=== PATIENT | female | born 1945 | race Caucasian/White ===

== ENCOUNTER → 2022-03-15 | Outpatient (CLI) | payer MEDICARE | LOC: ORTHO 13:55 | PROVIDERS: ATTEND Orthopaedic Surgery | DX: M17.0 Bilateral primary osteoarthritis of knee (principal) ==

== ENCOUNTER → 2022-05-03 | Outpatient (CLI) | payer MEDICARE, OTHER ==
[~2022-05-03] MED LIST: CHOL20003 PO; FISH1CAP15 PO; LUTE20TA PO; MAGN400T39 PO; MELO15TA39 PO; MV-M1TAB57 PO; SIMV40TA25 PO; UBID30CA13 PO; VITA-189 PO; ZINC50TA58 PO
== END ==
LOC: ORTHO 15:46
PROVIDERS: ATTEND Orthopaedic Surgery
DX: M17.0 Bilateral primary osteoarthritis of knee (principal)

== ENCOUNTER 2022-05-08 14:29 | Inpatient (IN) | payer MEDICARE, OTHER ==
[~2022-05-08] VITALS: Ht 154.9 cm; Wt 69.1 kg
[2022-05-08] VITALS (9 sets, daily range): BP systolic 85–123; BP diastolic 55–68
[2022-05-08] MEDS ORDERED: NS IV 1000 ML 1,000 ML IV STA ×2 (14:50→15:59)
[2022-05-08] MEDS ORDERED: fentaNYL INJ 100 MCG/2 ML AMP IVP STA (14:51)
--- NOTE | 2022-05-08 14:56 | ED Abdominal Pain ---
General Stated Complaint: ABD PAIN Source of Information: Patient Exam Limitations: No Limitations History of Present Illness Date Seen by Provider: May 08, 2022 Time Seen by Provider: 14:53 Initial Comments Patient is a 76-year-old in moderate distress on arrival who presents ED with generalized abdominal pain. Pain started last with a gradual onset. She reports increasing pain with diffuse tenderness and throughout. Dull pain that has developed into a sharp pain that started in her lower abdomen and now has migrated throughout. She reports nausea without vomiting. She states she has been having loose bowel movements. History of . She reports decreased urine output. Denies any fever, chest pain, cough or shortness of breath. Was placed on clindamycin last Saturday by her imaging manager secondary to concern for infection in her left ankle. Denies of any visual changes, headache, dizziness, blurry vision, loss of conscious. Patient ate a burrito around 830 this morning. Did drink water and 7-Up around 12 last drink. Has been taking Aleve and Advil since the pain started. Allergies and Home Medications Allergies Coded Allergies: No Known Drug Allergies (Unverified , 05/08/22) Patient Home Medication List Home Medication List Reviewed: Yes Review of Systems Review of Systems Constitutional: No chills, No diaphoresis, No malaise, No weakness EENTM: No Blurred Vision, No Double Vision Respiratory: Denies Cough, Denies Orthopnea Cardiovascular: Denies Chest Pain, Denies Edema Gastrointestinal: Abdominal Pain; Denies Diarrhea; Nausea; Denies Vomiting Genitourinary: Urgency Musculoskeletal: No back pain, No joint pain Skin: No change in color Psychiatric/Neurological: Denies Anxiety, Denies Depressed All Other Systems Reviewed Negative Unless Noted: Yes Physical Exam Vital Signs Vital Signs - First Documented 05/08/22 14:41 Temp 37.6 Pulse 117 Resp 20 B/P (MAP) 127/92 (104) Pulse Ox 98 Capillary Refill : Height/Weight/BMI Height: '" Weight: lbs. oz. kg; BMI Method: General Appearance: WD/WN, no apparent distress HEENT: PERRL/EOMI, normal ENT inspection, TMs normal, pharynx normal Neck: non-tender, full range of motion, supple, normal inspection Respiratory: chest non-tender, lungs clear, normal breath sounds, no respiratory distress Cardiovascular: no gallop, no JVD, tachycardia Gastrointestinal: normal bowel sounds, soft, tenderness (Diffuse tenderness) Extremities: normal range of motion, non-tender, normal inspection Back: normal inspection, no CVA tenderness Pelvic: normal external exam, normal adnexa Skin: normal color, warm/dry, other (Healing wound to the left medial ankle. No surrounding redness or swelling) Focused Exam Lactate Level 05/08/22 15:40: Lactic Acid Level 2.08*H Lactic Acid Level Laboratory Tests Test 05/08/22 15:40 Lactic Acid Level 2.08 MMOL/L (0.50-2.00) *H Progress/Results/Core Measures Results/Orders Lab Results Laboratory Tests Test 05/08/22 15:15 05/08/22 15:40 Range/Units Urine Color YELLOW Urine Clarity CLEAR Urine pH 5.0 5-9 Urine Specific [place] 1.020 1.016-1.022 Urine Protein TRACE H NEGATIVE Urine Glucose (UA) NEGATIVE NEGATIVE Urine Ketones TRACE H NEGATIVE Urine Nitrite NEGATIVE NEGATIVE Urine Bilirubin NEGATIVE NEGATIVE Urine Urobilinogen 0.2 < = 1.0 MG/DL Urine Leukocyte Esterase TRACE H NEGATIVE Urine RBC (Auto) NEGATIVE NEGATIVE Urine RBC NONE /HPF Urine WBC 0-2 /HPF Urine Squamous Epithelial Cells 2-5 /HPF Urine Crystals NONE /LPF Urine Bacteria NEGATIVE /HPF Urine Casts PRESENT /LPF Urine Hyaline Casts 0-2 H /LPF Urine Mucus SMALL H /LPF Urine Culture Indicated NO White Blood Count 28.3 H 4.3-11.0 10^3/uL Red Blood Count 3.55 L 3.80-5.11 10^6/uL Hemoglobin 10.0 L 11.5-16.0 g/dL Hematocrit 31 L 35-52 % Mean Corpuscular Volume 88 80-99 fL Mean Corpuscular Hemoglobin 28 25-34 pg Mean Corpuscular Hemoglobin Concent 32 32-36 g/dL Red Cell Distribution Width 15.5 H 10.0-14.5 % Platelet Count 450 H 130-400 10^3/uL Mean Platelet Volume 10.6 9.0-12.2 fL Immature Granulocyte % (Auto) 1 % Neutrophils (%) (Auto) 93 H 42-75 % Lymphocytes (%) (Auto) 3 L 12-44 % Monocytes (%) (Auto) 4 0-12 % Eosinophils (%) (Auto) 0 0-10 % Basophils (%) (Auto) 0 0-10 % Neutrophils # (Auto) 26.2 H 1.8-7.8 X 10^3 Lymphocytes # (Auto) 0.7 L 1.0-4.0 X 10^3 Monocytes # (Auto) 1.2 H 0.0-1.0 X 10^3 Eosinophils # (Auto) 0.0 0.0-0.3 10^3/uL Basophils # (Auto) 0.0 0.0-0.1 10^3/uL Immature Granulocyte # (Auto) 0.2 H 0.0-0.1 10^3/uL Neutrophils % (Manual) 73 % Lymphocytes % (Manual) 2 % Monocytes % (Manual) 3 % Band Neutrophils 22 % Hypochromasia SLIGHT Elliptocytes SLIGHT Prothrombin Time 16.5 H 12.2-14.7 SEC INR Comment 1.3 0.8-1.4 Activated Partial Thromboplast Time 40 H 24-35 SEC Sodium Level 136 135-145 MMOL/L Potassium Level 3.8 3.6-5.0 MMOL/L Chloride Level 104 98-107 MMOL/L Carbon Dioxide Level 22 21-32 MMOL/L Anion Gap 10 5-14 MMOL/L Blood Urea Nitrogen 21 H 7-18 MG/DL Creatinine 0.87 0.60-1.30 MG/DL Estimat Glomerular Filtration Rate 69 BUN/Creatinine Ratio 24 Glucose Level 131 H 70-105 MG/DL Lactic Acid Level 2.08 *H 0.50-2.00 MMOL/L Calcium Level 9.2 8.5-10.1 MG/DL Corrected Calcium 10.1 8.5-10.1 MG/DL Total Bilirubin 0.8 0.1-1.0 MG/DL Aspartate Amino Transf (AST/SGOT) 13 5-34 U/L Alanine Aminotransferase (ALT/SGPT) 10 0-55 U/L Alkaline Phosphatase 72 40-136 U/L C-Reactive Protein High Sensitivity 32.02 H 0.00-0.50 MG/DL Total Protein 6.3 L 6.4-8.2 GM/DL Albumin 2.9 L 3.2-4.5 GM/DL Lipase 7 L 8-78 U/L My Orders Orders - CARIN TOWNSEND Cbc With Automated Diff (05/08/22 14:47) Comprehensive Metabolic Panel (05/08/22 14:47) Lipase (05/08/22 14:47) Lactic Acid Analyzer (05/08/22 14:47) Blood Culture (05/08/22 14:47) Urinalysis (05/08/22 14:47) Partial Thromboplastin Time (05/08/22 14:47) Protime With Inr (05/08/22 14:47) Ct Abdomen/Pelvis W (05/08/22 14:47) Iv/Invasive Line Insertion .IV start (05/08/22 14:47) Hs C Reactive Protein (05/08/22 14:47) Ns Iv 1000 Ml (Sodium Chloride 0.9%) (05/08/22 14:50) Fentanyl Inj (Sublimaze Injection) (05/08/22 14:51) Manual Differential (05/08/22 15:40) Piperacillin Sodium/Tazobactam (Zosyn Vi (05/08/22 16:00) Blood Culture (05/08/22 15:58) Ns Iv 1000 Ml (Sodium Chloride 0.9%) (05/08/22 15:59) Morphine Injection (Morphine Injection (05/08/22 16:00) Iohexol Injection (Omnipaque 350 Mg/Ml 1 (05/08/22 16:30) Received Contrast (Hold Metformin- Contr (05/08/22 16:30) Sodium Chloride Flush (Catheter Flush Sy (05/08/22 16:30) Ns (Ivpb) (Sodium Chloride 0.9% Ivpb Bag (05/08/22 16:30) Ed Admission (Communication) (05/08/22 17:05) Medications Given in ED Current Medications Medications Dose Ordered Sig/Jacob Route Start Time Stop Time Status Last Admin Dose Admin Iohexol 100 ml ONCE ONCE IV 05/08/22 16:30 05/08/22 16:31 DC 05/08/22 16:41 80 ML Morphine Sulfate 4 mg ONCE ONCE IVP 05/08/22 16:00 05/08/22 16:02 DC 05/08/22 16:17 4 MG Piperacillin Sod/ Tazobactam Sod 4.5 gm/Sodium Chloride 100 ml @ 200 mls/hr ONCE ONCE IV 05/08/22 16:00 05/08/22 16:29 DC 05/08/22 16:18 200 MLS/HR Sodium Chloride 10 ml NEEDED PRN IV 05/08/22 16:30 05/08/22 16:42 10 ML Sodium Chloride 100 ml ONCE ONCE IV 05/08/22 16:30 05/08/22 16:31 DC 05/08/22 16:41 80 ML Vital Signs/I&O 05/08/22 14:41 Temp 37.6 Pulse 117 Resp 20 B/P (MAP) 127/92 (104) Pulse Ox 98 Departure Communication (Admissions) Time/Spoke to Admitting Phy: 17:05 Dr. Walker accepts Communication (PCP) Patient tachycardic mild distress. Generalized abdominal pain with guarding. Sepsis protocol was initiated. White blood count 28,000. Started on Zosyn. Lactic acid 2.0. Patient Was given 2 L of fluid, fentanyl and morphine. Patient had a hemoglobin of 10. Patient with elevated CRP 32. CT abdomen pelvis shows free air in the abdomen. Radiology contacted me regarding unclear source. Very were concern for possible cecum versus sigmoid colon involvement. This was discussed with Dr. Walker who recommends going to the OR. Patient will be admitted to the ICU . type and screen was started. EKG showed sinus tachycardia. No chest pain shortness of breath or cough. She is not diabetic. Last time she ate or drink was around 12. She has been taking Aleve but denies excessive amount. No history gastric bypass surgery. Impression Primary Impression: Peritoneal free air Disposition: ADMITTED INPATIENT Condition: Stable Admissions Decision to Admit Reason: Admit from ER (General) Decision to Admit/Date: May 08, 2022 Time/Decision to Admit Time: 17:04 Departure-Patient Inst. Referrals: MARTIN EVANS MD (PCP/Family) Primary Care Physician CARIN TOWNSEND May 08, 2022 14:56
[2022-05-08 15:37] LABS: BILIRUBIN,URINE NEGATIVE (NEGATIVE); CLARITY,URINE CLEAR; COLOR,URINE YELLOW; GLUCOSE, URINE (UA) NEGATIVE (NEGATIVE); KETONES,URINE TRACE (NEGATIVE); LEUKOCYTE ESTERASE ,URINE TRACE (NEGATIVE); NITRITE,URINE NEGATIVE (NEGATIVE); PROTEIN,URINE TRACE (NEGATIVE)
[2022-05-08 15:46] LABS: BACTERIA,URINE NEGATIVE /HPF; HYALINE CASTS, URINE 0-2 /LPF; WBC,URINE 0-2 /HPF
[2022-05-08 15:51] LABS: BASOPHILS % (AUTO) 0 % (0-10); EOSINOPHILS % (AUTO) 0 % (0-10); HEMATOCRIT 31 % (35-52); LYMPHOCYTES # (AUTO) 0.7 X 10^3 (1.0-4.0); LYMPHOCYTES % (AUTO) 3 % (12-44); MEAN CORPUSCULAR HEMOGLOBIN 28 pg (25-34); MEAN CORPUSCULAR HGB CONC 32 g/dL (32-36); MEAN CORPUSCULAR VOLUME 88 fL (80-99); MEAN PLATELET VOLUME 10.6 fL (9.0-12.2); MONOCYTES # (AUTO) 1.2 X 10^3 (0.0-1.0); MONOCYTES % (AUTO) 4 % (0-12); NEUTROPHILS # (AUTO) 26.2 X 10^3 (1.8-7.8); NEUTROPHILS % (AUTO) 93 % (42-75); PLATELET COUNT 450 10^3/uL (130-400); WHITE BLOOD COUNT 28.3 10^3/uL (4.3-11.0)
[2022-05-08] MEDS ORDERED: PIPERACILLIN SODIUM/TAZOBACTAM 4.5 GM in NS (IVPB) 100 ML IV ONE (16:00)
[2022-05-08] MEDS ORDERED: morphine INJ 10 MG/ML 1ML (SYR OR VIAL) IVP ONE ×2 (16:00→18:00)
[2022-05-08 16:01] LABS: ALBUMIN 2.9 GM/DL (3.2-4.5); POTASSIUM 3.8 MMOL/L (3.6-5.0)
[2022-05-08 16:02] LABS: CALCIUM 9.2 MG/DL (8.5-10.1)
[2022-05-08 16:03] LABS: INR 1.3 (0.8-1.4); PROTHROMBIN TIME PATIENT 16.5 SEC (12.2-14.7); TOTAL PROTEIN 6.3 GM/DL (6.4-8.2)
[2022-05-08 16:05] LABS: BILIRUBIN,TOTAL 0.8 MG/DL (0.1-1.0)
[2022-05-08 16:07] LABS: CREATININE SERUM 0.87 MG/DL (0.60-1.30)
[2022-05-08 16:09] LABS: BAND NEUTROPHILS 22 %; LYMPHOCYTES % (MANUAL) 2 %; MONOCYTES % (MANUAL) 3 %; NEUTROPHILS % (MANUAL) 73 %
[2022-05-08 16:10] LABS: ELLIPT/OVALOCYTES SLIGHT; HYPOCHROMASIA SLIGHT
[2022-05-08] MEDS ORDERED: HOLD METFORMIN - RECEIVED CONTRAST 20 ML VIAL IV SCH (16:30)
[2022-05-08] MEDS ORDERED: CATHETER FLUSH 10 ML SYR IV PRN (16:30)
[2022-05-08] MEDS ORDERED: IOHEXOL 350 MG/ML 100 ML (OMNIPAQUE 350) VIAL IV ONE (16:30)
[2022-05-08] MEDS ORDERED: NS 100 ML (IVPB) BAG IV ONE (16:30)
--- NOTE | 2022-05-08 16:55 | Diagnostic Imaging Report ---
EXAMINATION: CT abdomen and pelvis with intravenous contrast. TECHNIQUE: Multiple contiguous axial images were obtained through the abdomen and pelvis after the uneventful administration of intravenous contrast. All CT scans use one or more of the following dose optimizing techniques: Automated exposure control, MA and/or KvP adjustment based on patient size and exam type or iterative reconstruction. HISTORY: Abdominal pain. COMPARISON: None available. FINDINGS: Limited views of the lower thorax show bibasilar atelectasis. The liver is normal without focal lesion. There is no biliary ductal dilation. Gallbladder is normal. Pancreas is normal. Spleen is normal. Adrenal glands are normal. The kidneys are normal. There is no hydronephrosis. Urinary bladder is normal. There is a moderate amount of free air in the abdomen. There is wall thickening at the cecum with irregularity of the wall. The sigmoid colon also appears thickened and contains multiple diverticula. No drainable fluid collection is seen. Small amount of free fluid is present. No abdominal or pelvic lymphadenopathy. Aorta is normal in caliber without aneurysm. There are no suspicious osseous lesions. IMPRESSION: 1. Moderate amount of free fluid in the abdomen in keeping with a perforated viscus. Exact site is difficult to identify with both the cecum and sigmoid colon appearing thick walled and potentially representing the site of perforation. Critical findings were called to Dr. Arreola by Dr. Gutierrez on 05/08/2022 at 4:50 p.m. Dictated by: Dictated on workstation # [id number]
--- NOTE | 2022-05-08 17:42 | Consultation - Surgery ---
History of Present Illness History of Present Illness Patient Consulted On(derek/time) 05/08/22 17:36 Date Seen by Provider: May 08, 2022 Time Seen by Provider: 17:36 History of Present Illness Seen and Evaluated in ED. Poor historian Patient is a 76 year old female who had been having lower abdominal pain about 4 days. It migrated now to entire abdomen. Dull to sharp pain. Severe pain. Had been taking Meloxicam, Tylenol, and Ibuprofen for about the last month. Having nausea no emesis. 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 Ct scan showing free air no specific site of perforation, slight colon thickening of cecum and sigmoid. Recently placed on Clindamycin for left ankle infection. Allergies and Home Medications Allergies Coded Allergies: No Known Drug Allergies (Unverified , 05/08/22) Patient Home Medication List Home Medication List Reviewed: Yes Past Fpcgoqe-Dxcino-Dfkhaj Hx Patient Social History Alcohol Use?: No Surgeries Surgeries: Section, Orthopedic Reviewed Nursing Assessment Reviewed/Agree w Nursing PMH: Yes Family Medical History Significant Family History: No Pertinent Family Hx Review of Systems-General Constitutional: No chills, No diaphoresis; weakness EENTM: No blurred vision, No double vision Respiratory: No cough, No dyspnea on exertion Gastrointestinal: abdominal pain (diffuse), nausea; No vomiting Genitourinary: decreased output; No discharge Musculoskeletal: joint pain (left knee) Skin: No change in color, No change in hair/nails Psychiatric/Neurological: Denies Anxiety, Denies Depressed, Denies Emotional Problems All Other Systems Reviewed Negative Unless Noted: Yes (Negative excepted noted.) Physical Exam-General Problems Physical Exam Vital Signs Vital Signs - First Documented 05/08/22 14:41 Temp 37.6 Pulse 117 Resp 20 B/P (MAP) 127/92 (104) Pulse Ox 98 Capillary Refill : General Appearance: moderate distress, thin HEENT: PERRL/EOMI, normal ENT inspection Neck: non-tender, supple Respiratory: chest non-tender, no respiratory distress, no accessory muscle use Cardiovascular: no JVD, tachycardia Gastrointestinal: distended (slight), guarding, rebound, tenderness Rectal: deferred Back: normal inspection, no CVA tenderness Extremities: non-tender, normal inspection Neurologic/Psychiatric: alert, normal mood/affect, oriented x 3 Skin: normal color, warm/dry, other (left medial ankle small blister/scab, no surrounding erythema) Lymphatic: no adenopathy Data Review Labs Laboratory Tests 05/08/22 15:15: Urine Color YELLOW, Urine Clarity CLEAR, Urine pH 5.0, Urine Specific [place] 1.020, Urine Protein TRACEH, Urine Glucose (UA) NEGATIVE, Urine Ketones TRACEH, Urine Nitrite NEGATIVE, Urine Bilirubin NEGATIVE, Urine Urobilinogen 0.2, Urine Leukocyte Esterase TRACEH, Urine RBC (Auto) NEGATIVE, Urine RBC NONE, Urine WBC 0-2, Urine Squamous Epithelial Cells 2-5, Urine Crystals NONE, Urine Bacteria NEGATIVE, Urine Casts PRESENT, Urine Hyaline Casts 0-2H, Urine Mucus SMALLH, Urine Culture Indicated NO 05/08/22 15:40: White Blood Count 28.3H, Red Blood Count 3.55L, Hemoglobin 10.0L, Hematocrit 31L , Mean Corpuscular Volume 88, Mean Corpuscular Hemoglobin 28, Mean Corpuscular Hemoglobin Concent 32, Red Cell Distribution Width 15.5H, Platelet Count 450H, Mean Platelet Volume 10.6, Immature Granulocyte % (Auto) 1, Neutrophils (%) (Auto) 93H, Lymphocytes (%) (Auto) 3L, Monocytes (%) (Auto) 4, Eosinophils (%) (Auto) 0, Basophils (%) (Auto) 0, Neutrophils # (Auto) 26.2H, Lymphocytes # (A uto) 0.7L, Monocytes # (Auto) 1.2H, Eosinophils # (Auto) 0.0, Basophils # (Auto) 0.0, Immature Granulocyte # (Auto) 0.2H, Neutrophils % (Manual) 73, Lymphocytes % (Manual) 2, Monocytes % (Manual) 3, Band Neutrophils 22, Hypochromasia SLIGHT, Elliptocytes SLIGHT, Prothrombin Time 16.5H, INR Comment 1.3, Activated Partial Thromboplast Time 40H, Sodium Level 136, Potassium Level 3.8, Chloride Level 104, Carbon Dioxide Level 22, Anion Gap 10, Blood Urea Nitrogen 21H, Creatinine 0.87, Estimat Glomerular Filtration Rate 69, BUN/Creatinine Ratio 24, Glucose Level 131H, Lactic Acid Level 2.08*H, Calcium Level 9.2, Corrected Calcium 10.1, Total Bilirubin 0.8, Aspartate Amino Transf (AST/SGOT) 13, Alanine Aminotransferase (ALT/SGPT) 10, Alkaline Phosphatase 72, C-Reactive Protein High Sensitivity 32.02H, Total Protein 6.3L, Albumin 2.9L, Lipase 7L Assessment/Plan Assessment/Plan Assessment/Plan diffuse abdominal pain pneumoperitenum perforated hollow viscus patient discussed diagnostic laparoscopy possible open exploratory laparotomy all other indicated procedures. she understands risks and benefits and wishes to proceed sepsis orders put in by ED. NPO To or for surgery IV fluids reviewed ct not sure where perf is located, could be upper due to meloxicam / ibuprofen use or colon in nature, understand may need colostomy or remain intubated. ARUN SHERMAN DO May 08, 2022 17:42
[2022-05-08] MEDS ORDERED: LIDOCAINE PF 2% 5 ML (XYLOCAINE) VIAL ONE (17:43)
[2022-05-08] MEDS ORDERED: SEVOFLURANE (ULTANE) 15 ML INHAL SOLN ONE ×3 (17:43→19:49)
[2022-05-08] MEDS ORDERED: ONDANSETRON 4 MG/2 ML (SDV) Z0FRAN ONE (17:43)
[2022-05-08] MEDS ORDERED: MIDAZOLAM 2 MG/2 ML (VERSED) VIAL ONE (17:43)
[2022-05-08] MEDS ORDERED: fentaNYL INJ 100 MCG/2 ML AMP ONE (17:43)
[2022-05-08] MEDS ORDERED: proPOfol 200 MG/20 ML (DIPRIVAN) VIAL IV ONE (17:43)
[2022-05-08] MEDS ORDERED: LIDOCAINE/EPI 2% 1:200,00 (XYLOCAINE) 20 ML VIAL ONE (17:49)
[2022-05-08] MEDS: LACTATED RINGERS 1,000 ML IV PRN ×3 (17:58→20:20)
[2022-05-08] MEDS ORDERED: fentaNYL INJ 100 MCG/2 ML AMP IVP ONE (18:00)
[2022-05-08] MEDS ORDERED: MEPERIDINE (DEMEROL) INJ 50 MG/ML IVP ONE (18:00)
[2022-05-08] MEDS ORDERED: ONDANSETRON 4 MG/2 ML (SDV) Z0FRAN IVP PRN (18:00)
[2022-05-08] MEDS ORDERED: PHENYLEPHRINE 100 MCG/ML 10 ML (ANESTHESIA) SYR ONE (18:19)
[2022-05-08] MEDS ORDERED: ROCURONIUM 50 MG/5 ML (ZEMURON) VIAL IV ONE (19:35)
[2022-05-08] MEDS ORDERED: SUCCINYLCHOLINE INJ 100 MG/5 ML SYR/VIAL ONE (19:35)
[2022-05-08] MEDS ORDERED: PROPOFOL DRIP (ICU) 100 ML IV ONE (20:16)
--- NOTE | 2022-05-08 20:18 | Progress Note-Post Operative ---
Post-Operative Progess Note Surgeon (s)/Parking Supervisor (s) Surgeon ARUN SHERMAN DO Parking Supervisor: Dr. Moralez Pre-Operative Diagnosis pneumoperiteneum Post-Operative Diagnosis perforated sigmoid colon Procedure & Operative Findings Date of Procedure 05/08/22 Procedure Performed/Findings diagnostic to open exploratory laparotomy, low anterior resection with end colostomy, mobilization of splenic flexure Anesthesia Type general Estimated Blood Loss Estimated blood loss (mL): 100 mL Specimens/Packing Specimens Removed sigmoid ARUN SHERMAN DO May 08, 2022 20:18
--- NOTE | 2022-05-08 20:31 | Tele-ICU Progress Note ---
Progress Note 76F with unknown history presented with acute abdomen, found to have free air in abdomen. Surgical notes not yet available, per reported had ex lap with abdominal washout, bowel resection and ostomy placement. - sepsis: secondary to bowel perforation. Lactic low and no end organ damage. Cultures pending, broad spectrum abx initiated. Will repeat lactic x1 post op. - bowel perf: awaiting surgical notes. Monitor FLYNN and ostomy output. Post op labs pending. - ARF: intubated for surgical procedure. Will send ABG and adjust vent accordingly. SBT in AM per protocol. CXR pending. Focused Exam Lactate Level 05/08/22 15:40: Lactic Acid Level 2.08*H 05/08/22 17:35: Lactic Acid Level 1.80 Height, Weight, BMI Height: '" Weight: lbs. oz. kg; 25.00 BMI Method: Lactic Acid Level Laboratory Tests Test 05/08/22 17:35 Lactic Acid Level 1.80 MMOL/L (0.50-2.00) ANNE MURILLO MD May 08, 2022 20:31
--- NOTE | 2022-05-08 20:41 | Diagnostic Imaging Report ---
INDICATION: Intubated patient. COMPARISON: None FINDINGS: Single frontal radiographic view of the chest was obtained and demonstrates indwelling endotracheal tube below the clavicular heads and above the sophia. Gastric tube tip terminates just above the esophageal hiatus. Cardiac silhouette and pulmonary vasculature are within normal limits. Lungs are clear. There is no focal consolidation, large effusion, nor pneumothorax. Osseous structures show no gross acute abnormalities. IMPRESSION: 1. Lines and tubes as above. Recommend advancing the gastric tube 9 cm. Dictated by: Dictated on workstation # [id number]
[2022-05-08 21:03] LABS: BASOPHILS # (AUTO) 0.1 10^3/uL (0.0-0.1); BASOPHILS % (AUTO) 0 % (0-10); EOSINOPHILS % (AUTO) 0 % (0-10); HEMATOCRIT 33 % (35-52); HEMOGLOBIN 10.5 g/dL (11.5-16.0); LYMPHOCYTES # (AUTO) 0.6 10^3/uL (1.0-4.0); LYMPHOCYTES % (AUTO) 3 % (12-44); MEAN CORPUSCULAR HEMOGLOBIN 28 pg (25-34); MEAN CORPUSCULAR HGB CONC 32 g/dL (32-36); MEAN CORPUSCULAR VOLUME 88 fL (80-99); MEAN PLATELET VOLUME 10.9 fL (9.0-12.2); MONOCYTES # (AUTO) 0.8 10^3/uL (0.0-1.0); MONOCYTES % (AUTO) 3 % (0-12); NEUTROPHILS # (AUTO) 22.4 10^3/uL (1.8-7.8); NEUTROPHILS % (AUTO) 93 % (42-75); PLATELET COUNT 455 10^3/uL (130-400); WHITE BLOOD COUNT 24.1 10^3/uL (4.3-11.0)
[2022-05-08 21:16] LABS: ALBUMIN 2.6 GM/DL (3.2-4.5); POTASSIUM 4.7 MMOL/L (3.6-5.0)
[2022-05-08 21:18] LABS: CALCIUM 8.9 MG/DL (8.5-10.1)
[2022-05-08 21:19] LABS: INR 1.3 (0.8-1.4); PROTHROMBIN TIME PATIENT 16.8 SEC (12.2-14.7); TOTAL PROTEIN 5.5 GM/DL (6.4-8.2)
[2022-05-08] MEDS: cefTRIAXone 1 GM PRE-MIX 50 ML IV SCH (21:20)
[2022-05-08 21:21] LABS: BILIRUBIN,TOTAL 0.7 MG/DL (0.1-1.0)
[2022-05-08 21:22] LABS: PHOSPHORUS 3.5 MG/DL (2.3-4.7)
[2022-05-08 21:23] LABS: CREATININE SERUM 0.78 MG/DL (0.60-1.30)
[2022-05-08 21:26] LABS: MAGNESIUM 1.6 MG/DL (1.6-2.4)
[2022-05-08] MEDS: PROPOFOL DRIP (ICU) 100 ML IV SCH (21:26)
[2022-05-08] MEDS: LACTATED RINGERS 1,000 ML IV SCH (21:27)
[2022-05-08 21:33] LABS: BAND NEUTROPHILS 22 %; LYMPHOCYTES % (MANUAL) 1 %; METAMYELOCYTES % 1 %; MONOCYTES % (MANUAL) 3 %; NEUTROPHILS % (MANUAL) 73 %
[2022-05-08 21:34] LABS: ANISOCYTOSIS SLIGHT
[2022-05-08] MEDS: metroNIDAZOLE 500MG/100ML IVPB 100 ML IV SCH (21:47)
[2022-05-08] MEDS: fentaNYL INJ 100 MCG/2 ML AMP IVP PRN ×2 (22:10→23:13)
[2022-05-09 02:06] VITALS: BP 99/53
--- NOTE | 2022-05-09 04:11 | Tele-ICU Progress Note ---
Subjective Date Seen by a Provider: May 09, 2022 Time Seen by a Provider: 04:08 Subjective/Events-last exam called by bed side rn; pt is more hypotensive/ lower urine output; Sepsis Event Evaluation Height, Weight, BMI Height: '" Weight: lbs. oz. kg; 29.25 BMI Method: Focused Exam Lactate Level 05/08/22 17:35: Lactic Acid Level 1.80 05/08/22 20:50: Lactic Acid Level 2.27*H 05/08/22 23:15: Lactic Acid Level 1.49 Exam Exam Patient acknowledged, consented, and participated in this virtual visit which was conducted using real time audio/video Vital Signs Date Time Temp Pulse Resp B/P (MAP) Pulse Ox O2 Delivery O2 Flow Rate FiO2 05/09/22 03:57 36.7 05/09/22 02:06 95 15 99 30 05/09/22 01:26 93 92/59 05/09/22 01:00 97 12 101/56 97 Mechanical Ventilator 30.00 05/09/22 01:00 97 05/09/22 00:03 93 12 94/68 97 Mechanical Ventilator 30.00 05/09/22 00:00 37.2 05/08/22 23:37 96 Mechanical Ventilator 25 05/08/22 23:00 98 12 101/61 95 Mechanical Ventilator 30.00 05/08/22 22:00 97 12 126/70 97 Mechanical Ventilator 30.00 05/08/22 21:53 99 20 94 30 05/08/22 21:53 101 12 95 Mechanical Ventilator 30.00 05/08/22 21:45 94 12 123/55 92 Mechanical Ventilator 21.00 05/08/22 21:30 92 12 116/62 93 Mechanical Ventilator 21.00 05/08/22 21:15 95 12 129/60 93 Mechanical Ventilator 21.00 05/08/22 21:00 93 05/08/22 21:00 36.2 20 122/67 (85) 95 Mechanical Ventilator 05/08/22 21:00 Mechanical Ventilator 05/08/22 21:00 93 12 128/72 96 Mechanical Ventilator 21.00 05/08/22 20:50 16 122/67 (85) 94 Mechanical Ventilator 05/08/22 20:45 Mechanical Ventilator 05/08/22 20:40 20 119/68 (85) 92 Mechanical Ventilator 05/08/22 20:30 Mechanical Ventilator 05/08/22 20:30 16 117/65 (82) 92 Mechanical Ventilator 05/08/22 20:20 16 109/63 (78) 97 Mechanical Ventilator 05/08/22 20:15 100 13 96 21 05/08/22 20:15 Mechanical Ventilator 05/08/22 20:10 16 109/63 (78) 97 Mechanical Ventilator 05/08/22 20:01 Mechanical Ventilator 05/08/22 20:01 36.2 16 85/55 (65) 100 Mechanical Ventilator 05/08/22 20:01 94 Mechanical Ventilator 21 05/08/22 17:55 113 132/74 95 05/08/22 14:41 37.6 117 20 127/92 (104) 98 I & O 05/09/22 07:00 Intake Total 4100 ml Output Total 872 ml Balance 3228 ml Height & Weight Height: '" Weight: lbs. oz. kg; 29.25 BMI Method: General Appearance: No Apparent Distress Gastrointestinal: normal bowel sounds, soft, tenderness (Diffuse tenderness) Results Lab Laboratory Tests 05/08/22 15:40 05/08/22 20:50 Assessment/Plan Assessment/Plan Hypotension/ low urine out put in the context of low oncotic state and sp abd surgery ( suspect significant third spaces). - we will give 1l LR bolus/ albumin one dose. -monitor urine output hourly -abg basic labs to be repeated dw bed side rn apparently the abd continues to be soft ILIESCU-EVGENY FULLER MD May 09, 2022 04:11
[2022-05-09] MEDS ORDERED: LACTATED RINGERS 1,000 ML IV SCH (04:15)
[2022-05-09] MEDS ORDERED: ALBUMIN 25% 25 GM/100 ML 100 ML IV ONE (04:15)
[2022-05-09] MEDS: LACTATED RINGERS 1,000 ML IV SCH ×3 (04:27→19:58)
[2022-05-09 06:01] LABS: BASOPHILS # (AUTO) 0.1 10^3/uL (0.0-0.1); BASOPHILS % (AUTO) 0 % (0-10); EOSINOPHILS % (AUTO) 0 % (0-10); HEMATOCRIT 29 % (35-52); HEMOGLOBIN 9.3 g/dL (11.5-16.0); LYMPHOCYTES # (AUTO) 0.8 10^3/uL (1.0-4.0); LYMPHOCYTES % (AUTO) 4 % (12-44); MEAN CORPUSCULAR HEMOGLOBIN 28 pg (25-34); MEAN CORPUSCULAR HGB CONC 32 g/dL (32-36); MEAN CORPUSCULAR VOLUME 88 fL (80-99); MEAN PLATELET VOLUME 11.4 fL (9.0-12.2); MONOCYTES # (AUTO) 0.8 10^3/uL (0.0-1.0); MONOCYTES % (AUTO) 4 % (0-12); NEUTROPHILS # (AUTO) 19.8 10^3/uL (1.8-7.8); NEUTROPHILS % (AUTO) 92 % (42-75); PLATELET COUNT 372 10^3/uL (130-400); WHITE BLOOD COUNT 21.5 10^3/uL (4.3-11.0)
[2022-05-09 06:03] LABS: ALBUMIN 2.6 GM/DL (3.2-4.5); POTASSIUM 4.4 MMOL/L (3.6-5.0)
[2022-05-09 06:06] LABS: TOTAL PROTEIN 5.3 GM/DL (6.4-8.2)
[2022-05-09 06:08] LABS: BILIRUBIN,TOTAL 0.4 MG/DL (0.1-1.0)
[2022-05-09 06:09] LABS: CREATININE SERUM 0.73 MG/DL (0.60-1.30)
--- NOTE | 2022-05-09 06:09 | OPERATIVE REPORT ---
DATE OF SERVICE: 05/08/2022 PREOPERATIVE DIAGNOSIS: Pneumoperitoneum. POSTOPERATIVE DIAGNOSES: Perforated sigmoid colon. PROCEDURES: Diagnostic to open exploratory laparotomy, low anterior resection with colostomy, mobilization of splenic flexure. SURGEON: Arun Walker DO. STRAIGHTENING PRESS OPERATOR: Dr. Moralez, assisted in retraction, dissection and closure. ANESTHESIA: General. ESTIMATED BLOOD LOSS: 100 mL. COMPLICATIONS: None. INDICATIONS: The patient is a 76-year-old female who presented with significant abdominal pain, found to have pneumoperitoneum. She was discussed risks and benefits of procedure and wished to proceed. Consent was signed in the chart. DESCRIPTION OF PROCEDURE: The patient was taken to the operating suite, was prepped and draped in sterile fashion. Timeout was performed. Local anesthetic was infiltrated above the umbilicus. A 11-blade scalpel was used to make a small skin incision and cautery used to dissect down through the subcutaneous tissue. The fascia was then divided, and the abdomen was then entered. Free air came out. A pierce trocar was inserted and pneumoperitoneum was achieved. The abdomen was then inspected, lots of purulent material in different areas with the small bowel and colon looking inflamed and irritated. The gutter around the liver had some purulent material around it, the stomach had normal appearance. A 5 mm trocar was placed in the right upper quadrant and helped to inspect some small bowel stuck down in the pelvis, which then we found what appeared to be perforation down in the sigmoid colon. At this time, we converted to open procedure. The abdomen was opened along the midline. The small bowel was then continued to be ran, it was tucked down in the pelvis, which had to be mobilized with cautery and blunt dissection. A small superficial serosal tear was made, 3-0 silk suture was placed in a [id number] fashion to close it. The small bowel was then ran from the ileocecal valve all the way to the ligament of Treitz without any other pathology. The colon was inspected. There was tattooing in the rectum and also in the sigmoid colon proximally, the perforation was between these two areas. It is firm and irritated. At this time, cautery and blunt dissection was used to get around the distal portion of the rectum distally distal to the tattoo. This was nice and smooth. Contour stapler was then fired. Using LigaSure, this was then mobilized proximally until we were proximal to the tattoo, which was then divided around, and a contour reload was then fired, removing the sigmoid colon. The colon was continued to be mobilized along the white line of Toldt all the way up around the transverse colon, mobilizing the splenic flexure to gain length in order to form colostomy. Copious amounts of irrigation was used to irrigate the abdomen. Hemostasis was achieved. Small ak chin skin incision was made for the colostomy formation. The skin and subcutaneous tissue was removed. The anterior fascia was then divided in a cruciate fashion and the muscle was divided and the posterior fascia was then divided. Two fingers were used to dilate the colon was unable to be brought up through the abdominal wall and the abdomen was then irrigated again. A 19 Shawn drain was placed down in the pelvis and brought out through the 5 mm trocar site in the right upper quadrant. This was then secured with 3-0 silk suture. The fascia was then closed using 1-0 looped PDS. Skin was then closed with feng after irrigating with copious amounts of irrigation. A 10/10 drape was then placed over the incisions. The colostomy was then matured using a 3-0 Vicryl sutures brooking the ostomy. The area was then washed and dried and colostomy appliance was applied. Sterile bandages were applied. The patient tolerated procedure well. She is still septic and in a critical condition, moving to the Intensive Care Unit. Job ID: [id number] DocumentID: [id number] Dictated Date: 05/08/2022 20:24:01 Ios Architect Date: 05/09/2022 06:09:02 Dictated By: ARUN WALKER DO
[2022-05-09 06:39] VITALS: BP 127/63
--- NOTE | 2022-05-09 07:29 | Consultation - Hospitalist ---
HPI History of Present Illness: HPI/Chief Complaint Patient is a 76-year-old female with a past medical history of hyperlipidemia, hypertension, anxiety who presented to the emergency department due to abdominal pain. She is currently intubated and unable to provide her history. All history is obtained from the records. She stated her symptoms started on May 03 and have been increasing since that time. She reports it was a dull pain that progressed to a sharp pain in her lower abdomen and migrated throughout her entire abdomen. She had nausea. She had loose bowel movements. Her only surgical history is a . She had been taking Aleve and Advil for her pain at home. CT abdomen was done which showed free air throughout the abdomen. Dr. Walker admitted patient and took her immediately to the OR where resection with colostomy was done. She remained on the ventilator postoperatively overnight and is currently undergoing a weaning trial. Source: patient Date Seen 05/09/22 Attending Physician Luis Manuel Alcantar MD PCP Admitting Physician: Anil Walker DO Attending Physician: Anil Walker DO Referring Physician Date of Admission May 08, 2022 at 17:07 Home Medications & Allergies Home Medications Reviewed patient Home Medication Reconciliation performed by pharmacy medication reconciliations neurodiagnostic technician and/or nursing. Patients Allergies have been reviewed. Allergies Allergies Coded Allergies No Known Drug Allergies (Unverified05/08/22) Past Lkdmoon-Qodxio-Wmstvm Hx Patient Social History Tobacco Use?: No Use of E-Cig and/or Vaping dev: No Substance use?: No Alcohol Use?: No Current Status Communicates: Verbally Primary Language: South Korean Preferred Spoken Language: South Korean Is interpretation needed?: No Past Medical History Surgeries: Section, Orthopedic Currently Using CPAP: No Currently Using BIPAP: No High Cholesterol, Hypertension Anxiety Family Medical History Reviewed Nursing Family Hx No Pertinent Family Hx Review of Systems ROS-Unable to Obtain: on vent Constitutional: see HPI Physical Exam Physical Exam Vital Signs Vital Signs - First Documented 05/08/22 05/08/22 14:41 21:00 Temp 37.6 Pulse 117 Resp 20 B/P (MAP) 127/92 (104) Pulse Ox 98 O2 Flow Rate 21.00 Capillary Refill : Less Than 3 Seconds Height, Weight, BMI Height: '" Weight: lbs. oz. kg; 30.17 BMI Method: General Appearance: No Apparent Distress, WD/WN, Other (on vent, sedation off a nd tracking with her eyes, able to answer simple yes or no questions) HEENT: PERRL/EOMI, Moist Mucous Membranes; No Scleral Icterus (L), No Scleral Icterus (R) Neck: Normal Inspection, Supple Respiratory: Lungs Clear, No Accessory Muscle Use, No Respiratory Distress Cardiovascular: Regular Rate, Rhythm, No JVD, No Murmur, Normal Peripheral Pulses Gastrointestinal: Abnormal Bowel Sounds (quiet); No Distended; Other (midline surgical wound with ABD dressing in place and scant serosanguinous drainage on it, Colostomy, and FLYNN drain with serosanguinous fluid ) Genital/Rectal: Other (tanner) Neurologic/Psychiatric: Alert, Other (seemed to answer some yes or no questions appropriately) Skin: Normal Color, Warm/Dry Results Results/Procedures Labs Laboratory Tests 05/08/22 15:40 05/08/22 20:50 05/09/22 05:22 Patient resulted labs reviewed. Imaging: Reviewed Imaging Report Imaging [facility], [place] NAME: JUSTIN MONCADA [facility] REC#: [id number] PT STATUS: REG ER : 1945 PHYSICIAN: CARIN TOWNSEND ADMIT DATE: 05/08/22/ER Signed Date of Exam:05/08/22 CT ABDOMEN/PELVIS W EXAMINATION: CT abdomen and pelvis with intravenous contrast. TECHNIQUE: Multiple contiguous axial images were obtained through the abdomen and pelvis after the uneventful administration of intravenous contrast. All CT scans use one or more of the following dose optimizing techniques: Automated exposure control, MA and/or KvP adjustment based on patient size and exam type or iterative reconstruction. HISTORY: Abdominal pain. COMPARISON: None available. FINDINGS: Limited views of the lower thorax show bibasilar atelectasis. The liver is normal without focal lesion. There is no biliary ductal dilation. Gallbladder is normal. Pancreas is normal. Spleen is normal. Adrenal glands are normal. The kidneys are normal. There is no hydronephrosis. Urinary bladder is normal. There is a moderate amount of free air in the abdomen. There is wall thickening at the cecum with irregularity of the wall. The sigmoid colon also appears thickened and contains multiple diverticula. No drainable fluid collection is seen. Small amount of free fluid is present. No abdominal or pelvic lymphadenopathy. Aorta is normal in caliber without aneurysm. There are no suspicious osseous lesions. IMPRESSION: 1. Moderate amount of free fluid in the abdomen in keeping with a perforated viscus. Exact site is difficult to identify with both the cecum and sigmoid colon appearing thick walled and potentially representing the site of perforation. Critical findings were called to Dr. Townsend by Dr. Strong on 05/08/2022 at 4:50 p.m. Dictated by: Dictated on workstation # [id number] Dict: 05/08/22 1643 Trans: 05/08/221706 [id number] Interpreted by: ZORA STRONG MD Electronically signed by: ZORA STRONG MD 05/08/221706 [facility]. [place], [place] NAME: JUSTIN MONCADA [facility] REC#: [id number] PT STATUS: ADM IN : 1945 PHYSICIAN: ANNE MURILLO MD ADMIT DATE: 05/08/22/ICU Draft Date of Exam:05/08/22 CHEST 1 VIEW, AP/PA ONLY INDICATION: Intubated patient. COMPARISON: None FINDINGS: Single frontal radiographic view of the chest was obtained and demonstrates indwelling endotracheal tube below the clavicular heads and above the sophia. Gastric tube tip terminates just above the esophageal hiatus. Cardiac silhouette and pulmonary vasculature are within normal limits. Lungs are clear. There is no focal consolidation, large effusion, nor pneumothorax. Osseous structures show no gross acute abnormalities. IMPRESSION: 1. Lines and tubes as above. Recommend advancing the gastric tube 9 cm. Dictated on workstation # [id number] Dict: 05/08/222037 Trans: 05/08/222040 [facility]B [id number] Interpreted by: TG ALMANZAR MD Electronically signed by: Assessment/Plan Assessment and Plan Assess & Plan/Chief Complaint Perforated sigmoid colon Severe Sepsis- POA s/p ex lap with resection and colostomy Management per primary Leukocytosis with tachycardia and lactic acidosis on arrival Became hypotensionx1 overnight but likely due to sedation and not sepsis/septic shock Continue IV abx Await cultures Postoperative respiratory insufficiency Remained on ventilator overnight Currently undergoing weaning trial ABG due at 8am, anticipate will be liberated from [facility] consulted, appreciate recs Anemia Hgb 10 on arrival, no baseline available 9.3 this AM, trend HTN HLD Bp well controlled, trend add prns IV if needed until able to take PO intake per surgery DVT ppx: Lovenox when ok with surgery Diagnosis/Problems Diagnosis/Problems (1) Perforated sigmoid colon Status: Acute (2) Severe sepsis Status: Acute (3) HTN (hypertension) Status: Chronic Qualifiers: Hypertension type: primary hypertension Qualified Codes: I10 - Essential (primary) hypertension (4) HLD (hyperlipidemia) Status: Chronic Qualifiers: Hyperlipidemia type: mixed hyperlipidemia Qualified Codes: E78.2 - Mixed hyperlipidemia (5) Anemia Status: Chronic Qualifiers: Anemia type: unspecified type Qualified Codes: D64.9 - Anemia, unspecified (6) Respiratory insufficiency Status: Acute (7) Peritoneal free air Status: Acute NIDIA GREENWOOD MD May 09, 2022 07:29
--- NOTE | 2022-05-09 07:40 | Anesthesia-General Post-Op ---
General Patient Condition Mental Status/LOC: Same as Preop Cardiovascular: Satisfactory Nausea/Vomiting: Absent Respiratory: Satisfactory Pain: Controlled Complications: Absent Post Op Complications Complications None Follow Up Care/Instructions Patient Instructions None needed. Anesthesia/Patient Condition Patient Condition Patient is doing well, no complaints, stable vital signs, no apparent adverse anesthesia problems. No complications reported per nursing. ADELFO POTTER CRNA May 09, 2022 07:40
--- NOTE | 2022-05-09 07:51 | Progress Note - Surgery ---
DAVEBOOM 05/09/22 0751: Subjective Date Seen by a Provider: May 09, 2022 Time Seen by a Provider: 07:46 Subjective/Events-last exam Pt is laying in bed. Pt is awake and alert. Pt is distressed about ventilator and expresses desire to have it removed. Pt's urine output is .39 kg/ml/hr. Pt states that she is experiencing some diffuse abd pain but is comfortable. FLYNN drain has some liquid present. Pt denies CP, SOB, and sweats. Focused Exam Lactate Level 05/08/22 17:35: Lactic Acid Level 1.80 05/08/22 20:50: Lactic Acid Level 2.27*H 05/08/22 23:15: Lactic Acid Level 1.49 Objective Exam Vital Signs Date Time Temp Pulse Resp B/P (MAP) Pulse Ox O2 Delivery O2 Flow Rate FiO2 05/09/22 07:18 30 05/09/22 06:39 86 13 95 30 05/09/22 06:00 90 12 118/64 96 Mechanical Ventilator 30.00 05/09/22 05:00 87 12 103/65 93 Mechanical Ventilator 30.00 05/09/22 04:15 82 12 107/64 100 Mechanical Ventilator 30.00 05/09/22 04:00 96 Mechanical Ventilator 30 05/09/22 03:57 36.7 05/09/22 03:15 87 12 89/53 98 Mechanical Ventilator 30.00 05/09/22 02:06 95 15 99 30 05/09/22 02:00 95 12 99/53 98 Mechanical Ventilator 30.00 05/09/22 01:26 93 92/59 05/09/22 01:00 97 12 101/56 97 Mechanical Ventilator 30.00 05/09/22 01:00 97 05/09/22 00:03 93 12 94/68 97 Mechanical Ventilator 30.00 05/09/22 00:00 37.2 05/08/22 23:37 96 Mechanical Ventilator 25 05/08/22 23:00 98 12 101/61 95 Mechanical Ventilator 30.00 05/08/22 22:00 97 12 126/70 97 Mechanical Ventilator 30.00 05/08/22 21:53 99 20 94 30 05/08/22 21:53 101 12 95 Mechanical Ventilator 30.00 05/08/22 21:45 94 12 123/55 92 Mechanical Ventilator 21.00 05/08/22 21:30 92 12 116/62 93 Mechanical Ventilator 21.00 05/08/22 21:15 95 12 129/60 93 Mechanical Ventilator 21.00 05/08/22 21:00 93 05/08/22 21:00 36.2 20 122/67 (85) 95 Mechanical Ventilator 05/08/22 21:00 Mechanical Ventilator 05/08/22 21:00 93 12 128/72 96 Mechanical Ventilator 21.00 05/08/22 20:50 16 122/67 (85) 94 Mechanical Ventilator 05/08/22 20:45 Mechanical Ventilator 05/08/22 20:40 20 119/68 (85) 92 Mechanical Ventilator 05/08/22 20:30 Mechanical Ventilator 05/08/22 20:30 16 117/65 (82) 92 Mechanical Ventilator 05/08/22 20:20 16 109/63 (78) 97 Mechanical Ventilator 05/08/22 20:15 100 13 96 21 05/08/22 20:15 Mechanical Ventilator 05/08/22 20:10 16 109/63 (78) 97 Mechanical Ventilator 05/08/22 20:01 Mechanical Ventilator 05/08/22 20:01 36.2 16 85/55 (65) 100 Mechanical Ventilator 05/08/22 20:01 94 Mechanical Ventilator 21 05/08/22 17:55 113 132/74 95 05/08/22 14:41 37.6 117 20 127/92 (104) 98 I & O 05/09/22 07:00 Intake Total 6350 ml Output Total 1612 ml Balance 4738 ml Capillary Refill : Less Than 3 Seconds General Appearance: No Apparent Distress, Anxious HEENT: PERRL/EOMI, Normal ENT Inspection Neck: Non Tender, Supple Respiratory: Chest Non Tender, No Accessory Muscle Use, No Respiratory Distress Cardiovascular: Regular Rate, Rhythm, No JVD Gastrointestinal: soft, tenderness (Diffuse tenderness), other (colostomy L periumbilical region and wound vac RLQ) Extremity: Normal Range of Motion, Non Tender Neurologic/Psychiatric: Alert, Normal Mood/Affect Skin: Normal Color, Warm/Dry Lymphatic: No Adenopathy Results Lab Laboratory Tests 05/08/22 15:15: Urine Color YELLOW, Urine Clarity CLEAR, Urine pH 5.0, Urine Specific Bishop 1.020, Urine Protein TRACEH, Urine Glucose (UA) NEGATIVE, Urine Ketones TRACEH, Urine Nitrite NEGATIVE, Urine Bilirubin NEGATIVE, Urine Urobilinogen 0.2, Urine Leukocyte Esterase TRACEH, Urine RBC (Auto) NEGATIVE, Urine RBC NONE, Urine WBC 0-2, Urine Squamous Epithelial Cells 2-5, Urine Crystals NONE, Urine Bacteria NEGATIVE, Urine Casts PRESENT, Urine Hyaline Casts 0-2H, Urine Mucus SMALLH, Urine Culture Indicated NO 05/08/22 15:40: White Blood Count 28.3H, Red Blood Count 3.55L, Hemoglobin 10.0L, Hematocrit 31L , Mean Corpuscular Volume 88, Mean Corpuscular Hemoglobin 28, Mean Corpuscular Hemoglobin Concent 32, Red Cell Distribution Width 15.5H, Platelet Count 450H, Mean Platelet Volume 10.6, Immature Granulocyte % (Auto) 1, Neutrophils (%) (Auto) 93H, Lymphocytes (%) (Auto) 3L, Monocytes (%) (Auto) 4, Eosinophils (%) (Auto) 0, Basophils (%) (Auto) 0, Neutrophils # (Auto) 26.2H, Lymphocytes # (Auto) 0.7L, Monocytes # (Auto) 1.2H, Eosinophils # (Auto) 0.0, Basophils # (Auto) 0.0, Immature Granulocyte # (Auto) 0.2H, Neutrophils % (Manual) 73, Lymphocytes % (Manual) 2, Monocytes % (Manual) 3, Band Neutrophils 22, Hypochromasia SLIGHT, Elliptocytes SLIGHT, Prothrombin Time 16.5H, INR Comment 1.3, Activated Partial Thromboplast Time 40H, Sodium Level 136, Potassium Level 3.8, Chloride Level 104, Carbon Dioxide Level 22, Anion Gap 10, Blood Urea Nitrogen 21H, Creatinine 0.87, Estimat Glomerular Filtration Rate 69, BUN/Creatinine Ratio 24, Glucose Level 131H, Lactic Acid Level 2.08*H, Calcium Level 9.2, Corrected Calcium 10.1, Total Bilirubin 0.8, Aspartate Amino Transf (AST/SGOT) 13, Alanine Aminotransferase (ALT/SGPT) 10, Alkaline Phosphatase 72, C-Reactive Protein High Sensitivity 32.02H, Total Protein 6.3L, Albumin 2.9L, Lipase 7L 05/08/22 17:35: Lactic Acid Level 1.80 05/08/22 20:14: Glucometer 119H 05/08/22 20:50: White Blood Count 24.1H, Red Blood Count 3.72L, Hemoglobin 10.5L, Hematocrit 33L , Mean Corpuscular Volume 88, Mean Corpuscular Hemoglobin 28, Mean Corpuscular Hemoglobin Concent 32, Red Cell Distribution Width 15.7H, Platelet Count 455H, Mean Platelet Volume 10.9, Immature Granulocyte % (Auto) 1, Neutrophils (%) (Auto) 93H, Lymphocytes (%) (Auto) 3L, Monocytes (%) (Auto) 3, Eosinophils (%) (Auto) 0, Basophils (%) (Auto) 0, Neutrophils # (Auto) 22.4H, Lymphocytes # (Auto) 0.6L, Monocytes # (Auto) 0.8, Eosinophils # (Auto) 0.0, Basophils # (Auto) 0.1, Immature Granulocyte # (Auto) 0.1, Neutrophils % (Manual) 73, Lymphocytes % (Manual) 1, Monocytes % (Manual) 3, Metamyelocytes % 1, Band Neutrophils 22, Anisocytosis SLIGHT, Prothrombin Time 16.8H, INR Comment 1.3, Sodium Level 138, Potassium Level 4.7, Chloride Level 107, Carbon Dioxide Level 22, Anion Gap 9, Blood Urea Nitrogen 19H, Creatinine 0.78, Estimat Glomerular Filtration Rate 79, BUN/Creatinine Ratio 24, Glucose Level 139H, Lactic Acid Level 2.27*H, Calcium Level 8.9, Corrected Calcium 10.0, Phosphorus Level 3.5, Magnesium Level 1.6, Total Bilirubin 0.7, Aspartate Amino Transf (AST/SGOT) 25, Alanine Aminotransferase (ALT/SGPT) 15, Alkaline Phosphatase 79, Total Protein 5.5L, Albumin 2.6L, Triglycerides Level 68 05/08/22 21:02: Bedside Blood Gas pH (LAB) 7.413H, Bedside Blood Gas pCO2 (LAB) 31.0L, Bedside Blood Gas pO2 (LAB) 66L, Bedside Blood Gas HCO3 (LAB) 19.8L, POC Blood Gas Total CO2 Calc 21L, Bedside Bl Gas O2 Saturation (Calc) 93L, Bedside Arterial Blood Base Excess -5L 05/08/22 23:15: Lactic Acid Level 1.49 05/09/22 04:58: Bedside Blood Gas pH (LAB) 7.440H, Bedside Blood Gas pCO2 (LAB) 34.5L, Bedside Blood Gas pO2 (LAB) 95, Bedside Blood Gas HCO3 (LAB) 23.4, POC Blood Gas Total CO2 Calc 24, Bedside Bl Gas O2 Saturation (Calc) 98, Bedside Arterial Blood Base Excess -1 05/09/22 05:22: White Blood Count 21.5H, Red Blood Count 3.29L, Hemoglobin 9.3L, Hematocrit 29L, Mean Corpuscular Volume 88, Mean Corpuscular Hemoglobin 28, Mean Corpuscular Hemoglobin Concent 32, Red Cell Distribution Width 15.7H, Platelet Count 372, Mean Platelet Volume 11.4, Immature Granulocyte % (Auto) 1, Neutrophils (%) (Auto) 92H, Lymphocytes (%) (Auto) 4L, Monocytes (%) (Auto) 4, Eosinophils (%) (Auto) 0, Basophils (%) (Auto) 0, Neutrophils # (Auto) 19.8H, Lymphocytes # (Auto) 0.8L, Monocytes # (Auto) 0.8, Eosinophils # (Auto) 0.0, Basophils # (Auto) 0.1, Immature Granulocyte # (Auto) 0.1, Sodium Level 139, Potassium Level 4.4, Chloride Level 108H, Carbon Dioxide Level 23, Anion Gap 8, Blood Urea Nitrogen 19H, Creatinine 0.73, Estimat Glomerular Filtration Rate 85, BUN/Creatinine Ratio 26, Glucose Level 132H, Calcium Level 9.0, Corrected Calcium 10.1, Total Bilirubin 0.4, Aspartate Amino Transf (AST/SGOT) 21, Alanine Aminotransferase (ALT/SGPT) 15, Alkaline Phosphatase 65, Total Protein 5.3L, Albumin 2.6L, Triglycerides Level 70 Assessment/Plan Assessment/Plan Assessment/Plan diffuse abdominal pain pneumoperitenum perforated hollow viscus s/p open exploratory laparotomy with abdominal washout, bowel resection, and ostomy placement Sepsis Continue medical management and antibiotics NPO ARUN WALKER DO 05/09/22 9977: Subjective Subjective/Events-last exam Patient extubated. Patient's pain controlled. No output from colostomy. FLYNN drain serous. Aldrich for accurate I's and O's. Denies nausea vomiting fever sweats chills shortness of breath or chest pain at this time. WBC trending down. Objective Exam General Appearance: No Apparent Distress, Anxious HEENT: PERRL/EOMI, Normal ENT Inspection Neck: Non Tender, Supple Respiratory: Chest Non Tender, No Accessory Muscle Use, No Respiratory Distress Cardiovascular: Regular Rate, Rhythm, No JVD Gastrointestinal: tenderness (Diffuse tenderness, incision clean dry and intact), other (colostomy slightly edematous and pink no output, FLYNN drain serous) Extremity: Normal Range of Motion, Non Tender Neurologic/Psychiatric: Alert, Normal Mood/Affect Skin: Normal Color, Warm/Dry Lymphatic: No Adenopathy Assessment/Plan Assessment/Plan Assessment/Plan diffuse abdominal pain pneumoperitenum perforated hollow viscus s/p laparoscopic/open exploratory laparotomy with low anterior resection with end colostomy and splenic flexure mobilization Sepsis N.p.o. Pain control IV fluids Continue antibiotics Aldrich for accurate I's and O's Incentive spirometer Supervisory-Addendum Brief Verification & Attestation Participated in pt care: history, MDM, physical Personally performed: exam, history, MDM, supervision of care Care discussed with: Medical Student Procedures: n/a Results interpretation: Verified all documentation Verification and Attestation of Medical Student E/M Service A medical student performed and documented this service in my presence. I reviewed and verified all information documented by the medical student and made modifications to such information, when appropriate. I personally performed the physical exam and medical decision making. Arun Walker, May 09, 2022,17:47 BOOM ACOSTA May 09, 2022 07:51 ARUN WALKER DO May 09, 2022 17:47
--- NOTE | 2022-05-09 08:24 | Tele-ICU Progress Note ---
Subjective Date Seen by a Provider: May 09, 2022 Time Seen by a Provider: 08:21 Subjective/Events-last exam Went for emergent surgery this am for perforated sigmoid colon, now on vent PSV, FiO2 30%, one hour SBT ABG 7.42/36/84, awake with good cough On IV Rocephin, Flagyl off pressors, coagulation ok, LA down from 2.27 to 1.49, WBC down a little form 28 to 21 k Sepsis Event Evaluation Height, Weight, BMI Height: '" Weight: lbs. oz. kg; 30.17 BMI Method: Focused Exam Lactate Level 05/08/22 17:35: Lactic Acid Level 1.80 05/08/22 20:50: Lactic Acid Level 2.27*H 05/08/22 23:15: Lactic Acid Level 1.49 Exam Exam Patient acknowledged, consented, and participated in this virtual visit which was conducted using real time audio/video Vital Signs Date Time Temp Pulse Resp B/P (MAP) Pulse Ox O2 Delivery O2 Flow Rate FiO2 05/09/22 08:00 104 14 127/76 93 Mechanical Ventilator 30.00 05/09/22 08:00 37.2 05/09/22 07:48 92 05/09/22 07:18 30 05/09/22 07:00 92 11 125/68 95 Mechanical Ventilator 30.00 05/09/22 06:39 86 13 95 30 05/09/22 06:00 90 12 118/64 96 Mechanical Ventilator 30.00 05/09/22 05:00 87 12 103/65 93 Mechanical Ventilator 30.00 05/09/22 04:15 82 12 107/64 100 Mechanical Ventilator 30.00 05/09/22 04:00 96 Mechanical Ventilator 30 05/09/22 03:57 36.7 05/09/22 03:15 87 12 89/53 98 Mechanical Ventilator 30.00 05/09/22 02:06 95 15 99 30 05/09/22 02:00 95 12 99/53 98 Mechanical Ventilator 30.00 05/09/22 01:26 93 92/59 05/09/22 01:00 97 12 101/56 97 Mechanical Ventilator 30.00 05/09/22 01:00 97 05/09/22 00:03 93 12 94/68 97 Mechanical Ventilator 30.00 05/09/22 00:00 37.2 05/08/22 23:37 96 Mechanical Ventilator 25 05/08/22 23:00 98 12 101/61 95 Mechanical Ventilator 30.00 05/08/22 22:00 97 12 126/70 97 Mechanical Ventilator 30.00 05/08/22 21:53 99 20 94 30 05/08/22 21:53 101 12 95 Mechanical Ventilator 30.00 05/08/22 21:45 94 12 123/55 92 Mechanical Ventilator 21.00 05/08/22 21:30 92 12 116/62 93 Mechanical Ventilator 21.00 05/08/22 21:15 95 12 129/60 93 Mechanical Ventilator 21.00 05/08/22 21:00 93 05/08/22 21:00 36.2 20 122/67 (85) 95 Mechanical Ventilator 05/08/22 21:00 Mechanical Ventilator 05/08/22 21:00 93 12 128/72 96 Mechanical Ventilator 21.00 05/08/22 20:50 16 122/67 (85) 94 Mechanical Ventilator 05/08/22 20:45 Mechanical Ventilator 05/08/22 20:40 20 119/68 (85) 92 Mechanical Ventilator 05/08/22 20:30 Mechanical Ventilator 05/08/22 20:30 16 117/65 (82) 92 Mechanical Ventilator 05/08/22 20:20 16 109/63 (78) 97 Mechanical Ventilator 05/08/22 20:15 100 13 96 21 05/08/22 20:15 Mechanical Ventilator 05/08/22 20:10 16 109/63 (78) 97 Mechanical Ventilator 05/08/22 20:01 Mechanical Ventilator 05/08/22 20:01 36.2 16 85/55 (65) 100 Mechanical Ventilator 05/08/22 20:01 94 Mechanical Ventilator 21 05/08/22 17:55 113 132/74 95 05/08/22 14:41 37.6 117 20 127/92 (104) 98 I & O 05/09/22 07:00 Intake Total 6350 ml Output Total 1612 ml Balance 4738 ml Height & Weight Height: '" Weight: lbs. oz. kg; 30.17 BMI Method: General Appearance: No Apparent Distress, Anxious HEENT: PERRL/EOMI, Normal ENT Inspection Neck: Non Tender, Supple Respiratory: Chest Non Tender, Lungs Clear, No Accessory Muscle Use, No Respiratory Distress Cardiovascular: Regular Rate, Rhythm, No JVD Gastrointestinal: normal bowel sounds, soft, tenderness (Diffuse tenderness), other (colostomy L periumbilical region and wound vac RLQ, wound ok hypoactive B S) Extremity: Normal Range of Motion, Non Tender Neurologic/Psychiatric: Alert, Oriented x3, Normal Mood/Affect Skin: Normal Color, Warm/Dry Lymphatic: No Adenopathy Results Lab Laboratory Tests 05/08/22 15:40 05/08/22 20:50 05/09/22 05:22 Assessment/Plan Assessment/Plan s/p repair of perforation in sigmoid colon, will continue abx,looks ready for extubation with good cough, good results on SBT, ABG ok UO slowed last night but Cr ok at 0.73, Alb is low at 2.6, Critical Care: Ventilator Management Time spent with patient (mins): 35 RENAE RODRIGUEZ MD May 09, 2022 08:24
[2022-05-09] MEDS: metroNIDAZOLE 500MG/100ML IVPB 100 ML IV SCH ×2 (09:26→19:58)
[2022-05-09] MEDS: PROPOFOL DRIP (ICU) 100 ML IV SCH (09:32)
[2022-05-09] MEDS ORDERED: ZINC50TA58 PO (15:23)
[2022-05-09] MEDS ORDERED: LUTE20TA PO (15:23)
[2022-05-09] MEDS ORDERED: MAGN400T39 PO (15:23)
[2022-05-09] MEDS ORDERED: FISH1CAP15 PO (15:23)
[2022-05-09] MEDS ORDERED: CHOL20003 PO (15:23)
[2022-05-09] MEDS ORDERED: MV-M1TAB57 PO (15:23)
[2022-05-09] MEDS ORDERED: UBID30CA13 PO (15:23)
[2022-05-09] MEDS ORDERED: MELO15TA39 PO (15:23)
[2022-05-09] MEDS ORDERED: VITA-189 PO (15:23)
[2022-05-09] MEDS ORDERED: SIMV40TA25 PO (15:23)
[2022-05-09] MEDS: cefTRIAXone 1 GM PRE-MIX 50 ML IV SCH (19:59)
[2022-05-10 04:36] LABS: BASOPHILS % (AUTO) 0 % (0-10); EOSINOPHILS % (AUTO) 0 % (0-10); HEMATOCRIT 25 % (35-52); HEMOGLOBIN 7.9 g/dL (11.5-16.0); LYMPHOCYTES # (AUTO) 0.6 10^3/uL (1.0-4.0); LYMPHOCYTES % (AUTO) 3 % (12-44); MEAN CORPUSCULAR HEMOGLOBIN 28 pg (25-34); MEAN CORPUSCULAR HGB CONC 32 g/dL (32-36); MEAN CORPUSCULAR VOLUME 87 fL (80-99); MEAN PLATELET VOLUME 12.1 fL (9.0-12.2); MONOCYTES # (AUTO) 0.8 10^3/uL (0.0-1.0); MONOCYTES % (AUTO) 5 % (0-12); NEUTROPHILS # (AUTO) 16.4 10^3/uL (1.8-7.8); NEUTROPHILS % (AUTO) 91 % (42-75); PLATELET COUNT 316 10^3/uL (130-400); WHITE BLOOD COUNT 18.1 10^3/uL (4.3-11.0)
[2022-05-10] MEDS: LACTATED RINGERS 1,000 ML IV SCH ×3 (04:55→23:00)
[2022-05-10 05:03] LABS: ALBUMIN 2.5 GM/DL (3.2-4.5); BILIRUBIN,TOTAL 0.4 MG/DL (0.1-1.0); CREATININE SERUM 0.64 MG/DL (0.60-1.30); TOTAL PROTEIN 4.9 GM/DL (6.4-8.2)
[2022-05-10 05:56] LABS: MAGNESIUM 2.2 MG/DL (1.6-2.4); PHOSPHORUS 3.7 MG/DL (2.3-4.7)
--- NOTE | 2022-05-10 07:06 | Progress Note - Surgery ---
BOOM ACOSTA 05/10/22 0706: Subjective Date Seen by a Provider: May 10, 2022 Time Seen by a Provider: 07:01 Subjective/Events-last exam Pt is resting comfortably. Pt notes diffuse abd pain this morning. Pt had 40ml output from FLYNN drain last night, per nurse. Pt's urine output was .58ml/kg/hr over the past 12 hours. Pt denies n/v, SOB, and CP. Focused Exam Lactate Level 05/08/22 17:35: Lactic Acid Level 1.80 05/08/22 20:50: Lactic Acid Level 2.27*H 05/08/22 23:15: Lactic Acid Level 1.49 Objective Exam Vital Signs Date Time Temp Pulse Resp B/P (MAP) Pulse Ox O2 Delivery O2 Flow Rate FiO2 05/10/22 06:00 63 22 110/58 100 Nasal Cannula 2.00 05/10/22 05:00 68 22 107/62 100 Nasal Cannula 2.00 05/10/22 04:22 98 Nasal Cannula 2.00 05/10/22 04:00 36.2 05/10/22 04:00 71 20 120/60 99 Nasal Cannula 2.00 05/10/22 03:00 73 20 107/56 100 Nasal Cannula 2.00 05/10/22 02:00 79 21 115/54 97 Nasal Cannula 2.00 05/10/22 01:00 78 05/10/22 01:00 78 23 111/66 98 Nasal Cannula 2.00 05/10/22 00:00 81 22 116/62 100 Nasal Cannula 2.00 05/10/22 00:00 37.0 05/09/22 23:47 98 Nasal Cannula 2.00 05/09/22 23:00 82 25 106/66 100 Nasal Cannula 2.00 05/09/22 22:00 92 25 105/77 100 Nasal Cannula 2.00 05/09/22 21:00 96 23 121/68 100 Nasal Cannula 2.00 05/09/22 20:54 98 2.00 05/09/22 20:45 98 Nasal Cannula 2.00 05/09/22 20:00 103 16 135/79 97 Nasal Cannula 2.00 05/09/22 19:56 37.3 05/09/22 19:00 95 05/09/22 19:00 95 22 140/78 100 Nasal Cannula 2.00 05/09/22 18:00 103 19 126/58 100 Nasal Cannula 2.00 05/09/22 17:00 106 22 129/62 100 Nasal Cannula 2.00 05/09/22 16:00 104 25 132/68 99 Nasal Cannula 2.00 05/09/22 16:00 37.3 05/09/22 16:00 96 Mechanical Ventilator 30 05/09/22 15:00 104 30 108/86 98 Nasal Cannula 2.00 05/09/22 14:00 102 27 138/86 95 Nasal Cannula 2.00 05/09/22 13:23 98 05/09/22 13:00 90 26 128/67 99 Nasal Cannula 2.00 05/09/22 12:00 96 Mechanical Ventilator 30 05/09/22 12:00 37.0 05/09/22 12:00 92 27 121/66 98 Nasal Cannula 2.00 05/09/22 11:00 100 21 129/81 98 Nasal Cannula 2.00 05/09/22 10:58 Nasal Cannula 2.00 05/09/22 10:00 100 19 115/65 96 Nasal Cannula 3.00 05/09/22 09:30 96 Mechanical Ventilator 30 05/09/22 09:28 Nasal Cannula 3.00 05/09/22 09:00 108 27 128/69 97 05/09/22 08:00 104 14 127/76 93 Mechanical Ventilator 30.00 05/09/22 08:00 96 Mechanical Ventilator 30 05/09/22 08:00 37.2 05/09/22 07:48 92 05/09/22 07:18 30 I & O 05/10/22 07:00 Intake Total 1150 ml Output Total 3130 ml Balance -1980 ml Capillary Refill : Less Than 3 Seconds General Appearance: No Apparent Distress, Anxious HEENT: PERRL/EOMI, Normal ENT Inspection Neck: Non Tender, Supple Respiratory: No Accessory Muscle Use, No Respiratory Distress Cardiovascular: No JVD, Normal Peripheral Pulses Gastrointestinal: tenderness (Diffuse tenderness, incision clean dry and intact), other (colostomy slightly edematous and pink no output, FLYNN drain serous) Extremity: Normal Range of Motion, Non Tender Neurologic/Psychiatric: Alert, Normal Mood/Affect Skin: Normal Color, Warm/Dry Lymphatic: No Adenopathy Results Lab Laboratory Tests 05/09/22 08:44: Bedside Blood Gas pH (LAB) 7.422H, Bedside Blood Gas pCO2 (LAB) 36.3L, Bedside Blood Gas pO2 (LAB) 84, Bedside Blood Gas HCO3 (LAB) 23.6, POC Blood Gas Total CO2 Calc 25, Bedside Bl Gas O2 Saturation (Calc) 97, Bedside Arterial Blood Base Excess -1 05/09/22 18:37: Glucometer 108 05/09/22 23:53: Glucometer 123H 05/10/22 04:29: White Blood Count 18.1H, Red Blood Count 2.85L, Hemoglobin 7.9L, Hematocrit 25L, Mean Corpuscular Volume 87, Mean Corpuscular Hemoglobin 28, Mean Corpuscular Hemoglobin Concent 32, Red Cell Distribution Width 15.5H, Platelet Count 316, Mean Platelet Volume 12.1, Immature Granulocyte % (Auto) 1, Neutrophils (%) (Auto) 91H, Lymphocytes (%) (Auto) 3L, Monocytes (%) (Auto) 5, Eosinophils (%) (Auto) 0, Basophils (%) (Auto) 0, Neutrophils # (Auto) 16.4H, Lymphocytes # (Auto) 0.6L, Monocytes # (Auto) 0.8, Eosinophils # (Auto) 0.0, Basophils # (A uto) 0.0, Immature Granulocyte # (Auto) 0.2H, Sodium Level 144, Potassium Level 4.0, Chloride Level 110H, Carbon Dioxide Level 22, Anion Gap 12, Blood Urea Nitrogen 22H, Creatinine 0.64, Estimat Glomerular Filtration Rate 92, BUN/Creatinine Ratio 34, Glucose Level 121H, Calcium Level 9.0, Corrected Calcium 10.2H, Phosphorus Level 3.7, Magnesium Level 2.2, Total Bilirubin 0.4, Aspartate Amino Transf (AST/SGOT) 24, Alanine Aminotransferase (ALT/SGPT) 22, Alkaline Phosphatase 78, Total Protein 4.9L, Albumin 2.5L Microbiology 05/08/22 Blood Culture - Preliminary, Resulted No growth Assessment/Plan Assessment/Plan Assessment/Plan diffuse abdominal pain pneumoperitenum perforated hollow viscus s/p laparoscopic/open exploratory laparotomy with low anterior resection with end colostomy and splenic flexure mobilization Sepsis NPO Pain control IV fluids Continue antibiotics Aldrich for accurate I's and O's Incentive spirometer ANIL WALKER DO 05/10/22 1745: Subjective Subjective/Events-last exam Patient sitting in bed comfortable. Patient pain approximately 4 out of 10. FLYNN drain with serous output. Colostomy with a little bit of gas coming from it. Urine output adequate. White blood cell count coming down. Currently denies nausea vomiting fever sweats chills shortness of breath or chest pain. Has NG tube. Objective Exam General Appearance: No Apparent Distress, Anxious HEENT: PERRL/EOMI, Normal ENT Inspection Neck: Non Tender, Supple Respiratory: Chest Non Tender, No Accessory Muscle Use, No Respiratory Distress Cardiovascular: No JVD Gastrointestinal: non tender, tenderness (Diffuse tenderness, incision clean dry and intact), other (colostomy slightly edematous and pink scant output, FLYNN drain serous) Extremity: Normal Range of Motion, Non Tender Neurologic/Psychiatric: Alert, Oriented x3, Normal Mood/Affect Skin: Normal Color, Warm/Dry Lymphatic: No Adenopathy Assessment/Plan Assessment/Plan Assessment/Plan diffuse abdominal pain pneumoperitenum perforated hollow viscus s/p laparoscopic/open exploratory laparotomy with low anterior resection with end colostomy and splenic flexure mobilization Sepsis remove ng tube start clears Pain control IV fluids Continue antibiotics Aldrich for accurate I's and O's Incentive spirometer repeat labs in am Supervisory-Addendum Brief Verification & Attestation Participated in pt care: history, MDM, physical Personally performed: exam, history, MDM, supervision of care Care discussed with: Medical Student Procedures: n/a Results interpretation: Verified all documentation Verification and Attestation of Medical Student E/M Service A medical student performed and documented this service in my presence. I reviewed and verified all information documented by the medical student and made modifications to such information, when appropriate. I personally performed the physical exam and medical decision making. Anil Walker, May 10, 2022,17:44 BOOM ACOSTA May 10, 2022 07:06 ANIL WALKER DO May 10, 2022 17:45
[2022-05-10] MEDS: fentaNYL INJ 100 MCG/2 ML AMP IVP PRN ×3 (08:35→22:29)
[2022-05-10] MEDS: metroNIDAZOLE 500MG/100ML IVPB 100 ML IV SCH ×2 (08:40→21:33)
--- NOTE | 2022-05-10 09:32 | Progress Note - Hospitalist ---
Subjective HPI/CC On Admission Date Seen by Provider: May 10, 2022 Patient is a 76-year-old female with a past medical history of hyperlipidemia, hypertension, anxiety who presented to the emergency department due to abdominal pain. She is currently intubated and unable to provide her history. All history is obtained from the records. She stated her symptoms started on May 03 and have been increasing since that time. She reports it was a dull pain that progressed to a sharp pain in her lower abdomen and migrated throughout her entire abdomen. She had nausea. She had loose bowel movements. Her only surgical history is a . She had been taking Aleve and Advil for her pain at home. CT abdomen was done which showed free air throughout the abdomen. Dr. Walker admitted patient and took her immediately to the OR where resection with colostomy was done. She remained on the ventilator postoperatively overnight and is currently undergoing a weaning trial. Subjective/Events-last exam Pt reports feeling better today since off vent but tired and didn't sleep well. Mild abd pain but that did not keep her up, mostly us checking on her did. Focused Exam Lactate Level 05/08/22 17:35: Lactic Acid Level 1.80 05/08/22 20:50: Lactic Acid Level 2.27*H 05/08/22 23:15: Lactic Acid Level 1.49 Objective Exam Vital Signs Vital Signs Date Time Temp Pulse Resp B/P (MAP) Pulse Ox O2 Delivery O2 Flow Rate FiO2 05/10/22 08:00 36.7 05/10/22 07:00 63 05/10/22 06:00 22 110/58 100 Nasal Cannula 2.00 05/09/22 16:00 30 Capillary Refill : Less Than 3 Seconds General Appearance: No Apparent Distress, Anxious Respiratory: Lungs Clear, No Respiratory Distress Cardiovascular: Regular Rate, Rhythm, No Murmur Gastrointestinal: Abnormal Bowel Sounds (absent); No Guarding; Tenderness (appr opriate), Other (ostomy, FLYNN drain with serous drainage) Neurologic/Psychiatric: Alert, Oriented x3 Results/Procedures Lab Laboratory Tests 05/10/22 04:29 Patient resulted labs reviewed. Imaging: Reviewed Imaging Report Assessment/Plan Assessment and Plan Assess & Plan/Chief Complaint Perforated sigmoid colon Severe Sepsis- POA s/p ex lap with resection and colostomy- POD #2 Management per primary Continue IV abx BC cultures NGTD Fentanyl for pain Postoperative respiratory insufficiency Extubated 05/09 Currently on 2lpm NC, wean as able Anemia Hgb 10 on arrival, no baseline available 7.9 this AM, trend Likely dilutional HTN HLD Bp well controlled, trend add prns IV if needed until able to take PO intake per surgery DVT ppx: Lovenox when ok with surgery Critical Care Ventilator Management Diagnosis/Problems Diagnosis/Problems (1) Perforated sigmoid colon Status: Acute (2) Severe sepsis Status: Acute (3) HTN (hypertension) Status: Chronic Qualifiers: Hypertension type: primary hypertension Qualified Codes: I10 - Essential (primary) hypertension (4) HLD (hyperlipidemia) Status: Chronic Qualifiers: Hyperlipidemia type: mixed hyperlipidemia Qualified Codes: E78.2 - Mixed hyperlipidemia (5) Anemia Status: Chronic Qualifiers: Anemia type: unspecified type Qualified Codes: D64.9 - Anemia, unspecified (6) Respiratory insufficiency Status: Acute (7) Peritoneal free air Status: Acute NIDIA GREENWOOD MD May 10, 2022 09:32
--- NOTE | 2022-05-10 11:24 | Physical Therapy Evaluation ---
PT Evaluation-General Medical Diagnosis Admission Date May 08, 2022 at 17:07 Medical Diagnosis: abdominal pain (s/p bowel perforation) Onset Date: May 08, 2022 Therapy Diagnosis Therapy Diagnosis: generalized weakness/debility Precautions Precautions/Isolations: Standard Precautions Referral Physician: Casandra Reason for Referral: Evaluation/Treatment Medical History Pertinent Medical History: HTN Current History ER secondary to abdominal pain (bowel perforation) s/p bowel resection with colostomy Social History Home: Single Level Current Living Status: Alone Prior Prior Level of Function SCALE: Activities may be completed with or without assistive devices. 7-Kcneymiror-jafzslg completes the activity by him/herself with no assistance from a helper. 5-Set-up or Clean-up Assistance-helper sets up or cleans up; patient completes activity. [place] assists only prior to or following the activity. 4-Supervision or Touching Assistance-helper provides verbal cues and/or touching/steadying and/or contact guard assistance as patient completes activity. Assistance may be provided throughout the activity or intermittently. 3-Partial/Moderate Assistance-helper does LESS THAN HALF the effort. [place] lifts, holds or supports trunk or limbs, but provides less than half the effort. 2-Substantial/Maximal Assistance-helper does MORE THAN HALF the effort. [place] lifts or holds trunk or limbs and provides more than half the effort. 6-Uzpsvsytb-fezlvk does ALL the effort. Patient does none of the effort to complete the activity. Or, the assistance of 2 or more helpers is required for the patient to complete the activity. If activity was not attempted, code reason: 7-Patient Refused. 9-Not Applicable-not attempted and the patient did not perform the activity before the current illness, exacerbation or injury. 10-Not Attempted due to Environmental Limitations-(lack of equipment, weather restraints, etc.). 88-Not Attempted due to Medical Conditions or Safety Concerns. Bed Mobility: 6 Transfers (B,C,W/C): 6 Gait: 6 Stairs: 6 Indoor Mobility (Ambulation): Independent Stairs: Independent Prior Devices Use: None PT Evaluation-Current Subjective Patient agrees to PT. Pain Numeric Pain Scale: 7 Location: Medial, Lower Location Body Site: Abdomen Pain Description: Acute Objective Patient Orientation: Normal For Age Attachments: NG Tube, Oxygen, Drains, Aldrich Catheter, IV ROM/Strength ROM Lower Extremities bilateral LE WFL Strength Lower Extremities 4-/5 grossly bilateral LE all planes Integumentary/Posture Integumentary refer to nursing notes Bladder Incontinence: Aldrich Cath Posture WFL Neuromuscular (Tone, Coordination, Reflexes) grossly intact Sensory Vision: Functional Hearing: Functional Transfers Lying to Sitting/Side of Bed(Q: 3 Sit to Stand (QC): 4 Chair/Hfx-nz-Jcubu Xfer(QC): 4 Gait Mode of Locomotion: Walk Anticipated Mode of Locomotion: Walk Walk 10 feet (QC): 4 Walk 50 ft with 2 Turns(QC): 88 Walk 150 ft (QC): 88 Distance: 10' Gait Assistive Device: FWW Balance Sitting Static: Normal Sitting Dynamic: Normal Standing Static: Good Standing Dynamic: Good Assessment/Needs 76 y.o. female, will benefit from skilled PT to address functional strength and mobility to improve current LOF to safely return to home at maximum LOF. Rehab Potential: Fair PT Intermediate Goals Cork Grinder Goals PT Cork Grinder Goals Time Frame: May 26, 2022 Roll Left & Right (QC): 6 Sit to Lying (QC): 6 Lying-Sitting on Side/Bed(QC): 6 Sit to Stand (QC): 6 Chair/Rbm-jt-Pywtq Xfer(QC): 6 Toilet Transfer (QC): 6 Walk 10 feet (QC): 6 Walk 50ft with 2 Turns (QC): 6 Walk 150 ft (QC): 6 PT Plan Problem List Problem List: Activity Tolerance, Functional Strength, Balance, Gait, Transfer, Bed Mobility Treatment/Plan Treatment Plan: Continue Plan of Care Treatment Plan: Bed Mobility, Education, Functional Activity Simona, Functional Strength, Gait, Safety, Therapeutic Exercise, Transfers Treatment Duration: May 26, 2022 Frequency: 6 times per week Estimated Hrs Per Day: .25 hour per day Patient and/or Family Agrees t: Yes Time/GCodes Time In: 1055 Time Out: 1109 Total Billed Treatment Time: 14 Total Billed Treatment 1 visit EVModC 14 min JOHN SPANN PT May 10, 2022 11:24
--- NOTE | 2022-05-10 11:59 | Occupational Therapy Eval ---
OT Evaluation-General/PLF Medical Diagnosis Admission Date May 08, 2022 at 17:07 Medical Diagnosis: abdominal pain (s/p bowel perforation) Onset Date: May 08, 2022 Therapy Diagnosis Therapy Diagnosis: reduced adl status Precautions Precautions/Isolations: Fall Prevention, Standard Precautions Referral Physician: Casandra Referral Reason: Evaluation/Treatment Medical History Pertinent Medical History: HTN Current History ER secondary to abdominal pain (bowel perforation) s/p bowel resection with colostomy Per patient, she lives in a split level duplex. 9 steps up to bed/bath. Per son, he is trying to get her moved to a single story duplex. Prior to admission, she was indep with adls and iadls. She has been using a walker for ~1 month due to increased pain in her knees. Social History Home: Single Level Current Living Status: Alone ADL-Prior Level of Function SCALE: Activities may be completed with or without assistive devices. 0-Aennkwctqx-gfhodbe completes the activity by him/herself with no assistance from a helper. 5-Set-up or Clean-up Assistance-helper sets up or cleans up; patient completes activity. [place] assists only prior to or following the activity. 4-Supervision or Touching Assistance-helper provides verbal cues and/or touching/steadying and/or contact guard assistance as patient completes activity. Assistance may be provided throughout the activity or intermittently. 3-Partial/Moderate Assistance-helper does LESS THAN HALF the effort. [place] lifts, holds or supports trunk or limbs, but provides less than half the effort. 2-Substantial/Maximal Assistance-helper does MORE THAN HALF the effort. [place] lifts or holds trunk or limbs and provides more than half the effort. 0-Bammhxdjz-aokoeu does ALL the effort. Patient does none of the effort to complete the activity. Or, the assistance of 2 or more helpers is required for the patient to complete the activity. If activity was not attempted, code reason: 7-Patient Refused. 9-Not Applicable-not attempted and the patient did not perform the activity before the current illness, exacerbation or injury. 10-Not Attempted due to Environmental Limitations-(lack of equipment, weather restraints, etc.). 88-Not Attempted due to Medical Conditions or Safety Concerns. Self Care: Independent Functional Cognition: Unknown Drive Self: Yes OT Current Status Subjective Pt is very adamant that all of her health problems stem from getting Covid. Per her son, pt has never had Covid and that she has gone to multiple doctors trying to figure out what is wrong with her. Pt's son says that she is not very truthful about her medical history. Appearance Pt returned to sitting in chair, all needs within reach. Mental Status/Objective Patient Orientation: Person, Place Attachments: Colostomy/Ileostomy, Drains (FLYNN drain), Tanner Catheter, IV, NG Tube, Oxygen, Telemetry Current Glasses/Contacts: Yes Hearing Aids: No Hand Dominance: Right ADL-Treatment Lower Body Dressing (QC): 4 (per clinical judgment) On/Off Footwear (QC): 4 Toileting Hygiene (QC): 1 (tanner catheter) Pt sitting in chair at OT arrival. Very talkative, requires redirection back to task. Education on limiting bending for incision healing and to decrease pain during adls. Post cues, pt able to demonstrate ability to cross foot over contralateral knees in order to don/doff bilateral socks. Anticipate no difficulty with donning LB clothing if performed in same manner. She stood with SBA. Able to tolerate standing for >4 minutes with zero UE support. No ambulation performed due to multiple lines/tubes. Pt often reports need to urinate but currently with tanner catheter. Education OT Patient Education: Correct positioning, Modified ADL techniques, Purpose of tx/functional activities, Reviewed precautions, Safety issues, Transfer techniques Teaching Recipient: Patient Teaching Methods: Demonstration, Discussion Response to Teaching: Verbalize Understanding, Return Demonstration, Reinforcement Needed OT Snf Goals Snf Goals Time Frame: May 24, 2022 Eating (QC): 5 Oral Hygiene (QC): 5 Toileting Hygiene (QC): 4 Shower/Bathe Self (QC): 4 Upper Body Dressing (QC): 5 Lower Body Dressing (QC): 5 On/Off Footwear (QC): 5 1=Demonstrate adherence to instructed precautions during ADL tasks. 2=Patient will verbalize/demonstrate understanding of assistive devices/modifications for ADL. 3=Patient will improve strength/tolerance for activity to enable patient to perform ADL's. OT Education/Plan Problem List/Assessment Assessment: Decreased Activ Tolerance, Decreased Safety Aware, Decreased UE Strength, Impaired Cognition, Impaired I ADL's, Impaired Self-Care Skills Discharge Recommendations Plan/Recommendations: Continue POC Treatment Plan/Plan of Care Treatment,Training & Education: Yes Patient would benefit from OT for education, treatment and training to promote independence in ADL's, mobility, safety and/or upper extremity function for ADL's. Plan of Care: ADL Retraining, Cognitive Retraining, Functional Mobility, Group Exercise/Act as Ind, UE Funct Exercise/Act Treatment Duration: May 24, 2022 Frequency: 3 times per week (3-5x/week) Estimated Hrs Per Day: .25 hour per day Agreement: Yes Rehab Potential: Fair Time/GCodes Start Time: 11:22 Stop Time: 11:37 Total Time Billed (hr/min): 15 Billed Treatment Time 1 visit Claudia More OT May 10, 2022 11:59
--- NOTE | 2022-05-10 12:29 | Tele-ICU Progress Note ---
Subjective Date Seen by a Provider: May 10, 2022 Time Seen by a Provider: 12:29 Subjective/Events-last exam (Tele-ICU Physician , Progress Note ) Available chart/ vitals / labs / Images reviewed Video assessment done using teleICU camera, rest of exam as per RN Discussed with RN Events overnight : Afebrile hemodynamically stable Respiratory - 2l I/O =+ Drips: Pressors- no Consultants: Hospital course: (05/08) 76/F admitted s/p Exploratory Laparotomy, bowel resection, and ostomy (05/09) extubated 0930 A/P Extubated VS stable OOB cont ABX Lines : , (Central Line Necessity Reviewed) Aldrich: + OG: Nutrition: as per SX Analgesia: Anxiety/ delirium VTE Prophylaxis: scd Stress Ulcer Prophylaxis: na Plans in collaboration with bedside consultants and IM MDs. Discussed with RN to reach out if any questions or concerns A total of 15 minutes of critical care time was devoted to this patient today, required to treat and/or prevent further deterioration of critical care condition ( as above ) . Sepsis Event Evaluation Height, Weight, BMI Height: '" Weight: lbs. oz. kg; 29.71 BMI Method: Focused Exam Lactate Level 05/08/22 17:35: Lactic Acid Level 1.80 05/08/22 20:50: Lactic Acid Level 2.27*H 05/08/22 23:15: Lactic Acid Level 1.49 Exam Exam Patient acknowledged, consented, and participated in this virtual visit which was conducted using real time audio/video Vital Signs Date Time Temp Pulse Resp B/P (MAP) Pulse Ox O2 Delivery O2 Flow Rate FiO2 05/10/22 12:00 76 21 121/64 99 Nasal Cannula 2.00 05/10/22 11:00 75 12 113/79 99 Nasal Cannula 2.00 05/10/22 10:00 64 24 112/58 99 Nasal Cannula 2.00 05/10/22 09:00 64 22 110/54 100 Nasal Cannula 2.00 05/10/22 08:00 98 Nasal Cannula 2.00 05/10/22 08:00 57 20 124/57 100 Nasal Cannula 2.00 05/10/22 08:00 36.7 05/10/22 07:00 63 05/10/22 07:00 57 14 113/57 100 Nasal Cannula 2.00 05/10/22 06:00 63 22 110/58 100 Nasal Cannula 2.00 05/10/22 05:00 68 22 107/62 100 Nasal Cannula 2.00 05/10/22 04:22 98 Nasal Cannula 2.00 05/10/22 04:00 36.2 05/10/22 04:00 71 20 120/60 99 Nasal Cannula 2.00 05/10/22 03:00 73 20 107/56 100 Nasal Cannula 2.00 05/10/22 02:00 79 21 115/54 97 Nasal Cannula 2.00 05/10/22 01:00 78 05/10/22 01:00 78 23 111/66 98 Nasal Cannula 2.00 05/10/22 00:00 81 22 116/62 100 Nasal Cannula 2.00 05/10/22 00:00 37.0 05/09/22 23:47 98 Nasal Cannula 2.00 05/09/22 23:00 82 25 106/66 100 Nasal Cannula 2.00 05/09/22 22:00 92 25 105/77 100 Nasal Cannula 2.00 05/09/22 21:00 96 23 121/68 100 Nasal Cannula 2.00 05/09/22 20:54 98 2.00 05/09/22 20:45 98 Nasal Cannula 2.00 05/09/22 20:00 103 16 135/79 97 Nasal Cannula 2.00 05/09/22 19:56 37.3 05/09/22 19:00 95 05/09/22 19:00 95 22 140/78 100 Nasal Cannula 2.00 05/09/22 18:00 103 19 126/58 100 Nasal Cannula 2.00 05/09/22 17:00 106 22 129/62 100 Nasal Cannula 2.00 05/09/22 16:00 104 25 132/68 99 Nasal Cannula 2.00 05/09/22 16:00 37.3 05/09/22 16:00 96 Mechanical Ventilator 30 05/09/22 15:00 104 30 108/86 98 Nasal Cannula 2.00 05/09/22 14:00 102 27 138/86 95 Nasal Cannula 2.00 05/09/22 13:23 98 05/09/22 13:00 90 26 128/67 99 Nasal Cannula 2.00 I & O 05/10/22 06:59 Intake Total 1150 ml Output Total 3130 ml Balance -1980 ml Height & Weight Height: '" Weight: lbs. oz. kg; 29.71 BMI Method: General Appearance: No Apparent Distress, Anxious HEENT: PERRL/EOMI, Normal ENT Inspection Neck: Non Tender, Supple Respiratory: Lungs Clear, No Respiratory Distress Cardiovascular: Regular Rate, Rhythm, No Murmur Gastrointestinal: tenderness (Diffuse tenderness, incision clean dry and intact), other (colostomy slightly edematous and pink no output, FLYNN drain serous) Extremity: Normal Range of Motion, Non Tender Neurologic/Psychiatric: Alert, Oriented x3 Skin: Normal Color, Warm/Dry Lymphatic: No Adenopathy Results Lab Laboratory Tests 05/08/22 15:40 05/08/22 20:50 05/09/22 05:22 05/10/22 04:29 Assessment/Plan Assessment/Plan 1 KIM CELAYA MD May 10, 2022 12:29
[2022-05-10] MEDS: cefTRIAXone 1 GM PRE-MIX 50 ML IV SCH (21:02)
[2022-05-11] MEDS: fentaNYL INJ 100 MCG/2 ML AMP IVP PRN ×5 (03:22→20:45)
[2022-05-11 05:34] LABS: BASOPHILS % (AUTO) 0 % (0-10); EOSINOPHILS % (AUTO) 0 % (0-10); HEMATOCRIT 26 % (35-52); HEMOGLOBIN 8.1 g/dL (11.5-16.0); LYMPHOCYTES # (AUTO) 0.8 10^3/uL (1.0-4.0); LYMPHOCYTES % (AUTO) 4 % (12-44); MEAN CORPUSCULAR HEMOGLOBIN 28 pg (25-34); MEAN CORPUSCULAR HGB CONC 32 g/dL (32-36); MEAN CORPUSCULAR VOLUME 87 fL (80-99); MEAN PLATELET VOLUME 11.5 fL (9.0-12.2); MONOCYTES # (AUTO) 1.3 10^3/uL (0.0-1.0); MONOCYTES % (AUTO) 7 % (0-12); NEUTROPHILS # (AUTO) 15.1 10^3/uL (1.8-7.8); NEUTROPHILS % (AUTO) 84 % (42-75); PLATELET COUNT 292 10^3/uL (130-400)
[2022-05-11 06:08] LABS: ALBUMIN 2.4 GM/DL (3.2-4.5); BILIRUBIN,TOTAL 0.3 MG/DL (0.1-1.0); CALCIUM 8.7 MG/DL (8.5-10.1); CREATININE SERUM 0.6 MG/DL (0.60-1.30); TOTAL PROTEIN 4.9 GM/DL (6.4-8.2)
--- NOTE | 2022-05-11 06:33 | Progress Note - Surgery ---
BOOM ACOSTA 05/11/22 0633: Subjective Date Seen by a Provider: May 11, 2022 Time Seen by a Provider: 06:28 Subjective/Events-last exam Pt is resting comfortably. Small output present in colostomy. Urine output is good today, discontinue tanner. Per nurse, pt has been coughing and short of br eath. FLYNN drain output decreased to 5-10mls per nurse. Pt denies n/v, sweats. Focused Exam Lactate Level 05/08/22 17:35: Lactic Acid Level 1.80 05/08/22 20:50: Lactic Acid Level 2.27*H 05/08/22 23:15: Lactic Acid Level 1.49 Objective Exam Vital Signs Date Time Temp Pulse Resp B/P (MAP) Pulse Ox O2 Delivery O2 Flow Rate FiO2 05/11/22 06:00 62 25 130/68 95 Nasal Cannula 2.00 05/11/22 05:00 79 28 132/67 96 Nasal Cannula 2.00 05/11/22 04:00 36.8 60 29 127/64 95 Nasal Cannula 2.00 05/11/22 04:00 95 Nasal Cannula 2.00 05/11/22 03:00 53 20 124/64 95 Nasal Cannula 2.00 05/11/22 02:00 50 20 110/54 94 Nasal Cannula 2.00 05/11/22 01:00 53 21 121/58 95 Nasal Cannula 2.00 05/11/22 01:00 50 05/11/22 00:00 57 23 128/60 95 Nasal Cannula 2.00 05/10/22 23:59 98 Nasal Cannula 2.00 05/10/22 23:00 65 22 134/66 96 Nasal Cannula 2.00 05/10/22 22:00 61 23 129/70 94 Nasal Cannula 2.00 05/10/22 21:00 64 43 133/85 95 Nasal Cannula 2.00 05/10/22 20:00 97 Nasal Cannula 2.00 05/10/22 20:00 59 19 142/69 96 Nasal Cannula 2.00 05/10/22 20:00 36.9 05/10/22 19:00 66 05/10/22 19:00 65 28 117/55 96 Nasal Cannula 2.00 05/10/22 18:00 67 12 122/66 95 Nasal Cannula 2.00 05/10/22 17:00 66 16 126/68 95 Nasal Cannula 2.00 05/10/22 16:33 36.8 05/10/22 16:00 36.8 05/10/22 16:00 98 Nasal Cannula 2.00 05/10/22 16:00 68 22 129/57 95 Nasal Cannula 2.00 05/10/22 15:00 70 16 130/66 96 Nasal Cannula 2.00 05/10/22 14:00 65 24 135/66 95 Nasal Cannula 2.00 05/10/22 13:03 96 Nasal Cannula 2.00 05/10/22 13:00 64 28 128/65 97 Nasal Cannula 2.00 05/10/22 13:00 71 05/10/22 12:00 36.9 05/10/22 12:00 76 21 121/64 99 Nasal Cannula 2.00 05/10/22 12:00 98 Nasal Cannula 2.00 05/10/22 11:00 75 12 113/79 99 Nasal Cannula 2.00 05/10/22 10:00 64 24 112/58 99 Nasal Cannula 2.00 05/10/22 09:00 64 22 110/54 100 Nasal Cannula 2.00 05/10/22 08:00 98 Nasal Cannula 2.00 05/10/22 08:00 57 20 124/57 100 Nasal Cannula 2.00 05/10/22 08:00 36.7 05/10/22 07:00 63 05/10/22 07:00 57 14 113/57 100 Nasal Cannula 2.00 I & O 05/11/22 07:00 Intake Total 175 ml Output Total 2195 ml Balance -2020 ml Capillary Refill : Less Than 3 Seconds General Appearance: No Apparent Distress, Anxious HEENT: PERRL/EOMI, Normal ENT Inspection Neck: Non Tender, Supple Respiratory: Chest Non Tender, No Accessory Muscle Use, No Respiratory Distress Cardiovascular: No JVD Gastrointestinal: tenderness (Diffuse tenderness, incision clean dry and intact), other (colostomy slightly edematous and pink scant output, FLYNN drain serous) Extremity: Normal Range of Motion, Non Tender Neurologic/Psychiatric: Alert, Oriented x3, Normal Mood/Affect Skin: Normal Color, Warm/Dry Lymphatic: No Adenopathy Results Lab Laboratory Tests 05/10/22 11:14: Glucometer 105 05/10/22 18:16: Glucometer 99 05/11/22 00:25: Glucometer 109 05/11/22 05:10: White Blood Count 18.0H, Red Blood Count 2.93L, Hemoglobin 8.1L, Hematocrit 26L, Mean Corpuscular Volume 87, Mean Corpuscular Hemoglobin 28, Mean Corpuscular Hemoglobin Concent 32, Red Cell Distribution Width 15.4H, Platelet Count 292, Mean Platelet Volume 11.5, Immature Granulocyte % (Auto) 5, Neutrophils (%) (Auto) 84H, Lymphocytes (%) (Auto) 4L, Monocytes (%) (Auto) 7, Eosinophils (%) (Auto) 0, Basophils (%) (Auto) 0, Neutrophils # (Auto) 15.1H, Lymphocytes # (Auto) 0.8L, Monocytes # (Auto) 1.3H, Eosinophils # (Auto) 0.0, Basophils # (Auto) 0.0, Immature Granulocyte # (Auto) 0.8H, Sodium Level 142, Potassium Level 4.0, Chloride Level 109H, Carbon Dioxide Level 23, Anion Gap 10, Blood Urea Nitrogen 31H, Creatinine 0.60, Estimat Glomerular Filtration Rate 93, BUN/Creatinine Ratio 52, Glucose Level 109H, Calcium Level 8.7, Corrected Calcium 10.0, Total Bilirubin 0.3, Aspartate Amino Transf (AST/SGOT) 17, Alanine Aminotransferase (ALT/SGPT) 24, Alkaline Phosphatase 58, Total Protein 4.9L, Albumin 2.4L, Triglycerides Level 102 05/11/22 06:08: Glucometer 99 Microbiology 05/09/22 MRSA Screen - Final, Complete MRSA not isolated 05/08/22 Blood Culture - Preliminary, Resulted No growth Assessment/Plan Assessment/Plan Assessment/Plan diffuse abdominal pain pneumoperitenum perforated hollow viscus s/p laparoscopic/open exploratory laparotomy with low anterior resection with end colostomy and splenic flexure mobilization Sepsis Cough/Shortness of breath Continue on clears Pain control IV fluids Continue antibiotics Urine output is appropriate, discontinue tanner Obtain Chest XRAY Incentive spirometer repeat labs in ANIL Bronson DO 05/11/22 0659: Subjective Subjective/Events-last exam Resting. Reports slight cough and feels slight short breath. Pain better controlled. Has small amount of gas out colostomy. Tolerating some clears. Denies n/v fever sweats chills or chest pain. Objective Exam General Appearance: No Apparent Distress, Anxious HEENT: PERRL/EOMI, Normal ENT Inspection Neck: Non Tender, Supple Respiratory: Chest Non Tender, No Accessory Muscle Use, No Respiratory Distress Cardiovascular: Regular Rate, Rhythm, No JVD Gastrointestinal: soft, tenderness (incisional tenderness, incision clean dry and intact ), other (colostomy slightly edematous and pink scant output, FLYNN drain serous) Extremity: Normal Range of Motion, Non Tender Neurologic/Psychiatric: Alert, Oriented x3, Normal Mood/Affect Skin: Normal Color, Warm/Dry Assessment/Plan Assessment/Plan Assessment/Plan diffuse abdominal pain pneumoperitenum perforated hollow viscus s/p laparoscopic/open exploratory laparotomy with low anterior resection with end colostomy and splenic flexure mobilization Sepsis Cough/Shortness of breath anemia postoperative/dilutional Continue on clears Pain control IV fluids Continue antibiotics Urine output is appropriate, discontinue tanner Obtain Chest XRAY Incentive spirometer repeat labs in am gidvt prophylaxis Supervisory-Addendum Brief Verification & Attestation Participated in pt care: history, MDM, physical Personally performed: exam, history, MDM, supervision of care Care discussed with: Medical Student Procedures: n/a Results interpretation: Verified all documentation Verification and Attestation of Medical Student E/M Service A medical student performed and documented this service in my presence. I reviewed and verified all information documented by the medical student and made modifications to such information, when appropriate. I personally performed the physical exam and medical decision making. Anil Sherman, May 11, 2022,06:59 BOOM ACOSTA May 11, 2022 06:33 ANIL SHERMAN DO May 11, 2022 06:59
[2022-05-11] MEDS: LACTATED RINGERS 1,000 ML IV SCH (06:40)
--- NOTE | 2022-05-11 06:42 | Diagnostic Imaging Report ---
EXAMINATION: Chest 1 view HISTORY: Postop. Cough. COMPARISON: 05/08/2022. FINDINGS: There has been interval removal of the endotracheal tube and enteric tube. Developing patchy opacities are seen in the right lung base. No large pleural effusion or pneumothorax. Stable cardiac silhouette. No acute osseous abnormalities. IMPRESSION: 1. Developing patchy opacities in the right lung base which may represent atelectasis. 2. Interval extubation and removal of the enteric tube. Dictated by: Dictated on workstation # [id number]
[2022-05-11] MEDS ORDERED: ENOXAPARIN 40 MG/0.4 ML (LOVENOX) SYR SC SCH (08:00)
--- NOTE | 2022-05-11 08:11 | Progress Note - Hospitalist ---
Subjective HPI/CC On Admission Date Seen by Provider: May 11, 2022 Patient is a 76-year-old female with a past medical history of hyperlipidemia, hypertension, anxiety who presented to the emergency department due to abdominal pain. She is currently intubated and unable to provide her history. All history is obtained from the records. She stated her symptoms started on May 03 and have been increasing since that time. She reports it was a dull pain that progressed to a sharp pain in her lower abdomen and migrated throughout her entire abdomen. She had nausea. She had loose bowel movements. Her only surgical history is a . She had been taking Aleve and Advil for her pain at home. CT abdomen was done which showed free air throughout the abdomen. Dr. aWlker admitted patient and took her immediately to the OR where resection with colostomy was done. She remained on the ventilator postoperatively overnight and is currently undergoing a weaning trial. Subjective/Events-last exam Pt reports doing well. Complains of cough and abd pain. Encouraged IS. RN at bedside with pain medication as well. Focused Exam Lactate Level 05/08/22 17:35: Lactic Acid Level 1.80 05/08/22 20:50: Lactic Acid Level 2.27*H 05/08/22 23:15: Lactic Acid Level 1.49 Objective Exam Vital Signs Vital Signs Date Time Temp Pulse Resp B/P (MAP) Pulse Ox O2 Delivery O2 Flow Rate FiO2 05/11/22 07:48 36.8 05/11/22 06:00 62 25 130/68 95 Nasal Cannula 2.00 05/09/22 16:00 30 Capillary Refill : Less Than 3 Seconds General Appearance: No Apparent Distress, Anxious Respiratory: Lungs Clear, No Respiratory Distress Cardiovascular: Regular Rate, Rhythm, No Murmur Gastrointestinal: Abnormal Bowel Sounds (quiet); No Distended; Other (FLYNN drain with serous fluid) Extremity: Pedal Edema (trace) Neurologic/Psychiatric: Alert, Oriented x3 Results/Procedures Lab Laboratory Tests 05/11/22 05:10 Patient resulted labs reviewed. Imaging: Reviewed Imaging Report Assessment/Plan Assessment and Plan Assess & Plan/Chief Complaint Perforated sigmoid colon Severe Sepsis- POA s/p ex lap with resection and colostomy- POD #3 Management per primary Continue IV abx BC cultures NGTD Fentanyl for pain Postoperative respiratory insufficiency Extubated 05/09 Currently on 2lpm NC, wean as able Anemia Hgb 10 on arrival, no baseline available 8.1 this morning, trend HTN HLD Bp well controlled, trend add prns IV if needed until able to take PO intake per surgery DVT ppx: Lovenox No acute medical needs, continue postoperative care, will round prn and please call with any concerns or questions Critical Care Ventilator Management Diagnosis/Problems Diagnosis/Problems (1) Perforated sigmoid colon Status: Acute (2) Severe sepsis Status: Acute (3) HTN (hypertension) Status: Chronic Qualifiers: Hypertension type: primary hypertension Qualified Codes: I10 - Essential (primary) hypertension (4) HLD (hyperlipidemia) Status: Chronic Qualifiers: Hyperlipidemia type: mixed hyperlipidemia Qualified Codes: E78.2 - Mixed hyperlipidemia (5) Anemia Status: Chronic Qualifiers: Anemia type: unspecified type Qualified Codes: D64.9 - Anemia, unspecified (6) Respiratory insufficiency Status: Acute (7) Peritoneal free air Status: Acute NIDIA GREENWOOD MD May 11, 2022 08:11
[2022-05-11] MEDS: PANTOPRAZOLE 40 MG (PROTONIX) VIAL IV SCH (08:26)
[2022-05-11] MEDS: metroNIDAZOLE 500MG/100ML IVPB 100 ML IV SCH ×2 (08:26→20:45)
--- NOTE | 2022-05-11 09:29 | Physical Therapy Daily Note ---
PT Daily Note-Current Subjective Patient agrees to PT. Mental Status Patient Orientation: Normal For Age Attachments: Oxygen, IV Transfers SCALE: Activities may be completed with or without assistive devices. 7-Lxhojdiuus-xqjdfmj completes the activity by him/herself with no assistance from a helper. 5-Set-up or Clean-up Assistance-helper sets up or cleans up; patient completes activity. [place] assists only prior to or following the activity. 4-Supervision or Touching Assistance-helper provides verbal cues and/or touching/steadying and/or contact guard assistance as patient completes activity. Assistance may be provided throughout the activity or intermittently. 3-Partial/Moderate Assistance-helper does LESS THAN HALF the effort. [place] lifts, holds or supports trunk or limbs, but provides less than half the effort. 2-Substantial/Maximal Assistance-helper does MORE THAN HALF the effort. [place] lifts or holds trunk or limbs and provides more than half the effort. 3-Avmslkcxq-pijxjw does ALL the effort. Patient does none of the effort to complete the activity. Or, the assistance of 2 or more helpers is required for the patient to complete the activity. If activity was not attempted, code reason: 7-Patient Refused. 9-Not Applicable-not attempted and the patient did not perform the activity before the current illness, exacerbation or injury. 10-Not Attempted due to Environmental Limitations-(lack of equipment, weather restraints, etc.). 88-Not Attempted due to Medical Conditions or Safety Concerns. Lying to Sitting/Side of Bed(Q: 4 Sit to Stand (QC): 4 Chair/Ogd-qo-Cjdzg Xfer(QC): 4 Toilet Transfer (QC): 4 Patient transferred to commode to toilet Gait Training Distance: 275' Walk 10 feet (QC): 4 Walk 50 ft with 2 Turns(QC): 4 Walk 150 ft (QC): 4 Gait Assistive Device: FWW slow, steady, functional gait sequence Assessment Patient requires time to complete all functional activity. Patient is very talkative. PT to increase activity as tolerated by patient. Patient is up in recliner with needs met. PT Care Home Goals Air Cargo Specialist Supervisor Goals PT Air Cargo Specialist Supervisor Goals Time Frame: May 26, 2022 Roll Left & Right (QC): 6 Sit to Lying (QC): 6 Lying-Sitting on Side/Bed(QC): 6 Sit to Stand (QC): 6 Chair/Vyn-bl-Abgmq Xfer(QC): 6 Toilet Transfer (QC): 6 Walk 10 feet (QC): 6 Walk 50ft with 2 Turns (QC): 6 Walk 150 ft (QC): 6 PT Plan Treatment/Plan Treatment Plan: Continue Plan of Care Treatment Plan: Bed Mobility, Education, Functional Activity Simona, Functional Strength, Gait, Safety, Therapeutic Exercise, Transfers Treatment Duration: May 26, 2022 Frequency: 6 times per week Estimated Hrs Per Day: .25 hour per day Patient and/or Family Agrees t: Yes Time/GCodes Time In: 754 Time Out: 817 Total Billed Treatment Time: 23 Total Billed Treatment 1 visit FA x 2 23 min JOHN SPANN PT May 11, 2022 09:29
[2022-05-11 09:36] VITALS: BP 117/55
[2022-05-11] MEDS ORDERED: RT-ALBUTEROL SULF 2.5 MG/3 ML PRE-MIX VIAL INH PRN (09:45)
--- NOTE | 2022-05-11 10:57 | Occupational Ther Daily Note ---
OT Current Status-Daily Note Subjective Pt alert with nrsg in room. Pt states that she is tired and wants to just lay in bed. Mental Status/Objective Patient Orientation: Person Attachments: IV ADL-Treatment Pt is transferring from bed <--> BSC, CGA. Pt requires assist to complete hygiene and clothing manipulation due to increased fatigue per nrsg. PHILIP actively listens to pt when pt is talking about where her family wants her to go, assisted living. PHILIP recommends pt talk to family and SW. After therapy, pt lying in bed with call light/phone in reach. All needs met in room. Therapy Code Descriptions/Definitions Functional [place] Measure: 0=Not Assessed/NA 4=Minimal Assistance 1=Total Assistance 5=Supervision or Setup 2=Maximal Assistance 6=Modified [place] 3=Moderate Assistance 7=Complete IndependenceSCALE: Activities may be completed with or without assistive devices. 3-Yzsqpjyrdc-zrytbmq completes the activity by him/herself with no assistance from a helper. 5-Set-up or Clean-up Assistance-helper sets up or cleans up; patient completes activity. [place] assists only prior to or following the activity. 4-Supervision or Touching Assistance-helper provides verbal cues and/or touching/steadying and/or contact guard assistance as patient completes activity. Assistance may be provided throughout the activity or intermittently. 3-Partial/Moderate Assistance-helper does LESS THAN HALF the effort. [place] l ifts, holds or supports trunk or limbs, but provides less than half the effort. 2-Substantial/Maximal Assistance-helper does MORE THAN HALF the effort. [place] lifts or holds trunk or limbs and provides more than half the effort. 4-Ycuvdlafq-opnine does ALL the effort. Patient does none of the effort to complete the activity. Or, the assistance of 2 or more helpers is required for t he patient to complete the activity. If activity was not attempted, code reason: 7-Patient Refused. 9-Not Applicable-not attempted and the patient did not perform the activity before the current illness, exacerbation or injury. 10-Not Attempted due to Environmental Limitations-(lack of equipment, weather restraints, etc.). 88-Not Attempted due to Medical Conditions or Safety Concerns. OT Manager Health Goals Manager Health Goals Time Frame: May 24, 2022 Eating (QC): 5 Oral Hygiene (QC): 5 Toileting Hygiene (QC): 4 Shower/Bathe Self (QC): 4 Upper Body Dressing (QC): 5 Lower Body Dressing (QC): 5 On/Off Footwear (QC): 5 1=Demonstrate adherence to instructed precautions during ADL tasks. 2=Patient will verbalize/demonstrate understanding of assistive devices/modifications for ADL. 3=Patient will improve strength/tolerance for activity to enable patient to perform ADL's. OT Education/Plan Problem List/Assessment Assessment: Decreased Activ Tolerance, Impaired Self-Care Skills Discharge Recommendations Plan/Recommendations: Continue POC Treatment Plan/Plan of Care Patient would benefit from OT for education, treatment and training to promote independence in ADL's, mobility, safety and/or upper extremity function for ADL's. Plan of Care: ADL Retraining, Cognitive Retraining, Functional Mobility, Group Exercise/Act as Ind, UE Funct Exercise/Act Treatment Duration: May 24, 2022 Frequency: 3 times per week (3-5x/week) Estimated Hrs Per Day: .25 hour per day Agreement: Yes Rehab Potential: Fair Time/GCodes Start Time: 09:27 Stop Time: 09:37 Total Time Billed (hr/min): 10 Billed Treatment Time 1 visit-FA 1 (10 min) NEO ALDANA May 11, 2022 10:57
[2022-05-11] MEDS ORDERED: ADENOSINE 6 MG/2 ML (ADENOCARD) VIAL IV NR ×2 (13:45)
[2022-05-11] MEDS ORDERED: ADENOSINE 6 MG/2 ML (ADENOCARD) VIAL IV ONE (13:46)
[2022-05-11] MEDS ORDERED: AMIODARONE FOR BOLUS 150 MG in NS (IVPB) 100 ML IV NR (14:00)
[2022-05-11] MEDS ORDERED: HEParin 1000 UNIT/ML (10ML VIAL) FOR BOLUS IV SCH (14:00)
[2022-05-11] MEDS ORDERED: AMIODARONE INJECTION 450 MG in NORMAL SALINE 250 ML IV SCH (14:00)
--- NOTE | 2022-05-11 14:02 | Tele-ICU Progress Note ---
Subjective Date Seen by a Provider: May 11, 2022 Time Seen by a Provider: 14:01 Subjective/Events-last exam (Tele-ICU Physician , Progress Note ) Available chart/ vitals / labs / Images reviewed Video assessment done using teleICU camera, rest of exam as per RN Discussed with RN Events overnight : Afebrile hemodynamically stable Respiratory - 2l I/O = NEG Drips: Pressors- no Consultants: Hospital course: (05/08) 76/F admitted s/p Exploratory Laparotomy, bowel resection, and ostomy (05/09) extubated 0930 A/P Extubated- on 2 l - cxr with atrel;ectasis RLL - cont IS and OOB, wean off o2 - already obn abx s/p Exploratory Laparotomy, bowel resection, and ostomy - as per sx -cont ABX A fib RVR - new 05/11 - 180s ( no chest pain , BP stable carotid massage unsuccessful - adenosine 6 and 12 was given with long pause - > not converted to sinus -> nack to 170s rate - lytes , trop sent , 12 lead ordered - amio bolus and gtt ordered cards consult as per PCP Lines : , (Central Line Necessity Reviewed) Aldrich: + OG: Nutrition: as per SX Analgesia: Anxiety/ delirium VTE Prophylaxis: lovenox 40 Stress Ulcer Prophylaxis: na Plans in collaboration with bedside consultants and IM MDs. Discussed with RN to reach out if any questions or concerns A total of 15 minutes of critical care time was devoted to this patient in the [facility] , required to treat and/or prevent further deterioration of critical care condition ( as above ) . CCT time in room with camera for SVT 35 min Sepsis Event Evaluation Height, Weight, BMI Height: '" Weight: lbs. oz. kg; 29.71 BMI Method: Focused Exam Lactate Level 05/08/22 17:35: Lactic Acid Level 1.80 05/08/22 20:50: Lactic Acid Level 2.27*H 05/08/22 23:15: Lactic Acid Level 1.49 Exam Exam Patient acknowledged, consented, and participated in this virtual visit which was conducted using real time audio/video Vital Signs Date Time Temp Pulse Resp B/P (MAP) Pulse Ox O2 Delivery O2 Flow Rate FiO2 05/11/22 12:00 97 Nasal Cannula 2.00 05/11/22 12:00 36.4 05/11/22 10:00 75 28 119/52 93 Nasal Cannula 2.00 05/11/22 09:36 36.8 76 93 05/11/22 09:00 76 117/55 93 Nasal Cannula 2.00 05/11/22 08:00 93 29 95 Nasal Cannula 2.00 05/11/22 08:00 97 Nasal Cannula 2.00 05/11/22 07:48 36.8 05/11/22 07:00 63 25 135/72 95 Nasal Cannula 2.00 05/11/22 07:00 53 05/11/22 06:00 62 25 130/68 95 Nasal Cannula 2.00 05/11/22 05:00 79 28 132/67 96 Nasal Cannula 2.00 05/11/22 04:00 36.8 60 29 127/64 95 Nasal Cannula 2.00 05/11/22 04:00 95 Nasal Cannula 2.00 05/11/22 03:00 53 20 124/64 95 Nasal Cannula 2.00 05/11/22 02:00 50 20 110/54 94 Nasal Cannula 2.00 05/11/22 01:00 53 21 121/58 95 Nasal Cannula 2.00 05/11/22 01:00 50 05/11/22 00:00 57 23 128/60 95 Nasal Cannula 2.00 05/10/22 23:59 98 Nasal Cannula 2.00 05/10/22 23:00 65 22 134/66 96 Nasal Cannula 2.00 05/10/22 22:00 61 23 129/70 94 Nasal Cannula 2.00 05/10/22 21:00 64 43 133/85 95 Nasal Cannula 2.00 05/10/22 20:00 97 Nasal Cannula 2.00 05/10/22 20:00 59 19 142/69 96 Nasal Cannula 2.00 05/10/22 20:00 36.9 05/10/22 19:00 66 05/10/22 19:00 65 28 117/55 96 Nasal Cannula 2.00 05/10/22 18:00 67 12 122/66 95 Nasal Cannula 2.00 05/10/22 17:00 66 16 126/68 95 Nasal Cannula 2.00 05/10/22 16:33 36.8 05/10/22 16:00 36.8 05/10/22 16:00 98 Nasal Cannula 2.00 05/10/22 16:00 68 22 129/57 95 Nasal Cannula 2.00 05/10/22 15:00 70 16 130/66 96 Nasal Cannula 2.00 I & O 05/11/22 07:00 Intake Total 175 ml Output Total 2205 ml Balance -2030 ml Height & Weight Height: '" Weight: lbs. oz. kg; 29.71 BMI Method: General Appearance: No Apparent Distress, Anxious HEENT: PERRL/EOMI, Normal ENT Inspection Neck: Non Tender, Supple Respiratory: Lungs Clear, No Respiratory Distress Cardiovascular: Regular Rate, Rhythm, No Murmur Gastrointestinal: soft, tenderness (incisional tenderness, incision clean dry and intact ), other (colostomy slightly edematous and pink scant output, FLYNN drain serous) Extremity: Pedal Edema (trace) Neurologic/Psychiatric: Alert, Oriented x3 Skin: Normal Color, Warm/Dry Lymphatic: No Adenopathy Results Lab Laboratory Tests 05/10/22 04:29 05/11/22 05:10 Assessment/Plan Assessment/Plan 1 KIM CELAYA MD May 11, 2022 14:02
[2022-05-11 14:10] VITALS: BP 119/52
[2022-05-11 14:14] LABS: HEMATOCRIT 31 % (35-52); HEMOGLOBIN 9.8 g/dL (11.5-16.0); MEAN CORPUSCULAR HEMOGLOBIN 28 pg (25-34); MEAN CORPUSCULAR HGB CONC 32 g/dL (32-36); MEAN CORPUSCULAR VOLUME 88 fL (80-99); MEAN PLATELET VOLUME 11.1 fL (9.0-12.2); PLATELET COUNT 390 10^3/uL (130-400); WHITE BLOOD COUNT 23.2 10^3/uL (4.3-11.0)
[2022-05-11 14:25] LABS: INR 1.3 (0.8-1.4); PROTHROMBIN TIME PATIENT 16.9 SEC (12.2-14.7)
[2022-05-11 14:31] LABS: BUN/CREATININE RATIO 37; CARBON DIOXIDE 23 MMOL/L (21-32); CHLORIDE 107 MMOL/L (98-107); CREATININE SERUM 0.67 MG/DL (0.60-1.30); GFR ESTIMATED 91; GLUCOSE 153 MG/DL (70-105); MAGNESIUM 1.9 MG/DL (1.6-2.4); POTASSIUM 3.6 MMOL/L (3.6-5.0); SODIUM 142 MMOL/L (135-145)
[2022-05-11] MEDS ORDERED: LIDOCAINE 1% INJ 20 ML VIAL ONE (14:32)
--- NOTE | 2022-05-11 15:19 | Diagnostic Imaging Report ---
INDICATION: Line placement. TIME OF EXAM: 02:49 p.m. COMPARISON: Correlation is made to prior chest earlier the same day. FINDINGS: Right IJ line has tip overlying the SVC-right atrial junction. No pneumothorax is seen. Lungs are clear. External pacers overlie the chest. IMPRESSION: IJ line placement. No pneumothorax is detected. Dictated by: Dictated on workstation # [id number]
[2022-05-11] MEDS: HEParin DRIP 25000 UNIT/500ML 500 ML IV SCH (15:47)
[2022-05-11] MEDS ORDERED: KCL 20 MEQ TAB (K-DUR) PO NR (16:30)
--- NOTE | 2022-05-11 16:58 | Progress Note-Post Operative ---
Post-Operative Progess Note Surgeon (s)/Senior Mobile Developer (s) Surgeon ARUN SHERMAN DO Senior Mobile Developer: na Pre-Operative Diagnosis afib rvr, poor venous access Post-Operative Diagnosis same Procedure & Operative Findings Date of Procedure 05/11/22 Procedure Performed/Findings right ij u/s guided central line placement patient prepped and draped in sterile fashion. u/s was used to visualize the right IJ vein. Local anesthetic infiltrated. Right Ij was accessed using u/s guidance, dark nonpulsatile blood returned. Wire was inserted and needle was removed. 11 blade scalpel used to make skin incision at insertion site. Dilator advanced over the wire and removed. Triple lumen catheter was then advanced over the wire and wire removed. All ports accessed and flushed with saline. Catheter secured in usual fashion. Area washed and dried, sterile bandage applied. Chest x ray pending. Anesthesia Type local Estimated Blood Loss Estimated blood loss (mL): minimal Specimens/Packing Specimens Removed ARUN Callaway DO May 11, 2022 16:58
[2022-05-11] MEDS: cefTRIAXone 1 GM PRE-MIX 50 ML IV SCH (20:45)
[2022-05-12] MEDS: fentaNYL INJ 100 MCG/2 ML AMP IVP PRN ×5 (02:24→20:55)
[2022-05-12 02:39] LABS: BASOPHILS # (AUTO) 0.1 10^3/uL (0.0-0.1); BASOPHILS % (AUTO) 0 % (0-10); EOSINOPHILS # (AUTO) 0.2 10^3/uL (0.0-0.3); EOSINOPHILS % (AUTO) 1 % (0-10); HEMATOCRIT 26 % (35-52); HEMOGLOBIN 8.5 g/dL (11.5-16.0); LYMPHOCYTES # (AUTO) 1.4 10^3/uL (1.0-4.0); LYMPHOCYTES % (AUTO) 7 % (12-44); MEAN CORPUSCULAR HEMOGLOBIN 28 pg (25-34); MEAN CORPUSCULAR HGB CONC 32 g/dL (32-36); MEAN CORPUSCULAR VOLUME 88 fL (80-99); MEAN PLATELET VOLUME 10.9 fL (9.0-12.2); MONOCYTES # (AUTO) 2.1 10^3/uL (0.0-1.0); MONOCYTES % (AUTO) 10 % (0-12); NEUTROPHILS # (AUTO) 14.4 10^3/uL (1.8-7.8); NEUTROPHILS % (AUTO) 70 % (42-75); PLATELET COUNT 337 10^3/uL (130-400); WHITE BLOOD COUNT 20.5 10^3/uL (4.3-11.0)
[2022-05-12 03:08] LABS: ALBUMIN 2.4 GM/DL (3.2-4.5); BILIRUBIN,TOTAL 0.4 MG/DL (0.1-1.0); CALCIUM 8.5 MG/DL (8.5-10.1); CREATININE SERUM 0.58 MG/DL (0.60-1.30); POTASSIUM 4.1 MMOL/L (3.6-5.0); TOTAL PROTEIN 4.8 GM/DL (6.4-8.2)
[2022-05-12] MEDS: PANTOPRAZOLE 40 MG (PROTONIX) VIAL IV SCH (07:33)
--- NOTE | 2022-05-12 08:50 | Progress Note - Hospitalist ---
Subjective HPI/CC On Admission Date Seen by Provider: May 12, 2022 Patient is a 76-year-old female with a past medical history of hyperlipidemia, hypertension, anxiety who presented to the emergency department due to abdominal pain. She is currently intubated and unable to provide her history. All history is obtained from the records. She stated her symptoms started on May 03 and have been increasing since that time. She reports it was a dull pain that progressed to a sharp pain in her lower abdomen and migrated throughout her entire abdomen. She had nausea. She had loose bowel movements. Her only surgical history is a . She had been taking Aleve and Advil for her pain at home. CT abdomen was done which showed free air throughout the abdomen. Dr. Walker admitted patient and took her immediately to the OR where resection with colostomy was done. She remained on the ventilator postoperatively overnight and is currently undergoing a weaning trial. Subjective/Events-last exam Pt reports doing well. No complaints. Had episode of tachycardia yesterday with a-fib, s/p adenosine. Currently converted to sinus rhythm on amiodarone gtt. Objective Exam Vital Signs Vital Signs Date Time Temp Pulse Resp B/P (MAP) Pulse Ox O2 Delivery O2 Flow Rate FiO2 05/12/22 08:00 36.7 05/12/22 08:00 84 19 133/99 94 Nasal Cannula 2.00 05/09/22 16:00 30 Capillary Refill : Less Than 3 Seconds General Appearance: No Apparent Distress, Anxious Respiratory: Lungs Clear, No Respiratory Distress Cardiovascular: Regular Rate, Rhythm, No Murmur Gastrointestinal: Soft, Abnormal Bowel Sounds (present but slow), Tenderness (appropriate) Neurologic/Psychiatric: Alert, Oriented x3, Normal Mood/Affect Results/Procedures Lab Laboratory Tests 05/11/22 13:58 05/12/22 02:30 Patient resulted labs reviewed. Imaging: Reviewed Imaging Report Assessment/Plan Assessment and Plan Assess & Plan/Chief Complaint Perforated sigmoid colon Severe Sepsis- POA s/p ex lap with resection and colostomy- POD #4 Management per primary Continue IV abx BC cultures NGTD Fentanyl for pain new onset atrial fibrillation Currently on amiodarone gtt Discussed with Dr Walker yesterday and ok with heparin gtt in postop state Continue on telemetry Cardiology consulted, appreciate recs Postoperative respiratory insufficiency Extubated 05/09 Currently on 2lpm NC, wean as able Anemia Hgb 10 on arrival, no baseline available 8.5 this morning, trend HTN HLD Bp well controlled, trend add prns IV if needed until able to take PO intake per surgery DVT ppx: heparin gtt Critical Care Ventilator Management Diagnosis/Problems Diagnosis/Problems (1) Perforated sigmoid colon Status: Acute (2) Severe sepsis Status: Acute (3) HTN (hypertension) Status: Chronic Qualifiers: Hypertension type: primary hypertension Qualified Codes: I10 - Essential (primary) hypertension (4) HLD (hyperlipidemia) Status: Chronic Qualifiers: Hyperlipidemia type: mixed hyperlipidemia Qualified Codes: E78.2 - Mixed hyperlipidemia (5) Anemia Status: Chronic Qualifiers: Anemia type: unspecified type Qualified Codes: D64.9 - Anemia, unspecified (6) Respiratory insufficiency Status: Acute (7) Peritoneal free air Status: Acute NIDIA GREENWOOD MD May 12, 2022 08:50
[2022-05-12] MEDS: metroNIDAZOLE 500MG/100ML IVPB 100 ML IV SCH ×2 (08:59→21:15)
--- NOTE | 2022-05-12 10:10 | Tele-ICU Progress Note ---
Subjective Date Seen by a Provider: May 12, 2022 Time Seen by a Provider: 09:40 Subjective/Events-last exam (Tele-ICU Physician , consultation) Available chart/ vitals / labs / Images reviewed H&P is from ER notes Patient's information available about PMH, allergy reviewed in EMR. ROS as per chart and RN report Video assessment done using teleICU camera, rest of exam as per RN Discussed with RN. Sepsis Event Evaluation Height, Weight, BMI Height: '" Weight: lbs. oz. kg; 29.71 BMI Method: Exam Exam Patient acknowledged, consented, and participated in this virtual visit which was conducted using real time audio/video Vital Signs Date Time Temp Pulse Resp B/P (MAP) Pulse Ox O2 Delivery O2 Flow Rate FiO2 05/12/22 10:00 74 25 125/70 98 Nasal Cannula 2.00 05/12/22 09:00 82 31 119/68 94 Nasal Cannula 2.00 05/12/22 08:00 36.7 05/12/22 08:00 84 19 133/99 94 Nasal Cannula 2.00 05/12/22 08:00 97 Nasal Cannula 2.00 05/12/22 07:00 71 26 131/75 95 Nasal Cannula 2.00 05/12/22 07:00 71 05/12/22 06:00 72 20 139/72 96 Nasal Cannula 2.00 05/12/22 05:00 62 21 134/73 96 Nasal Cannula 2.00 05/12/22 04:00 66 20 114/69 97 Nasal Cannula 2.00 05/12/22 04:00 95 Nasal Cannula 2.00 05/12/22 03:58 36.5 05/12/22 03:00 70 19 125/70 96 Nasal Cannula 2.00 05/12/22 02:00 71 25 140/74 97 Nasal Cannula 2.00 05/12/22 01:00 66 25 118/70 97 Nasal Cannula 2.00 05/12/22 01:00 67 05/12/22 00:00 71 20 120/64 97 Nasal Cannula 2.00 05/11/22 23:59 95 Nasal Cannula 2.00 05/11/22 23:32 37.1 05/11/22 23:00 70 22 114/71 97 Nasal Cannula 2.00 05/11/22 22:00 78 30 117/65 96 Nasal Cannula 2.00 05/11/22 21:00 83 21 118/71 95 Nasal Cannula 2.00 05/11/22 20:04 37.0 05/11/22 20:00 85 21 120/78 96 Nasal Cannula 2.00 05/11/22 20:00 95 Nasal Cannula 2.00 05/11/22 19:15 96 Nasal Cannula 2.00 05/11/22 19:00 81 05/11/22 19:00 81 25 116/64 97 Nasal Cannula 2.00 05/11/22 18:00 142 35 120/75 98 Nasal Cannula 2.00 05/11/22 17:00 147 38 108/75 96 Nasal Cannula 2.00 05/11/22 16:00 37.2 05/11/22 16:00 95 Nasal Cannula 2.00 05/11/22 16:00 135 19 110/72 95 Nasal Cannula 2.00 05/11/22 15:00 156 25 112/94 94 Nasal Cannula 2.00 05/11/22 14:10 75 119/52 05/11/22 14:00 176 33 106/62 92 Nasal Cannula 2.00 05/11/22 13:00 77 05/11/22 12:00 97 Nasal Cannula 2.00 05/11/22 12:00 36.4 I & O 05/12/22 07:00 Intake Total 1845 ml Output Total 2020 ml Balance -175 ml Height & Weight Height: '" Weight: lbs. oz. kg; 29.71 BMI Method: General Appearance: No Apparent Distress, Anxious HEENT: PERRL/EOMI, Normal ENT Inspection Neck: Non Tender, Supple Respiratory: Lungs Clear, No Respiratory Distress Cardiovascular: Regular Rate, Rhythm, No Murmur Gastrointestinal: soft, tenderness (incisional tenderness, incision clean dry and intact ), other (colostomy slightly edematous and pink scant output, FLYNN drain serous) Extremity: Pedal Edema (trace) Neurologic/Psychiatric: Alert, Oriented x3, Normal Mood/Affect Skin: Normal Color, Warm/Dry Lymphatic: No Adenopathy Results Lab Laboratory Tests 05/11/22 05:10 05/11/22 13:58 05/12/22 02:30 Assessment/Plan Assessment/Plan 1. Perforated sigmoid colon with severe sepsis. Status post expiratory laparotomy with resection and colostomy. postoperative management per surgery. Continue IV antibiotics fentanyl for pain management. 2. New onset atrial fibrillation. Currently on amiodarone drip. Cardiology is on the case. 3. Postoperative pulmonary insufficiency. Extubated on 05/09/2022. Currently on oxygen via 2 L nasal cannula. Next 4. Chronic anemia currently stable 5. Hypertension fairly well controlled. 6. Nutrition: she is on clear liquids 7. DVT prophylaxis. on a heparin drip. Critical Care: Critically Ill Patient Time spent with patient (mins): 15 JUDE MOLINA MD May 12, 2022 10:09
--- NOTE | 2022-05-12 10:36 | Progress Note - Surgery ---
DAVEBOOM 05/12/22 1036: Subjective Date Seen by a Provider: May 12, 2022 Time Seen by a Provider: 10:31 Subjective/Events-last exam Pt is resting comfortably in bed. Pt notes no change in pain from yesterday. Pt states she has been experiencing generalized weakness today. Output noted in colostomy and serous fluid noted in FLYNN drain. Pt denies n/v, and sweats. Objective Exam Vital Signs Date Time Temp Pulse Resp B/P (MAP) Pulse Ox O2 Delivery O2 Flow Rate FiO2 05/12/22 10:00 74 25 125/70 98 Nasal Cannula 2.00 05/12/22 09:00 82 31 119/68 94 Nasal Cannula 2.00 05/12/22 08:00 36.7 05/12/22 08:00 84 19 133/99 94 Nasal Cannula 2.00 05/12/22 08:00 97 Nasal Cannula 2.00 05/12/22 07:00 71 26 131/75 95 Nasal Cannula 2.00 05/12/22 07:00 71 05/12/22 06:00 72 20 139/72 96 Nasal Cannula 2.00 05/12/22 05:00 62 21 134/73 96 Nasal Cannula 2.00 05/12/22 04:00 66 20 114/69 97 Nasal Cannula 2.00 05/12/22 04:00 95 Nasal Cannula 2.00 05/12/22 03:58 36.5 05/12/22 03:00 70 19 125/70 96 Nasal Cannula 2.00 05/12/22 02:00 71 25 140/74 97 Nasal Cannula 2.00 05/12/22 01:00 66 25 118/70 97 Nasal Cannula 2.00 05/12/22 01:00 67 05/12/22 00:00 71 20 120/64 97 Nasal Cannula 2.00 05/11/22 23:59 95 Nasal Cannula 2.00 05/11/22 23:32 37.1 05/11/22 23:00 70 22 114/71 97 Nasal Cannula 2.00 05/11/22 22:00 78 30 117/65 96 Nasal Cannula 2.00 05/11/22 21:00 83 21 118/71 95 Nasal Cannula 2.00 05/11/22 20:04 37.0 05/11/22 20:00 85 21 120/78 96 Nasal Cannula 2.00 05/11/22 20:00 95 Nasal Cannula 2.00 05/11/22 19:15 96 Nasal Cannula 2.00 05/11/22 19:00 81 05/11/22 19:00 81 25 116/64 97 Nasal Cannula 2.00 05/11/22 18:00 142 35 120/75 98 Nasal Cannula 2.00 05/11/22 17:00 147 38 108/75 96 Nasal Cannula 2.00 05/11/22 16:00 37.2 05/11/22 16:00 95 Nasal Cannula 2.00 05/11/22 16:00 135 19 110/72 95 Nasal Cannula 2.00 05/11/22 15:00 156 25 112/94 94 Nasal Cannula 2.00 05/11/22 14:10 75 119/52 05/11/22 14:00 176 33 106/62 92 Nasal Cannula 2.00 05/11/22 13:00 77 05/11/22 12:00 97 Nasal Cannula 2.00 05/11/22 12:00 36.4 I & O 05/12/22 06:59 Intake Total 1845 ml Output Total 2020 ml Balance -175 ml Capillary Refill : Less Than 3 Seconds General Appearance: No Apparent Distress, Anxious HEENT: PERRL/EOMI, Normal ENT Inspection Neck: Non Tender, Supple Respiratory: Lungs Clear, No Respiratory Distress Cardiovascular: Regular Rate, Rhythm, No Murmur Gastrointestinal: soft, tenderness (diffuse-decreased from yesterday), other (midline incision, left colostomy bag, and right FLYNN drain ) Neurologic/Psychiatric: Alert, Normal Mood/Affect Skin: Normal Color, Warm/Dry Lymphatic: No Adenopathy Results Lab Laboratory Tests 05/11/22 11:42: Glucometer 107 05/11/22 13:58: White Blood Count 23.2H, Red Blood Count 3.54L, Hemoglobin 9.8#L, Hematocrit 31L , Mean Corpuscular Volume 88, Mean Corpuscular Hemoglobin 28, Mean Corpuscular Hemoglobin Concent 32, Red Cell Distribution Width 15.3H, Platelet Count 390, Mean Platelet Volume 11.1, Prothrombin Time 16.9H, INR Comment 1.3, Activated Partial Thromboplast Time 44H, Sodium Level 142, Potassium Level 3.6, Chloride Level 107, Carbon Dioxide Level 23, Anion Gap 12, Blood Urea Nitrogen 25H, Creatinine 0.67, Estimat Glomerular Filtration Rate 91, BUN/Creatinine Ratio 37, Glucose Level 153H, Calcium Level 9.0, Magnesium Level 1.9, Troponin I < 0.028 05/11/22 19:30: Activated Partial Thromboplast Time 103H 05/12/22 02:30: White Blood Count 20.5H, Red Blood Count 2.99L, Hemoglobin 8.5L, Hematocrit 26L, Mean Corpuscular Volume 88, Mean Corpuscular Hemoglobin 28, Mean Corpuscular Hemoglobin Concent 32, Red Cell Distribution Width 15.3H, Platelet Count 337, Mean Platelet Volume 10.9, Activated Partial Thromboplast Time 82H, Sodium Level 143, Potassium Level 4.1, Chloride Level 110H, Carbon Dioxide Level 23, Anion Gap 10, Blood Urea Nitrogen 21H, Creatinine 0.58L, Estimat Glomerular Filtration Rate 94, BUN/Creatinine Ratio 36, Glucose Level 128H, Calcium Level 8.5, Immature Granulocyte % (Auto) 12, Neutrophils (%) (Auto) 70, Lymphocytes (%) (Auto) 7L, Monocytes (%) (Auto) 10, Eosinophils (%) (Auto) 1, Basophils (%) (Auto) 0, Neutrophils # (Auto) 14.4H, Lymphocytes # (Auto) 1.4, Monocytes # (Auto) 2.1H, Eosinophils # (Auto) 0.2, Basophils # (Auto) 0.1, Immature Granulocyte # (Auto) 2.5H, Corrected Calcium 9.8, Total Bilirubin 0.4, Aspartate Amino Transf (AST/SGOT) 53H, Alanine Aminotransferase (ALT/SGPT) 22, Alkaline Phosphatase 54, Total Protein 4.8L, Albumin 2.4L Microbiology 05/09/22 MRSA Screen - Final, Complete MRSA not isolated 05/08/22 Blood Culture - Preliminary, Resulted No growth Assessment/Plan Assessment/Plan Assessment/Plan diffuse abdominal pain pneumoperitenum perforated hollow viscus s/p laparoscopic/open exploratory laparotomy with low anterior resection with end colostomy and splenic flexure mobilization Sepsis Cough/Shortness of breath anemia postoperative/dilutional Continue on clears Pain control IV fluids Continue antibiotics Urine output is appropriate, discontinue tanner Incentive spirometer gidvt prophylaxis LORRI POLANCO DO 05/12/22 1806: Subjective Time Seen by a Provider: 11:01 Subjective/Events-last exam Pt seen and examined, states she feels a little better today. Still tired and weak. Tolerating small amounts of clears. Review of Systems General: Fatigue Cardiovascular: No: Chest Pain, Palpitations Gastrointestinal: Abdominal Pain; No: Nausea, Vomiting Objective Exam General Appearance: No Apparent Distress, Anxious HEENT: PERRL/EOMI Respiratory: Lungs Clear, Normal Breath Sounds, No Accessory Muscle Use, No Respiratory Distress Cardiovascular: Regular Rate, Rhythm, No Murmur Gastrointestinal: soft, tenderness (diffuse-decreased from yesterday), other (midline incision, left colostomy bag, and right FLYNN drain ) Neurologic/Psychiatric: Alert Assessment/Plan Assessment/Plan Assessment/Plan s/p laparoscopic/open exploratory laparotomy with low anterior resection with end colostomy and splenic flexure mobilization Sepsis Cough/Shortness of breath anemia postoperative/dilutional Continue on clears, Pain control, IV fluids and continue antibiotics Urine output is appropriate, discontinue tanner Encourage IS, ambulation, and PT GI/DVT prophylaxis Supervisory-Addendum Brief Verification & Attestation Participated in pt care: history, MDM, physical Personally performed: exam, history, MDM, supervision of care Care discussed with: Medical Student Procedures: n/a Verification and Attestation of Medical Student E/M Service A medical student performed and documented this service. I then reviewed and verified all information documented by the medical student and made modifications to such information, when appropriate. I personally performed a physical exam, medical decision making and then discussed any differences between the notes and made revisions as necessary to create one note. Lorri Polanco , 05/12/22 , 18:06 BOOM ACOSTA May 12, 2022 10:36 LORRI POLANCO DO May 12, 2022 18:06
--- NOTE | 2022-05-12 10:44 | Physical Therapy Daily Note ---
PT Daily Note-Current Subjective Pt agreeable with encouragement. Pt did have episode of a-fib yesterday, nursing approved activity. Portable heart monitor placed during ambulation. Pt very talkative, moves very slowly. Pain not rated. Mental Status Patient Orientation: Person, Place, Time, Situation Attachments: Colostomy/Ileostomy, Oxygen, Drains, Aldrich Catheter, IV Transfers SCALE: Activities may be completed with or without assistive devices. 6-Duqaivxzsm-[id number] completes the activity by him/herself with no assistance from a helper. 5-Set-up or Clean-up Assistance-helper sets up or cleans up; patient completes activity. Orrum assists only prior to or following the activity. 4-Supervision or Touching Assistance-helper provides verbal cues and/or touchi ng/steadying and/or contact guard assistance as patient completes activity. Assistance may be provided throughout the activity or intermittently. 3-Partial/Moderate Assistance-helper does LESS THAN HALF the effort. Orrum lifts, holds or supports trunk or limbs, but provides less than half the effort. 2-Substantial/Maximal Assistance-helper does MORE THAN HALF the effort. Orrum lifts or holds trunk or limbs and provides more than half the effort. 5-Bnmwnidev-pltrcv does ALL the effort. Patient does none of the effort to complete the activity. Or, the assistance of 2 or more helpers is required for the patient to complete the activity. If activity was not attempted, code reason: 7-Patient Refused. 9-Not Applicable-not attempted and the patient did not perform the activity before the current illness, exacerbation or injury. 10-Not Attempted due to Environmental Limitations-(lack of equipment, weather restraints, etc.). 88-Not Attempted due to Medical Conditions or Safety Concerns. Roll Left & Right (QC): 4 Sit to Lying (QC): 4 Lying to Sitting/Side of Bed(Q: 4 Sit to Stand (QC): 4 Weight Bearing Right Lower Extremity: Right Full Weight Bearing Left Lower Extremity: Left Full Weight Bearing Gait Training Does the Patient Walk?: Yes Distance: 200 Walk 10 feet (QC): 4 Walk 50 ft with 2 Turns(QC): 4 Walk 150 ft (QC): 4 Gait Persons Needed: 1 Gait Assistive Device: FWW Pt ambulated with slow, shuffling gait but safe without LOB. 2 people to assist with IV, O2 only; Pt SBA-CGA with FWW Treatments Pt sat EOB x 10' mod (I) and then ambulated with FWW. Returned to bed with O2 in situ, needs met and Nurse present in room to re-establish monitors. Assessment Current Status: Good Progress Pt tolerated well. Very slow, but safe, fairly (I) with mobility. PT Longterm Goals Longterm Goals PT Longterm Goals Time Frame: May 26, 2022 Roll Left & Right (QC): 6 Sit to Lying (QC): 6 Lying-Sitting on Side/Bed(QC): 6 Sit to Stand (QC): 6 Chair/Ebc-id-Miotn Xfer(QC): 6 Toilet Transfer (QC): 6 Walk 10 feet (QC): 6 Walk 50ft with 2 Turns (QC): 6 Walk 150 ft (QC): 6 PT Plan Problem List Problem List: Activity Tolerance, Functional Strength, Safety, Balance, Gait, Bed Mobility Treatment/Plan Treatment Plan: Continue Plan of Care Treatment Plan: Bed Mobility, Education, Functional Activity Simona, Functional Strength, Gait, Safety, Therapeutic Exercise, Transfers Treatment Duration: May 26, 2022 Frequency: 6 times per week Estimated Hrs Per Day: .25 hour per day Patient and/or Family Agrees t: Yes Time/GCodes Time In: 0936 Time Out: 1024 Total Billed Treatment Time: 54 Total Billed Treatment 1, FA x 54' MARJORIE MCMILLAN DPDarci May 12, 2022 10:44
--- NOTE | 2022-05-12 11:05 | Consultation-Cardiology ---
HPI-Cardiology Cardiology Consultation Date of Consultation 05/12/22 Date of Admission Time Seen by Provider: 10:58 Indication: Paroxysmal atrial fibrillation HPI 76-year-old lady with history of hypertension, hyperlipidemia, questionable arrhythmia, has a loop recorder. Patient presented to the emergency room with abdominal pain, work-up showed perforated sigmoid colon, underwent colostomy. Patient was intubated, extubated recently. Doing well. Laying comfortably in bed, had an episode of atrial fibrillation with rapid ventricular response. Patient was started on amiodarone drip and she was converted back to sinus rhythm. On my evaluation she was laying comfortably in bed, denied any active chest pain, no previous coronary artery disease. Home Medications & Allergies Allergies: Coded Allergies: No Known Drug Allergies (Unverified , 05/08/22) Home Medication List Reviewed: Yes [id number] Hx Patient Social History Marital Status: Employed/Student: retired Alcohol Use?: No Past Medical History Discussed below Family Medical History Significant Family History: No Pertinent Family Hx Family Medical Hx Noncontributory Review of Systems-General Review of Systems Constitutional: see HPI, malaise EENTM: see HPI; No blurred vision, No double vision Respiratory: see HPI; No cough, No dyspnea on exertion Cardiovascular: see HPI; No chest pain, No edema, No Hx of Intervention; palpitations; No syncope, No vascular heart diseas, No other Gastrointestinal: see HPI, abdominal pain (diffuse), nausea; No vomiting Genitourinary: decreased output; No discharge Musculoskeletal: see HPI; No back pain, No joint pain Skin: No change in color Psychiatric/Neurological: See HPI; Denies Anxiety, Denies Depressed All Other Systems Reviewed Negative Unless Noted: Yes (Negative excepted noted.) Reviewed Test Results Reviewed Test Results Lab Laboratory Tests Test 05/11/22 11:42 05/11/22 13:58 05/11/22 19:30 05/12/22 02:30 Range/Units Glucometer 107 70-110 MG/DL White Blood Count 23.2 H 20.5 H 4.3-11.0 10^3/uL Red Blood Count 3.54 L 2.99 L 3.80-5.11 10^6/uL Hemoglobin 9.8 #L 8.5 L 11.5-16.0 g/dL Hematocrit 31 L 26 L 35-52 % Mean Corpuscular Volume 88 88 80-99 fL Mean Corpuscular Hemoglobin 28 28 25-34 pg Mean Corpuscular Hemoglobin Concent 32 32 32-36 g/dL Red Cell Distribution Width 15.3 H 15.3 H 10.0-14.5 % Platelet Count 390 337 130-400 10^3/uL Mean Platelet Volume 11.1 10.9 9.0-12.2 fL Prothrombin Time 16.9 H 12.2-14.7 SEC INR Comment 1.3 0.8-1.4 Activated Partial Thromboplast Time 44 H 103 H 82 H 24-35 SEC Sodium Level 142 143 135-145 MMOL/L Potassium Level 3.6 4.1 3.6-5.0 MMOL/L Chloride Level 107 110 H 98-107 MMOL/L Carbon Dioxide Level 23 23 21-32 MMOL/L Anion Gap 12 10 5-14 MMOL/L Blood Urea Nitrogen 25 H 21 H 7-18 MG/DL Creatinine 0.67 0.58 L 0.60-1.30 MG/DL Estimat Glomerular Filtration Rate 91 94 BUN/Creatinine Ratio 37 36 Glucose Level 153 H 128 H 70-105 MG/DL Calcium Level 9.0 8.5 8.5-10.1 MG/DL Magnesium Level 1.9 1.6-2.4 MG/DL Troponin I < 0.028 <0.028 NG/ML Immature Granulocyte % (Auto) 12 % Neutrophils (%) (Auto) 70 42-75 % Lymphocytes (%) (Auto) 7 L 12-44 % Monocytes (%) (Auto) 10 0-12 % Eosinophils (%) (Auto) 1 0-10 % Basophils (%) (Auto) 0 0-10 % Neutrophils # (Auto) 14.4 H 1.8-7.8 10^3/uL Lymphocytes # (Auto) 1.4 1.0-4.0 10^3/uL Monocytes # (Auto) 2.1 H 0.0-1.0 10^3/uL Eosinophils # (Auto) 0.2 0.0-0.3 10^3/uL Basophils # (Auto) 0.1 0.0-0.1 10^3/uL Immature Granulocyte # (Auto) 2.5 H 0.0-0.1 10^3/uL Corrected Calcium 9.8 8.5-10.1 MG/DL Total Bilirubin 0.4 0.1-1.0 MG/DL Aspartate Amino Transf (AST/SGOT) 53 H 5-34 U/L Alanine Aminotransferase (ALT/SGPT) 22 0-55 U/L Alkaline Phosphatase 54 40-136 U/L Total Protein 4.8 L 6.4-8.2 GM/DL Albumin 2.4 L 3.2-4.5 GM/DL Physical Exam Physical Exam Vital Signs Vital Signs - First Documented 05/08/22 05/08/22 14:41 21:00 Temp 37.6 Pulse 117 Resp 20 B/P (MAP) 127/92 (104) Pulse Ox 98 O2 Flow Rate 21.00 Capillary Refill : Less Than 3 Seconds Height, Weight, BMI Height: '" Weight: lbs. oz. kg; 29.71 BMI Method: General Appearance: No Apparent Distress, Anxious HEENT: PERRL/EOMI, Normal ENT Inspection Neck: Non Tender, Supple Respiratory: Lungs Clear, No Respiratory Distress Cardiovascular: Regular Rate, Rhythm, No Murmur, Systolic Murmur Gastrointestinal: Soft, Abnormal Bowel Sounds (present but slow), Tenderness (appropriate) Genital/Rectal: Other (tanner) Neurologic/Psychiatric: Alert, Normal Mood/Affect Skin: Normal Color, Warm/Dry Lymphatic: No Adenopathy A/P-Cardiology Admission Diagnosis Paroxysmal atrial fibrillation Severe sepsis Perforated sigmoid colon Hypertension Assessment/Plan Paroxysmal atrial fibrillation, converted to sinus rhythm on amiodarone drip Maintained on amnio drip. I will continue monitoring for this time. Evaluate 2D echocardiogram Patient will need to start on oral anticoagulation if okay with surgery Questionable history of arrhythmia. Follows with a workcell operator in [place]. Has a loop monitor, will interrogate today and evaluate for any underlying previous arrhythmia Perforated sigmoid colon, status post colectomy. Recovering slowly from surgery Status post severe sepsis, improving. Acute renal insufficiency postoperatively. Continue to monitor renal function Hypertension, monitor blood pressure Hyperlipidemia, monitor lipids DVT prophylaxis, maintained on heparin ADRIAN OGDEN MD May 12, 2022 11:05
[2022-05-12] MEDS: meTOprolol 5 MG/5 ML (LOPRESSOR) VIAL IV SCH ×2 (12:37→17:43)
[2022-05-12] MEDS: HEParin DRIP 25000 UNIT/500ML 500 ML IV SCH (12:58)
[2022-05-12] MEDS: cefTRIAXone 1 GM PRE-MIX 50 ML IV SCH (20:47)
[2022-05-13] MEDS: meTOprolol 5 MG/5 ML (LOPRESSOR) VIAL IV SCH ×4 (00:14→19:10)
[2022-05-13] MEDS: fentaNYL INJ 100 MCG/2 ML AMP IVP PRN ×7 (00:25→23:21)
[2022-05-13 04:00] LABS: BASOPHILS # (AUTO) 0.1 10^3/uL (0.0-0.1); BASOPHILS % (AUTO) 1 % (0-10); EOSINOPHILS # (AUTO) 0.5 10^3/uL (0.0-0.3); EOSINOPHILS % (AUTO) 2 % (0-10); HEMATOCRIT 27 % (35-52); HEMOGLOBIN 8.6 g/dL (11.5-16.0); LYMPHOCYTES # (AUTO) 1.7 10^3/uL (1.0-4.0); LYMPHOCYTES % (AUTO) 7 % (12-44); MEAN CORPUSCULAR HEMOGLOBIN 28 pg (25-34); MEAN CORPUSCULAR HGB CONC 32 g/dL (32-36); MEAN CORPUSCULAR VOLUME 87 fL (80-99); MEAN PLATELET VOLUME 11.2 fL (9.0-12.2); MONOCYTES % (AUTO) 9 % (0-12); NEUTROPHILS # (AUTO) 14.6 10^3/uL (1.8-7.8); NEUTROPHILS % (AUTO) 63 % (42-75); PLATELET COUNT 339 10^3/uL (130-400); WHITE BLOOD COUNT 23.2 10^3/uL (4.3-11.0)
[2022-05-13 04:25] LABS: ALBUMIN 2.5 GM/DL (3.2-4.5); BILIRUBIN,TOTAL 0.4 MG/DL (0.1-1.0); CALCIUM 8.6 MG/DL (8.5-10.1); CREATININE SERUM 0.57 MG/DL (0.60-1.30); POTASSIUM 3.7 MMOL/L (3.6-5.0); TOTAL PROTEIN 5.3 GM/DL (6.4-8.2)
[2022-05-13 04:40] LABS: ANISOCYTOSIS SLIGHT; BAND NEUTROPHILS 10 %; EOSINOPHILS % (MANUAL) 2 %; HYPOCHROMASIA SLIGHT; LYMPHOCYTES % (MANUAL) 3 %; METAMYELOCYTES % 5 %; MICROCYTOSIS SLIGHT; MONOCYTES % (MANUAL) 6 %; MYELOCYTES % 2 %; NEUTROPHILS % (MANUAL) 72 %; NUCLEATED RED BLOOD CELLS 1; POLYCHROMASIA SLIGHT
[2022-05-13 04:41] LABS: SCHISTOCYTES SLIGHT; TOXIC GRANULATION/VACUOLAZATIO 1+
[2022-05-13] MEDS: HEParin DRIP 25000 UNIT/500ML 500 ML IV SCH (05:00)
[2022-05-13] MEDS ORDERED: PROCHLORPERAZINE 10 MG/2ML INJ (COMPAZINE) IV PRN (08:15)
--- NOTE | 2022-05-13 08:16 | Tele-ICU Progress Note ---
Subjective Date Seen by a Provider: May 13, 2022 Subjective/Events-last exam (Tele-ICU Physician , consultation) Available chart/ vitals / labs / Images reviewed H&P is from ER notes Patient's information available about PMH, allergy reviewed in EMR. ROS as per chart and RN report Video assessment done using teleICU camera, rest of exam as per RN Discussed with RN. Patient today complains of fall and nausea and gaseous feeling in the stomach. Reviewed with the RN and she tells me that patient has 250 cc of 4 stool in the colostomy. I have ordered Compazine IV for nausea and vomiting. Loop recorder apparently showed sinus rhythm currently she is on amiodarone drip. Sepsis Event Evaluation Height, Weight, BMI Height: '" Weight: lbs. oz. kg; 29.71 BMI Method: Exam Exam Patient acknowledged, consented, and participated in this virtual visit which was conducted using real time audio/video Vital Signs Date Time Temp Pulse Resp B/P (MAP) Pulse Ox O2 Delivery O2 Flow Rate FiO2 05/13/22 08:00 61 24 124/73 98 Nasal Cannula 1.00 05/13/22 07:47 36.5 05/13/22 07:00 60 23 142/69 97 Nasal Cannula 1.00 05/13/22 07:00 61 05/13/22 06:00 62 23 122/71 97 Nasal Cannula 1.00 05/13/22 05:00 59 20 105/59 96 Nasal Cannula 1.00 05/13/22 04:00 96 Nasal Cannula 1.00 05/13/22 04:00 64 20 111/62 95 Nasal Cannula 1.00 05/13/22 03:00 58 29 124/69 95 Nasal Cannula 1.00 05/13/22 02:00 61 20 116/64 95 Nasal Cannula 1.00 05/13/22 01:00 59 05/13/22 01:00 60 20 105/58 95 Nasal Cannula 1.00 05/13/22 00:00 64 23 127/71 97 Nasal Cannula 1.00 05/12/22 23:59 94 Nasal Cannula 1.00 05/12/22 23:00 78 30 95 Nasal Cannula 1.00 05/12/22 22:00 70 33 132/74 97 Nasal Cannula 1.00 05/12/22 21:00 Nasal Cannula 1.00 8/13/22 21:00 68 20 125/73 94 Nasal Cannula 1.00 05/12/22 20:00 95 Room Air 05/12/22 20:00 73 26 144/69 98 Nasal Cannula 2.00 05/12/22 19:21 36.8 05/12/22 19:00 76 05/12/22 19:00 68 24 129/72 92 Nasal Cannula 2.00 05/12/22 18:00 64 25 119/74 96 Nasal Cannula 2.00 05/12/22 17:00 75 28 117/71 97 Nasal Cannula 2.00 05/12/22 16:00 99 Nasal Cannula 2.00 05/12/22 16:00 70 33 141/70 98 Nasal Cannula 2.00 05/12/22 15:47 36.7 05/12/22 15:00 73 11 121/77 98 Nasal Cannula 2.00 05/12/22 14:00 70 19 134/72 99 Nasal Cannula 2.00 05/12/22 13:00 65 26 128/70 98 Nasal Cannula 2.00 05/12/22 12:40 75 05/12/22 12:00 98 Nasal Cannula 2.00 05/12/22 12:00 36.7 Nasal Cannula 2.00 05/12/22 12:00 74 15 135/69 93 Nasal Cannula 2.00 05/12/22 11:00 73 23 136/67 98 Nasal Cannula 2.00 05/12/22 10:00 74 25 125/70 98 Nasal Cannula 2.00 05/12/22 09:00 82 31 119/68 94 Nasal Cannula 2.00 I & O 05/13/22 07:00 Intake Total 1800 ml Output Total 3430 ml Balance -1630 ml Height & Weight Height: '" Weight: lbs. oz. kg; 29.71 BMI Method: General Appearance: No Apparent Distress, Anxious HEENT: PERRL/EOMI Neck: Non Tender, Supple Respiratory: Lungs Clear, Normal Breath Sounds, No Accessory Muscle Use, No Respiratory Distress Cardiovascular: Regular Rate, Rhythm, No Murmur Gastrointestinal: soft, tenderness (diffuse-decreased from yesterday), other (midline incision, left colostomy bag, and right FLYNN drain ) Extremity: Pedal Edema (trace) Neurologic/Psychiatric: Alert Skin: Normal Color, Warm/Dry Lymphatic: No Adenopathy Results Lab Laboratory Tests 05/11/22 13:58 05/12/22 02:30 05/13/22 03:35 Assessment/Plan Assessment/Plan 1. Perforated sigmoid colon with severe sepsis. Status post expiratory laparotomy with resection and colostomy. postoperative management per surgery. Continue IV antibiotics fentanyl for pain management. 2. New onset atrial fibrillation. Currently on amiodarone drip.Now NSR Cardiology is on the case. 3. Postoperative pulmonary insufficiency. Extubated on 05/09/2022. Currently on oxygen via 2 L nasal cannula. 4. Chronic anemia currently stable 5. Hypertension fairly well controlled. 6. Nutrition: she is on clear liquids 7. DVT prophylaxis. on a heparin S/Q 8. compazine for N/V Critical Care: Critically Ill Patient Time spent with patient (mins): 25 JUDE MOLINA MD May 13, 2022 08:16
[2022-05-13] MEDS: metroNIDAZOLE 500MG/100ML IVPB 100 ML IV SCH (08:24)
[2022-05-13] MEDS: PANTOPRAZOLE 40 MG (PROTONIX) VIAL IV SCH (08:24)
--- NOTE | 2022-05-13 09:42 | Cardiology Progress Note ---
Subjective Date Seen by Provider: May 13, 2022 Time Seen by Provider: 09:40 Subjective/Events-last exam Patient was seen at bedside, complaining of nausea and chest discomfort Review of Systems General: No Chills, No Night Sweats; Fatigue, Malaise; No Appetite, No Other HEENT: No Head Aches, No Visual Changes, No Eye Pain, No Ear Pain, No Dysphasia, No Sinus Congestion, No Post Nasal Drip, No Sore Throat, No Other Pulmonary: Dyspnea; No Cough, No Pleuritic Chest Pain, No Other Cardiovascular: Chest Pain; No: Palpitations, Orthopnea, Paroxysmal Noc. Dyspnea, Edema, Lt Headedness, Other Objective-Cardiology Exam Last Set of Vital Signs Vital Signs 05/09/22 05/13/22 05/13/22 16:00 07:47 09:00 Temp 36.5 Pulse 64 Resp 18 B/P (MAP) 102/54 Pulse Ox 95 O2 Delivery Nasal Cannula O2 Flow Rate 1.00 FiO2 30 I&O Intake and Output 05/13/22 00:00 Intake Total 1950 ml Output Total 2865 ml Balance -915 ml Intake Oral 1150 ml IV Total 800 ml Output Urine Total 2725 ml Drainage Total 140 ml General: Alert, Oriented X3, Cooperative HEENT: Atraumatic, PERRLA Neck: Supple, No JVD, No Thyromegaly Lungs: Clear to Auscultation, Normal Air Movement Heart: Regular Rate, Normal S1, Normal S2, No Murmurs Abdomen: No Masses, Other (Abnormal bowel sounds) Extremities: No Clubbing, No Cyanosis, No Edema, Normal Pulses, No Tenderness/Swelling Skin: No Rashes, No Breakdown, No Significant Lesion Neuro: Normal Speech, Normal Tone, Sensation Intact Psych/Mental Status: Mental Status NL, Mood NL Results Lab Laboratory Tests 05/13/22 03:35 A/P-Cardiology Admission Diagnosis Paroxysmal atrial fibrillation Severe sepsis Perforated sigmoid colon Hypertension Assessment/Plan Paroxysmal atrial fibrillation, converted to sinus rhythm on amiodarone drip Patient is converted to sinus rhythm Interrogation of her loop recorder that was implanted in January 2022 showed no other episodes of atrial fibrillation. Currently in sinus rhythm. Continue to monitor Perforated sigmoid colon, status post colectomy. Recovering slowly from surgery Status post severe sepsis, improving. Acute renal insufficiency postoperatively. Continue to monitor renal function Hypertension, monitor blood pressure Hyperlipidemia, monitor lipids DVT prophylaxis, maintained on heparin ADRIAN OGDEN MD May 13, 2022 09:42
--- NOTE | 2022-05-13 10:23 | Progress Note - Surgery ---
RUMA PETERSON 05/13/22 1023: Subjective Date Seen by a Provider: May 13, 2022 Time Seen by a Provider: 09:30 Subjective/Events-last exam Pt reports feeling a bit more fatigued than she did yesterday. She is having some chest pain and mild nausea. She is able to tolerate broth and other liquids without vomiting. Denies any shortness of breath, sweats or chills. Review of Systems General: No Chills, No Night Sweats Pulmonary: No Dyspnea Cardiovascular: Chest Pain Gastrointestinal: Nausea; No: Vomiting Objective Exam Vital Signs Date Time Temp Pulse Resp B/P (MAP) Pulse Ox O2 Delivery O2 Flow Rate FiO2 05/13/22 10:00 61 21 119/65 97 Nasal Cannula 1.00 05/13/22 09:00 64 18 102/54 95 Nasal Cannula 1.00 05/13/22 08:00 96 Nasal Cannula 1.00 05/13/22 08:00 61 24 124/73 98 Nasal Cannula 1.00 05/13/22 07:47 36.5 05/13/22 07:00 60 23 142/69 97 Nasal Cannula 1.00 05/13/22 07:00 61 05/13/22 06:00 62 23 122/71 97 Nasal Cannula 1.00 05/13/22 05:00 59 20 105/59 96 Nasal Cannula 1.00 05/13/22 04:00 96 Nasal Cannula 1.00 05/13/22 04:00 64 20 111/62 95 Nasal Cannula 1.00 05/13/22 03:00 58 29 124/69 95 Nasal Cannula 1.00 05/13/22 02:00 61 20 116/64 95 Nasal Cannula 1.00 05/13/22 01:00 59 05/13/22 01:00 60 20 105/58 95 Nasal Cannula 1.00 05/13/22 00:00 64 23 127/71 97 Nasal Cannula 1.00 05/12/22 23:59 94 Nasal Cannula 1.00 05/12/22 23:00 78 30 95 Nasal Cannula 1.00 05/12/22 22:00 70 33 132/74 97 Nasal Cannula 1.00 05/12/22 21:00 Nasal Cannula 1.00 05/12/22 21:00 68 20 125/73 94 Nasal Cannula 1.00 05/12/22 20:00 95 Room Air 05/12/22 20:00 73 26 144/69 98 Nasal Cannula 2.00 05/12/22 19:21 36.8 05/12/22 19:00 76 05/12/22 19:00 68 24 129/72 92 Nasal Cannula 2.00 05/12/22 18:00 64 25 119/74 96 Nasal Cannula 2.00 05/12/22 17:00 75 28 117/71 97 Nasal Cannula 2.00 05/12/22 16:00 99 Nasal Cannula 2.00 05/12/22 16:00 70 33 141/70 98 Nasal Cannula 2.00 05/12/22 15:47 36.7 05/12/22 15:00 73 11 121/77 98 Nasal Cannula 2.00 05/12/22 14:00 70 19 134/72 99 Nasal Cannula 2.00 05/12/22 13:00 65 26 128/70 98 Nasal Cannula 2.00 05/12/22 12:40 75 05/12/22 12:00 98 Nasal Cannula 2.00 05/12/22 12:00 36.7 Nasal Cannula 2.00 05/12/22 12:00 74 15 135/69 93 Nasal Cannula 2.00 05/12/22 11:00 73 23 136/67 98 Nasal Cannula 2.00 I & O 05/13/22 07:00 Intake Total 1800 ml Output Total 3430 ml Balance -1630 ml Capillary Refill : Less Than 3 Seconds General Appearance: No Apparent Distress, Anxious HEENT: PERRL/EOMI Neck: Non Tender, Supple Respiratory: Lungs Clear, Normal Breath Sounds, No Accessory Muscle Use, No Respiratory Distress Cardiovascular: Regular Rate, Rhythm, No Murmur Gastrointestinal: soft, tenderness (diffuse-decreased from yesterday), other (midline incision, left colostomy bag (full), and right FLYNN drain ) Extremity: Pedal Edema (trace) Neurologic/Psychiatric: Alert Skin: Normal Color, Warm/Dry Lymphatic: No Adenopathy Results Lab Laboratory Tests 05/13/22 03:35: White Blood Count 23.2H, Red Blood Count 3.09L, Hemoglobin 8.6L, Hematocrit 27L, Mean Corpuscular Volume 87, Mean Corpuscular Hemoglobin 28, Mean Corpuscular Hemoglobin Concent 32, Red Cell Distribution Width 15.2H, Platelet Count 339, Mean Platelet Volume 11.2, Immature Granulocyte % (Auto) 19, Neutrophils (%) (Auto) 63, Lymphocytes (%) (Auto) 7L, Monocytes (%) (Auto) 9, Eosinophils (%) (Auto) 2, Basophils (%) (Auto) 1, Neutrophils # (Auto) 14.6H, Lymphocytes # (Auto) 1.7, Monocytes # (Auto) 2.0H, Eosinophils # (Auto) 0.5H, Basophils # (Auto) 0.1, Immature Granulocyte # (Auto) 4.4H, Neutrophils % (Manual) 72, Lymphocytes % (Manual) 3, Monocytes % (Manual) 6, Eosinophils % (Manual) 2, Metamyelocytes % 5, Myelocytes % 2, Band Neutrophils 10, Nucleated Red Blood Cells 1, Toxic Granulation 1+, Polychromasia SLIGHT, Hypochromasia SLIGHT, Poikilocytosis , Anisocytosis SLIGHT, Microcytosis SLIGHT, Schistocytes SLIGHT, Activated Partial Thromboplast Time 137*H, Sodium Level 142, Potassium Level 3.7, Chloride Level 109H, Carbon Dioxide Level 21, Anion Gap 12, Blood Urea Nitrogen 10, Creatinine 0.57L, Estimat Glomerular Filtration Rate 94, BUN/Creatinine Ratio 18, Glucose Level 120H, Calcium Level 8.6, Corrected Calcium 9.8, Total Bilirubin 0.4, Aspartate Amino Transf (AST/SGOT) 14, Alanine Aminotransferase (ALT/SGPT) 21, Alkaline Phosphatase 51, Total Protein 5.3L, Albumin 2.5L Microbiology 05/09/22 MRSA Screen - Final, Complete MRSA not isolated 05/08/22 Blood Culture - Preliminary, Resulted No growth Assessment/Plan Assessment/Plan Assessment/Plan s/p laparoscopic/open exploratory laparotomy with low anterior resection with end colostomy and splenic flexure mobilization Sepsis Cough/Shortness of breath anemia postoperative/dilutional Pt now tolerating broth without issue and output into her colostomy bag has increased. Will advance patient to soft diet and see how she tolerates. Continue Pain control, IV fluids and antibiotics Encourage IS, ambulation, and PT GI/DVT prophylaxis QUINN MORALEZ DO 05/13/22 1435: Subjective Time Seen by a Provider: 12:37 Subjective/Events-last exam Pt seen and examined, states she is still very tired and weak. Tolerated liquids with increased output in ostomy. Review of Systems General: No Chills, No Night Sweats Pulmonary: No Dyspnea Cardiovascular: Chest Pain Gastrointestinal: Nausea; No: Vomiting Objective Exam General Appearance: No Apparent Distress, Anxious HEENT: PERRL/EOMI Respiratory: Lungs Clear, Normal Breath Sounds, No Accessory Muscle Use, No Respiratory Distress Cardiovascular: Regular Rate, Rhythm, No Murmur Gastrointestinal: soft, tenderness (diffuse-decreased from yesterday), other (midline incision, left colostomy bag (full), and right FLYNN drain with serous fluid. Ostomy pink ) Extremity: Pedal Edema (trace) Neurologic/Psychiatric: Alert Assessment/Plan Assessment/Plan Assessment/Plan s/p laparoscopic/open exploratory laparotomy with low anterior resection with end colostomy and splenic flexure mobilization Sepsis Cough/Shortness of breath anemia postoperative/dilutional Pt now tolerating broth without issue and output into her colostomy bag has increased. Will advance patient to soft diet and see how she tolerates. Continue Pain control, IV fluids and antibiotics Encourage IS, ambulation, and PT GI/DVT prophylaxis Supervisory-Addendum Brief Verification & Attestation Participated in pt care: history, MDM, physical Personally performed: exam, history, MDM, supervision of care Care discussed with: Medical Student Procedures: n/a Verification and Attestation of Medical Student E/M Service A medical student performed and documented this service. I then reviewed and verified all information documented by the medical student and made modifications to such information, when appropriate. I personally performed a physical exam, medical decision making and then discussed any differences between the notes and made revisions as necessary to create one note. Quinn Moralez , 05/13/22 , 14:35 RUMA PETERSON May 13, 2022 10:23 QUINN MORALEZ DO May 13, 2022 14:35
--- NOTE | 2022-05-13 10:44 | Progress Note - Hospitalist ---
Subjective HPI/CC On Admission Date Seen by Provider: May 13, 2022 Patient is a 76-year-old female with a past medical history of hyperlipidemia, hypertension, anxiety who presented to the emergency department due to abdominal pain. She is currently intubated and unable to provide her history. All history is obtained from the records. She stated her symptoms started on May 03 and have been increasing since that time. She reports it was a dull pain that progressed to a sharp pain in her lower abdomen and migrated throughout her entire abdomen. She had nausea. She had loose bowel movements. Her only surgical history is a . She had been taking Aleve and Advil for her pain at home. CT abdomen was done which showed free air throughout the abdomen. Dr. Walker admitted patient and took her immediately to the OR where resection with colostomy was done. She remained on the ventilator postoperatively overnight and is currently undergoing a weaning trial. Subjective/Events-last exam Pt reports persistent abd pain and chest pain. Dr Marshall informed of chest pain. She is tearful and states she is overwhelmed with everything that has gone on. Objective Exam Vital Signs Vital Signs Date Time Temp Pulse Resp B/P (MAP) Pulse Ox O2 Delivery O2 Flow Rate FiO2 05/13/22 10:20 98 Nasal Cannula 1.00 05/13/22 10:00 61 21 119/65 05/13/22 07:47 36.5 05/09/22 16:00 30 Capillary Refill : Less Than 3 Seconds General Appearance: No Apparent Distress, Anxious, Other (tearful) Neck: Other (central line) Respiratory: Lungs Clear, No Respiratory Distress Cardiovascular: Regular Rate, Rhythm, No Murmur Gastrointestinal: Soft; No Distended; Other (ostomy with dark output) Extremity: Normal Capillary Refill, Pedal Edema Neurologic/Psychiatric: Alert, Oriented x3 Results/Procedures Lab Laboratory Tests 05/13/22 03:35 Patient resulted labs reviewed. Imaging: Reviewed Imaging Report Assessment/Plan Assessment and Plan Assess & Plan/Chief Complaint Perforated sigmoid colon Severe Sepsis- POA s/p ex lap with resection and colostomy- POD #5 Management per primary IV abx completed this AM, white count trending up so will add Zosyn instead If fevers or further trends up, repeat cultures BC cultures NGTD Fentanyl for pain new onset atrial fibrillation completed amiodarone heparin gtt Continue on telemetry Cardiology consulted, appreciate recs Postoperative respiratory insufficiency Extubated 05/09 Currently on 1lpm NC, wean as able Anemia Hgb 10 on arrival, no baseline available 8.6 this morning, trend HTN HLD Bp well controlled, trend add prns IV if needed until able to take PO intake per surgery DVT ppx: heparin gtt Critical Care Critically Ill Patient Diagnosis/Problems Diagnosis/Problems (1) Perforated sigmoid colon Status: Acute (2) Severe sepsis Status: Acute (3) HTN (hypertension) Status: Chronic Qualifiers: Hypertension type: primary hypertension Qualified Codes: I10 - Essential (primary) hypertension (4) HLD (hyperlipidemia) Status: Chronic Qualifiers: Hyperlipidemia type: mixed hyperlipidemia Qualified Codes: E78.2 - Mixed hyperlipidemia (5) Anemia Status: Chronic Qualifiers: Anemia type: unspecified type Qualified Codes: D64.9 - Anemia, unspecified (6) Respiratory insufficiency Status: Acute (7) Peritoneal free air Status: Acute NIDIA GREENWOOD MD May 13, 2022 10:43
[2022-05-13] MEDS: PIPERACILLIN SODIUM/TAZOBACTAM 4.5 GM in NS (IVPB) 100 ML IV SCH ×2 (12:14→19:30)
[2022-05-13] MEDS ORDERED: ENOXAPARIN 150 MG/ML (LOVENOX) SYR SQ SCH (14:30)
[2022-05-13 14:43] LABS: BILIRUBIN,URINE NEGATIVE (NEGATIVE); CLARITY,URINE CLEAR; COLOR,URINE YELLOW; GLUCOSE, URINE (UA) NEGATIVE (NEGATIVE); KETONES,URINE NEGATIVE (NEGATIVE); LEUKOCYTE ESTERASE ,URINE NEGATIVE (NEGATIVE); NITRITE,URINE NEGATIVE (NEGATIVE); PH,URINE 6.5 (5-9); PROTEIN,URINE NEGATIVE (NEGATIVE)
[2022-05-13 14:49] LABS: BACTERIA,URINE NEGATIVE /HPF
[2022-05-13] MEDS: ENOXAPARIN 80 MG/0.8 ML (LOVENOX) SYR SC SCH (16:26)
[2022-05-14] MEDS: meTOprolol 5 MG/5 ML (LOPRESSOR) VIAL IV SCH ×3 (00:01→12:07)
[2022-05-14] MEDS: fentaNYL INJ 100 MCG/2 ML AMP IVP PRN ×2 (00:28→04:17)
[2022-05-14] MEDS: ENOXAPARIN 80 MG/0.8 ML (LOVENOX) SYR SC SCH (02:38)
[2022-05-14] MEDS: PIPERACILLIN SODIUM/TAZOBACTAM 4.5 GM in NS (IVPB) 100 ML IV SCH ×2 (02:38→12:09)
[2022-05-14 04:55] LABS: BASOPHILS # (AUTO) 0.1 10^3/uL (0.0-0.1); BASOPHILS % (AUTO) 0 % (0-10); EOSINOPHILS # (AUTO) 0.5 10^3/uL (0.0-0.3); EOSINOPHILS % (AUTO) 2 % (0-10); HEMATOCRIT 28 % (35-52); HEMOGLOBIN 8.8 g/dL (11.5-16.0); LYMPHOCYTES # (AUTO) 1.5 10^3/uL (1.0-4.0); LYMPHOCYTES % (AUTO) 7 % (12-44); MEAN CORPUSCULAR HEMOGLOBIN 28 pg (25-34); MEAN CORPUSCULAR HGB CONC 32 g/dL (32-36); MEAN CORPUSCULAR VOLUME 89 fL (80-99); MEAN PLATELET VOLUME 11.5 fL (9.0-12.2); MONOCYTES # (AUTO) 1.7 10^3/uL (0.0-1.0); MONOCYTES % (AUTO) 8 % (0-12); NEUTROPHILS # (AUTO) 13.1 10^3/uL (1.8-7.8); NEUTROPHILS % (AUTO) 63 % (42-75); PLATELET COUNT 346 10^3/uL (130-400)
[2022-05-14 05:24] LABS: ALBUMIN 2.4 GM/DL (3.2-4.5); BILIRUBIN,TOTAL 0.6 MG/DL (0.1-1.0); CALCIUM 8.4 MG/DL (8.5-10.1); CREATININE SERUM 0.58 MG/DL (0.60-1.30); POTASSIUM 3.6 MMOL/L (3.6-5.0); TOTAL PROTEIN 4.9 GM/DL (6.4-8.2)
--- NOTE | 2022-05-14 07:35 | Progress Note - Surgery ---
ANDREWFABRICIOBOOM Osborn 05/14/22 0735: Subjective Date Seen by a Provider: May 14, 2022 Time Seen by a Provider: 07:31 Subjective/Events-last exam Pt is resting comfortably in bed. Pt has output noted in her colostomy and some serous fluid noted in FLYNN drain. Pt notes decreased abd pain from yesterday and says she still feels weak. Pt continues to tolerate clears. Pt notes nausea but denies vomiting, and SOB. Pt states that she is still experiencing CP. Pt has no other complaints at this time. Review of Systems General: No Chills, No Night Sweats HEENT: No Head Aches, No Visual Changes Pulmonary: No Dyspnea, No Cough Cardiovascular: Chest Pain Gastrointestinal: Nausea; No: Vomiting Genitourinary: No Dysuria, No Frequency Musculoskeletal: No: neck pain, shoulder pain Neurological: No: Numbness, Change in speech Objective Exam Vital Signs Date Time Temp Pulse Resp B/P (MAP) Pulse Ox O2 Delivery O2 Flow Rate FiO2 05/14/22 06:00 65 20 120/67 95 Nasal Cannula 1.00 05/14/22 05:00 68 19 133/63 94 Nasal Cannula 1.00 05/14/22 04:00 66 25 132/67 97 Nasal Cannula 1.00 05/14/22 04:00 95 Nasal Cannula 1.00 05/14/22 03:45 21 123/65 94 Nasal Cannula 1.00 05/14/22 03:15 65 22 122/65 95 Nasal Cannula 1.00 05/14/22 03:00 64 22 122/65 95 Nasal Cannula 1.00 05/14/22 02:45 70 27 128/63 93 Nasal Cannula 1.00 05/14/22 02:15 36.7 63 24 104/58 93 Nasal Cannula 1.00 05/14/22 02:00 67 23 104/58 95 Nasal Cannula 1.00 05/14/22 01:45 64 28 121/66 94 Nasal Cannula 1.00 05/14/22 01:15 74 26 134/71 93 Nasal Cannula 1.00 05/14/22 01:00 68 05/14/22 01:00 68 22 134/71 94 Nasal Cannula 1.00 05/14/22 00:45 69 20 143/73 96 Nasal Cannula 1.00 05/14/22 00:00 69 19 116/16 95 Nasal Cannula 1.00 05/13/22 23:59 94 Nasal Cannula 1.00 05/13/22 23:00 74 20 125/78 94 Nasal Cannula 1.00 05/13/22 22:00 70 26 110/59 95 Nasal Cannula 1.00 05/13/22 21:00 69 24 132/67 96 Nasal Cannula 1.00 05/13/22 20:00 66 27 131/65 97 Nasal Cannula 1.00 05/13/22 20:00 95 Nasal Cannula 1.00 05/13/22 19:54 37.5 05/13/22 19:00 69 27 122/78 96 Nasal Cannula 1.00 05/13/22 19:00 69 05/13/22 18:00 84 22 134/70 95 Nasal Cannula 1.00 05/13/22 17:00 69 24 128/45 95 Nasal Cannula 1.00 05/13/22 16:00 75 23 134/73 95 Nasal Cannula 1.00 05/13/22 16:00 96 Nasal Cannula 1.00 05/13/22 16:00 36.3 05/13/22 15:00 64 21 115/62 98 Nasal Cannula 1.00 05/13/22 14:00 70 17 117/63 98 Nasal Cannula 1.00 05/13/22 13:00 62 24 126/62 97 Nasal Cannula 1.00 05/13/22 12:58 64 05/13/22 12:00 36.9 05/13/22 12:00 61 20 129/71 96 Nasal Cannula 1.00 05/13/22 12:00 96 Nasal Cannula 1.00 05/13/22 11:00 57 21 96/56 95 Nasal Cannula 1.00 05/13/22 10:20 98 Nasal Cannula 1.00 05/13/22 10:00 61 21 119/65 97 Nasal Cannula 1.00 05/13/22 09:00 64 18 102/54 95 Nasal Cannula 1.00 05/13/22 08:00 96 Nasal Cannula 1.00 05/13/22 08:00 61 24 124/73 98 Nasal Cannula 1.00 05/13/22 07:47 36.5 I & O 05/14/22 07:00 Intake Total 2100 ml Output Total 2600 ml Balance -500 ml Capillary Refill : Less Than 3 Seconds General Appearance: No Apparent Distress, Anxious HEENT: PERRL/EOMI Neck: Non Tender, Supple Respiratory: No Accessory Muscle Use, No Respiratory Distress Cardiovascular: No JVD, No Murmur Gastrointestinal: soft, tenderness (slight over FLYNN drain), other (midline incision, left colostomy bag (full), and right FLYNN drain with serous fluid. Ostomy pink ) Extremity: Pedal Edema (trace) Neurologic/Psychiatric: Alert, Normal Mood/Affect Skin: Normal Color, Warm/Dry Lymphatic: No Adenopathy Results Lab Laboratory Tests 05/13/22 12:20: Activated Partial Thromboplast Time 53H 05/13/22 14:30: Urine Color YELLOW, Urine Clarity CLEAR, Urine pH 6.5, Urine Specific [place] <=1.005, Urine Protein NEGATIVE, Urine Glucose (UA) NEGATIVE, Urine Ketones NEGATIVE, Urine Nitrite NEGATIVE, Urine Bilirubin NEGATIVE, Urine Urobilinogen 0.2, Urine Leukocyte Esterase NEGATIVE, Urine RBC (Auto) NEGATIVE, Urine RBC NONE, Urine WBC NONE, Urine Squamous Epithelial Cells NONE, Urine Crystals NONE, Urine Bacteria NEGATIVE, Urine Casts NONE, Urine Mucus NEGATIVE, Urine Culture Indicated NO 05/14/22 04:25: Activated Partial Thromboplast Time 60H, White Blood Count 21.0H, Red Blood Count 3.10L, Hemoglobin 8.8L, Hematocrit 28L, Mean Corpuscular Volume 89, Mean Corpuscular Hemoglobin 28, Mean Corpuscular Hemoglobin Concent 32, Red Cell Distribution Width 15.5H, Platelet Count 346, Mean Platelet Volume 11.5, Immature Granulocyte % (Auto) 20, Neutrophils (%) (Auto) 63, Lymphocytes (%) (Auto) 7L, Monocytes (%) (Auto) 8, Eosinophils (%) (Auto) 2, Basophils (%) (Auto) 0, Neutrophils # (Auto) 13.1H, Lymphocytes # (Auto) 1.5, Monocytes # (Auto) 1.7H, Eosinophils # (Auto) 0.5H, Basophils # (Auto) 0.1, Immature Granulocyte # (Auto) 4.1H, Sodium Level 140, Potassium Level 3.6, Chloride Level 107, Carbon Dioxide Level 23, Anion Gap 10, Blood Urea Nitrogen 12, Creatinine 0.58L, Estimat Glomerular Filtration Rate 94, BUN/Creatinine Ratio 21, Glucose Level 98, Calcium Level 8.4L, Corrected Calcium 9.7, Total Bilirubin 0.6, Aspartate Amino Transf (AST/SGOT) 12, Alanine Aminotransferase (ALT/SGPT) 18, Alkaline Phosphatase 47, Total Protein 4.9L, Albumin 2.4L Microbiology 05/09/22 MRSA Screen - Final, Complete MRSA not isolated 05/08/22 Blood Culture - Preliminary, Resulted No growth Assessment/Plan Assessment/Plan Assessment/Plan s/p laparoscopic/open exploratory laparotomy with low anterior resection with end colostomy and splenic flexure mobilization Sepsis Cough/Shortness of breath anemia postoperative/dilutional Pt now tolerating broth without issue and output into her colostomy bag has increased. Will advance patient to soft diet and see how she tolerates. Continue Pain control, IV fluids and antibiotics Encourage IS, ambulation, and PT GI/DVT prophylaxis ARUN WALKER DO 05/14/22 182: Subjective Subjective/Events-last exam Patient states she is doing well. She has colostomy output. She states her abdominal pain continues to decrease. She is tolerating diet. She does not have any nausea vomiting fever sweats chills shortness of breath or chest pain at this time.. Objective Exam General Appearance: No Apparent Distress, Anxious HEENT: PERRL/EOMI, Normal ENT Inspection Neck: Non Tender, Supple Respiratory: Chest Non Tender, No Accessory Muscle Use, No Respiratory Distress Cardiovascular: Regular Rate, Rhythm, No JVD Gastrointestinal: soft, tenderness (slight over FLYNN drain), other (midline incision, left colostomy bag (full), and right FLYNN drain with serous fluid. Ostomy pink ) Extremity: Pedal Edema (trace) Neurologic/Psychiatric: Alert, Oriented x3, Normal Mood/Affect Skin: Normal Color, Warm/Dry Lymphatic: No Adenopathy Assessment/Plan Assessment/Plan Assessment/Plan s/p laparoscopic/open exploratory laparotomy with low anterior resection with end colostomy and splenic flexure mobilization Sepsis Cough/Shortness of breath anemia postoperative/dilutional Pt tolerating diet. colostomy functioning. diet as tolerates. Continue Pain control, IV fluids and antibiotics Encourage IS, ambulation, and PT GI/DVT prophylaxis can transfer to IRF Supervisory-Addendum Brief Verification & Attestation Participated in pt care: history, MDM, physical Personally performed: exam, history, MDM, supervision of care Care discussed with: Medical Student Procedures: n/a Results interpretation: Verified all documentation Verification and Attestation of Medical Student E/M Service A medical student performed and documented this service in my presence. I reviewed and verified all information documented by the medical student and made modifications to such information, when appropriate. I personally performed the physical exam and medical decision making. Arun Walker, May 14, 2022,18:23 BOOM ACOSTA May 14, 2022 07:35 ARUN WALKER DO May 14, 2022 18:23
--- NOTE | 2022-05-14 08:19 | Tele-ICU Progress Note ---
Subjective Date Seen by a Provider: May 14, 2022 Time Seen by a Provider: 08:19 Subjective/Events-last exam (Tele-ICU Physician , consultation) Available chart/ vitals / labs / Images reviewed H&P is from ER notes Patient's information available about PMH, allergy reviewed in EMR. ROS as per chart and RN report Video assessment done using teleICU camera, rest of exam as per RN Discussed with RN she is complaining of mild nausea and chest discomfort. was receiving iv fentanyl and now changed to oxycodone. zofran given per primary care. Sepsis Event Evaluation Height, Weight, BMI Height: '" Weight: lbs. oz. kg; 29.71 BMI Method: Exam Exam Patient acknowledged, consented, and participated in this virtual visit which was conducted using real time audio/video Vital Signs Date Time Temp Pulse Resp B/P (MAP) Pulse Ox O2 Delivery O2 Flow Rate FiO2 05/14/22 08:00 37.0 05/14/22 07:17 67 05/14/22 06:00 65 20 120/67 95 Nasal Cannula 1.00 05/14/22 05:00 68 19 133/63 94 Nasal Cannula 1.00 05/14/22 04:00 66 25 132/67 97 Nasal Cannula 1.00 05/14/22 04:00 95 Nasal Cannula 1.00 05/14/22 03:45 21 123/65 94 Nasal Cannula 1.00 05/14/22 03:15 65 22 122/65 95 Nasal Cannula 1.00 05/14/22 03:00 64 22 122/65 95 Nasal Cannula 1.00 05/14/22 02:45 70 27 128/63 93 Nasal Cannula 1.00 05/14/22 02:15 36.7 63 24 104/58 93 Nasal Cannula 1.00 05/14/22 02:00 67 23 104/58 95 Nasal Cannula 1.00 05/14/22 01:45 64 28 121/66 94 Nasal Cannula 1.00 05/14/22 01:15 74 26 134/71 93 Nasal Cannula 1.00 05/14/22 01:00 68 05/14/22 01:00 68 22 134/71 94 Nasal Cannula 1.00 05/14/22 00:45 69 20 143/73 96 Nasal Cannula 1.00 05/14/22 00:00 69 19 116/16 95 Nasal Cannula 1.00 05/13/22 23:59 94 Nasal Cannula 1.00 05/13/22 23:00 74 20 125/78 94 Nasal Cannula 1.00 05/13/22 22:00 70 26 110/59 95 Nasal Cannula 1.00 05/13/22 21:00 69 24 132/67 96 Nasal Cannula 1.00 05/13/22 20:00 66 27 131/65 97 Nasal Cannula 1.00 05/13/22 20:00 95 Nasal Cannula 1.00 05/13/22 19:54 37.5 05/13/22 19:00 69 27 122/78 96 Nasal Cannula 1.00 05/13/22 19:00 69 05/13/22 18:00 84 22 134/70 95 Nasal Cannula 1.00 05/13/22 17:00 69 24 128/45 95 Nasal Cannula 1.00 05/13/22 16:00 75 23 134/73 95 Nasal Cannula 1.00 05/13/22 16:00 96 Nasal Cannula 1.00 05/13/22 16:00 36.3 05/13/22 15:00 64 21 115/62 98 Nasal Cannula 1.00 05/13/22 14:00 70 17 117/63 98 Nasal Cannula 1.00 05/13/22 13:00 62 24 126/62 97 Nasal Cannula 1.00 05/13/22 12:58 64 05/13/22 12:00 36.9 05/13/22 12:00 61 20 129/71 96 Nasal Cannula 1.00 05/13/22 12:00 96 Nasal Cannula 1.00 05/13/22 11:00 57 21 96/56 95 Nasal Cannula 1.00 05/13/22 10:20 98 Nasal Cannula 1.00 05/13/22 10:00 61 21 119/65 97 Nasal Cannula 1.00 05/13/22 09:00 64 18 102/54 95 Nasal Cannula 1.00 I & O 05/14/22 07:00 Intake Total 2100 ml Output Total 2600 ml Balance -500 ml Height & Weight Height: '" Weight: lbs. oz. kg; 29.71 BMI Method: General Appearance: No Apparent Distress, Anxious HEENT: PERRL/EOMI Neck: Non Tender, Supple Respiratory: No Accessory Muscle Use, No Respiratory Distress Cardiovascular: No JVD, No Murmur Gastrointestinal: soft, tenderness (slight over FLYNN drain), other (midline incision, left colostomy bag (full), and right FLYNN drain with serous fluid. Ostomy pink ) Extremity: Pedal Edema (trace) Neurologic/Psychiatric: Alert, Normal Mood/Affect Skin: Normal Color, Warm/Dry Lymphatic: No Adenopathy Results Lab Laboratory Tests 05/13/22 03:35 05/14/22 04:25 Assessment/Plan Assessment/Plan 1. Perforated sigmoid colon with severe sepsis. Status post expiratory laparotomy with resection and colostomy. postoperative management per surgery. Continue IV antibiotics oxycodone for pain management 2. New onset atrial fibrillation. amidorone has been discontinued Cardiology is on the case. 3. Postoperative pulmonary insufficiency. Extubated on 05/09/2022. Currently on oxygen via 2 L nasal cannula. 4. Chronic anemia currently stable 5. Hypertension fairly well controlled. 6. Nutrition: she is on clear liquids 7. DVT prophylaxis. Lovenox s/q full dose 8. compazine for N/V Critical Care: Critically Ill Patient Time spent with patient (mins): 20 JUDE MOLINA MD May 14, 2022 08:19
[2022-05-14] MEDS: PANTOPRAZOLE 40 MG (PROTONIX) VIAL IV SCH (09:29)
[2022-05-14] MEDS ORDERED: ONDANSETRON 4 MG (ZOFRAN) ORAL DISSOLVE TAB PO PRN (09:45)
[2022-05-14] MEDS ORDERED: ACETAMINOPHEN 325 MG TABLET PO PRN (09:45)
[2022-05-14] MEDS ORDERED: ONDANSETRON 4 MG/2 ML (SDV) Z0FRAN IVP PRN (09:45)
--- NOTE | 2022-05-14 10:20 | Cardiology Progress Note ---
Subjective Date Seen by Provider: May 14, 2022 Time Seen by Provider: 10:19 Subjective/Events-last exam Patient was seen at bedside, sitting comfortably, denied any chest pain. No palpitation. Review of Systems General: No Chills, No Night Sweats; Fatigue, Malaise; No Appetite, No Other HEENT: No Head Aches, No Visual Changes, No Eye Pain, No Ear Pain, No Dysphasia , No Sinus Congestion, No Post Nasal Drip, No Sore Throat, No Other Pulmonary: No Dyspnea, No Cough, No Pleuritic Chest Pain, No Other Cardiovascular: No: Chest Pain, Palpitations, Orthopnea, Paroxysmal Noc. Dyspnea, Edema, Lt Headedness, Other Objective-Cardiology Exam Last Set of Vital Signs Vital Signs 05/09/22 05/14/22 05/14/22 05/14/22 16:00 08:00 08:09 10:17 Temp 37.0 Pulse 90 Resp 23 B/P (MAP) 128/72 Pulse Ox 98 O2 Delivery Nasal Cannula O2 Flow Rate 1.00 FiO2 30 I&O Intake and Output 05/14/22 00:00 Intake Total 1785 ml Output Total 3300 ml Balance -1515 ml Intake Oral 1385 ml IV Total 400 ml Output Urine Total 3000 ml Stool Total 250 ml Drainage Total 50 ml General: Alert, Oriented X3, Cooperative HEENT: Atraumatic, PERRLA Neck: Supple, No JVD, No Thyromegaly Lungs: Clear to Auscultation, Normal Air Movement Heart: Regular Rate, Normal S1, Normal S2, No Murmurs Abdomen: No Masses, Other (Abnormal bowel sounds) Extremities: No Clubbing, No Cyanosis, No Edema, Normal Pulses, No Tenderness/Swelling Skin: No Rashes, No Breakdown, No Significant Lesion Neuro: Normal Speech, Normal Tone, Sensation Intact Psych/Mental Status: Mental Status NL, Mood NL Results Lab Laboratory Tests 05/14/22 04:25 A/P-Cardiology Admission Diagnosis Paroxysmal atrial fibrillation Severe sepsis Perforated sigmoid colon Hypertension Assessment/Plan Paroxysmal atrial fibrillation, converted to sinus rhythm on amiodarone drip Patient is converted to sinus rhythm Interrogation of her loop recorder that was implanted in January 2022 showed no other episodes of atrial fibrillation. Currently in sinus rhythm. Continue to monitor Perforated sigmoid colon, status post colectomy. Recovering slowly from surgery Status post severe sepsis, improving. Acute renal insufficiency postoperatively. Continue to monitor renal function Hypertension, monitor blood pressure Hyperlipidemia, monitor lipids DVT prophylaxis, maintained on heparin ADRIAN OGDEN MD May 14, 2022 10:20
--- NOTE | 2022-05-14 10:27 | Physical Therapy Daily Note ---
PT Daily Note-Current Subjective Patient reluctantly agrees to PT. Pain Numeric Pain Scale: 8 Location: Medial, Lower Location Body Site: Abdomen Pain Description: Pressure, Acute Comment: RN notified Mental Status Patient Orientation: Person, Time, Situation Attachments: Oxygen, Drains Transfers SCALE: Activities may be completed with or without assistive devices. 9-Xpqvnvgbke-whknewo completes the activity by him/herself with no assistance from a helper. 5-Set-up or Clean-up Assistance-helper sets up or cleans up; patient completes activity. [place] assists only prior to or following the activity. 4-Supervision or Touching Assistance-helper provides verbal cues and/or touching/steadying and/or contact guard assistance as patient completes activity. Assistance may be provided throughout the activity or intermittently. 3-Partial/Moderate Assistance-helper does LESS THAN HALF the effort. [place] lifts, holds or supports trunk or limbs, but provides less than half the effort. 2-Substantial/Maximal Assistance-helper does MORE THAN HALF the effort. [place] lifts or holds trunk or limbs and provides more than half the effort. 6-Sorgptkai-hxfzhu does ALL the effort. Patient does none of the effort to complete the activity. Or, the assistance of 2 or more helpers is required for the patient to complete the activity. If activity was not attempted, code reason: 7-Patient Refused. 9-Not Applicable-not attempted and the patient did not perform the activity before the current illness, exacerbation or injury. 10-Not Attempted due to Environmental Limitations-(lack of equipment, weather restraints, etc.). 88-Not Attempted due to Medical Conditions or Safety Concerns. Lying to Sitting/Side of Bed(Q: 4 Sit to Stand (QC): 4 Chair/Xbt-ds-Acqpy Xfer(QC): 4 Weight Bearing Right Lower Extremity: Right Full Weight Bearing Left Lower Extremity: Left Full Weight Bearing Gait Training Distance: 200' Walk 10 feet (QC): 4 Walk 50 ft with 2 Turns(QC): 4 Walk 150 ft (QC): 4 Gait Assistive Device: FWW very slow, steady gait sequence Exercises Seated Therapy Exercises: Ankle pumps, Long arc quads, Hip flexion Seated Reps: 15 Assessment Patient requires time to complete all functional tasks. Patient also requires encouragement to increase activity due to abdominal pain. PT Shelter Goals Business Performance Manager Goals PT Shelter Goals Time Frame: May 26, 2022 Roll Left & Right (QC): 6 Sit to Lying (QC): 6 Lying-Sitting on Side/Bed(QC): 6 Sit to Stand (QC): 6 Chair/Eee-ku-Shhfx Xfer(QC): 6 Toilet Transfer (QC): 6 Walk 10 feet (QC): 6 Walk 50ft with 2 Turns (QC): 6 Walk 150 ft (QC): 6 PT Plan Treatment/Plan Treatment Plan: Continue Plan of Care Treatment Plan: Bed Mobility, Education, Functional Activity Simona, Functional Strength, Gait, Safety, Therapeutic Exercise, Transfers Treatment Duration: May 26, 2022 Frequency: 6 times per week Estimated Hrs Per Day: .25 hour per day Patient and/or Family Agrees t: Yes Time/GCodes Time In: 755 Time Out: 819 Total Billed Treatment Time: 24 Total Billed Treatment 1 visit FA x 2 24 min JOHN SPANN PT May 14, 2022 10:27
--- NOTE | 2022-05-14 11:28 | Occupational Ther Daily Note ---
OT Current Status-Daily Note Subjective Pt alert, sitting on BSC. Nrsg in room. Pt reluctantly agrees to therapy. Pt wants to stay sitting on BSC due to coughing then urinating. Mental Status/Objective Patient Orientation: Person, Confused (fixation on certain positions/tasks), Place, Time, Situation Attachments: Central Line, Drains, IV, Oxygen (1L), Telemetry ADL-Treatment Pt stated that she is supposed to stay on BSC for 1 hour. Nrsg and PHILIP in room reminded pt that pt was able to sit where she wanted (bed, BSC, recliner). Pt continued to fixate on sitting on the BSC because of coughing/urinating and thinking that someone told her she had to stay there. Continued reminders of changing sitting position, pt continued to fixate on sitting on BSC. Pt agrees to oral care, brushing hair and washing face. After supplies gathered pt completed theses tasks by self. Pt continued to want to stay on BSC after therapy was complete. Call light in reach. All needs met in room. Therapy Code Descriptions/Definitions Functional [place] Measure: 0=Not Assessed/NA 4=Minimal Assistance 1=Total Assistance 5=Supervision or Setup 2=Maximal Assistance 6=Modified [place] 3=Moderate Assistance 7=Complete IndependenceSCALE: Activities may be completed with or without assistive devices. 6-Uhmwahfizi-gowxxua completes the activity by him/herself with no assistance from a helper. 5-Set-up or Clean-up Assistance-helper sets up or cleans up; patient completes activity. [place] assists only prior to or following the activity. 4-Supervision or Touching Assistance-helper provides verbal cues and/or touching/steadying and/or contact guard assistance as patient completes activity. Assistance may be provided throughout the activity or intermittently. 3-Partial/Moderate Assistance-helper does LESS THAN HALF the effort. [place] lifts, holds or supports trunk or limbs, but provides less than half the effort. 2-Substantial/Maximal Assistance-helper does MORE THAN HALF the effort. [place] lifts or holds trunk or limbs and provides more than half the effort. 6-Gpqcqjqrd-gztyfi does ALL the effort. Patient does none of the effort to complete the activity. Or, the assistance of 2 or more helpers is required for the patient to complete the activity. If activity was not attempted, code reason: 7-Patient Refused. 9-Not Applicable-not attempted and the patient did not perform the activity before the current illness, exacerbation or injury. 10-Not Attempted due to Environmental Limitations-(lack of equipment, weather restraints, etc.). 88-Not Attempted due to Medical Conditions or Safety Concerns. Oral Hygiene (QC): 5 OT Chcf Goals Chcf Goals Time Frame: May 24, 2022 Eating (QC): 5 Oral Hygiene (QC): 5 Toileting Hygiene (QC): 4 Shower/Bathe Self (QC): 4 Upper Body Dressing (QC): 5 Lower Body Dressing (QC): 5 On/Off Footwear (QC): 5 1=Demonstrate adherence to instructed precautions during ADL tasks. 2=Patient will verbalize/demonstrate understanding of assistive devices/ modifications for ADL. 3=Patient will improve strength/tolerance for activity to enable patient to perform ADL's. OT Education/Plan Problem List/Assessment Assessment: Decreased Activ Tolerance, Impaired Cognition, Impaired Self-Care Skills Discharge Recommendations Plan/Recommendations: Continue POC Treatment Plan/Plan of Care Patient would benefit from OT for education, treatment and training to promote i ndependence in ADL's, mobility, safety and/or upper extremity function for ADL's. Plan of Care: ADL Retraining, Cognitive Retraining, Functional Mobility, Group Exercise/Act as Ind, UE Funct Exercise/Act Treatment Duration: May 24, 2022 Frequency: 3 times per week (3-5x/week) Estimated Hrs Per Day: .25 hour per day Agreement: Yes Rehab Potential: Fair Time/GCodes Start Time: 10:15 Stop Time: 10:30 Total Time Billed (hr/min): 15 Billed Treatment Time 1 visit-ADL 1 (15 min) NEO ALDANA May 14, 2022 11:28
[2022-05-14] MEDS ORDERED: meTOprolol TARTRATE 25 MG (LOPRESSOR) TABLET PO NR (12:15)
--- NOTE | 2022-05-14 13:58 | Discharge Inst-Simple/Standard ---
Discharge Inst-Standard Patient Instructions/Follow Up Plan of Care/Instructions/FU: IRF Activity as Tolerated: No (10 pound wt restriction) Discharge Diet: Regular Diet ARUN SHERMAN DO May 14, 2022 13:58
--- NOTE | 2022-05-14 17:20 | Progress Note - Hospitalist ---
Subjective HPI/CC On Admission Date Seen by Provider: May 14, 2022 Time Seen by Provider: 09:25 Patient is a 76-year-old female with a past medical history of hyperlipidemia, hypertension, anxiety who presented to the emergency department due to abdominal pain. She is currently intubated and unable to provide her history. All history is obtained from the records. She stated her symptoms started on May 03 and have been increasing since that time. She reports it was a dull pain that progressed to a sharp pain in her lower abdomen and migrated throughout her entire abdomen. She had nausea. She had loose bowel m ovements. Her only surgical history is a . She had been taking Aleve and Advil for her pain at home. CT abdomen was done which showed free air throughout the abdomen. Dr. Walker admitted patient and took her immediately to the OR where resection with colostomy was done. She remained on the ventilator postoperatively overnight and is currently undergoing a weaning trial. Subjective/Events-last exam She is still feeling weak. She still has pain. She is nauseous. She has been able to drink clears. Objective Exam Vital Signs Vital Signs Date Time Temp Pulse Resp B/P (MAP) Pulse Ox O2 Delivery O2 Flow Rate FiO2 05/14/22 14:10 05/14/22 13:05 73 05/14/22 13:00 90 Nasal Cannula 1.00 05/14/22 12:00 36.7 05/14/22 10:00 24 05/09/22 16:00 30 Capillary Refill : Less Than 3 Seconds General Appearance: No Apparent Distress, WD/WN Respiratory: Lungs Clear, No Respiratory Distress Cardiovascular: Regular Rate, Rhythm, No Murmur Gastrointestinal: Normal Bowel Sounds, Soft, Tenderness Extremity: Normal Inspection, No Pedal Edema Neurologic/Psychiatric: Alert, Normal Mood/Affect, Motor Weakness Skin: Normal Color, Warm/Dry Results/Procedures Lab Laboratory Tests 05/14/22 04:25 Patient resulted labs reviewed. Imaging: Reviewed Imaging Report Assessment/Plan Assessment and Plan Assess & Plan/Chief Complaint Perforated sigmoid colon Severe sepsis Surgery primary s/p ex lap with resection and colostomy- POD #6 Zosyn BC cultures NGTD Fentanyl for pain Add oxycodone New onset atrial fibrillation s/p amiodarone Metoprolol Lovenox Cardiology following Postoperative respiratory insufficiency Resolved Anemia Hgb stable HTN HLD Bp well controlled, trend Debility PT/OT IRU eval, accepted DVT ppx: already receiving therapeutic anticoagulation Diagnosis/Problems Diagnosis/Problems (1) Perforated sigmoid colon Status: Acute (2) Severe sepsis Status: Acute (3) Postoperative anemia due to acute blood loss Status: Acute (4) Debility Status: Acute HAYDEN BOLTON MD May 14, 2022 17:20
[2022-05-14] MEDS ORDERED: meTOprolol TARTRATE 25 MG (LOPRESSOR) TABLET PO SCH (21:00)
== END 2022-05-14 14:10 | DRG 853 ==
LOC: EDUNIT# 14:29 → ER 14:32 → ICU 17:07
PROVIDERS: ADMIT Surgery; ATTEND Surgery
PROC: 0DBN0ZZ Excision of Sigmoid Colon, Open Approach (ICD-10-PCS; 2022-05-08)
PROC: 0D1N0Z4 Bypass Sigmoid Colon to Cutaneous, Open Approach (ICD-10-PCS; 2022-05-08)
PROC: 0WJG3ZZ Inspection of Peritoneal Cavity, Percutaneous Approach (ICD-10-PCS; 2022-05-08)
PROC: 0DBP0ZZ Excision of Rectum, Open Approach (ICD-10-PCS; principal; 2022-05-08 18:05)
DX: A41.9 Sepsis, unspecified organism (principal); K63.1 Perforation of intestine (nontraumatic); J95.2 Acute pulmonary insufficiency following nonthoracic surgery; I48.0 Paroxysmal atrial fibrillation; E78.00 Pure hypercholesterolemia, unspecified; I10 Essential (primary) hypertension; F41.9 Anxiety disorder, unspecified; D64.9 Anemia, unspecified; Z53.31 Laparoscopic surgical procedure converted to open procedure
CPT/HCPCS: 36415; 71045; 74177; 80048; 80053; 81000; 82805; 82947; 83605; 83690; 83735; 84100; 84478; 84484; 85007; 85025; 85027; 85610; 85730; 86141; 86850; 86900; 86901; 87040; 87081; 93005; 93306; 94002; 94003; 94664; 94760; 96361; 96365; 96375

== ENCOUNTER → 2022-05-08 | Outpatient (CLI) | payer MEDICARE, OTHER | LOC: ORTHO 13:55 | PROVIDERS: ATTEND Orthopaedic Surgery | DX: M17.0 Bilateral primary osteoarthritis of knee (principal) | CPT/HCPCS: 20610 ==

== ENCOUNTER 2022-05-14 11:44 | Inpatient (IN) | payer MEDICARE, OTHER ==
[~2022-05-14] VITALS: Ht 154.9 cm; Wt 60.4 kg
[2022-05-14] MEDS ORDERED: FLEET ENEMA ADULT 1 EA BTL PR PRN (13:00)
[2022-05-14] MEDS ORDERED: guaiFENesin/CODEINE (ROBITUSSIN AC) 10ML UDC PO PRN (13:00)
[2022-05-14] MEDS ORDERED: LACTULOSE SYRUP 10GM/15ML (ENULOSE) 30ML UDC PO PRN (13:00)
[2022-05-14] MEDS ORDERED: diphenhydrAMINE 25 MG TAB (BENADRYL) PO PRN (13:00)
[2022-05-14] MEDS ORDERED: LOPERAMIDE 2 MG (IMODIUM) TABLET PO PRN (13:00)
[2022-05-14] MEDS ORDERED: BISACODYL 10 MG SUPP (DULCOLAX) PR PRN (13:00)
[2022-05-14] MEDS ORDERED: DOCUSATE SODIUM 100 MG (COLACE) CAP PO PRN (13:00)
[2022-05-14] MEDS ORDERED: CALCIUM CARBONATE 500 MG (TUMS) TAB.CHEW PO PRN (13:00)
--- NOTE | 2022-05-14 13:01 | PM&R Post Admission Assessment ---
PM&R HP Date of Visit: May 14, 2022 Time of Visit: 15:00 History of Present Illness CC: Debility from intestinal perforation and AF RVR HPI: This is a 76yoWF patient who presents to IRF following a complicated hospital course after she was found to have intestinal perforation s/p repair with diverting colostomy but then had an episode of new onset AF RVR managed by Cardiology. Patient is very weak and may ultimately need AL admit. Medical consultation HPI per Dr Guajardo: Patient is a 76-year-old female with a past medical history of hyperlipidemia, hypertension, anxiety who presented to the emergency department due to abdominal pain. She is currently intubated and unable to provide her history. All history is obtained from the records. She stated her symptoms started on May 03 and have been increasing since that time. She reports it was a dull pain that progressed to a sharp pain in her lower abdomen and migrated throughout her entire abdomen. She had nausea. She had loose bowel movements. Her only surgical history is a C- section. She had been taking Aleve and Advil for her pain at home. CT abdomen was done which showed free air throughout the abdomen. Dr. Walker admitted patient and took her immediately to the OR where resection with colostomy was done. She remained on the ventilator postoperatively overnight and is currently undergoing a weaning trial. Cardiology consultation Dr Marshall: 76-year-old lady with history of hypertension, hyperlipidemia, questionable arrhythmia, has a loop recorder. Patient presented to the emergency room with abdominal pain, work-up showed perforated sigmoid colon, underwent colostomy. Patient was intubated, extubated recently. Doing well. Laying comfortably in bed, had an episode of atrial fibrillation with rapid ventricular response. Patient was started on amiodarone drip and she was converted back to sinus rhythm. On my evaluation she was laying comfortably in bed, denied any active chest pain, no previous coronary artery disease. Past Qpwbwki-Zhzenz-Yfzjnu Hx Past Med/Social Hx: Reviewed Nursing Past Med/Soc Hx, Reviewed and Corrections made Patient Social History Marrital Status: Employed/Student: retired Alcohol Use: Denies Use Smoking Status: Never a Smoker Past Medical History Surgeries: Abdominal (colostomy), Section, Orthopedic Currently Using CPAP: No Currently Using BIPAP: No Cardiac: High Cholesterol, Hypertension Psychosocial: Anxiety Family History No Pertinent Family Hx PM&R Allergy/Meds/Data Review Allergies Coded Allergies: Sulfa (Sulfonamide Antibiotics) (Verified Allergy, Unknown, 05/14/22) citalopram (Verified Allergy, Unknown, "night terrors", 05/14/22) "night terrors" codeine (Verified Allergy, Unknown, 05/14/22) "dizziness" Home Medications Scheduled Cholecalciferol (Vitamin D3) (Vitamin D3), 50 MCG PO DAILY, (Reported) Fish Oil/Dha/Epa (Fish Oil 1,200 mg Fish Oil), 1 EACH PO DAILY, (Reported) Lutein (Lutein), 20 MG PO DAILY, (Reported) Magnesium Oxide (Magnesium), 400 MG PO DAILY, (Reported) Meloxicam (Meloxicam), 15 MG PO DAILY, (Reported) Mv-Mn/Folic Acid/Calcium/Vit K (Women's 50 Plus Multivit Tab), 1 EACH PO DAILY, (Reported) Simvastatin (Simvastatin), 40 MG PO DAILY, (Reported) Ubidecarenone (Coq-10), 30 MG PO DAILY, (Reported) Vitamin B Complex (B Complex), 1 EACH PO DAILY, (Reported) Zinc (Zinc), 50 MG PO DAILY, (Reported) Current Medications Current Medications Reviewed Review of Systems Constitutional: see HPI, malaise, weakness EENTM: no symptoms reported Respiratory: dyspnea on exertion Cardiovascular: palpitations Gastrointestinal: abdominal pain, nausea, vomiting Genitourinary: no symptoms reported Musculoskeletal: no symptoms reported Skin: no symptoms reported Psychiatric/Neurological: Anxiety All Other Systems Reviewed Negative Unless Noted: Yes Physical Exam Physical Exam Vital Signs Capillary Refill : Height, Weight, BMI Height: '" Weight: lbs. oz. kg; 29.71 BMI Method: General Appearance: No Apparent Distress, WD/WN, Chronically ill, Thin, Other (frail) Eyes: Bilateral Eye Normal Inspection, Bilateral Eye PERRL HEENT: PERRL/EOMI, Normal ENT Inspection, Pharynx Normal Neck: Full Range of Motion, Normal Inspection, Non Tender, Supple, Carotid Bruit Respiratory: Chest Non Tender, Lungs Clear, Normal Breath Sounds, No Accessory Muscle Use, No Respiratory Distress Cardiovascular: Regular Rate, Rhythm, No Edema, No Gallop, No JVD, No Murmur, Normal Peripheral Pulses Gastrointestinal: Normal Bowel Sounds, No Organomegaly, No Pulsatile Mass, Soft, Other (colostomy) Back: Normal Inspection, No CVA Tenderness, No Vertebral Tenderness Extremity: Normal Capillary Refill, Normal Inspection, Normal Range of Motion, Non Tender, No Calf Tenderness, No Pedal Edema Neurologic/Psychiatric: Alert, Oriented x3, No Motor/Sensory Deficits, Normal Mood/Affect, Motor Weakness (generalized) Skin: Normal Color, Warm/Dry Lymphatic: No Adenopathy PM&R Medical Assessment & Plan REHAB/MEDICAL ASSESSMENT AND PLAN: REHAB IMPAIRMENT GROUP: Debility/myopathy ETIOLOGIC DIAGNOSIS: Debility/myopathy The comorbidities that impact the patients function and/or functional outcome by: advanced age, AF RVR, s/p vent post op, colostomy, recent perforation REHAB PLAN: The patient is being admitted to our comprehensive inpatient rehabilitation facility and can tolerate the intensity of service consisting of at least: 180 minutes of therapy a day, 5 out of 7 days a week Rehab treatment will consist of: PT OT will focus on regaining strength and management following colostomy surgery with use of assistive devices in order to regain function and independence The patient/family has a good understanding of our discharge process and will benefit from an interdisciplinary inpatient rehabilitation program. The patient has potential to make improvement and is in need of at least two of the following multidisciplinary therapies including but not limited to physical, occupational, speech, and prosthetics and orthotics. Additionally the patient will need services from respiratory, nutritional services, wound care, psycholo gy, etc. (Customize this to each patient). Given the patients complex condition and risk of further medical complications, rehabilitation services cannot be safely or effectively provided at a lower level of care such as a intermediate facility. BARRIERS TO DISCHARGE: Lives alone ESTIMATED LOS: 7 days DISPOSITION: Home versus AL RELEVANT CHANGES SINCE PREADMISSION SCREENING: I have compared the patients medical and functional status at the time of the preadmission screening and there are: no changes PROGNOSIS: good REHABILITATION GOALS: 1. PT OT will focus on regaining strength and management following colostomy moss rgery with use of assistive devices in order to regain function and independence All the above goals were reviewed with the patient and he/she is in agreement. By signing this document, I acknowledge that I have personally performed a full physical examination on this patient within 24 hours of admission to this inpatient rehabilitation facility and have determined the patient to be able to tolerate the above course of treatment at an intensive level for a reasonable period of time. I will be completing a detailed individualized Plan of Care for this patient by day #4 of the patients stay based upon the Preadmission Screen, the Post-Admission Evaluation, and the therapy evaluations. Admission Dx/Comorbidities: (1) Atrial fibrillation with rapid ventricular response ICD Codes: I48.91 - Unspecified atrial fibrillation (2) Debility Status: Acute ICD Codes: R53.81 - Other malaise (3) Postoperative anemia due to acute blood loss Status: Acute ICD Codes: D62 - Acute posthemorrhagic anemia (4) HLD (hyperlipidemia) Status: Chronic ICD Codes: E78.5 - Hyperlipidemia, unspecified (5) HTN (hypertension) Status: Chronic ICD Codes: I10 - Essential (primary) hypertension (6) Severe sepsis Status: Acute ICD Codes: A41.9 - Sepsis, unspecified organism; R65.20 - Severe sepsis without septic shock (7) Perforated sigmoid colon Status: Acute ICD Codes: K63.1 - Perforation of intestine (nontraumatic) Assessment/Plan Assessment and Plan Assess & Plan/Chief Complaint Assessment: Debility Myopathy New onset AF s/p RVR requiring ICU drip HTN HLP Loop recorder s/p severe sepsis from perforated sigmoid colon s/p colostomy Post op anemia due to acute blood loss Plan: Monitor closely Monitor hgb PT OT Pain control GABRIEL CONNELL DO May 14, 2022 13:00
[2022-05-14 14:17] VITALS: BP 109/68
[2022-05-14 14:27] VITALS: BP 99/59
--- NOTE | 2022-05-14 14:45 | Physical Therapy Evaluation ---
PT Evaluation-General Medical Diagnosis Admission Date May 14, 2022 at 14:00 Medical Diagnosis: abdominal pain/s/p bowel perforation Onset Date: May 08, 2022 Therapy Diagnosis Therapy Diagnosis: generalized weakness/debility Precautions Precautions/Isolations: Standard Precautions Referral Physician: Luis Fernando Reason for Referral: Evaluation/Treatment Medical History Pertinent Medical History: HTN Current History transfer from ICU after surgical intervention for bowel perforation Reviewed History: Yes Social History Home: Single Level (duplex) Current Living Status: Alone Prior Prior Level of Function SCALE: Activities may be completed with or without assistive devices. 8-Uykfbecnpy-lcypfnm completes the activity by him/herself with no assistance from a helper. 5-Set-up or Clean-up Assistance-helper sets up or cleans up; patient completes activity. Perryman assists only prior to or following the activity. 4-Supervision or Touching Assistance-helper provides verbal cues and/or touching/steadying and/or contact guard assistance as patient completes activity. Assistance may be provided throughout the activity or intermittently. 3-Partial/Moderate Assistance-helper does LESS THAN HALF the effort. Perryman lifts, holds or supports trunk or limbs, but provides less than half the effort. 2-Substantial/Maximal Assistance-helper does MORE THAN HALF the effort. Perryman lifts or holds trunk or limbs and provides more than half the effort. 3-Dttdmpscg-wwnuct does ALL the effort. Patient does none of the effort to complete the activity. Or, the assistance of 2 or more helpers is required for the patient to complete the activity. If activity was not attempted, code reason: 7-Patient Refused. 9-Not Applicable-not attempted and the patient did not perform the activity before the current illness, exacerbation or injury. 10-Not Attempted due to Environmental Limitations-(lack of equipment, weather restraints, etc.). 88-Not Attempted due to Medical Conditions or Safety Concerns. Bed Mobility: 6 Transfers (B,C,W/C): 6 Gait: 6 Stairs: 6 Wheelchair Mobility: 9 Indoor Mobility (Ambulation): Independent Stairs: Independent Prior Devices Use: None very active/drives PT Evaluation-Current Subjective Patient states, "I have no energy. I can't do anything." Pain Numeric Pain Scale: 8 Location: Medial, Lower Location Body Site: Abdomen Pain Description: Pressure Objective Patient Orientation: Person, Time, Situation Attachments: Drains ROM/Strength ROM Lower Extremities bilateral LE WFL Strength Lower Extremities 3-/5 grossly bilateral LE all planes Integumentary/Posture Integumentary refer to nursing notes Bladder Incontinence: Yes Posture bilateral LE flexed knee posture with trunk flexed posture Neuromuscular (Tone, Coordination, Reflexes) severely diminished coordination due to fatigue and lethargy Sensory Vision: Functional Hearing: Hearing Aid/Aides Sensation Right Lower Extremit: Intact Sensation Left Lower Extremity: Intact Transfers Roll Left & Right (QC): 3 Sit to Lying (QC): 3 Lying to Sitting/Side of Bed(Q: 3 Sit to Stand (QC): 2 Chair/Vyh-pk-Dvyeq Xfer(QC): 2 Toilet Transfer (QC): 2 Car Transfer (QC): 2 assist with all Gait Does the Patient Walk?: Yes Mode of Locomotion: Walk Anticipated Mode of Locomotion: Walk Walk 10 feet (QC): 2 Walk 50 ft with 2 Turns(QC): 88 Walk 150 ft (QC): 88 Walking 10ft/uneven surface-QC: 88 Distance: 10' x 2 Gait Assistive Device: FWW Comments/Gait Description severe flexed knees and shuffle gait pattern with inability to self correct Wheelchair Training Wheel 50 ft with 2 turns (QC): 9 Wheel 150 ft (QC): 9 Stairs 1 Step (curb) (QC): 88 4 Steps (QC): 88 12 Steps (QC): 88 Balance Sitting Static: Fair Sitting Dynamic: Fair Standing Static: Poor Standing Dynamic: Poor Picking up an Object (QC): 88 Treatment Patient's BP 99/58 in sit with patient very lethargic. Patient unable to ambulate distance this p.m. as compared to a.m. session on acute. RN aware. Assessment/Needs 76 y.o. female, will benefit from skilled PT to address functional strength and mobility to improve current LOF. Patient is currently severely lethargic and listless and unable to perform all gross motor testing at this time. PT to resume assessment in a.m. Patient's PLOF was independent with all gross motor skills and ambulation/driving. Rehab Potential: Fair PT Flat Sorting Machine Clerk Goals Flat Sorting Machine Clerk Goals PT Flat Sorting Machine Clerk Goals Time Frame: Jun 09, 2022 Roll Left & Right (QC): 6 Sit to Lying (QC): 6 Lying-Sitting on Side/Bed(QC): 6 Sit to Stand (QC): 6 Chair/Vjv-zw-Nbdix Xfer(QC): 6 Toilet Transfer (QC): 6 Car Transfer (QC): 6 Does the Patient Walk: Yes Walk 10 feet (QC): 6 Walk 50ft with 2 Turns (QC): 6 Walk 150 ft (QC): 6 Walking 10ft on Uneven Surface: 6 1 Step (curb) (QC): 6 4 Steps (QC): 6 12 Steps (QC): 6 Picking up an Object (QC): 6 Wheel 50 feet with 2 turns (QC: 9 Wheel 150 feet: 9 PT Plan Problem List Problem List: Activity Tolerance, Functional Strength, Safety, Balance, Gait, Transfer, Bed Mobility Treatment/Plan Treatment Plan: Continue Plan of Care Treatment Plan: Bed Mobility, Education, Functional Activity Simona, Functional Strength, Gait, Safety, Therapeutic Exercise, Transfers Treatment Duration: Jun 09, 2022 Frequency: At least 5 of 7 days/Wk (IRF) Estimated Hrs Per Day: 1.5 hours per day Patient and/or Family Agrees t: Yes Time/GCodes Time In: 1400 Time Out: 1420 Total Billed Treatment Time: 20 Total Billed Treatment 1 visit EVModC 20 min JOHN SPANN PT May 14, 2022 14:45
--- NOTE | 2022-05-14 14:52 | Occupational Therapy Eval ---
OT Evaluation-General/PLF Medical Diagnosis Admission Date May 14, 2022 at 14:00 Medical Diagnosis: perforated sigmoid colon s/p colectomy Onset Date: May 08, 2022 Therapy Diagnosis Therapy Diagnosis: decreased ADL status, weakness Referral Physician: Luis Fernando Menon Reason: Evaluation/Treatment Medical History Pertinent Medical History: HTN Additional Medical History HTN, anxiety Current History ER secondary to abdominal pain (bowel perforation) s/p bowel resection with colostomy. Pt transferred to ARU 05/14/22 for continued skilled therapy and medication management. Social History Home: Multilevel Current Living Status: Alone Steps Inside Home: 9 ADL-Prior Level of Function SCALE: Activities may be completed with or without assistive devices. 7-Lwpxkqljti-mzrufke completes the activity by him/herself with no assistance from a helper. 5-Set-up or Clean-up Assistance-helper sets up or cleans up; patient completes activity. Steele assists only prior to or following the activity. 4-Supervision or Touching Assistance-helper provides verbal cues and/or touching/steadying and/or contact guard assistance as patient completes activity. Assistance may be provided throughout the activity or intermittently. 3-Partial/Moderate Assistance-helper does LESS THAN HALF the effort. Steele lifts, holds or supports trunk or limbs, but provides less than half the effort. 2-Substantial/Maximal Assistance-helper does MORE THAN HALF the effort. Steele lifts or holds trunk or limbs and provides more than half the effort. 1-Xzxahsxnd-hhatsy does ALL the effort. Patient does none of the effort to complete the activity. Or, the assistance of 2 or more helpers is required for the patient to complete the activity. If activity was not attempted, code reason: 7-Patient Refused. 9-Not Applicable-not attempted and the patient did not perform the activity before the current illness, exacerbation or injury. 10-Not Attempted due to Environmental Limitations-(lack of equipment, weather restraints, etc.). 88-Not Attempted due to Medical Conditions or Safety Concerns. ADL PLOF Comments Pt reports being IND with all ADLs and IADLs at [facility]. Pt only used FWW for a few days prior to hospitalization due to pain in abdominal area. Pt has to walk up 9 steps to access bed/bath. Per son, they are trying to move pt to a single level duplex. Pt reports being very active prior to incident, walking 4-5 miles per day, attending senior dances, and driving to [employer]. Self Care: Independent Functional Cognition: Independent DME/Equipment: Tub/Shower Drive Self: Yes OT Current Status Subjective Pt with PT upon OT arrival, agreeable to OT evaluation. 9/10 pain, in abdomen. Patient states, "I have no energy. I can't do anything." Pts son present through some of session. Majority of treatment complete bed level per nursing request, due to low BP. Mental Status/Objective Patient Orientation: Person, Confused, Place, Situation Attachments: Colostomy/Ileostomy, Drains, IV, Telemetry Current Glasses/Contacts: Yes Hearing Aids: Yes Hand Dominance: Right Upper Extremity ROM bilaterally WFL Upper Extremity Sensation Pt denies any BUE sensation deficits. Upper Extremity Strength ~3+/5 bilaterally ADL-Treatment Eating (QC): 5 (per clinical judgment) Oral Hygiene (QC): 7 Shower/Bathe Self (QC): 7 Upper Body Dressing (QC): 7 Lower Body Dressing (QC): 7 On/Off Footwear (QC): 7 Toileting Hygiene (QC): 7 Other Treatments OT evaluation complete, then OT/PT cotreat due to skill of 2 clinicians required which a vocational rehabilitation counselor could not perform in order to coordinate UE/LEs, decrease fall risk, and due to pt's limitations in strength, activity tolerance, mobility/transfers, and low BP. OT focused on UE placement, cues for safety and sequencing, PT focused on LE placement, gross overall movement, and transfers/mobility. Pt taken to therapy gym to parallel bars with plans of focusing on increasing standing balance, strength and endurance. OT assisted pt with combing tangles out of her hair. Pt's nurse arrived, and instructed therapists to return pt to her room, and put her to bed due to low blood pressure (99/59 in sitting, pt very lethargic). Pt taken back to her room via w/c, transferring to bed, then supine, min-mod A with verbal cues due to slow processing. Pt then provided lengthy medical history, BP monitored by nurse throughout session. UE/LE exercises performed at bed level per nursing request to not overdo treatment. Pt completed 2x10 reps each of the following BUE exercises: shoulder flexion, front punch, bicep curls, shoulder abduction. Pt required frequent rest breaks throughout treatment, pt easily distracted talking about her medical history, requiring multiple cues/redirection to exercises. Post tx, pt left in bed, call light in reach and all needs met. ADLs deferred to following treatment session, due to low BP, and nursing request to complete bed level activities due to low BP. Education OT Patient Education: Correct positioning, Energy conservation, Modified ADL techniques, Progress toward Goal/Update tx plan, Purpose of tx/functional activities, Rehab process Teaching Recipient: Patient Teaching Methods: Discussion Response to Teaching: Verbalize Understanding OT Short Term Goals Short Term Goals Time Frame: May 30, 2022 Toileting hygiene: 4 Shower/bathe self: 4 Lower body dressin Putting on/taking off footwear: 4 OT Water Pump Assembler Goals Longterm Goals Time Frame: Jun 15, 2022 Eating (QC): 6 Oral Hygiene (QC): 6 Toileting Hygiene (QC): 6 Shower/Bathe Self (QC): 6 Upper Body Dressing (QC): 6 Lower Body Dressing (QC): 6 On/Off Footwear (QC): 6 Additional Goals: 1-Demonstrate ADL Tasks, 2-Verbalize Understanding, 3- ImproveStrength/Simona 1=Demonstrate adherence to instructed precautions during ADL tasks. 2=Patient will verbalize/demonstrate understanding of assistive devices/modifications for ADL. 3=Patient will improve strength/tolerance for activity to enable patient to perform ADL's. OT Education/Plan Problem List/Assessment Assessment: Decreased Activ Tolerance, Decreased UE Strength, Impaired Funct Balance, Impaired I ADL's, Impaired Self-Care Skills Discharge Recommendations Plan/Recommendations: Continue POC Equpiment Recommendations-D/C: Extended Bath Bench, Rails on Tub/Shower Treatment Plan/Plan of Care Patient would benefit from OT for education, treatment and training to promote independence in ADL's, mobility, safety and/or upper extremity function for ADL's. Plan of Care: ADL Retraining, Functional Mobility, Group Exercise/Act as Ind, UE Funct Exercise/Act Treatment Duration: Jun 15, 2022 Frequency: At least 5 of 7 days/Wk (IRF) Estimated Hrs Per Day: 1.5 hours per day Rehab Potential: Fair Time/GCodes Start Time: 14:20 Stop Time: 15:45 Total Time Billed (hr/min): 85 Billed Treatment Time 1203-8927 OT evaluation (10'), [id number] [place]reat (75') 1, EVM (10'), FA 2 (30'), EX 3 (45') TANNER SOMMER OT May 14, 2022 14:52
[2022-05-14 14:58] VITALS: BP 106/62
[2022-05-14 15:20] VITALS: BP 129/58
--- NOTE | 2022-05-14 15:55 | Physical Therapy Daily Note ---
PT Daily Note-Current Subjective Pt agrees to PT/OT co-treat for limited Ex due to low BP and confusion. Pain Numeric Pain Scale: 9 Location: Lower Location Body Site: Abdomen Pain Description: Ache Mental Status Patient Orientation: Person, Confused, Place, Situation Attachments: Colostomy/Ileostomy, Drains, Other-See Comments (Telemetry), IV Transfers SCALE: Activities may be completed with or without assistive devices. 4-Jafpigowtb-spiacwb completes the activity by him/herself with no assistance from a helper. 5-Set-up or Clean-up Assistance-helper sets up or cleans up; patient completes activity. [place] assists only prior to or following the activity. 4-Supervision or Touching Assistance-helper provides verbal cues and/or touching/steadying and/or contact guard assistance as patient completes activity. Assistance may be provided throughout the activity or intermittently. 3-Partial/Moderate Assistance-helper does LESS THAN HALF the effort. [place] lifts, holds or supports trunk or limbs, but provides less than half the effort. 2-Substantial/Maximal Assistance-helper does MORE THAN HALF the effort. [place] lifts or holds trunk or limbs and provides more than half the effort. 9-Ipifovqbq-phcyew does ALL the effort. Patient does none of the effort to complete the activity. Or, the assistance of 2 or more helpers is required for the patient to complete the activity. If activity was not attempted, code reason: 7-Patient Refused. 9-Not Applicable-not attempted and the patient did not perform the activity be fore the current illness, exacerbation or injury. 10-Not Attempted due to Environmental Limitations-(lack of equipment, weather restraints, etc.). 88-Not Attempted due to Medical Conditions or Safety Concerns. Sit to Lying (QC): 3 Sit to Stand (QC): 3 Weight Bearing Full Weight Bearing Full Weight Bearing Exercises Supine Ex: Ankle pumps, Quad Set (2 sets of 10 reps), Glut sets, Heel Slides, Straight leg raise, Hip abd/add (2 sets of 10 reps) Supine Reps: 10 Treatments OT/PT cotreat due to skill of 2 clinicians required which a vocational rehabilitation administrator could not perform in order to coordinate UE/LEs, decrease fall risk, and due to pt's limitations in strength, activity tolerance, mobility/transfers, and low BP. OT focused on UE placement, cues for safety and sequencing, PT focused on LE placement, gross overall movement, and transfers/mobility. Pt taken to therapy gym to parallel bars with plans of focusing on increasing standing balance, strength and endurance. OT assisted pt with combing tangles out of her hair. Pt's nurse arrived, and instructed therapists to return pt to her room, and put her to bed due to low blood pressure (99/59 in sitting, pt very lethargic). Pt taken back to her room via w/c, transferring to bed, then supine, min-mod A with verbal cues due to slow processing. Pt then provided lengthy medical history, BP monitored by nurse throughout session. UE/LE exercises performed at bed level per nursing request to not overdo treatment. Pt completed 2x10 reps each of the following BUE exercises: shoulder flexion, front punch, bicep curls, shoulder abduction. Pt required frequent rest breaks throughout treatment, pt easily distracted talking about her medical history, requiring multiple cues/redirection to exercises. Post tx, pt left in bed, call light in reach and all needs met. Assessment Current Status: Fair Progress Pt is confused and needs frequent RB and needs multiple redirections PT Sports Development Officer Goals Prison Goals PT Prison Goals Time Frame: Jun 09, 2022 Roll Left & Right (QC): 6 Sit to Lying (QC): 6 Lying-Sitting on Side/Bed(QC): 6 Sit to Stand (QC): 6 Chair/Jjn-bb-Agqbq Xfer(QC): 6 Toilet Transfer (QC): 6 Car Transfer (QC): 6 Does the Patient Walk: Yes Walk 10 feet (QC): 6 Walk 50ft with 2 Turns (QC): 6 Walk 150 ft (QC): 6 Walking 10ft on Uneven Surface: 6 1 Step (curb) (QC): 6 4 Steps (QC): 6 12 Steps (QC): 6 Picking up an Object (QC): 6 Wheel 50 feet with 2 turns (QC: 9 Wheel 150 feet: 9 PT Plan Problem List Problem List: Functional Strength, Safety, Transfer Treatment/Plan Treatment Plan: Continue Plan of Care Treatment Plan: Bed Mobility, Education, Functional Activity Simona, Functional Strength, Gait, Safety, Therapeutic Exercise, Transfers Treatment Duration: Jun 09, 2022 Frequency: At least 5 of 7 days/Wk (IRF) Estimated Hrs Per Day: 1.5 hours per day Patient and/or Family Agrees t: Yes Safety Risks/Education Patient Education: Transfer Techniques, Correct Positioning, Safety Issues Teaching Recipient: Patient Teaching Methods: Discussion Response to Teaching: Reinforcement Needed Time/GCodes Time In: 1430 Time Out: 1545 Total Billed Treatment Time: 75 Total Billed Treatment Co-treat w/OT for 75m 1, FA x2 (30m) & EX x3 (45m) ANNE CARR HIDE GRADER May 14, 2022 15:55
[2022-05-14] MEDS: ACETAMINOPHEN 325 MG TABLET PO PRN (19:29)
[2022-05-14] MEDS ORDERED: ONDANSETRON 4 MG/2 ML (SDV) Z0FRAN IVP PRN (19:30)
[2022-05-14] MEDS ORDERED: ONDANSETRON 4 MG (ZOFRAN) ORAL DISSOLVE TAB PO PRN (19:30)
[2022-05-14] MEDS ORDERED: RT-ALBUTEROL SULF 2.5 MG/3 ML PRE-MIX VIAL INH PRN (19:30)
[2022-05-14] MEDS ORDERED: PIPERACILLIN/TAZO 4.5 GM VIAL (ZOSYN) IV ONE (19:30)
[2022-05-14] MEDS ORDERED: PROCHLORPERAZINE 10 MG/2ML INJ (COMPAZINE) IV PRN (19:30)
[2022-05-14] MEDS ORDERED: fentaNYL INJ 100 MCG/2 ML AMP IVP PRN (19:30)
[2022-05-14] MEDS ORDERED: ACETAMINOPHEN 325 MG TABLET PO PRN (19:30)
[2022-05-14] MEDS ORDERED: CATHETER FLUSH 10 ML SYR IV PRN (19:30)
[2022-05-14] MEDS ORDERED: NS (IVPB) 0 ML ONE (19:31)
[2022-05-14] MEDS: PIPERACILLIN SODIUM/TAZOBACTAM 4.5 GM in NS (IVPB) 100 ML IV SCH (19:33)
[2022-05-14 20:29] VITALS: BP 111/55
[2022-05-14] MEDS: ENOXAPARIN 80 MG/0.8 ML (LOVENOX) SYR SC SCH (22:16)
[2022-05-14] MEDS: DOCUSATE SODIUM 100 MG (COLACE) CAP PO SCH (22:16)
[2022-05-14] MEDS: polyethylene glycoL POWDER 17 GM (MIRALAX) PACK PO SCH (22:16)
[2022-05-14] MEDS: SENNA W/DOCUSATE (SENOKOT S) TABLET PO SCH (22:16)
[2022-05-15] MEDS: PIPERACILLIN SODIUM/TAZOBACTAM 4.5 GM in NS (IVPB) 100 ML IV SCH ×3 (03:49→18:33)
[2022-05-15] MEDS: ACETAMINOPHEN 325 MG TABLET PO PRN (04:05)
[2022-05-15 06:46] LABS: BASOPHILS # (AUTO) 0.1 10^3/uL (0.0-0.1); BASOPHILS % (AUTO) 1 % (0-10); EOSINOPHILS # (AUTO) 0.4 10^3/uL (0.0-0.3); EOSINOPHILS % (AUTO) 3 % (0-10); HEMATOCRIT 29 % (35-52); HEMOGLOBIN 9.1 g/dL (11.5-16.0); LYMPHOCYTES % (AUTO) 8 % (12-44); MEAN CORPUSCULAR HEMOGLOBIN 28 pg (25-34); MEAN CORPUSCULAR HGB CONC 32 g/dL (32-36); MEAN CORPUSCULAR VOLUME 89 fL (80-99); MEAN PLATELET VOLUME 11.3 fL (9.0-12.2); MONOCYTES % (AUTO) 9 % (0-12); NEUTROPHILS # (AUTO) 7.2 10^3/uL (1.8-7.8); NEUTROPHILS % (AUTO) 60 % (42-75); PLATELET COUNT 309 10^3/uL (130-400)
[2022-05-15 06:58] LABS: ALBUMIN 2.2 GM/DL (3.2-4.5); POTASSIUM 3.5 MMOL/L (3.6-5.0)
[2022-05-15 06:59] LABS: CALCIUM 8.4 MG/DL (8.5-10.1)
[2022-05-15 07:01] LABS: TOTAL PROTEIN 4.7 GM/DL (6.4-8.2)
[2022-05-15 07:02] LABS: BILIRUBIN,TOTAL 0.5 MG/DL (0.1-1.0)
[2022-05-15 07:04] LABS: CREATININE SERUM 0.63 MG/DL (0.60-1.30)
--- NOTE | 2022-05-15 07:52 | Progress Note - Surgery ---
DAVEBOOM 05/15/22 0752: Subjective Date Seen by a Provider: May 15, 2022 Time Seen by a Provider: 07:48 Subjective/Events-last exam Pt is resting comfortably in bed. Pt notes abd pain has improved since yesterday. Scant amount of fluid present in FLYNN drain. Output noted in colostomy. Pt states that she is still experiencing CP but notes that she feels that it's well controlled with pain medication. Pt states that she has been tolerating diet well. Pt notes some generalized nausea that hasn't changed since admission. Pt denies SOB, vomiting, and sweats. Review of Systems General: No Chills, No Night Sweats HEENT: No Head Aches, No Visual Changes Pulmonary: No Dyspnea, No Cough Cardiovascular: No: Chest Pain, Palpitations Gastrointestinal: No: Nausea, Vomiting Genitourinary: No Dysuria, No Frequency Musculoskeletal: No: neck pain, shoulder pain Neurological: No: Weakness, Numbness Objective Exam Vital Signs Date Time Temp Pulse Resp B/P (MAP) Pulse Ox O2 Delivery O2 Flow Rate FiO2 05/15/22 07:31 98 Nasal Cannula 1.00 05/15/22 07:00 73 05/15/22 01:00 68 05/14/22 21:50 93 Room Air 05/14/22 20:29 37.5 74 20 111/55 (73) 93 Room Air 05/14/22 19:00 90 05/14/22 18:41 Room Air 05/14/22 15:20 73 129/58 (81) 05/14/22 14:58 72 20 106/62 (77) 94 Room Air 05/14/22 14:27 72 20 99/59 (72) 95 Room Air 05/14/22 14:17 36.7 82 22 109/68 (82) 96 Room Air I & O 05/15/22 07:00 Intake Total 750 ml Output Total 1185 ml Balance -435 ml Capillary Refill : General Appearance: No Apparent Distress, WD/WN, Chronically ill, Thin, Other (frail) HEENT: PERRL/EOMI, Normal ENT Inspection, Pharynx Normal Neck: Normal Inspection, Non Tender, Supple Respiratory: No Accessory Muscle Use, No Respiratory Distress Cardiovascular: No Edema, No JVD, Normal Peripheral Pulses Gastrointestinal: tenderness (Tenderness over midline inicision-improved from yesterday), other (Midline incision, FLYNN drain on right side, and colostomy on left side) Extremity: Normal Capillary Refill, Normal Inspection, Normal Range of Motion, Non Tender, No Calf Tenderness, No Pedal Edema Neurologic/Psychiatric: Alert, Oriented x3, No Motor/Sensory Deficits, Normal Mood/Affect, Motor Weakness (generalized) Skin: Normal Color, Warm/Dry Lymphatic: No Adenopathy Results Lab Laboratory Tests 05/15/22 06:15: White Blood Count 12.0H, Red Blood Count 3.21L, Hemoglobin 9.1L, Hematocrit 29L, Mean Corpuscular Volume 89, Mean Corpuscular Hemoglobin 28, Mean Corpuscular Hemoglobin Concent 32, Red Cell Distribution Width 16.2H, Platelet Count 309, Mean Platelet Volume 11.3, Immature Granulocyte % (Auto) 19, Neutrophils (%) (Auto) 60, Lymphocytes (%) (Auto) 8L, Monocytes (%) (Auto) 9, Eosinophils (%) (Auto) 3, Basophils (%) (Auto) 1, Neutrophils # (Auto) 7.2, Lymphocytes # (Auto) 1.0, Monocytes # (Auto) 1.0, Eosinophils # (Auto) 0.4H, Basophils # (Auto) 0.1, Immature Granulocyte # (Auto) 2.3H, Sodium Level 141, Potassium Level 3.5L, Chloride Level 110H, Carbon Dioxide Level 24, Anion Gap 7, Blood Urea Nitrogen 10, Creatinine 0.63, Estimat Glomerular Filtration Rate 92, BUN/Creatinine Ratio 16, Glucose Level 100, Calcium Level 8.4L, Corrected Calcium 9.8, Total Bilirubin 0.5, Aspartate Amino Transf (AST/SGOT) 12, Alanine Aminotransferase (ALT/SGPT) 15, Alkaline Phosphatase 43, Total Protein 4.7L, Albumin 2.2L Assessment/Plan Assessment/Plan Assessment/Plan diffuse abdominal pain pneumoperitenum perforated hollow viscus s/p laparoscopic/open exploratory laparotomy with low anterior resection with end colostomy and splenic flexure mobilization Sepsis Cough/Shortness of breath anemia postoperative/dilutional Continue regular diet Pain control IV fluids Continue antibiotics Incentive spirometer gidvt prophylaxis PT ARUN WALKER DO 05/16/22 4986: Subjective Subjective/Events-last exam Patient is tolerating diet. She still has greater than 30 mL of fluid in her FLYNN drain per day. She still has ostomy output. She is having some abdominal d iscomfort but she is actively participating with physical therapy. Denies any other complaints. Denies nausea vomiting fever sweats chills shortness of breath or chest pain. Objective Exam General Appearance: No Apparent Distress, Thin HEENT: PERRL/EOMI, Normal ENT Inspection Neck: Normal Inspection, Non Tender Respiratory: Chest Non Tender, No Accessory Muscle Use, No Respiratory Distress Cardiovascular: Regular Rate, Rhythm, No JVD Gastrointestinal: non tender, tenderness (Tenderness over midline inicision- minimal), other (Midline incision, FLYNN drain on right side serous fluid, and colostomy on left side) Extremity: Normal Inspection, Non Tender Neurologic/Psychiatric: Alert, Oriented x3, Motor Weakness (generalized) Skin: Normal Color, Warm/Dry Lymphatic: No Adenopathy Assessment/Plan Assessment/Plan Assessment/Plan diffuse abdominal pain pneumoperitenum perforated hollow viscus s/p laparoscopic/open exploratory laparotomy with low anterior resection with end colostomy and splenic flexure mobilization Sepsis Cough/Shortness of breath anemia postoperative/dilutional Continue regular diet Pain control IV fluids Continue antibiotics Incentive spirometer gidvt prophylaxis PT When Drain less than 30 mL in 24 hours can remove Will follow periodically, call if needed Supervisory-Addendum Brief Verification & Attestation Participated in pt care: history, MDM, physical Personally performed: exam, history, MDM, supervision of care Care discussed with: Medical Student Procedures: n/a Results interpretation: Verified all documentation Verification and Attestation of Medical Student E/M Service A medical student performed and documented this service in my presence. I reviewed and verified all information documented by the medical student and made modifications to such information, when appropriate. I personally performed the physical exam and medical decision making. Arun Walker, May 15, 2022,17:26 BOOM ACOSTA May 15, 2022 07:52 ARUN WALKER DO May 16, 2022 17:26
[2022-05-15] MEDS: ENOXAPARIN 80 MG/0.8 ML (LOVENOX) SYR SC SCH ×2 (07:59→18:33)
[2022-05-15 08:00] VITALS: BP 124/64
--- NOTE | 2022-05-15 08:28 | Cardiology Progress Note ---
Subjective Date Seen by Provider: May 15, 2022 Time Seen by Provider: 08:27 Subjective/Events-last exam Patient in the bathroom, doing ADL's. Denies any chest pain Objective-Cardiology Exam Last Set of Vital Signs Vital Signs 05/15/22 05/16/22 05/16/22 08:00 09:56 12:28 Temp 36.9 Pulse 103 Resp 20 B/P (MAP) 119/53 (75) Pulse Ox 95 O2 Delivery Room Air O2 Flow Rate 1.00 I&O Intake and Output 05/16/22 00:00 Intake Total 1450 ml Output Total 1270 ml Balance 180 ml Intake Oral 1350 ml IV Total 100 ml Output Urine Total 1100 ml Stool Total 125 ml Drainage Total 45 ml # Voids 4 General: Alert, Oriented X3 HEENT: Atraumatic Heart: Regular Rate Skin: No Rashes, No Significant Lesion Neuro: Normal Speech Psych/Mental Status: Mental Status NL, Mood NL Results Lab A/P-Cardiology Admission Diagnosis PAF HTN HLP S/P perf sigmoid colon Assessment/Plan Paroxysmal atrial fibrillation, converted to sinus rhythm on amiodarone drip Patient is converted to sinus rhythm Interrogation of her loop recorder that was implanted in January 2022 showed no other episodes of atrial fibrillation. Currently in sinus rhythm. Continue to monitor Perforated sigmoid colon, status post colectomy. Recovering slowly from surgery Status post severe sepsis, improving. Acute renal insufficiency postoperatively. Improved, Continue to monitor renal function Hypertension, monitor blood pressure Hyperlipidemia, monitor lipids DVT prophylaxis, maintained on Lovenox MARCELLA VALERA May 15, 2022 08:28 ADRIAN OGDEN MD May 16, 2022 12:48
[2022-05-15] MEDS: PANTOPRAZOLE 40 MG (PROTONIX) VIAL IV SCH (08:52)
[2022-05-15] MEDS: DOCUSATE SODIUM 100 MG (COLACE) CAP PO SCH ×2 (08:56→20:45)
[2022-05-15] MEDS: SENNA W/DOCUSATE (SENOKOT S) TABLET PO SCH ×2 (08:56→21:38)
[2022-05-15] MEDS: polyethylene glycoL POWDER 17 GM (MIRALAX) PACK PO SCH ×2 (08:56→20:46)
--- NOTE | 2022-05-15 09:02 | Occupational Ther Daily Note ---
OT Current Status-Daily Note Subjective Pt sitting in bed upon OT arrival, agreeable to tx. Pt is hyperverbal and easily gets distracted but can be redirected. Mental Status/Objective Patient Orientation: Person, Confused, Place, Situation Attachments: Drains, IV, Telemetry ADL-Treatment Therapy Code Descriptions/Definitions Functional [place] Measure: 0=Not Assessed/NA 4=Minimal Assistance 1=Total Assistance 5=Supervision or Setup 2=Maximal Assistance 6=Modified [place] 3=Moderate Assistance 7=Complete IndependenceSCALE: Activities may be completed with or without assistive devices. 3-Hrndknxlok-yczhdma completes the activity by him/herself with no assistance from a helper. 5-Set-up or Clean-up Assistance-helper sets up or cleans up; patient completes activity. [place] assists only prior to or following the activity. 4-Supervision or Touching Assistance-helper provides verbal cues and/or touching/steadying and/or contact guard assistance as patient completes activity. Assistance may be provided throughout the activity or intermittently. 3-Partial/Moderate Assistance-helper does LESS THAN HALF the effort. [place] lifts, holds or supports trunk or limbs, but provides less than half the effort. 2-Substantial/Maximal Assistance-helper does MORE THAN HALF the effort. [place] lifts or holds trunk or limbs and provides more than half the effort. 3-Fhcrglbwe-ohnolq does ALL the effort. Patient does none of the effort to complete the activity. Or, the assistance of 2 or more helpers is required for the patient to complete the activity. If activity was not attempted, code reason: 7-Patient Refused. 9-Not Applicable-not attempted and the patient did not perform the activity before the current illness, exacerbation or injury. 10-Not Attempted due to Environmental Limitations-(lack of equipment, weather restraints, etc.). 88-Not Attempted due to Medical Conditions or Safety Concerns. Oral Hygiene (QC): 4 (CGA standing at the sink) Shower/Bathe Self (QC): 4 (SBA for standing balance during buttocks/periarea hygiene) Upper Body Dressing (QC): 5 (thread IV through shirt) Lower Body Dressing (QC): 4 (SBA for standing balance during pant hike) On/Off Footwear: 4 (SBA for balance when leaning forward to don both gripper socks) Toileting Hygiene (QC): 3 (Min A overall. Pt required assistance to manuever clothing and assistance with balance during pant hike) Toilet Transfer (QC): 4 (CGA) Other Treatment Pt required SBA to transfer supine<>EOB and then stand to FWW with CGA. Pt walking into bathroom to complete toileting x2, showering, dressing, and oral care/grooming tasks. Pt educated on energy conservation techniques and safety awareness during ADLs, pt verbalized understanding but required reinforcement throughout tasks. Pt c/o lightheadedness once seated on the shower chair, SPO2 and BP monitored and found to be 112/62mmHg and 94. Pt required mod verbal and tactile cues for sequencing and staying on task, but she was easily redirected. Pt also required cues for safety and posture as she kept buckling both knees and leaning forward during standing tasks. Pt pushed back to recliner in w/c d/t fatigue. She SPT into recliner, CGA. Post tx, pt left in recliner with call light in reach and all needs met. Education OT Patient Education: Correct positioning, Energy conservation, Modified ADL techniques, Progress toward Goal/Update tx plan, Purpose of tx/functional activities, Rehab process, Safety issues, Transfer techniques Teaching Recipient: Patient Teaching Methods: Discussion Response to Teaching: Verbalize Understanding, Reinforcement Needed OT Short Term Goals Short Term Goals Time Frame: May 30, 2022 Toileting hygiene: 4 Shower/bathe self: 4 Lower body dressin Putting on/taking off footwear: 4 OT Fdc Goals Fdc Goals Time Frame: Jun 15, 2022 Eating (QC): 6 Oral Hygiene (QC): 6 Toileting Hygiene (QC): 6 Shower/Bathe Self (QC): 6 Upper Body Dressing (QC): 6 Lower Body Dressing (QC): 6 On/Off Footwear (QC): 6 Additional Goals: 1-Demonstrate ADL Tasks, 2-Verbalize Understanding, 3- ImproveStrength/Simona 1=Demonstrate adherence to instructed precautions during ADL tasks. 2=Patient will verbalize/demonstrate understanding of assistive devices/modifications for ADL. 3=Patient will improve strength/tolerance for activity to enable patient to perform ADL's. OT Education/Plan Problem List/Assessment Assessment: Decreased Activ Tolerance, Decreased Safety Aware, Decreased UE Strength, Impaired Funct Balance, Impaired I ADL's, Impaired Self-Care Skills Discharge Recommendations Plan/Recommendations: Continue POC Treatment Plan/Plan of Care Patient would benefit from OT for education, treatment and training to promote independence in ADL's, mobility, safety and/or upper extremity function for ADL's. Plan of Care: ADL Retraining, Functional Mobility, Group Exercise/Act as Ind, UE Funct Exercise/Act Treatment Duration: Jun 15, 2022 Frequency: At least 5 of 7 days/Wk (IRF) Estimated Hrs Per Day: 1.5 hours per day Rehab Potential: Fair Time/GCodes Start Time: 07:45 Stop Time: 09:00 Total Time Billed (hr/min): 75 Billed Treatment Time 1, ADL 5 (75') TANNER SOMMER OT May 15, 2022 09:02
--- NOTE | 2022-05-15 10:18 | PM&R Progress Note ---
Subjective HPI/CC On Admission Date Seen by Provider: May 15, 2022 Time Seen by Provider: 09:30 Subjective/Events-last exam 05/15/2022: Doing well Improved overall Lovenox maintained until OAC CLD tolerated No pain reported Participating Review of Systems General: Fatigue, Malaise Objective Exam Vital Signs Vital Signs Date Time Temp Pulse Resp B/P (MAP) Pulse Ox O2 Delivery O2 Flow Rate FiO2 05/15/22 19:51 36.3 86 16 118/72 (87) 91 Room Air 05/15/22 08:00 1.00 Capillary Refill : General Appearance: No Apparent Distress, WD/WN, Chronically ill, Thin, Other (frail) HEENT: PERRL/EOMI, Normal ENT Inspection, Pharynx Normal Neck: Normal Inspection, Non Tender, Supple Respiratory: No Accessory Muscle Use, No Respiratory Distress Cardiovascular: No Edema, No JVD, Normal Peripheral Pulses Gastrointestinal: Normal Bowel Sounds, No Organomegaly, No Pulsatile Mass, Soft , Other (colostomy) Back: Normal Inspection, No CVA Tenderness, No Vertebral Tenderness Extremity: Normal Capillary Refill, Normal Inspection, Normal Range of Motion, Non Tender, No Calf Tenderness, No Pedal Edema Neurologic/Psychiatric: Alert, Oriented x3, No Motor/Sensory Deficits, Normal Mood/Affect, Motor Weakness (generalized) Skin: Normal Color, Warm/Dry Lymphatic: No Adenopathy Results/Procedures Lab Laboratory Tests 05/15/22 06:15 Patient resulted labs reviewed. FIM Transfers Therapy Code Descriptions/Definitions Functional [place] Measure: 0=Not Assessed/NA 4=Minimal Assistance 1=Total Assistance 5=Supervision or Setup 2=Maximal Assistance 6=Modified [place] 3=Moderate Assistance 7=Complete IndependenceSCALE: Activities may be completed with or without assistive devices. 5-Tbsxfhjlzb-dwqonqx completes the activity by him/herself with no assistance from a helper. 5-Set-up or Clean-up Assistance-helper sets up or cleans up; patient completes activity. [place] assists only prior to or following the activity. 4-Supervision or Touching Assistance-helper provides verbal cues and/or lacy dakota/steadying and/or contact guard assistance as patient completes activity. Assistance may be provided throughout the activity or intermittently. 3-Partial/Moderate Assistance-helper does LESS THAN HALF the effort. [place] lifts, holds or supports trunk or limbs, but provides less than half the effort. 2-Substantial/Maximal Assistance-helper does MORE THAN HALF the effort. [place] lifts or holds trunk or limbs and provides more than half the effort. 6-Fomwhzdpg-ngrrne does ALL the effort. Patient does none of the effort to complete the activity. Or, the assistance of 2 or more helpers is required for the patient to complete the activity. If activity was not attempted, code reason: 7-Patient Refused. 9-Not Applicable-not attempted and the patient did not perform the activity b efore the current illness, exacerbation or injury. 10-Not Attempted due to Environmental Limitations-(lack of equipment, weather restraints, etc.). 88-Not Attempted due to Medical Conditions or Safety Concerns. Roll Left to Right (QC): 3 Sit to Lying (QC): 3 Sit to Stand (QC): 3 Chair/Ngv-bw-Ivhsd Xfer(QC): 2 Car Transfer (QC): 2 Gait Training Does the Patient Walk?: Yes Walk 10 feet (QC): 2 Walk 50 ft with 2 Turns(QC): 88 Walk 150 ft (QC): 88 Walking 10ft/uneven surface-QC: 88 Gait Assistive Device: FWW Wheelchair Training Wheel 50 ft with 2 turns (QC): 9 Wheel 150 ft (QC): 9 Stair Training 1 Step (curb) (QC): 88 4 Steps (QC): 88 12 Steps (QC): 88 Balance Picking up an Object (QC): 88 ADL-Treatment Eating (QC): 5 (per clinical judgment) Oral Hygiene (QC): 4 (CGA standing at the sink) Shower/Bathe Self (QC): 4 (SBA for standing balance during buttocks/periarea hygiene) Upper Body Dressing (QC): 5 (thread IV through shirt) Lower Body Dressing (QC): 4 (SBA for standing balance during pant hike) On/Off Footwear (QC): 4 (SBA for balance when leaning forward to don both gripper socks) Toileting Hygiene (QC): 3 (Min A overall. Pt required assistance to manuever clothing and assistance with balance during pant hike) Toilet Transfer (QC): 4 (CGA) Assessment/Plan Assessment and Plan Assess & Plan/Chief Complaint Assessment: Debility Myopathy New onset AF s/p RVR requiring ICU drip HTN HLP Loop recorder s/p severe sepsis from perforated sigmoid colon s/p colostomy Post op anemia due to acute blood loss Plan: Monitor closely Monitor hgb PT OT Pain control 05/15/2022: Monitor HR Lovenox Fall risk (1) Atrial fibrillation with rapid ventricular response (2) Debility Status: Acute (3) Postoperative anemia due to acute blood loss Status: Acute (4) HLD (hyperlipidemia) Status: Chronic (5) HTN (hypertension) Status: Chronic (6) Severe sepsis Status: Acute (7) Perforated sigmoid colon Status: Acute GABRIEL CONNELL DO May 15, 2022 10:18
--- NOTE | 2022-05-15 10:18 | Individualized Plan of Care ---
Individualized Plan of Care Rehab Nursing IPOC Order Admission Date May 14, 2022 at 14:00 Current Orders Orders Admission Order(Inpt,Obs,Sdc) (05/14/22 12:57) Vital Signs: Per Unit Policy ( (05/14/22 12:57) Zachary Wesley (05/14/22 12:57) Sequential Compression Device (05/14/22 12:57) Chief Learning Officer-Inpt Rehab Con (05/14/22 12:57) Rehab Nursing Orders-Ipoc (05/14/22 12:57) Physical Therapy Rehab Orders (05/14/22 12:57) Occupational Therapy Rehab Ord (05/14/22 12:57) Speech Therapy Rehab Orders (05/14/22 12:57) Cbc With Automated Diff (05/15/22 06:00) Comprehensive Metabolic Panel (05/15/22 06:00) Precautions (Aru) (05/14/22 12:57) Weekly Weight WEEK (05/14/22 12:57) Rehab-Intensity Of Therapy (05/14/22 12:57) Initiate Admission Nursing Pro .admission (05/14/22 12:57) Alprazolam Tablet (Xanax Tablet) (05/14/22 13:00) Calcium Carbonate Chew Tablet (Antacid C (05/14/22 13:00) Diphenhydramine Tablet (Benadryl Tablet) (05/14/22 13:00) Docusate Sodium Capsule (Colace Capsule) (05/14/22 21:00) Docusate Sodium Capsule (Colace Capsule) (05/14/22 13:00) Bisacodyl Suppository (Dulcolax Supposit (05/14/22 13:00) Lactulose Oral Solution (Enulose Oral So (05/14/22 13:00) Na Phos/Na Biphos Enema (Fleet Enema Timo (05/14/22 13:00) Loperamide Tablet (Imodium Tablet) (05/14/22 13:00) Melatonin Tablet (Melatonin Tablet) (05/14/22 13:00) Polyethylene Glycol Powder Pkt (Miralax (05/14/22 21:00) Ondansetron Oral Dissolve Tab (Zofran (05/14/22 13:00) Senna S Tablet (Senokot S Tablet) (05/14/22 21:00) Acetaminophen Tablet/Caplet (Tylenol T (05/14/22 13:00) Code/Resuscitation (05/14/22 12:57) Admission Arrival Bed Request (05/14/22 14:09) Telemetry (05/14/22 14:18) Telemetry Nursing Assessment ( (05/14/22 14:18) Patient Visit (05/14/22 ) Pt Eval Moderate Complexity (05/14/22 ) Patient Visit (05/14/22 ) Functional Activities, Ea 15 (05/14/22 ) Exercise Therap, Ea 15 Min (05/14/22 ) Clear Liquid (05/14/22 Dinner) Code/Resuscitation (05/14/22 19:16) Catheter(Urinary) Discontinue (05/14/22 19:16) Drain: Instructions (Order) (05/14/22 19:16) Incentive Spirometry (Nursing) Q2H (05/14/22 19:16) Oxygen-Administer 07,19 (05/14/22 19:16) Sequential Compression Device (05/14/22 19:16) Telemetry (05/14/22 19:16) Weight Bearing As Tolerated (05/14/22 19:16) Acetaminophen Tablet/Caplet (Tylenol T (05/14/22 19:30) Albuterol Pre-Mix Nebs (Rt) (Proventil (05/14/22 19:30) Enoxaparin Injection (Lovenox Injection) (05/14/22 19:30) Ondansetron Injection (Zofran Injectio (05/14/22 19:30) Ondansetron Oral Dissolve Tab (Zofran (05/14/22 19:30) Pantoprazole Injection (Protonix Injecti (05/15/22 09:00) Prochlorperazine Injection (Compazine In (05/14/22 19:30) Sodium Chloride Flush (Catheter Flush Sy (05/14/22 19:30) Piperacillin Sodium/Tazobactam (Zosyn Vi (05/14/22 19:30) Fentanyl Inj (Sublimaze Injection) (05/14/22 19:30) Metoprolol Tartrate (Ir) Tab (Lopressor (05/15/22 12:15) Oxycodone Immediate Rel Tablet (Oxyir Ta (05/14/22 19:30) Consult Cardiology (05/14/22 19:16) Incentive Spirometry Initial (05/14/22 19:16) Mat Initiate Protocol (05/14/22 19:16) Svn Small Volume Nebulizer (05/14/22 19:16) Oxygen Delivery Set Up (05/14/22 19:16) Telemetry Nursing Assessment ( (05/14/22 19:16) Svn Small Volume Nebulizer (05/14/22 19:16) Incentive Spirometry (Nursing) Q2H (05/14/22 19:16) Piperacillin Sodium/Tazobactam (Zosyn Vi (05/14/22 19:30) Ns (Ivpb) (Sodium Chloride 0.9% Ivpb Bag (05/14/22 19:31) Ensure Plus Vanilla (05/14/22 20:15) Potassium Chloride (Tablet) (Klor Con Ta (05/15/22 10:30) Patient Visit (05/15/22 ) Speech Sound Lang Comp (05/15/22 ) Treat. Speech/Lang/Voice (05/15/22 ) Patient Visit (05/15/22 ) Gait Training, Ea 15 Min (05/15/22 ) Exercise Therap, Ea 15 Min (05/15/22 ) Functional Activities, Ea 15 (05/15/22 ) Obtain Records From (Order) (05/15/22 16:23) Venous Access Request Order ONCE (05/16/22 08:00) Sodium Chloride Flush (Catheter Flush Sy (05/15/22 16:30) Sodium Chloride Flush (Catheter Flush Sy (05/15/22 22:00) Advance Diet To (05/15/22 16:44) Dys2 Mechanically Altered (05/15/22 Dinner) Rehab Nursing Orders: Ongoing Assess. of Function Status, Bladder Management, Bladder Scan, Bladder Training, Bowel Management, Bowel Training, Disease Management & Educaiton, DVT Prophylaxis, Fall Prevention, Fluid/Electrolyte/Nutrition Mgmt, Infection Prevention, Medication Management & Education, Management of Risks & Complications, Management of Skin Intergrity, Nutrition Management, Pain Management, Patient/Family Support, Safety Management, Wound Management Intensity of Therapy to be met Patient to be seen: Min.3h per day/5 of 7d PT IPOC Problem List: Functional Strength, Safety, Transfer Treatment Plan: Continue Plan of Care Bed Mobility, Education, Functional Activity [place], Functional Strength, Gait, Safety, Therapeutic Exercise, Transfers Treatment Duration: Jun 09, 2022 Frequency: At least 5 of 7 days/Wk (IRF) Estimated Hrs Per Day: 1.5 hours per day OT IPOC Problems: Decreased Activ Tolerance, Decreased Safety Aware, Decreased UE Strength, Impaired Funct Balance, Impaired I ADL's, Impaired Self-Care Skills OT Treatment, Training and Edu: Yes Plan of Care: ADL Retraining, Functional Mobility, Group Exercise/Act as Ind, UE Funct Exercise/Act Treatment Duration: Jun 15, 2022 Frequency: At least 5 of 7 days/Wk (IRF) Estimated Hrs Per Day: 1.[address] IPOC Speech Therapy Treatment Plan: Discontinue ST Treatment Duration: May 15, 2022 Frequency: Modified Program (IRF) Estimated Hrs Per Day: Other Chief Learning Officer/Case Mgmt Chief Learning Officer/Case Managemen: Discharge Planning Dietitian/Cellular Phone Repairer Dietitian/Cellular Phone Repairer to monitor nutritional status and make changes and/or recommendations as needed and work with speech pathology on dietary upgrades as the occur. Physician IPOC Medical Issues being managed closely and that require the 24 hour availability of a physician: Recent intestinal perforation with AF RVR will require close monitoring for any decompensation along with general surgery and cardiology management Medical Issues: Bowel/Bladder Function, DVT Prophylaxis, Falls Precautions, Fluid/Electrolyte/Nutrition Balance, Pain Management, Wound Care Brief Synthesis of Preadmission Screen, Post-Admission Evaluation, and Therapy Evaluations: PT OT will help increase stamina and increase ambulation and independence in order to return to living at home Medical Prognosis: Good Anticipated Length of Stay: 7 days GABRIEL CONNELL DO May 15, 2022 10:18
[2022-05-15] MEDS: KCL 10 MEQ TAB (MICRO K) PO SCH (11:14)
[2022-05-15 11:40] VITALS: BP 120/66
--- NOTE | 2022-05-15 12:06 | Physical Therapy Daily Note ---
PT Daily Note-Current Subjective Pt sitting up in recliner visiting with Nurse upon arrival. Pt agrees to PT demonstrates improved energy level, BP & decreased confusion. Pt is impulsive and needs redirection at times. Pain Location: No Pain Reported Mental Status Patient Orientation: Person, Place, Situation Attachments: Drains, Other-See Comments (Telemetry), IV Transfers SCALE: Activities may be completed with or without assistive devices. 6-Rxsjcuvadt-fquemci completes the activity by him/herself with no assistance from a helper. 5-Set-up or Clean-up Assistance-helper sets up or cleans up; patient completes activity. [place] assists only prior to or following the activity. 4-Supervision or Touching Assistance-helper provides verbal cues and/or touching/steadying and/or contact guard assistance as patient completes activity. Assistance may be provided throughout the activity or intermittently. 3-Partial/Moderate Assistance-helper does LESS THAN HALF the effort. [place] lifts, holds or supports trunk or limbs, but provides less than half the effort. 2-Substantial/Maximal Assistance-helper does MORE THAN HALF the effort. [place] lifts or holds trunk or limbs and provides more than half the effort. 7-Bvhnxyleb-zeoffi does ALL the effort. Patient does none of the effort to complete the activity. Or, the assistance of 2 or more helpers is required for the patient to complete the activity. If activity was not attempted, code reason: 7-Patient Refused. 9-Not Applicable-not attempted and the patient did not perform the activity before the current illness, exacerbation or injury. 10-Not Attempted due to Environmental Limitations-(lack of equipment, weather restraints, etc.). 88-Not Attempted due to Medical Conditions or Safety Concerns. Sit to Stand (QC): 4 Weight Bearing Full Weight Bearing Full Weight Bearing Gait Training Does the Patient Walk?: Yes Distance: 150' x2 Walk 10 feet (QC): 4 Walk 50 ft with 2 Turns(QC): 4 Walk 150 ft (QC): 4 Gait Persons Needed: 1 Gait Assistive Device: FWW Pt is impulsive and needs VC for safety. Exercises NuStep Minutes: 16 NuStep Workload: 5 Treatments TF to standing and amb. in hallway. Pt uses NuStep as well as completes Seated Ex then takes RB. Pt amb. in hallway before returning to room to use BR. Pt resting at end of tx. All needs met, call light next to pt. Assessment Current Status: Good Progress Pt improved mobility since yesterday but needs VC for safety as pt can be impulsive. PT Correction Goals Actuarial Intern Goals PT Actuarial Intern Goals Time Frame: Jun 09, 2022 Roll Left & Right (QC): 6 Sit to Lying (QC): 6 Lying-Sitting on Side/Bed(QC): 6 Sit to Stand (QC): 6 Chair/Hci-wt-Hxlle Xfer(QC): 6 Toilet Transfer (QC): 6 Car Transfer (QC): 6 Does the Patient Walk: Yes Walk 10 feet (QC): 6 Walk 50ft with 2 Turns (QC): 6 Walk 150 ft (QC): 6 Walking 10ft on Uneven Surface: 6 1 Step (curb) (QC): 6 4 Steps (QC): 6 12 Steps (QC): 6 Picking up an Object (QC): 6 Wheel 50 feet with 2 turns (QC: 9 Wheel 150 feet: 9 PT Plan Problem List Problem List: Activity Tolerance, Safety Treatment/Plan Treatment Plan: Continue Plan of Care Treatment Plan: Bed Mobility, Education, Functional Activity [place], Functional Strength, Gait, Safety, Therapeutic Exercise, Transfers Treatment Duration: Jun 09, 2022 Frequency: At least 5 of 7 days/Wk (IRF) Estimated Hrs Per Day: 1.5 hours per day Patient and/or Family Agrees t: Yes Safety Risks/Education Patient Education: Gait Training, Transfer Techniques, Correct Positioning, Safety Issues Teaching Recipient: Patient Teaching Methods: Discussion Response to Teaching: Reinforcement Needed Time/GCodes Time In: 900 Time Out: 1000 Total Billed Treatment Time: 60 Total Billed Treatment 1, GT (15m), EX x2 (30m) & FA (15m) ANNE CARR SUPERVISOR ENDLESS TRACK VEHICLE May 15, 2022 12:06
[2022-05-15] MEDS ORDERED: meTOprolol TARTRATE 25 MG (LOPRESSOR) TABLET PO NR (12:15)
--- NOTE | 2022-05-15 13:42 | ST Cognitive Linguistic Eval ---
Speech Evaluation-General Medical Diagnosis Perforated Sigmoid Colon s/p Colectomy Onset Date: May 08, 2022 Therapy Diagnosis Therapy Diagnosis: Intact Neurocognitive Skills Precautions Precautions: Fall Precautions/Isolations: Fall Prevention, Standard Precautions Referral Referring Physician: Dr. Jennifer Gould Reason for Referral: Evaluation/Treatment Medical History Pertinent Medical History: HTN Current History The patient is a 76 year-old female with a past medical history of hyperlipidemia, hypertension, and anxiety, who presented to the emergency department due to abdominal pain. A CT abdomen was completed which revealed free air throughout the abdomen. Dr. Walker admitted the patient and took her immediately to the OR where a resection with colostomy were completed. Reviewed History: Yes Social History Current Living Status: Alone Speech PLF-Current Status Prior Level of Function The patient stated she is currently funtioning at her baseline and prior level of cognition. Per patient, "My kids all think I'm crazy but I'm not." To note, the patient's son requested an "in-depth" cognitive evaluation due to his cognitive concerns for his mother. Subjective The patient was seated upright in her bed, awake and alert upon entrance to the patient's room by the clinician. The patient greeted the clinician appropriately and was agreeable to participation in the cognitive linguistic assessment. Language Eval: Auditory Comprehends Simple Yes/No Ques: Functional Indent/Objects Multiple Steve: Functional Ident/Pics in Multiple Steve: Functional Follows 1-Step Commands: Functional Follows Complex Directions: Functional Follows General Conversations: Functional Language Eval: Verbal Language Completes Spontaneous Greeting: Functional Produces Auto, Serial Info: Functional Imitates Simple Words/Phrases: Functional Word Finding: Functional Requests Basic Needs: Functional States Basic Personal Info: Functional Expresses Complex Ideas: Functional Language Evaluation: Reading Follows Simple Written Direct: Functional Language Evaluation: Writing Writes to Simple Dictation: Functional Cognitive Patient Orientation The patient was independently oriented to self, location, month, day of the week, date, and year. Objective Cognitive Domain Attention: Moderate Memory: Mild Problem Solving: Mild Executive Functions: Mild Objective Formal/Standardized Tests [employer] Mental Status Exam (SLUMS) and [place] Cognitive Assessment (MoCA) Results The patient demonstrated a result of +29/30 on the SLUMS correlating to neurocognitive skills within normal limits. The patient demonstrated a result of +27/30 on the MoCA correlating to neurocognitive skills within normal limits. Oral Motor/Speech Production The patient does not display dysarthria or apraxia of speech at this time. The patient is 100% intelligible in known and unknown contexts. Impression While the patient demonstrated results within normal limits on the SLUMS and MoCA, the patient's children are concerned with her memory function. Due to this, the clinician will provide services in attempts to improve the patient's baseline cognitive function (memory) and increase safety with discharge to the least restrictive environment. Speech Patient Assess Expression of Ideas/Wants: Expression (4) Understanding Verbal Content: Understands (4) Brief Interview-Mental Status: Yes Repetition of Three Words: Three (3) Temporal Orientation: Year: Correct (3) Temporal Orientation: Month: Accurate within 5 days(2) Temporal Orientation: Day: Correct (1) Recall : Wear to say "Sock": Yes, no cue required (2) Recall : Color: Yes, no cue required (2) Recall : Bed: Yes, no cue required (2) Memory/Recall Ability: Current season, That he or she is in a hsp/hsp unit Speech Short Term Goals Short Term Goals Short Term Goals 1. The patient will demonstrate 80% accuracy with executive functioning and memory tasks with mild clinician verbal and visual cueing. Time Frame-STG: Ten Days. Speech [facility] Goals Floating Labor Gang Supervisor Goals 1. The patient will demonstrate improved cognitive linguistic skills for safe discharge to the least restrictive environment. Time Frame: Two Weeks. Speech-Plan Treatment Plan Speech Therapy Treatment Plan: Continue Plan of Care (Initially for cognitive monitoring.) Treatment Duration: May 29, 2022 Frequency: Modified Program (IRF) Estimated Hrs Per Day: .5 hour per day Rehab Potential: Fair Safety Risks/Education Teaching Recipient: Patient Teaching Methods: Discussion Response to Teaching: Verbalize Understanding Education Topics Provided: Results of SLUMS and MoCA, POC, Recommendations Time Speech Therapy Time In: 10:00 Speech Therapy Time Out: 10:30 Total Billed Time: 30 Billed Treatment Time 1, CLEO ESTES ELIZ[facility] ST May 15, 2022 13:42
--- NOTE | 2022-05-15 15:02 | Physical Therapy Daily Note ---
PT Daily Note-Current Subjective Pt laying Supine in bed upon arrival. Pt agrees to PT but reports fatigue from morning tx. Pain Location: Left Location Body Site: Knee Pain Description: [place] Comment: Reports but doesn't rate Mental Status Patient Orientation: Person, Confused, Place Transfers SCALE: Activities may be completed with or without assistive devices. 3-Thcrwxicss-obozpyd completes the activity by him/herself with no assistance from a helper. 5-Set-up or Clean-up Assistance-helper sets up or cleans up; patient completes activity. [place] assists only prior to or following the activity. 4-Supervision or Touching Assistance-helper provides verbal cues and/or touching/steadying and/or contact guard assistance as patient completes activity. Assistance may be provided throughout the activity or intermittently. 3-Partial/Moderate Assistance-helper does LESS THAN HALF the effort. [place] lifts, holds or supports trunk or limbs, but provides less than half the effort. 2-Substantial/Maximal Assistance-helper does MORE THAN HALF the effort. [place] lifts or holds trunk or limbs and provides more than half the effort. 5-Esoqeyukw-nhblpa does ALL the effort. Patient does none of the effort to complete the activity. Or, the assistance of 2 or more helpers is required for the patient to complete the activity. If activity was not attempted, code reason: 7-Patient Refused. 9-Not Applicable-not attempted and the patient did not perform the activity before the current illness, exacerbation or injury. 10-Not Attempted due to Environmental Limitations-(lack of equipment, weather restraints, etc.). 88-Not Attempted due to Medical Conditions or Safety Concerns. Weight Bearing Full Weight Bearing Full Weight Bearing Treatments Pt is asked to complete Supine EX as pt reports fatigue from morning tx and pain in L knee but pt needs multiple redirection to stay on task. Pt continues to ask about validation for progress made. Pt is concerned with dizziness reported occasionally and what might be the culprit. TUNE UP MECHANIC discusses dizziness can come from a variety of sources from BP to Blood Sugar to visual changes to medication, etc. Pt resting at end of tx. All needs met, call light in hand. Assessment Current Status: Fair Progress Pt needs consistent redirection. PT Tax Associate Attorney Goals Nursing Home Goals PT Nursing Home Goals Time Frame: Jun 09, 2022 Roll Left & Right (QC): 6 Sit to Lying (QC): 6 Lying-Sitting on Side/Bed(QC): 6 Sit to Stand (QC): 6 Chair/Fcv-ct-Avjmr Xfer(QC): 6 Toilet Transfer (QC): 6 Car Transfer (QC): 6 Does the Patient Walk: Yes Walk 10 feet (QC): 6 Walk 50ft with 2 Turns (QC): 6 Walk 150 ft (QC): 6 Walking 10ft on Uneven Surface: 6 1 Step (curb) (QC): 6 4 Steps (QC): 6 12 Steps (QC): 6 Picking up an Object (QC): 6 Wheel 50 feet with 2 turns (QC: 9 Wheel 150 feet: 9 PT Plan Problem List Problem List: Activity Tolerance, Safety Treatment/Plan Treatment Plan: Continue Plan of Care Treatment Plan: Bed Mobility, Education, Functional Activity Simona, Functional Strength, Gait, Safety, Therapeutic Exercise, Transfers Treatment Duration: Jun 09, 2022 Frequency: At least 5 of 7 days/Wk (IRF) Estimated Hrs Per Day: 1.5 hours per day Patient and/or Family Agrees t: Yes Time/GCodes Time In: 1400 Time Out: 1415 Total Billed Treatment Time: 15 Total Billed Treatment 1, FA (15m) ANNE CARR TUNE UP MECHANIC May 15, 2022 15:02
[2022-05-15] MEDS ORDERED: CATHETER FLUSH 10 ML SYR IVP PRN (16:30)
[2022-05-15 19:51] VITALS: BP 118/72
[2022-05-15] MEDS: CATHETER FLUSH 10 ML SYR IVP SCH (21:47)
[2022-05-16] MEDS: PIPERACILLIN SODIUM/TAZOBACTAM 4.5 GM in NS (IVPB) 100 ML IV SCH ×3 (03:30→19:28)
[2022-05-16] MEDS: CATHETER FLUSH 10 ML SYR IVP SCH ×3 (06:23→21:11)
[2022-05-16] MEDS: ENOXAPARIN 80 MG/0.8 ML (LOVENOX) SYR SC SCH ×2 (06:24→19:28)
[2022-05-16] MEDS: KCL 10 MEQ TAB (MICRO K) PO SCH (06:25)
--- NOTE | 2022-05-16 06:53 | PM&R Progress Note ---
Subjective HPI/CC On Admission Date Seen by Provider: May 16, 2022 Time Seen by Provider: 10:30 Subjective/Events-last exam 05/16/2022: Pt is doing really well Takes her pain medication regularly Telemetry maintained Lovenox still on board before transition to oral anticoagulation 05/15/2022: Doing well Improved overall Lovenox maintained until OAC CLD tolerated No pain reported Participating Review of Systems General: Fatigue, Malaise Objective Exam Vital Signs Vital Signs Date Time Temp Pulse Resp B/P (MAP) Pulse Ox O2 Delivery O2 Flow Rate FiO2 05/16/22 20:31 37.6 83 18 127/60 (82) 93 Room Air 05/15/22 08:00 1.00 Capillary Refill : General Appearance: No Apparent Distress, WD/WN, Chronically ill, Thin, Other (frail) HEENT: PERRL/EOMI, Normal ENT Inspection, Pharynx Normal Neck: Normal Inspection, Non Tender, Supple Respiratory: No Accessory Muscle Use, No Respiratory Distress Cardiovascular: No Edema, No JVD, Normal Peripheral Pulses Gastrointestinal: Normal Bowel Sounds, No Organomegaly, No Pulsatile Mass, Soft, Other (colostomy) Back: Normal Inspection, No CVA Tenderness, No Vertebral Tenderness Extremity: Normal Capillary Refill, Normal Inspection, Normal Range of Motion, Non Tender, No Calf Tenderness, No Pedal Edema Neurologic/Psychiatric: Alert, Oriented x3, No Motor/Sensory Deficits, Normal Mood/Affect, Motor Weakness (generalized) Skin: Normal Color, Warm/Dry Lymphatic: No Adenopathy Results/Procedures Lab Patient resulted labs reviewed. FIM Transfers Therapy Code Descriptions/Definitions Functional [place] Measure: 0=Not Assessed/NA 4=Minimal Assistance 1=Total Assistance 5=Supervision or Setup 2=Maximal Assistance 6=Modified [place] 3=Moderate Assistance 7=Complete IndependenceSCALE: Activities may be completed with or without assistive devices. 5-Nqjvguwkjw-nqkgcjw completes the activity by him/herself with no assistance from a helper. 5-Set-up or Clean-up Assistance-helper sets up or cleans up; patient completes activity. [place] assists only prior to or following the activity. 4-Supervision or Touching Assistance-helper provides verbal cues and/or touching/steadying and/or contact guard assistance as patient completes activity. Assistance may be provided throughout the activity or intermittently. 3-Partial/Moderate Assistance-helper does LESS THAN HALF the effort. [place] lifts, holds or supports trunk or limbs, but provides less than half the effort. 2-Substantial/Maximal Assistance-helper does MORE THAN HALF the effort. [place] lifts or holds trunk or limbs and provides more than half the effort. 3-Zlixztqqn-chjmbm does ALL the effort. Patient does none of the effort to complete the activity. Or, the assistance of 2 or more helpers is required for the patient to complete the activity. If activity was not attempted, code reason: 7-Patient Refused. 9-Not Applicable-not attempted and the patient did not perform the activity before the current illness, exacerbation or injury. 10-Not Attempted due to Environmental Limitations-(lack of equipment, weather restraints, etc.). 88-Not Attempted due to Medical Conditions or Safety Concerns. Roll Left to Right (QC): 3 Sit to Lying (QC): 3 Sit to Stand (QC): 4 Chair/Zdr-qn-Gpgll Xfer(QC): 2 Car Transfer (QC): 2 Gait Training Does the Patient Walk?: Yes Distance: 150' x2 Walk 10 feet (QC): 4 Walk 50 ft with 2 Turns(QC): 4 Walk 150 ft (QC): 4 Walking 10ft/uneven surface-QC: 88 Gait Persons Needed: 1 Gait Assistive Device: FWW Wheelchair Training Wheel 50 ft with 2 turns (QC): 9 Wheel 150 ft (QC): 9 Stair Training 1 Step (curb) (QC): 88 4 Steps (QC): 88 12 Steps (QC): 88 Balance Picking up an Object (QC): 88 ADL-Treatment Eating (QC): 5 (per clinical judgment) Oral Hygiene (QC): 4 (CGA standing at the sink) Shower/Bathe Self (QC): 4 (SBA for standing balance during buttocks/periarea hygiene) Upper Body Dressing (QC): 5 (thread IV through shirt) Lower Body Dressing (QC): 4 (SBA for standing balance during pant hike) On/Off Footwear (QC): 4 (SBA for balance when leaning forward to don both g ripper socks) Toileting Hygiene (QC): 3 (Min A overall. Pt required assistance to manuever clothing and assistance with balance during pant hike) Toilet Transfer (QC): 4 (CGA) Assessment/Plan Assessment and Plan Assess & Plan/Chief Complaint Assessment: Debility Myopathy New onset AF s/p RVR requiring ICU drip HTN HLP Loop recorder s/p severe sepsis from perforated sigmoid colon s/p colostomy Post op anemia due to acute blood loss Plan: Monitor closely Monitor hgb PT OT Pain control 05/15/2022: Monitor HR Lovenox Fall risk 05/16/2022: Monitor closely (1) Atrial fibrillation with rapid ventricular response (2) Debility Status: Acute (3) Postoperative anemia due to acute blood loss Status: Acute (4) HLD (hyperlipidemia) Status: Chronic (5) HTN (hypertension) Status: Chronic (6) Severe sepsis Status: Acute (7) Perforated sigmoid colon Status: Acute GABRIEL CONNELL DO May 16, 2022 06:53
[2022-05-16] MEDS: ONDANSETRON 4 MG (ZOFRAN) ORAL DISSOLVE TAB PO PRN ×2 (08:13→17:21)
[2022-05-16] MEDS: PANTOPRAZOLE 40 MG (PROTONIX) VIAL IV SCH (08:14)
--- NOTE | 2022-05-16 09:04 | Occupational Ther Daily Note ---
OT Current Status-Daily Note Subjective Pt seated on BSC upon OT arrival, agreeable to tx. Pt c/o of nausea and fatigue, nurse aware. Mental Status/Objective Patient Orientation: Person, Confused, Situation Attachments: Colostomy/Ileostomy, Drains, Telemetry ADL-Treatment Therapy Code Descriptions/Definitions Functional [place] Measure: 0=Not Assessed/NA 4=Minimal Assistance 1=Total Assistance 5=Supervision or Setup 2=Maximal Assistance 6=Modified [place] 3=Moderate Assistance 7=Complete IndependenceSCALE: Activities may be completed with or without assistive devices. 4-Ojveyibisf-rcwnlkz completes the activity by him/herself with no assistance from a helper. 5-Set-up or Clean-up Assistance-helper sets up or cleans up; patient completes activity. [place] assists only prior to or following the activity. 4-Supervision or Touching Assistance-helper provides verbal cues and/or touching/steadying and/or contact guard assistance as patient completes activity. Assistance may be provided throughout the activity or intermittently. 3-Partial/Moderate Assistance-helper does LESS THAN HALF the effort. [place] lifts, holds or supports trunk or limbs, but provides less than half the effort. 2-Substantial/Maximal Assistance-helper does MORE THAN HALF the effort. [place] lifts or holds trunk or limbs and provides more than half the effort. 3-Zvnvucgyl-fkeozp does ALL the effort. Patient does none of the effort to complete the activity. Or, the assistance of 2 or more helpers is required for the patient to complete the activity. If activity was not attempted, code reason: 7-Patient Refused. 9-Not Applicable-not attempted and the patient did not perform the activity before the current illness, exacerbation or injury. 10-Not Attempted due to Environmental Limitations-(lack of equipment, weather restraints, etc.). 88-Not Attempted due to Medical Conditions or Safety Concerns. Oral Hygiene (QC): 4 (CGA-SBA standing at the sink) Upper Body Dressing (QC): 5 Lower Body Dressing (QC): 3 (Min A to thread LLE and hike pants in back during stand. ) On/Off Footwear: 3 (Min A. Pt able to doff/don both gripper socks, but required assistance with compression socks) Toileting Hygiene (QC): 3 (Min A with periarea/buttocks hygiene standing balance during pant hike.) Other Treatment Pt completed toilet hygiene and dressing while on BSC. Pt had increased difficulty with tasks d/t height of BSC and her feet not being able to touch the floor, BSC lowered to appropriate height. After dressing, SPT to recliner for seated RB. She then walked to the bathroom to stand at sink and complete oral care/grooming tasks. Pt required verbal and tactile cues to safety and positioning during functional transfers, pt verbalized understanding but continued to need reminders throughout session. She walked to therapy gym with FWW, CGA, requiring one seated RB half way through d/t fatigue. Pt also required v/c's to take bigger steps when walking, pt verbalized understanding but required reminders after every few steps. She completed 10mins seated on the arm bike (with 15 mccloud of resistance) to increase BUE strength and activity tolerance. Pt took frequent breaks during task, c/o fatigue and lightheadedness at end of task. Vitals taken, BP read 107/55mmHg, SPO2 levels at 94, and HR of 100bpm. Nurse notified of pt's status and was pushed back to room in w/c, vitals checked again: BP 107/53mmHg, SPO2 levels at 92, and HR of 97bpm. Post tx, pt left in w/c with call light in reach and all needs met. Education OT Patient Education: Correct positioning, Energy conservation, Exercise program, Modified ADL techniques, Progress toward Goal/Update tx plan, Purpose of tx/functional activities, Rehab process, Safety issues, Transfer techniques Teaching Recipient: Patient Teaching Methods: Discussion Response to Teaching: Verbalize Understanding, Reinforcement Needed OT Short Term Goals Short Term Goals Time Frame: May 30, 2022 Toileting hygiene: 4 Shower/bathe self: 4 Lower body dressin Putting on/taking off footwear: 4 OT Corporate Law Assistant Goals [facility] Goals Time Frame: Jun 15, 2022 Eating (QC): 6 Oral Hygiene (QC): 6 Toileting Hygiene (QC): 6 Shower/Bathe Self (QC): 6 Upper Body Dressing (QC): 6 Lower Body Dressing (QC): 6 On/Off Footwear (QC): 6 Additional Goals: 1-Demonstrate ADL Tasks, 2-Verbalize Understanding, 3- ImproveStrength/[place] 1=Demonstrate adherence to instructed precautions during ADL tasks. 2=Patient will verbalize/demonstrate understanding of assistive devices/modifications for ADL. 3=Patient will improve strength/tolerance for activity to enable patient to perform ADL's. OT Education/Plan Problem List/Assessment Assessment: Decreased Activ Tolerance, Decreased Safety Aware, Decreased UE Strength, Impaired Cognition, Impaired Funct Balance, Impaired I ADL's, Impaired Self-Care Skills Discharge Recommendations Plan/Recommendations: Continue POC Treatment Plan/Plan of Care Patient would benefit from OT for education, treatment and training to promote independence in ADL's, mobility, safety and/or upper extremity function for ADL's. Plan of Care: ADL Retraining, Functional Mobility, Group Exercise/Act as Ind, UE Funct Exercise/Act Treatment Duration: Jun 15, 2022 Frequency: At least 5 of 7 days/Wk (IRF) Estimated Hrs Per Day: 1.5 hours per day Rehab Potential: Fair Time/GCodes Start Time: 07:45 Stop Time: 09:00 Total Time Billed (hr/min): 75 Billed Treatment Time 1, ADL 3 (45'), Ex (15'), FA (15') TANNER SOMMER OT May 16, 2022 09:04
--- NOTE | 2022-05-16 09:18 | Cardiology Progress Note ---
Subjective Date Seen by Provider: May 16, 2022 Time Seen by Provider: 08:40 Subjective/Events-last exam Patient with PT, c/o nausea this morning. Denies any chest pain or dyspnea Objective-Cardiology Exam Last Set of Vital Signs Vital Signs 05/15/22 05/16/22 05/16/22 08:00 09:56 12:28 Temp 36.9 Pulse 103 Resp 20 B/P (MAP) 119/53 (75) Pulse Ox 95 O2 Delivery Room Air O2 Flow Rate 1.00 I&O Intake and Output 05/16/22 00:00 Intake Total 1450 ml Output Total 1270 ml Balance 180 ml Intake Oral 1350 ml IV Total 100 ml Output Urine Total 1100 ml Stool Total 125 ml Drainage Total 45 ml # Voids 4 General: Alert, Oriented X3 HEENT: Atraumatic Heart: Regular Rate Skin: No Rashes, No Significant Lesion Neuro: Normal Speech Psych/Mental Status: Mental Status NL, Mood NL A/P-Cardiology Admission Diagnosis PAF HTN HLP S/P perf sigmoid colon Assessment/Plan Paroxysmal atrial fibrillation, converted to sinus rhythm on amiodarone drip Patient is converted to sinus rhythm Interrogation of her loop recorder that was implanted in January 2022 showed no other episodes of atrial fibrillation. Currently in sinus rhythm. Continue to monitor Perforated sigmoid colon, status post colectomy. Recovering slowly from surgery Status post severe sepsis, improving. Acute renal insufficiency postoperatively. Improved, Continue to monitor renal function Hypertension, controlled, continue to monitor blood pressure Hyperlipidemia, monitor lipids DVT prophylaxis, maintained on Lovenox Supervisory-Addendum Brief Supervisory Addendum Participated in pt care: history, MDM, physical Personally performed: exam, history, MDM Care discussed with: MALICK Results interpretation: Verified all documentation Notes: Patient was seen and evaluated with Marcella, examination performed, management plan was discussed, agree with the current scribed note, I made few changes to the note using Italic font Patient was seen at bedside, sitting comfortably No new complaint. No further arrhythmia was detected. Continue to monitor MARCELLA VALERA May 16, 2022 09:18 ADRIAN OGDEN MD May 16, 2022 12:48
[2022-05-16 09:56] VITALS: BP 119/53
--- NOTE | 2022-05-16 10:04 | Physical Therapy Daily Note ---
PT Daily Note-Current Subjective Pt. up in w/c, agrees to Rx after much encouragement , "yo all wear me out" c/o pain in left knee at 5/10 and agrees to therex and ice Pain Numeric Pain Scale: 5-Moderate Pain Location: Left Location Body Site: Knee Pain Description: Ache Mental Status Patient Orientation: Confused Attachments: Drains Transfers SCALE: Activities may be completed with or without assistive devices. 5-Lntmheanen-ycyuimq completes the activity by him/herself with no assistance from a helper. 5-Set-up or Clean-up Assistance-helper sets up or cleans up; patient completes activity. [place] assists only prior to or following the activity. 4-Supervision or Touching Assistance-helper provides verbal cues and/or touching/steadying and/or contact guard assistance as patient completes activity. Assistance may be provided throughout the activity or intermittently. 3-Partial/Moderate Assistance-helper does LESS THAN HALF the effort. [place] lifts, holds or supports trunk or limbs, but provides less than half the effort. 2-Substantial/Maximal Assistance-helper does MORE THAN HALF the effort. [place] lifts or holds trunk or limbs and provides more than half the effort. 9-Iulgjdpce-xcruew does ALL the effort. Patient does none of the effort to complete the activity. Or, the assistance of 2 or more helpers is required for the patient to complete the activity. If activity was not attempted, code reason: 7-Patient Refused. 9-Not Applicable-not attempted and the patient did not perform the activity before the current illness, exacerbation or injury. 10-Not Attempted due to Environmental Limitations-(lack of equipment, weather restraints, etc.). 88-Not Attempted due to Medical Conditions or Safety Concerns. Sit to Stand (QC): 5 Chair/Asv-xt-Ivnds Xfer(QC): 4 Toilet Transfer (QC): 4 Weight Bearing Full Weight Bearing Full Weight Bearing Gait Training Does the Patient Walk?: Yes Walk 10 feet (QC): 4 Walk 50 ft with 2 Turns(QC): 4 Gait Persons Needed: 1 Gait Assistive Device: FWW pt. c/o fatigue with gait and requests rest breaks, HR 110 to 98 during activity, Exercises Seated Therapy Exercises: Ankle pumps, Sit to stand, Long arc quads, Hip flexion, Kicking activity, Hip abd/add Seated Reps: [address] Ex=Flex, Abd, Ext Treatments toileted x 2, min voiding, seated LE ex, gait 50 ft x 5, up in recliner after Rx with ice packs to left knee, mena at hand Assessment Current Status: Good Progress pt. a bit confused, talks near non stop, has to be interrupted to cont Rx, fatigues quickly/ frequently and needs encouragement PT Hide Stretcher Hand Goals Hide Stretcher Hand Goals PT [facility] Goals Time Frame: Jun 09, 2022 Roll Left & Right (QC): 6 Sit to Lying (QC): 6 Lying-Sitting on Side/Bed(QC): 6 Sit to Stand (QC): 6 Chair/Kfa-ck-Lhelm Xfer(QC): 6 Toilet Transfer (QC): 6 Car Transfer (QC): 6 Does the Patient Walk: Yes Walk 10 feet (QC): 6 Walk 50ft with 2 Turns (QC): 6 Walk 150 ft (QC): 6 Walking 10ft on Uneven Surface: 6 1 Step (curb) (QC): 6 4 Steps (QC): 6 12 Steps (QC): 6 Picking up an Object (QC): 6 Wheel 50 feet with 2 turns (QC: 9 Wheel 150 feet: 9 PT Plan Treatment/Plan Treatment Plan: Continue Plan of Care Treatment Plan: Bed Mobility, Education, Functional Activity [place], Functional Strength, Gait, Safety, Therapeutic Exercise, Transfers Treatment Duration: Jun 09, 2022 Frequency: At least 5 of 7 days/Wk (IRF) Estimated Hrs Per Day: 1.5 hours per day Patient and/or Family Agrees t: Yes Safety Risks/Education Patient Education: Gait Training, Transfer Techniques, Correct Positioning, Disease Process, Safety Issues Teaching Recipient: Patient Teaching Methods: Demonstration, Discussion Response to Teaching: Verbalize Understanding, Reinforcement Needed Time/GCodes Time In: 900 Time Out: 1000 Total Billed Treatment Time: 60 Total Billed Treatment 1,FA20m,EX15m,GT25m REJI YAP SLOT ROUTER May 16, 2022 10:04
[2022-05-16] MEDS: DOCUSATE SODIUM 100 MG (COLACE) CAP PO SCH ×2 (10:05→20:41)
[2022-05-16] MEDS: polyethylene glycoL POWDER 17 GM (MIRALAX) PACK PO SCH ×2 (10:05→20:41)
[2022-05-16] MEDS: SENNA W/DOCUSATE (SENOKOT S) TABLET PO SCH ×2 (10:05→20:41)
--- NOTE | 2022-05-16 14:11 | Speech Therapy Daily Note ---
Speech Daily Progress Note Subjective Date Seen by Provider: May 16, 2022 Time Seen by Provider: 12:33 The patient was seated upright in bed, awake and alert upon entrance to her room by the clinician. The patient greeted the clinician appropriately and hesitantly agreed to cognitive linguistic treatment secondary to fatigue. Objective The patient and the clinician discussed internal and external memory strategies on this date. The patient stated she keeps a calendar which she uses regularly. The patient denied the use of a pill box stating, "All I ever take is vitamins." The clinician encouraged the patient to become familiar with a pill box (the clinician will follow up with activities) and use one daily to organize medication. The patient remains oriented to month, day of the week, and year. The patient was one day behind the date ("18"). The patient required maximum verbal encouragement and prompting for participa tion on this date. The patient stated "people say go to the hospital so you can rest, you can't rest here." The clinician provided the goal of the rehabilitation floor to the patient on multiple attempts on this date. Assessment Assessment Current Status: Fair Progress Treatment Plan Continue Plan of Care Speech Short Term Goals Short Term Goals Short Term Goals 1. The patient will demonstrate 80% accuracy with executive functioning and memory tasks with mild clinician verbal and visual cueing. Time Frame-STG: Ten Days. Speech Fdc Goals Steward/Stewardess Banquet Goals 1. The patient will demonstrate improved cognitive linguistic skills for safe discharge to the least restrictive environment. Time Frame: Two Weeks. Speech-Plan Treatment Plan Speech Therapy Treatment Plan: Continue Plan of Care Treatment Duration: May 15, 2022 Frequency: Modified Program (IRF) Estimated Hrs Per Day: Other Rehab Potential: Fair Safety Risks/Education Teaching Recipient: Patient Teaching Methods: Discussion Response to Teaching: Reinforcement Needed Education Topics Provided: Rehabilitation Goals Time Speech Therapy Time In: 12:33 Speech Therapy Time Out: 13:03 Total Billed Time: 30 Billed Treatment Time [address] May 16, 2022 14:11
[2022-05-16 20:31] VITALS: BP 127/60
[2022-05-17] MEDS: PIPERACILLIN SODIUM/TAZOBACTAM 4.5 GM in NS (IVPB) 100 ML IV SCH ×3 (03:03→19:46)
--- NOTE | 2022-05-17 05:23 | PM&R Progress Note ---
Subjective HPI/CC On Admission Date Seen by Provider: May 17, 2022 Time Seen by Provider: 12:00 Subjective/Events-last exam 05/17/2022: Patient doing well Walking better telemetry maintained Antibiotics maintained FLYNN drain maintained 05/16/2022: Pt is doing really well Takes her pain medication regularly Telemetry maintained Lovenox still on board before transition to oral anticoagulation 05/15/2022: Doing well Improved overall Lovenox maintained until OAC CLD tolerated No pain reported Participating Review of Systems General: Fatigue, Malaise Objective Exam Vital Signs Vital Signs Date Time Temp Pulse Resp B/P (MAP) Pulse Ox O2 Delivery O2 Flow Rate FiO2 05/17/22 20:31 Room Air 05/17/22 19:55 38.0 78 20 128/71 (90) 95 05/15/22 08:00 1.00 Capillary Refill : General Appearance: No Apparent Distress, WD/WN, Chronically ill, Thin, Other (frail) HEENT: PERRL/EOMI, Normal ENT Inspection, Pharynx Normal Neck: Normal Inspection, Non Tender, Supple Respiratory: No Accessory Muscle Use, No Respiratory Distress Cardiovascular: No Edema, No JVD, Normal Peripheral Pulses Gastrointestinal: Normal Bowel Sounds, No Organomegaly, No Pulsatile Mass, Soft, Other (colostomy) Back: Normal Inspection, No CVA Tenderness, No Vertebral Tenderness Extremity: Normal Capillary Refill, Normal Inspection, Normal Range of Motion, Non Tender, No Calf Tenderness, No Pedal Edema Neurologic/Psychiatric: Alert, Oriented x3, No Motor/Sensory Deficits, Normal Mood/Affect, Motor Weakness (generalized) Skin: Normal Color, Warm/Dry Lymphatic: No Adenopathy Results/Procedures Lab Patient resulted labs reviewed. FIM Transfers Therapy Code Descriptions/Definitions Functional [place] Measure: 0=Not Assessed/NA 4=Minimal Assistance 1=Total Assistance 5=Supervision or Setup 2=Maximal Assistance 6=Modified [place] 3=Moderate Assistance 7=Complete IndependenceSCALE: Activities may be completed with or without assistive devices. 6-Unsrgzrtte-nxqssqb completes the activity by him/herself with no assistance from a helper. 5-Set-up or Clean-up Assistance-helper sets up or cleans up; patient completes activity. [place] assists only prior to or following the activity. 4-Supervision or Touching Assistance-helper provides verbal cues and/or touching/steadying and/or contact guard assistance as patient completes activity. Assistance may be provided throughout the activity or intermittently. 3-Partial/Moderate Assistance-helper does LESS THAN HALF the effort. [place] lifts, holds or supports trunk or limbs, but provides less than half the effort. 2-Substantial/Maximal Assistance-helper does MORE THAN HALF the effort. [place] lifts or holds trunk or limbs and provides more than half the effort. 3-Ocoimtiba-fojwve does ALL the effort. Patient does none of the effort to complete the activity. Or, the assistance of 2 or more helpers is required for the patient to complete the activity. If activity was not attempted, code reason: 7-Patient Refused. 9-Not Applicable-not attempted and the patient did not perform the activity before the current illness, exacerbation or injury. 10-Not Attempted due to Environmental Limitations-(lack of equipment, weather restraints, etc.). 88-Not Attempted due to Medical Conditions or Safety Concerns. Roll Left to Right (QC): 3 Sit to Lying (QC): 3 Sit to Stand (QC): 5 Chair/Pjf-th-Gqxvl Xfer(QC): 4 Car Transfer (QC): 2 Gait Training Does the Patient Walk?: Yes Distance: 150' x2 Walk 10 feet (QC): 4 Walk 50 ft with 2 Turns(QC): 4 Walk 150 ft (QC): 4 Walking 10ft/uneven surface-QC: 88 Gait Persons Needed: 1 Gait Assistive Device: FWW Wheelchair Training Does the Pt Use a Wheelchair?: No Wheel 50 ft with 2 turns (QC): 9 Wheel 150 ft (QC): 9 Type of Wheelchair: N/A Stair Training 1 Step (curb) (QC): 88 4 Steps (QC): 88 12 Steps (QC): 88 Balance Picking up an Object (QC): 88 ADL-Treatment Eating (QC): 5 (per clinical judgment) Oral Hygiene (QC): 4 (CGA-SBA standing at the sink) Shower/Bathe Self (QC): 4 (SBA for standing balance during buttocks/periarea hygiene) Upper Body Dressing (QC): 5 Lower Body Dressing (QC): 3 (Min A to thread LLE and hike pants in back during stand. ) On/Off Footwear (QC): 3 (Min A. Pt able to doff/don both gripper socks, but required assistance with compression socks) Toileting Hygiene (QC): 3 (Min A with periarea/buttocks hygiene standing balance during pant hike.) Toilet Transfer (QC): 4 (CGA) Assessment/Plan Assessment and Plan Assess & Plan/Chief Complaint Assessment: Debility Myopathy New onset AF s/p RVR requiring ICU drip HTN HLP Loop recorder s/p severe sepsis from perforated sigmoid colon s/p colostomy Post op anemia due to acute blood loss Plan: Monitor closely Monitor hgb PT OT Pain control 05/15/2022: Monitor HR Lovenox Fall risk 05/16/2022: Monitor closely 05/17/2022: Monitor closely (1) Atrial fibrillation with rapid ventricular response (2) Debility Status: Acute (3) Postoperative anemia due to acute blood loss Status: Acute (4) HLD (hyperlipidemia) Status: Chronic (5) HTN (hypertension) Status: Chronic (6) Severe sepsis Status: Acute (7) Perforated sigmoid colon Status: Acute GABRIEL CONNELL DO May 17, 2022 05:23
[2022-05-17] MEDS: KCL 10 MEQ TAB (MICRO K) PO SCH (06:14)
[2022-05-17] MEDS: CATHETER FLUSH 10 ML SYR IVP SCH ×3 (06:15→19:46)
[2022-05-17] MEDS: ENOXAPARIN 80 MG/0.8 ML (LOVENOX) SYR SC SCH ×2 (06:15→19:46)
[2022-05-17] MEDS: polyethylene glycoL POWDER 17 GM (MIRALAX) PACK PO SCH ×2 (07:55→19:27)
[2022-05-17] MEDS: DOCUSATE SODIUM 100 MG (COLACE) CAP PO SCH ×2 (07:55→19:27)
[2022-05-17] MEDS: SENNA W/DOCUSATE (SENOKOT S) TABLET PO SCH ×2 (07:56→19:27)
[2022-05-17] MEDS: PANTOPRAZOLE 40 MG (PROTONIX) TAB PO SCH (08:56)
[2022-05-17 09:03] VITALS: BP 109/70
--- NOTE | 2022-05-17 09:03 | Occupational Ther Daily Note ---
OT Current Status-Daily Note Subjective Pt in recliner upon OT arrival, agreeable to tx. Pt required frequent redirection to stay on task and actively participate in therapy as she reports being fatigued. Mental Status/Objective Patient Orientation: Person, Confused, Place, Situation Attachments: Colostomy/Ileostomy, Drains, Telemetry ADL-Treatment Therapy Code Descriptions/Definitions Functional [place] Measure: 0=Not Assessed/NA 4=Minimal Assistance 1=Total Assistance 5=Supervision or Setup 2=Maximal Assistance 6=Modified [place] 3=Moderate Assistance 7=Complete IndependenceSCALE: Activities may be completed with or without assistive devices. 7-Qdxmkopmeq-wxswigy completes the activity by him/herself with no assistance from a helper. 5-Set-up or Clean-up Assistance-helper sets up or cleans up; patient completes activity. [place] assists only prior to or following the activity. 4-Supervision or Touching Assistance-helper provides verbal cues and/or touching/steadying and/or contact guard assistance as patient completes activity. Assistance may be provided throughout the activity or intermittently. 3-Partial/Moderate Assistance-helper does LESS THAN HALF the effort. [place] lifts, holds or supports trunk or limbs, but provides less than half the effort. 2-Substantial/Maximal Assistance-helper does MORE THAN HALF the effort. [place] lifts or holds trunk or limbs and provides more than half the effort. 8-Snfxpzshu-trjhwq does ALL the effort. Patient does none of the effort to complete the activity. Or, the assistance of 2 or more helpers is required for the patient to complete the activity. If activity was not attempted, code reason: 7-Patient Refused. 9-Not Applicable-not attempted and the patient did not perform the activity before the current illness, exacerbation or injury. 10-Not Attempted due to Environmental Limitations-(lack of equipment, weather restraints, etc.). 88-Not Attempted due to Medical Conditions or Safety Concerns. Eating (QC): 5 (per pt report) Oral Hygiene (QC): 4 (CGA-SBA for standing balance. V/c's for sequencing) Shower/Bathe Self (QC): 3 (Min A overall for sponge bath. Assistance with standing balance during periarea hygiene, assist to wipe buttocks.) Upper Body Dressing (QC): 5 Lower Body Dressing (QC): 3 (Mod A overall. Assistance to thread BLE, hike pants in the back, and standing balance during pant hike. V/c's for sequencing) On/Off Footwear: 4 (SBA for balance when leaning forward and v/c's for sequencing) Toileting Hygiene (QC): 3 (Min A to wipe buttocks) Other Treatment Pt completed sponge bath and dressing while seated in recliner. Pt required Min- Mod A with all sit<>stand transfers during tx. She walked with FWW to bathroom to complete toileting, LBD, and oral care/grooming tasks at the sink. Pt required max verbal cues and encouragement throughout self-care activities as she verbally expressed that she wanted OT to complete tasks for her. She sat on the toilet for ~5min during LBD before saying, "I thought if I sat here long enough you would do it for me." Pt educated on the importance of actively participating in OT therapy to maximize IND in ADLs, pt verbalized understanding but still needed reminders throughout session. She was pushed to therapy gym in w/c d/t pt's fatigue. She participated in standing functional activities to increase activity tolerance and standing functional balance. She stood at [facility], [facility], and used BUE to place letters in all planes of motion. She then completed two rubber band designs while standing, challenging her balance without using BUE for support, required [facility] for standing balance. Pt pushed back to room and requested to use RB, transferred onto toilet with SBA. Post tx, pt left on toilet with pull cord in hand and nurse notified. Education OT Patient Education: Correct positioning, Energy conservation, Exercise program, Modified ADL techniques, Progress toward Goal/Update tx plan, Purpose of tx/functional activities, Rehab process, Safety issues, Transfer techniques, W/C management Teaching Recipient: Patient Teaching Methods: Discussion Response to Teaching: Verbalize Understanding, Reinforcement Needed OT Short Term Goals Short Term Goals Time Frame: May 30, 2022 Toileting hygiene: 4 Shower/bathe self: 4 Lower body dressin Putting on/taking off footwear: 4 OT Branch Specialist Goals Group Home Goals Time Frame: Jun 15, 2022 Eating (QC): 6 Oral Hygiene (QC): 6 Toileting Hygiene (QC): 6 Shower/Bathe Self (QC): 6 Upper Body Dressing (QC): 6 Lower Body Dressing (QC): 6 On/Off Footwear (QC): 6 Additional Goals: 1-Demonstrate ADL Tasks, 2-Verbalize Understanding, 3- ImproveStrength/[place] 1=Demonstrate adherence to instructed precautions during ADL tasks. 2=Patient will verbalize/demonstrate understanding of assistive de vices/modifications for ADL. 3=Patient will improve strength/tolerance for activity to enable patient to perform ADL's. OT Education/Plan Problem List/Assessment Assessment: Decreased Activ Tolerance, Decreased Safety Aware, Decreased UE Strength, Impaired Funct Balance, Impaired I ADL's, Impaired Self-Care Skills Discharge Recommendations Plan/Recommendations: Continue POC Treatment Plan/Plan of Care Patient would benefit from OT for education, treatment and training to promote independence in ADL's, mobility, safety and/or upper extremity function for ADL's. Plan of Care: ADL Retraining, Functional Mobility, Group Exercise/Act as Ind, UE Funct Exercise/Act Treatment Duration: Jun 15, 2022 Frequency: At least 5 of 7 days/Wk (IRF) Estimated Hrs Per Day: 1.5 hours per day Rehab Potential: Fair Time/GCodes Start Time: 07:45 Stop Time: 09:00 Total Time Billed (hr/min): 75 Billed Treatment Time 1, ADL 3 (45'), FA 2 (30') TANNER SOMMER OT May 17, 2022 09:03
--- NOTE | 2022-05-17 12:02 | Physical Therapy Daily Note ---
PT Daily Note-Current Subjective Pt. states she knows now she "better work with you a not against you" Pt. requests to go to [facility] emergency department and states toward end of rx that her "osteoarthritis pain " is bothering her and she needs a pain pill. Pt notified nursing. Pain Numeric Pain Scale: 5-Moderate Pain Location: Left Location Body Site: Knee Pain Description: Ache Mental Status Patient Orientation: Normal For Age Attachments: Drains Transfers SCALE: Activities may be completed with or without assistive devices. 0-Ehjxbellxe-mnjewjw completes the activity by him/herself with no assistance from a helper. 5-Set-up or Clean-up Assistance-helper sets up or cleans up; patient completes activity. [place] assists only prior to or following the activity. 4-Supervision or Touching Assistance-helper provides verbal cues and/or touching/steadying and/or contact guard assistance as patient completes activity . Assistance may be provided throughout the activity or intermittently. 3-Partial/Moderate Assistance-helper does LESS THAN HALF the effort. [place] lifts, holds or supports trunk or limbs, but provides less than half the effort. 2-Substantial/Maximal Assistance-helper does MORE THAN HALF the effort. [place] lifts or holds trunk or limbs and provides more than half the effort. 1-Cvijomvka-oatflx does ALL the effort. Patient does none of the effort to complete the activity. Or, the assistance of 2 or more helpers is required for the patient to complete the activity. If activity was not attempted, code reason: 7-Patient Refused. 9-Not Applicable-not attempted and the patient did not perform the activity before the current illness, exacerbation or injury. 10-Not Attempted due to Environmental Limitations-(lack of equipment, weather restraints, etc.). 88-Not Attempted due to Medical Conditions or Safety Concerns. Roll Left & Right (QC): 6 Sit to Lying (QC): 6 Lying to Sitting/Side of Bed(Q: 4 Sit to Stand (QC): 6 Chair/Len-ax-Tuzui Xfer(QC): 4 Toilet Transfer (QC): 4 Weight Bearing Full Weight Bearing Full Weight Bearing Gait Training Does the Patient Walk?: Yes Walk 10 feet (QC): 4 Walk 50 ft with 2 Turns(QC): 4 Walk 150 ft (QC): 4 Gait Persons Needed: 1 Gait Assistive Device: FWW improved strength, improved endurance, SBA to CGA 150ft x 2, 40 x2 Exercises Supine Ex: Bridging, Ankle pumps, Quad Set, Rolling, Glut sets, Heel Slides, Short Arc Quads, Scooting, Straight leg raise, Hip abd/add Supine Reps: 15 Seated Therapy Exercises: Ankle pumps, Sit to stand, Long arc quads, Hip flexion Seated Reps: 12 NuStep Minutes: 10 NuStep Workload: 2 Assessment Current Status: Good Progress PT Automation Analyst Goals Automation Analyst Goals PT Half-Way Goals Time Frame: Jun 09, 2022 Roll Left & Right (QC): 6 Sit to Lying (QC): 6 Lying-Sitting on Side/Bed(QC): 6 Sit to Stand (QC): 6 Chair/Joz-zl-Zttjq Xfer(QC): 6 Toilet Transfer (QC): 6 Car Transfer (QC): 6 Does the Patient Walk: Yes Walk 10 feet (QC): 6 Walk 50ft with 2 Turns (QC): 6 Walk 150 ft (QC): 6 Walking 10ft on Uneven Surface: 6 1 Step (curb) (QC): 6 4 Steps (QC): 6 12 Steps (QC): 6 Picking up an Object (QC): 6 Wheel 50 feet with 2 turns (QC: 9 Wheel 150 feet: 9 PT Plan Treatment/Plan Treatment Plan: Continue Plan of Care Treatment Plan: Bed Mobility, Education, Functional Activity [place], Functional Strength, Gait, Safety, Therapeutic Exercise, Transfers Treatment Duration: Jun 09, 2022 Frequency: At least 5 of 7 days/Wk (IRF) Estimated Hrs Per Day: 1.5 hours per day Patient and/or Family Agrees t: Yes Safety Risks/Education Patient Education: Gait Training, Transfer Techniques, Correct Positioning, Disease Process, Safety Issues Teaching Recipient: Patient Teaching Methods: Demonstration, Discussion Response to Teaching: Verbalize Understanding, Return Demonstration, Reinforcement Needed Time/GCodes Time In: 1100 Time Out: 1200 Total Billed Treatment Time: 60 Total Billed Treatment 1,EX30m,GT15m,FA15m REJI YAP SUPERVISOR TWISTING DEPARTMENT May 17, 2022 12:02
--- NOTE | 2022-05-17 12:17 | Speech Therapy Daily Note ---
Speech Daily Progress Note Subjective Date Seen by Provider: May 17, 2022 Time Seen by Provider: 10:00 The patient was seated upright in her bed, awake and alert upon entrance to her room by the clinician. The patient greeted the clinician appropriately and was agreeable to participation in the cognitive linguistic treatment, however, stated, "No one lets you rest around here." Objective The patient completed subtests of the "Assessment of Language Related Activities" with the below results:L - Telling Time: The patient reports she uses an analog and digital clock at home. The patient displayed 100% accuracy with telling time on an analog clock. - Daily Math Problems: The patient displayed fair accuracy with daily math problems (calendar dates, tip percentage, monthly payments) with moderate cl inician verbal cueing. Assessment Assessment Current Status: Good Progress Treatment Plan Continue Plan of Care Speech Short Term Goals Short Term Goals Short Term Goals 1. The patient will demonstrate 80% accuracy with executive functioning and memory tasks with mild clinician verbal and visual cueing. Time Frame-STG: Ten Days. Speech Mcc Goals Facilities Director Goals 1. The patient will demonstrate improved cognitive linguistic skills for safe discharge to the least restrictive environment. Time Frame: Two Weeks. Speech-Plan Treatment Plan Speech Therapy Treatment Plan: Continue Plan of Care Treatment Duration: May 15, 2022 Frequency: Modified Program (IRF) Estimated Hrs Per Day: Other Rehab Potential: Fair Safety Risks/Education Teaching Recipient: Patient Teaching Methods: Discussion Response to Teaching: Verbalize Understanding Education Topics Provided: External Memory Strategies Time Speech Therapy Time In: 10:00 Speech Therapy Time Out: 10:30 Total Billed Time: 30 Billed Treatment Time 1[address] May 17, 2022 12:17
[2022-05-17 19:55] VITALS: BP 128/71
[2022-05-18] MEDS: PIPERACILLIN SODIUM/TAZOBACTAM 4.5 GM in NS (IVPB) 100 ML IV SCH (03:14)
[2022-05-18] MEDS: CATHETER FLUSH 10 ML SYR IVP SCH ×3 (03:15→19:32)
--- NOTE | 2022-05-18 03:29 | PM&R Progress Note ---
Subjective HPI/CC On Admission Date Seen by Provider: May 18, 2022 Time Seen by Provider: 06:00 Subjective/Events-last exam 05/18/2022: Patient doing well Slept well last night No pain Zosyn DC 05/17/2022: Patient doing well Walking better telemetry maintained Antibiotics maintained FLYNN drain maintained 05/16/2022: Pt is doing really well Takes her pain medication regularly Telemetry maintained Lovenox still on board before transition to oral anticoagulation 05/15/2022: Doing well Improved overall Lovenox maintained until OAC CLD tolerated No pain reported Participating Review of Systems General: Fatigue, Malaise Objective Exam Vital Signs Vital Signs Date Time Temp Pulse Resp B/P (MAP) Pulse Ox O2 Delivery O2 Flow Rate FiO2 05/18/22 20:47 Room Air 05/18/22 19:00 100 05/18/22 08:00 37.0 14 109/54 (72) 94 05/15/22 08:00 1.00 Capillary Refill : General Appearance: No Apparent Distress, WD/WN, Chronically ill, Thin, Other (frail) HEENT: PERRL/EOMI, Normal ENT Inspection, Pharynx Normal Neck: Normal Inspection, Non Tender, Supple Respiratory: No Accessory Muscle Use, No Respiratory Distress Cardiovascular: No Edema, No JVD, Normal Peripheral Pulses Gastrointestinal: Normal Bowel Sounds, No Organomegaly, No Pulsatile Mass, Soft, Other (colostomy) Back: Normal Inspection, No CVA Tenderness, No Vertebral Tenderness Extremity: Normal Capillary Refill, Normal Inspection, Normal Range of Motion, Non Tender, No Calf Tenderness, No Pedal Edema Neurologic/Psychiatric: Alert, Oriented x3, No Motor/Sensory Deficits, Normal Mood/Affect, Motor Weakness (generalized) Skin: Normal Color, Warm/Dry Lymphatic: No Adenopathy Results/Procedures Lab Patient resulted labs reviewed. FIM Transfers Therapy Code Descriptions/Definitions Functional [place] Measure: 0=Not Assessed/NA 4=Minimal Assistance 1=Total Assistance 5=Supervision or Setup 2=Maximal Assistance 6=Modified [place] 3=Moderate Assistance 7=Complete IndependenceSCALE: Activities may be completed with or without assistive devices. 4-Crbjoxaehj-fbgeuau completes the activity by him/herself with no assistance from a helper. 5-Set-up or Clean-up Assistance-helper sets up or cleans up; patient completes activity. [place] assists only prior to or following the activity. 4-Supervision or Touching Assistance-helper provides verbal cues and/or touching/steadying and/or contact guard assistance as patient completes activity. Assistance may be provided throughout the activity or intermittently. 3-Partial/Moderate Assistance-helper does LESS THAN HALF the effort. [place] lifts, holds or supports trunk or limbs, but provides less than half the effort. 2-Substantial/Maximal Assistance-helper does MORE THAN HALF the effort. [place] lifts or holds trunk or limbs and provides more than half the effort. 5-Rbuznqtiu-etjxtn does ALL the effort. Patient does none of the effort to complete the activity. Or, the assistance of 2 or more helpers is required for the patient to complete the activity. If activity was not attempted, code reason: 7-Patient Refused. 9-Not Applicable-not attempted and the patient did not perform the activity before the current illness, exacerbation or injury. 10-Not Attempted due to Environmental Limitations-(lack of equipment, weather restraints, etc.). 88-Not Attempted due to Medical Conditions or Safety Concerns. Roll Left to Right (QC): 6 Sit to Lying (QC): 6 Sit to Stand (QC): 6 Chair/Flw-nh-Mfsvr Xfer(QC): 4 Car Transfer (QC): 2 Gait Training Does the Patient Walk?: Yes Distance: 150' x2 Walk 10 feet (QC): 4 Walk 50 ft with 2 Turns(QC): 4 Walk 150 ft (QC): 4 Walking 10ft/uneven surface-QC: 88 Gait Persons Needed: 1 Gait Assistive Device: FWW Wheelchair Training Does the Pt Use a Wheelchair?: No Wheel 50 ft with 2 turns (QC): 9 Wheel 150 ft (QC): 9 Type of Wheelchair: N/A Stair Training 1 Step (curb) (QC): 88 4 Steps (QC): 88 12 Steps (QC): 88 Balance Picking up an Object (QC): 88 ADL-Treatment Eating (QC): 5 (per pt report) Oral Hygiene (QC): 4 (CGA-SBA for standing balance. V/c's for sequencing) Shower/Bathe Self (QC): 3 (Min A overall for sponge bath. Assistance with standing balance during periarea hygiene, assist to wipe buttocks.) Upper Body Dressing (QC): 5 Lower Body Dressing (QC): 3 (Mod A overall. Assistance to thread BLE, hike pants in the back, and standing balance during pant hike. V/c's for sequencing) On/Off Footwear (QC): 4 (SBA for balance when leaning forward and v/c's for sequencing) Toileting Hygiene (QC): 3 (Min A to wipe buttocks) Toilet Transfer (QC): 4 (CGA) Assessment/Plan Assessment and Plan Assess & Plan/Chief Complaint Assessment: Debility Myopathy New onset AF s/p RVR requiring ICU drip HTN HLP Loop recorder s/p severe sepsis from perforated sigmoid colon s/p colostomy Post op anemia due to acute blood loss Plan: Monitor closely Monitor hgb PT OT Pain control 05/15/2022: Monitor HR Lovenox Fall risk 05/16/2022: Monitor closely 05/17/2022: Monitor closely 05/18/2022: DC abx Monitor AF (1) Atrial fibrillation with rapid ventricular response (2) Debility Status: Acute (3) Postoperative anemia due to acute blood loss Status: Acute (4) HLD (hyperlipidemia) Status: Chronic (5) HTN (hypertension) Status: Chronic (6) Severe sepsis Status: Acute (7) Perforated sigmoid colon Status: Acute GABRIEL CONNELL DO May 18, 2022 03:29
[2022-05-18] MEDS: KCL 10 MEQ TAB (MICRO K) PO SCH (06:07)
[2022-05-18] MEDS: PANTOPRAZOLE 40 MG (PROTONIX) TAB PO SCH (07:27)
[2022-05-18] MEDS: ENOXAPARIN 80 MG/0.8 ML (LOVENOX) SYR SC SCH ×2 (07:29→19:31)
[2022-05-18 08:00] VITALS: BP 109/54
[2022-05-18] MEDS: DOCUSATE SODIUM 100 MG (COLACE) CAP PO SCH ×2 (08:54→19:28)
[2022-05-18] MEDS: SENNA W/DOCUSATE (SENOKOT S) TABLET PO SCH ×2 (08:55→19:28)
[2022-05-18] MEDS: polyethylene glycoL POWDER 17 GM (MIRALAX) PACK PO SCH ×2 (08:55→19:28)
--- NOTE | 2022-05-18 09:00 | Occupational Ther Daily Note ---
OT Current Status-Daily Note Subjective Pt resting in bed upon OT arrival, agreeable to tx. Pt c/o being "so sleepy" today. Mental Status/Objective Patient Orientation: Person, Place, Situation Attachments: Colostomy/Ileostomy, Drains, IV, Telemetry ADL-Treatment Therapy Code Descriptions/Definitions Functional [place] Measure: 0=Not Assessed/NA 4=Minimal Assistance 1=Total Assistance 5=Supervision or Setup 2=Maximal Assistance 6=Modified [place] 3=Moderate Assistance 7=Complete IndependenceSCALE: Activities may be completed with or without assistive devices. 2-Dpbbrqtkxi-dgvokem completes the activity by him/herself with no assistance from a helper. 5-Set-up or Clean-up Assistance-helper sets up or cleans up; patient completes activity. [place] assists only prior to or following the activity. 4-Supervision or Touching Assistance-helper provides verbal cues and/or touching/steadying and/or contact guard assistance as patient completes activity. Assistance may be provided throughout the activity or intermittently. 3-Partial/Moderate Assistance-helper does LESS THAN HALF the effort. [place] lifts, holds or supports trunk or limbs, but provides less than half the effort. 2-Substantial/Maximal Assistance-helper does MORE THAN HALF the effort. [place] lifts or holds trunk or limbs and provides more than half the effort. 6-Cvrhianno-pexdfa does ALL the effort. Patient does none of the effort to complete the activity. Or, the assistance of 2 or more helpers is required for the patient to complete the activity. If activity was not attempted, code reason: 7-Patient Refused. 9-Not Applicable-not attempted and the patient did not perform the activity before the current illness, exacerbation or injury. 10-Not Attempted due to Environmental Limitations-(lack of equipment, weather restraints, etc.). 88-Not Attempted due to Medical Conditions or Safety Concerns. Oral Hygiene (QC): 4 (CGA-SBA for standing balance) Shower/Bathe Self (QC): 3 (Min A overall. CGA-SBA for standing balance. V/c's for safety and sequencing, and assistance for thoroughness of washing feet) Lower Body Dressing (QC): 4 (CGA-SBA for standing balance during pant hike) On/Off Footwear: 5 Toileting Hygiene (QC): 3 (Min A to maneuver clothing and hike pants in the back) Other Treatment Pt transferred supine<>EOB<>stand to FWW with SBA. She walked in to the bathroom to complete toileting, showering, dressing, and oral care/grooming hygiene tasks. Pt appears to be handling functional mobility better today, requiring less cues to take bigger steps with FWW. She required redirection during tasks and verbal cues for sequencing and safety. She walked back to recliner with FWW, CGA d/t increased fatigue. Post tx, pt left in recliner with call light in reach and all needs met. Education OT Patient Education: Correct positioning, Energy conservation, Modified ADL techniques, Progress toward Goal/Update tx plan, Purpose of tx/functional ac tivities, Rehab process, Safety issues Teaching Recipient: Patient Teaching Methods: Discussion Response to Teaching: Verbalize Understanding, Reinforcement Needed OT Short Term Goals Short Term Goals Time Frame: May 30, 2022 Toileting hygiene: 4 Shower/bathe self: 4 Lower body dressin Putting on/taking off footwear: 4 OT Package Handler Goals Package Handler Goals Time Frame: Jun 15, 2022 Eating (QC): 6 Oral Hygiene (QC): 6 Toileting Hygiene (QC): 6 Shower/Bathe Self (QC): 6 Upper Body Dressing (QC): 6 Lower Body Dressing (QC): 6 On/Off Footwear (QC): 6 Additional Goals: 1-Demonstrate ADL Tasks, 2-Verbalize Understanding, 3- ImproveStrength/[place] 1=Demonstrate adherence to instructed precautions during ADL tasks. 2=Patient will verbalize/demonstrate understanding of assistive devices/modifications for ADL. 3=Patient will improve strength/tolerance for activity to enable patient to perform ADL's. OT Education/Plan Problem List/Assessment Assessment: Decreased Activ Tolerance, Decreased Safety Aware, Decreased UE Strength, Impaired Funct Balance, Impaired I ADL's, Impaired Self-Care Skills Discharge Recommendations Plan/Recommendations: Continue POC Treatment Plan/Plan of Care Patient would benefit from OT for education, treatment and training to promote independence in ADL's, mobility, safety and/or upper extremity function for ADL's. Plan of Care: ADL Retraining, Functional Mobility, Group Exercise/Act as Ind, UE Funct Exercise/Act Treatment Duration: Jun 15, 2022 Frequency: At least 5 of 7 days/Wk (IRF) Estimated Hrs Per Day: 1.5 hours per day Rehab Potential: Fair Time/GCodes Start Time: 08:00 Stop Time: 09:00 Total Time Billed (hr/min): 60 Billed Treatment Time 1, ADL 4 (60') TANNER SOMMER OT May 18, 2022 09:00
--- NOTE | 2022-05-18 09:50 | Physical Therapy Daily Note ---
PT Daily Note-Current Subjective Pt. in bed, agrees to Rx, states she is a little tired from bathing ad dressing this morning. States she feels she is making progress Pain Numeric Pain Scale: 4 Location: Left Location Body Site: Knee Pain Description: Ache Mental Status Patient Orientation: Normal For Age Transfers SCALE: Activities may be completed with or without assistive devices. 3-Dxnerzmwie-truwaur completes the activity by him/herself with no assistance from a helper. 5-Set-up or Clean-up Assistance-helper sets up or cleans up; patient completes activity. [place] assists only prior to or following the activity. 4-Supervision or Touching Assistance-helper provides verbal cues and/or touching/steadying and/or contact guard assistance as patient completes activity. Assistance may be provided throughout the activity or intermittently. 3-Partial/Moderate Assistance-helper does LESS THAN HALF the effort. [place] lifts, holds or supports trunk or limbs, but provides less than half the effort. 2-Substantial/Maximal Assistance-helper does MORE THAN HALF the effort. [place] lifts or holds trunk or limbs and provides more than half the effort. 4-Nytzerqmj-mzlswp does ALL the effort. Patient does none of the effort to complete the activity. Or, the assistance of 2 or more helpers is required for the patient to complete the activity. If activity was not attempted, code reason: 7-Patient Refused. 9-Not Applicable-not attempted and the patient did not perform the activity before the current illness, exacerbation or injury. 10-Not Attempted due to Environmental Limitations-(lack of equipment, weather restraints, etc.). 88-Not Attempted due to Medical Conditions or Safety Concerns. Roll Left & Right (QC): 6 Sit to Lying (QC): 6 Lying to Sitting/Side of Bed(Q: 6 Sit to Stand (QC): 6 Chair/Obd-fi-Zzkgj Xfer(QC): 6 Toilet Transfer (QC): 6 reviewed sit to stand and stnd to sit safe practice as pt. abandons walker at times and backs up to chair with several steps to take Weight Bearing Full Weight Bearing Full Weight Bearing Gait Training Does the Patient Walk?: Yes Walk 10 feet (QC): 6 Walk 50 ft with 2 Turns(QC): 6 Walk 150 ft (QC): 6 Gait Persons Needed: 1 Gait Assistive Device: FWW improved safety and indep, still flexed at trunk over fWW. even step length etc Stair Training Stair Training: Handrails/: 2 handrails #of Steps: 12 4 Steps (QC): 4 12 Steps (QC): 4 Stairs: Pattern: Reciprocal Exercises Supine Ex: Ankle pumps, Quad Set, Rolling, Heel Slides, Short Arc Quads, S cooting, Straight leg raise, Hip abd/add Supine Reps: 15 Seated Therapy Exercises: Ankle pumps, Sit to stand, Long arc quads, Hip flexion, Hip abd/add Seated Reps: 12 Treatments bed mob, ex, TRFs, gait, steps Assessment Current Status: Good Progress noted progress in all phases of rx PT Water Proofer Goals Water Proofer Goals PT Water Proofer Goals Time Frame: Jun 09, 2022 Roll Left & Right (QC): 6 Sit to Lying (QC): 6 Lying-Sitting on Side/Bed(QC): 6 Sit to Stand (QC): 6 Chair/Tqc-lc-Fopln Xfer(QC): 6 Toilet Transfer (QC): 6 Car Transfer (QC): 6 Does the Patient Walk: Yes Walk 10 feet (QC): 6 Walk 50ft with 2 Turns (QC): 6 Walk 150 ft (QC): 6 Walking 10ft on Uneven Surface: 6 1 Step (curb) (QC): 6 4 Steps (QC): 6 12 Steps (QC): 6 Picking up an Object (QC): 6 Wheel 50 feet with 2 turns (QC: 9 Wheel 150 feet: 9 PT Plan Treatment/Plan Treatment Plan: Continue Plan of Care Treatment Plan: Bed Mobility, Education, Functional Activity [place], Functional Strength, Gait, Safety, Therapeutic Exercise, Transfers Treatment Duration: Jun 09, 2022 Frequency: At least 5 of 7 days/Wk (IRF) Estimated Hrs Per Day: 1.5 hours per day Patient and/or Family Agrees t: Yes Safety Risks/Education Patient Education: Gait Training, Transfer Techniques, Steps, Correct Positioning, Disease Process, Safety Issues Teaching Recipient: Patient Teaching Methods: Demonstration, Discussion Response to Teaching: Verbalize Understanding, Return Demonstration, Reinforcement Needed Time/GCodes Time In: 900 Time Out: 945 Total Billed Treatment Time: 45 Total Billed Treatment 1,FA15m,EX15m,GT15m REJI YAP ASSISTANT UNIT FORESTER May 18, 2022 09:50
--- NOTE | 2022-05-18 10:12 | Cardiology Progress Note ---
Subjective Date Seen by Provider: May 18, 2022 Time Seen by Provider: 10:11 Subjective/Events-last exam Patient was seen at bedside, sitting comfortably, denied any chest pain. Review of Systems General: No Chills, No Night Sweats; Fatigue; No Malaise, No Appetite, No Other HEENT: No Head Aches, No Visual Changes, No Eye Pain, No Ear Pain, No Dysphasia, No Sinus Congestion, No Post Nasal Drip, No Sore Throat, No Other Pulmonary: No Dyspnea, No Cough, No Pleuritic Chest Pain, No Other Objective-Cardiology Exam Last Set of Vital Signs Vital Signs 05/15/22 05/18/22 08:00 08:00 Temp 37.0 Pulse 99 Resp 14 B/P (MAP) 109/54 (72) Pulse Ox 94 O2 Delivery Room Air O2 Flow Rate 1.00 I&O Intake and Output 05/17/22 23:59 Intake Total 1350 ml Output Total 1470 ml Balance -120 ml Intake Oral 1150 ml IV Total 200 ml Output Urine Total 1200 ml Stool Total 200 ml Drainage Total 70 ml # Voids 9 General: Alert, Oriented X3 HEENT: Atraumatic Heart: Regular Rate, Normal S1, Normal S2 Extremities: No Clubbing Skin: No Rashes, No Significant Lesion Neuro: Normal Speech Psych/Mental Status: Mental Status NL, Mood NL A/P-Cardiology Admission Diagnosis PAF HTN HLP S/P perf sigmoid colon Assessment/Plan Paroxysmal atrial fibrillation, converted to sinus rhythm on amiodarone drip Patient is converted to sinus rhythm Interrogation of her loop recorder that was implanted in January 2022 showed no other episodes of atrial fibrillation. Currently in sinus rhythm. Continue to monitor Perforated sigmoid colon, status post colectomy. Recovering slowly from surgery Status post severe sepsis, improving. Acute renal insufficiency postoperatively. Improved, Continue to monitor renal function Hypertension, controlled, continue to monitor blood pressure Hyperlipidemia, monitor lipids DVT prophylaxis, maintained on Lovenox ADRIAN OGDEN MD May 18, 2022 10:12
--- NOTE | 2022-05-18 12:29 | Speech Therapy Daily Note ---
Speech Daily Progress Note Subjective Date Seen by Provider: May 18, 2022 Time Seen by Provider: 11:00 The patient was lying in bed, awake and alert upon entrance to the patient's room by the clinician. The patient greeted the clinician appropriately and was agreeable to participation in the cognitive linguistic treatment session. The patient continues to state, "No one lets you rest around here. You finish one thing and are on to the next." The clinician re-established acute rehabilitation unit goals with the patient. Objective The patient participated in a functional memory exercise on this date. The patient was provided a paragraph read aloud by the clinician. Following, the clinician asked specific questions regarding the paragraph. Initially, the patient displayed 54% accuracy. Following a repetition of the material, the patient displayed 81% accuracy. Assessment Assessment Current Status: Fair Progress Treatment Plan Continue Plan of Care Speech Short Term Goals Short Term Goals Short Term Goals 1. The patient will demonstrate 80% accuracy with executive functioning and memory tasks with mild clinician verbal and visual cueing. Time Frame-STG: Ten Days. Speech Internal Salesperson Goals Internal Salesperson Goals 1. The patient will demonstrate improved cognitive linguistic skills for safe discharge to the least restrictive environment. Time Frame: Two Weeks. Speech-Plan Treatment Plan Speech Therapy Treatment Plan: Continue Plan of Care Treatment Duration: May 15, 2022 Frequency: Modified Program (IRF) Estimated Hrs Per Day: Other Rehab Potential: Fair Safety Risks/Education Teaching Recipient: Patient Teaching Methods: Discussion Response to Teaching: Reinforcement Needed Education Topics Provided: Internal Memory Strategies Time Speech Therapy Time In: 11:00 Speech Therapy Time Out: 11:30 Total Billed Time: 30 Billed Treatment Time 1, BOO ESPARZA May 18, 2022 12:29
--- NOTE | 2022-05-18 14:25 | Progress Note ---
TOM MENDEZ 05/18/22 1425: Progress Note SUBJECTIVE CC: S/p severe sepsis from perforated sigmoid colon HPI: Luna is a 76yo Female that was admitted to inpatient rehab from ICU on 05/14 s/p severe sepsis from perforated sigmoid colon s/p colostomy. During her admission she was found to have new onset AFib with RVR and cardiology was consulted. Sepsis was managed with Zosyn which was discontinued on 05/18/2022. Pt. is recovering slowly from surgery but has continued to improve her mobility and function by working closely with therapy staff. She claims she gets very tired when working with rehab but thinks everything is going well with them. She is now experiencing a frequent cough that causes her pain and has been given an incentive spirometer to improve this issue. She used the IS several times while I was present in the room but claimed she has not been using it that often because is causes her pain. OBJECTIVE Vitals CR=225/54 RR=14 Pulse=99 O2=94 on RA Exam CVS:HRRR Pulmonary:Lungs are clear, frequent coughing, mild increase in work of breathing Abdomen: Denied pain ASSESSMENT AND PLAN Continue supportive care Continue working with rehab staff Frequent cough Continue using IS frequently as tolerated AFib w/RVR Continue lovenox until oral anticoagulants initiated JENNIFER CONNELL DO 05/18/222115: Supervisory-Addendum Brief Verification & Attestation Participated in pt care: history, MDM, physical Personally performed: exam, history, MDM, supervision of care Care discussed with: Medical Student Procedures: n/a Results interpretation: Verified all documentation Verification and Attestation of Medical Student E/M Service A medical student performed and documented this service in my presence. I reviewed and verified all information documented by the medical student and made modifications to such information, when appropriate. I personally performed the physical exam and medical decision making. Jennifer Connell May 18, 2022,21:16 TOM MENDEZ May 18, 2022 14:25 JENNIFER CONNELL DO May 18, 2022 21:16
--- NOTE | 2022-05-18 14:25 | Therapy Group Daily Note ---
Therapy Daily Group Note Patient Education Topic Home Safety, Other List Below (adaptive equipm, TRF skills, ARU rientation) Exercises LE Seated Exercise, Sit to/from Stand, UE Exercise Session Ratio (pt:therapist): 3:1 Goal of Session: Education on ARU Expectations, UE/LE Strengthing, Safety with Transfers, Use of Adaptive Equipment Goal Met for this Session: Yes Pt Benefit of Group: Increased Functional Safety, Increased Functional Strength, Socialization Other/Notes Pt. participated in group PT OT session this date. Pt. required CGA asst for TRFs and FWW for git CGA. Pts. introduced themselves to one another and shared ad sophia, pts participated in seated U&L ext exercises . Demonstration and instruction was given with equipment for bed TRFs, car TRFs, shower/bath TRFs ad sit to stand from chair TRFs. Pt. in room after group with assist and mena at hand Start Time: 13:00 Stop Time: 14:00 Total Billed Treatment Time: 60 Total Billed Treatment 1,GRP REJI YAP SUPERVISOR RECORD PRESS May 18, 2022 14:25
[2022-05-18] MEDS: ONDANSETRON 4 MG (ZOFRAN) ORAL DISSOLVE TAB PO PRN (17:43)
[2022-05-18 20:00] VITALS: BP 122/77
[2022-05-19] MEDS: KCL 10 MEQ TAB (MICRO K) PO SCH (05:51)
[2022-05-19] MEDS: CATHETER FLUSH 10 ML SYR IVP SCH ×3 (05:51→20:06)
[2022-05-19 07:32] VITALS: BP 103/66
[2022-05-19] MEDS: ENOXAPARIN 80 MG/0.8 ML (LOVENOX) SYR SC SCH ×2 (07:58→18:43)
[2022-05-19] MEDS: DOCUSATE SODIUM 100 MG (COLACE) CAP PO SCH ×2 (08:00→19:31)
[2022-05-19] MEDS: polyethylene glycoL POWDER 17 GM (MIRALAX) PACK PO SCH ×2 (08:00→19:31)
[2022-05-19] MEDS: SENNA W/DOCUSATE (SENOKOT S) TABLET PO SCH ×2 (08:00→19:31)
--- NOTE | 2022-05-19 08:01 | PM&R Progress Note ---
Subjective HPI/CC On Admission Date Seen by Provider: May 19, 2022 Time Seen by Provider: 06:00 Subjective/Events-last exam 05/19/2022: Patient doing pretty well Nausea persists so will initiate scheduled Zofran Patient sleeping well at night No other concerns 05/18/2022: Patient doing well Slept well last night No pain Zosyn DC 05/17/2022: Patient doing well Walking better telemetry maintained Antibiotics maintained FLYNN drain maintained 05/16/2022: Pt is doing really well Takes her pain medication regularly Telemetry maintained Lovenox still on board before transition to oral anticoagulation 05/15/2022: Doing well Improved overall Lovenox maintained until OAC CLD tolerated No pain reported Participating Review of Systems General: Fatigue, Malaise Objective Exam Vital Signs Vital Signs Date Time Temp Pulse Resp B/P (MAP) Pulse Ox O2 Delivery O2 Flow Rate FiO2 05/19/22 09:18 Room Air 05/19/22 07:32 36.5 100 20 103/66 (78) 92 05/15/22 08:00 1.00 Capillary Refill : General Appearance: No Apparent Distress, WD/WN, Chronically ill, Thin, Other (frail) HEENT: PERRL/EOMI, Normal ENT Inspection, Pharynx Normal Neck: Normal Inspection, Non Tender, Supple Respiratory: No Accessory Muscle Use, No Respiratory Distress Cardiovascular: No Edema, No JVD, Normal Peripheral Pulses Gastrointestinal: Normal Bowel Sounds, No Organomegaly, No Pulsatile Mass, Soft, Other (colostomy) Back: Normal Inspection, No CVA Tenderness, No Vertebral Tenderness Extremity: Normal Capillary Refill, Normal Inspection, Normal Range of Motion, Non Tender, No Calf Tenderness, No Pedal Edema Neurologic/Psychiatric: Alert, Oriented x3, No Motor/Sensory Deficits, Normal Mood/Affect, Motor Weakness (generalized) Skin: Normal Color, Warm/Dry Lymphatic: No Adenopathy Results/Procedures Lab Patient resulted labs reviewed. FIM Transfers Therapy Code Descriptions/Definitions Functional [place] Measure: 0=Not Assessed/NA 4=Minimal Assistance 1=Total Assistance 5=Supervision or Setup 2=Maximal Assistance 6=Modified [place] 3=Moderate Assistance 7=Complete IndependenceSCALE: Activities may be completed with or without assistive devices. 2-Gdafmctmai-yxhpvyj completes the activity by him/herself with no assistance from a helper. 5-Set-up or Clean-up Assistance-helper sets up or cleans up; patient completes activity. [place] assists only prior to or following the activity. 4-Supervision or Touching Assistance-helper provides verbal cues and/or touching/steadying and/or contact guard assistance as patient completes activity. Assistance may be provided throughout the activity or intermittently. 3-Partial/Moderate Assistance-helper does LESS THAN HALF the effort. [place] lifts, holds or supports trunk or limbs, but provides less than half the effort. 2-Substantial/Maximal Assistance-helper does MORE THAN HALF the effort. [place] lifts or holds trunk or limbs and provides more than half the effort. 1-Jjzmdakjy-gxcati does ALL the effort. Patient does none of the effort to complete the activity. Or, the assistance of 2 or more helpers is required for the patient to complete the activity. If activity was not attempted, code reason: 7-Patient Refused. 9-Not Applicable-not attempted and the patient did not perform the activity before the current illness, exacerbation or injury. 10-Not Attempted due to Environmental Limitations-(lack of equipment, weather restraints, etc.). 88-Not Attempted due to Medical Conditions or Safety Concerns. Roll Left to Right (QC): 6 Sit to Lying (QC): 6 Sit to Stand (QC): 6 Chair/Ces-ot-Ciiqb Xfer(QC): 6 Car Transfer (QC): 2 Gait Training Does the Patient Walk?: Yes Distance: 150' x2 Walk 10 feet (QC): 6 Walk 50 ft with 2 Turns(QC): 6 Walk 150 ft (QC): 6 Walking 10ft/uneven surface-QC: 88 Gait Persons Needed: 1 Gait Assistive Device: FWW Wheelchair Training Does the Pt Use a Wheelchair?: No Wheel 50 ft with 2 turns (QC): 9 Wheel 150 ft (QC): 9 Type of Wheelchair: N/A Stair Training Stair Training: Handrails/: 2 handrails #of Steps: 12 1 Step (curb) (QC): 88 4 Steps (QC): 4 12 Steps (QC): 4 Stairs: Pattern: Reciprocal Balance Picking up an Object (QC): 88 ADL-Treatment Eating (QC): 5 (per pt report) Oral Hygiene (QC): 4 (CGA-SBA for standing balance) Shower/Bathe Self (QC): 3 (Min A overall. CGA-SBA for standing balance. V/c's for safety and sequencing, and assistance for thoroughness of washing feet) Upper Body Dressing (QC): 5 Lower Body Dressing (QC): 4 (CGA-SBA for standing balance during pant hike) On/Off Footwear (QC): 5 Toileting Hygiene (QC): 3 (Min A to maneuver clothing and hike pants in the back) Toilet Transfer (QC): 4 (CGA) Assessment/Plan Assessment and Plan Assess & Plan/Chief Complaint Assessment: Debility Myopathy New onset AF s/p RVR requiring ICU drip HTN HLP Loop recorder s/p severe sepsis from perforated sigmoid colon s/p colostomy Post op anemia due to acute blood loss Plan: Monitor closely Monitor hgb PT OT Pain control 05/15/2022: Monitor HR Lovenox Fall risk 05/16/2022: Monitor closely 05/17/2022: Monitor closely 05/18/2022: DC abx Monitor AF 05/19/2022: Nausea treatment (1) Atrial fibrillation with rapid ventricular response (2) Debility Status: Acute (3) Postoperative anemia due to acute blood loss Status: Acute (4) HLD (hyperlipidemia) Status: Chronic (5) HTN (hypertension) Status: Chronic (6) Severe sepsis Status: Acute (7) Perforated sigmoid colon Status: Acute GABRIEL CONNELL DO May 19, 2022 08:01
[2022-05-19] MEDS: PANTOPRAZOLE 40 MG (PROTONIX) TAB PO SCH (08:03)
--- NOTE | 2022-05-19 08:43 | Physical Therapy Daily Note ---
PT Daily Note-Current Subjective Nursing locates this CLIENT EXPERIENCE CONSULTANT and states pt. is a bit aggitated this morning and wants to know when PT will be in. This CLIENT EXPERIENCE CONSULTANT treated this pt. a few minutes later . Pt. is upset that she has nausea and abdominal pain and also feels she is not making any progress. This CLIENT EXPERIENCE CONSULTANT reminded her of her progress yesterday and that she needs to think positive. Pain Numeric Pain Scale: 5-Moderate Pain Location: Medial Location Body Site: Abdomen Pain Description: Stabbing Mental Status Attachments: Drains negative and unable to rally focus on Rx and tasks , clouded by her negative anxiety Transfers SCALE: Activities may be completed with or without assistive devices. 6-Qtabedspjw-vraeial completes the activity by him/herself with no assistance from a helper. 5-Set-up or Clean-up Assistance-helper sets up or cleans up; patient completes activity. [place] assists only prior to or following the activity. 4-Supervision or Touching Assistance-helper provides verbal cues and/or touching/steadying and/or contact guard assistance as patient completes activity. Assistance may be provided throughout the activity or intermittently. 3-Partial/Moderate Assistance-helper does LESS THAN HALF the effort. [place] lifts, holds or supports trunk or limbs, but provides less than half the effort. 2-Substantial/Maximal Assistance-helper does MORE THAN HALF the effort. [place] lifts or holds trunk or limbs and provides more than half the effort. 8-Afnomyydm-gtmtlu does ALL the effort. Patient does none of the effort to complete the activity. Or, the assistance of 2 or more helpers is required for the patient to complete the activity. If activity was not attempted, code reason: 7-Patient Refused. 9-Not Applicable-not attempted and the patient did not perform the activity before the current illness, exacerbation or injury. 10-Not Attempted due to Environmental Limitations-(lack of equipment, weather restraints, etc.). 88-Not Attempted due to Medical Conditions or Safety Concerns. Roll Left & Right (QC): 6 Sit to Lying (QC): 6 Lying to Sitting/Side of Bed(Q: 6 Sit to Stand (QC): 6 Chair/Zik-lb-Xnhfg Xfer(QC): 4 Toilet Transfer (QC): 6 Weight Bearing Full Weight Bearing Full Weight Bearing Gait Training Does the Patient Walk?: Yes Walk 10 feet (QC): 6 Walk 50 ft with 2 Turns(QC): 6 Walk 150 ft (QC): 6 Gait Persons Needed: 1 Gait Assistive Device: FWW no LOB, progress noted, good velocity, flexed over walker somewhat secondary to abd discomfort Exercises Supine Ex: Bridging, Ankle pumps, Rolling, Glut sets, Lower trunk rotation, Heel Slides, Scooting, Straight leg raise, Hip abd/add Supine Reps: 15 NuStep Minutes: 8 NuStep Workload: 2 Treatments TRFs, toileting, tara doff brief indep, gait, LE ex, in b ed after Rx Assessment Current Status: Good Progress pt. is progressing functionally but is thinking she is not and is very negative this date PT Fdc Goals Fdc Goals PT Fdc Goals Time Frame: Jun 09, 2022 Roll Left & Right (QC): 6 Sit to Lying (QC): 6 Lying-Sitting on Side/Bed(QC): 6 Sit to Stand (QC): 6 Chair/Wdb-ev-Jajkh Xfer(QC): 6 Toilet Transfer (QC): 6 Car Transfer (QC): 6 Does the Patient Walk: Yes Walk 10 feet (QC): 6 Walk 50ft with 2 Turns (QC): 6 Walk 150 ft (QC): 6 Walking 10ft on Uneven Surface: 6 1 Step (curb) (QC): 6 4 Steps (QC): 6 12 Steps (QC): 6 Picking up an Object (QC): 6 Wheel 50 feet with 2 turns (QC: 9 Wheel 150 feet: 9 PT Plan Treatment/Plan Treatment Plan: Continue Plan of Care Treatment Plan: Bed Mobility, Education, Functional Activity Simona, Functional Strength, Gait, Safety, Therapeutic Exercise, Transfers Treatment Duration: Jun 09, 2022 Frequency: At least 5 of 7 days/Wk (IRF) Estimated Hrs Per Day: 1.5 hours per day Patient and/or Family Agrees t: Yes Safety Risks/Education Patient Education: Gait Training, Transfer Techniques, Correct Positioning, Disease Process, Safety Issues Teaching Recipient: Patient Teaching Methods: Demonstration, Discussion Response to Teaching: Verbalize Understanding, Return Demonstration, Reinforcement Needed Time/GCodes Time In: 810 Time Out: 835 Total Billed Treatment Time: 25 Total Billed Treatment 1,EX10m,GT15m REJI YAP CLIENT EXPERIENCE CONSULTANT May 19, 2022 08:42
[2022-05-19] MEDS: ALPRAZolam 0.25 MG (XANAX) TAB PO PRN (08:47)
[2022-05-19] MEDS: ONDANSETRON 4 MG (ZOFRAN) ORAL DISSOLVE TAB PO SCH ×3 (11:24→17:20)
[2022-05-19 20:00] VITALS: BP 126/78
[2022-05-20] MEDS: KCL 10 MEQ TAB (MICRO K) PO SCH (06:30)
[2022-05-20] MEDS: ENOXAPARIN 80 MG/0.8 ML (LOVENOX) SYR SC SCH ×2 (06:31→18:35)
[2022-05-20] MEDS: ONDANSETRON 4 MG (ZOFRAN) ORAL DISSOLVE TAB PO SCH ×3 (06:31→16:56)
[2022-05-20] MEDS: CATHETER FLUSH 10 ML SYR IVP SCH ×3 (06:34→19:45)
[2022-05-20 07:26] VITALS: BP 114/68
--- NOTE | 2022-05-20 08:08 | PM&R Progress Note ---
Subjective HPI/CC On Admission Date Seen by Provider: May 20, 2022 Time Seen by Provider: 13:00 Subjective/Events-last exam 05/20/2022: Doing well Cries easily No pain reported Sleeps well 05/19/2022: Patient doing pretty well Nausea persists so will initiate scheduled Zofran Patient sleeping well at night No other concerns 05/18/2022: Patient doing well Slept well last night No pain Zosyn DC 05/17/2022: Patient doing well Walking better telemetry maintained Antibiotics maintained FLYNN drain maintained 05/16/2022: Pt is doing really well Takes her pain medication regularly Telemetry maintained Lovenox still on board before transition to oral anticoagulation 05/15/2022: Doing well Improved overall Lovenox maintained until OAC CLD tolerated No pain reported Participating Review of Systems General: Fatigue, Malaise Objective Exam Vital Signs Vital Signs Date Time Temp Pulse Resp B/P (MAP) Pulse Ox O2 Delivery O2 Flow Rate FiO2 05/20/22 09:40 Room Air 05/20/22 07:26 36.6 74 18 114/68 (83) 91 05/15/22 08:00 1.00 Capillary Refill : General Appearance: No Apparent Distress, WD/WN, Chronically ill, Thin, Other (frail) HEENT: PERRL/EOMI, Normal ENT Inspection, Pharynx Normal Neck: Normal Inspection, Non Tender, Supple Respiratory: No Accessory Muscle Use, No Respiratory Distress Cardiovascular: No Edema, No JVD, Normal Peripheral Pulses Gastrointestinal: Normal Bowel Sounds, No Organomegaly, No Pulsatile Mass, Soft, Other (colostomy) Back: Normal Inspection, No CVA Tenderness, No Vertebral Tenderness Extremity: Normal Capillary Refill, Normal Inspection, Normal Range of Motion, Non Tender, No Calf Tenderness, No Pedal Edema Neurologic/Psychiatric: Alert, Oriented x3, No Motor/Sensory Deficits, Normal Mood/Affect, Motor Weakness (generalized) Skin: Normal Color, Warm/Dry Lymphatic: No Adenopathy Results/Procedures Lab Patient resulted labs reviewed. FIM Transfers Therapy Code Descriptions/Definitions Functional [place] Measure: 0=Not Assessed/NA 4=Minimal Assistance 1=Total Assistance 5=Supervision or Setup 2=Maximal Assistance 6=Modified [place] 3=Moderate Assistance 7=Complete IndependenceSCALE: Activities may be completed with or without assistive devices. 5-Gaiufjejgg-wvoommz completes the activity by him/herself with no assistance from a helper. 5-Set-up or Clean-up Assistance-helper sets up or cleans up; patient completes activity. [place] assists only prior to or following the activity. 4-Supervision or Touching Assistance-helper provides verbal cues and/or touching/steadying and/or contact guard assistance as patient completes activ ity. Assistance may be provided throughout the activity or intermittently. 3-Partial/Moderate Assistance-helper does LESS THAN HALF the effort. [place] lifts, holds or supports trunk or limbs, but provides less than half the effort. 2-Substantial/Maximal Assistance-helper does MORE THAN HALF the effort. [place] lifts or holds trunk or limbs and provides more than half the effort. 5-Mdddjpaoe-oaxtpz does ALL the effort. Patient does none of the effort to complete the activity. Or, the assistance of 2 or more helpers is required for the patient to complete the activity. If activity was not attempted, code reason: 7-Patient Refused. 9-Not Applicable-not attempted and the patient did not perform the activity before the current illness, exacerbation or injury. 10-Not Attempted due to Environmental Limitations-(lack of equipment, weather restraints, etc.). 88-Not Attempted due to Medical Conditions or Safety Concerns. Roll Left to Right (QC): 6 Sit to Lying (QC): 6 Sit to Stand (QC): 6 Chair/Rmk-cw-Lhebf Xfer(QC): 4 Car Transfer (QC): 2 Gait Training Does the Patient Walk?: Yes Distance: 150' x2 Walk 10 feet (QC): 6 Walk 50 ft with 2 Turns(QC): 6 Walk 150 ft (QC): 6 Walking 10ft/uneven surface-QC: 88 Gait Persons Needed: 1 Gait Assistive Device: FWW Wheelchair Training Does the Pt Use a Wheelchair?: No Wheel 50 ft with 2 turns (QC): 9 Wheel 150 ft (QC): 9 Type of Wheelchair: N/A Stair Training Stair Training: Handrails/: 2 handrails #of Steps: 12 1 Step (curb) (QC): 88 4 Steps (QC): 4 12 Steps (QC): 4 Stairs: Pattern: Reciprocal Balance Picking up an Object (QC): 88 ADL-Treatment Eating (QC): 5 (per pt report) Oral Hygiene (QC): 4 (CGA-SBA for standing balance) Shower/Bathe Self (QC): 3 (Min A overall. CGA-SBA for standing balance. V/c's for safety and sequencing, and assistance for thoroughness of washing feet) Upper Body Dressing (QC): 5 Lower Body Dressing (QC): 4 (CGA-SBA for standing balance during pant hike) On/Off Footwear (QC): 5 Toileting Hygiene (QC): 3 (Min A to maneuver clothing and hike pants in the back) Toilet Transfer (QC): 4 (CGA) Assessment/Plan Assessment and Plan Assess & Plan/Chief Complaint Assessment: Debility Myopathy New onset AF s/p RVR requiring ICU drip HTN HLP Loop recorder s/p severe sepsis from perforated sigmoid colon s/p colostomy Post op anemia due to acute blood loss Plan: Monitor closely Monitor hgb PT OT Pain control 05/15/2022: Monitor HR Lovenox Fall risk 05/16/2022: Monitor closely 05/17/2022: Monitor closely 05/18/2022: DC abx Monitor AF 05/19/2022: Nausea treatment 05/20/2022: Check labs in am Psych issues (1) Atrial fibrillation with rapid ventricular response (2) Debility Status: Acute (3) Postoperative anemia due to acute blood loss Status: Acute (4) HLD (hyperlipidemia) Status: Chronic (5) HTN (hypertension) Status: Chronic (6) Severe sepsis Status: Acute (7) Perforated sigmoid colon Status: Acute GABRIEL CONNELL DO May 20, 2022 08:08
[2022-05-20] MEDS: PANTOPRAZOLE 40 MG (PROTONIX) TAB PO SCH (08:49)
[2022-05-20] MEDS: ALPRAZolam 0.25 MG (XANAX) TAB PO PRN (08:49)
[2022-05-20] MEDS: polyethylene glycoL POWDER 17 GM (MIRALAX) PACK PO SCH ×2 (08:50→19:19)
[2022-05-20] MEDS: SENNA W/DOCUSATE (SENOKOT S) TABLET PO SCH ×2 (08:50→19:19)
[2022-05-20] MEDS: DOCUSATE SODIUM 100 MG (COLACE) CAP PO SCH ×2 (08:50→19:19)
[2022-05-20 19:49] VITALS: BP 131/61
[2022-05-21 04:32] LABS: BASOPHILS # (AUTO) 0.1 10^3/uL (0.0-0.1); BASOPHILS % (AUTO) 1 % (0-10); EOSINOPHILS # (AUTO) 0.4 10^3/uL (0.0-0.3); EOSINOPHILS % (AUTO) 3 % (0-10); HEMATOCRIT 31 % (35-52); HEMOGLOBIN 9.6 g/dL (11.5-16.0); LYMPHOCYTES # (AUTO) 1.3 10^3/uL (1.0-4.0); LYMPHOCYTES % (AUTO) 11 % (12-44); MEAN CORPUSCULAR HEMOGLOBIN 28 pg (25-34); MEAN CORPUSCULAR HGB CONC 31 g/dL (32-36); MEAN CORPUSCULAR VOLUME 91 fL (80-99); MEAN PLATELET VOLUME 11.5 fL (9.0-12.2); MONOCYTES # (AUTO) 1.5 10^3/uL (0.0-1.0); MONOCYTES % (AUTO) 12 % (0-12); NEUTROPHILS # (AUTO) 8.2 10^3/uL (1.8-7.8); NEUTROPHILS % (AUTO) 68 % (42-75); PLATELET COUNT 524 10^3/uL (130-400)
[2022-05-21 04:45] LABS: POTASSIUM 4.3 MMOL/L (3.6-5.0)
[2022-05-21 04:46] LABS: CALCIUM 9.2 MG/DL (8.5-10.1)
[2022-05-21 04:47] LABS: TOTAL PROTEIN 6.5 GM/DL (6.4-8.2)
[2022-05-21 04:49] LABS: BILIRUBIN,TOTAL 0.6 MG/DL (0.1-1.0)
[2022-05-21 04:51] LABS: CREATININE SERUM 0.67 MG/DL (0.60-1.30)
--- NOTE | 2022-05-21 05:35 | PM&R Progress Note ---
Subjective HPI/CC On Admission Date Seen by Provider: May 21, 2022 Time Seen by Provider: 08:30 Subjective/Events-last exam 05/21/2022: Pt is doing pretty well Ostomy output good Will discontinue telemetry Very talkative but becomes tearful at times, so will put in a behavioral health consult She just can't understand why she is so weak 05/20/2022: Doing well Cries easily No pain reported Sleeps well 05/19/2022: Patient doing pretty well Nausea persists so will initiate scheduled Zofran Patient sleeping well at night No other concerns 05/18/2022: Patient doing well Slept well last night No pain Zosyn DC 05/17/2022: Patient doing well Walking better telemetry maintained Antibiotics maintained FLYNN drain maintained 05/16/2022: Pt is doing really well Takes her pain medication regularly Telemetry maintained Lovenox still on board before transition to oral anticoagulation 05/15/2022: Doing well Improved overall Lovenox maintained until OAC CLD tolerated No pain reported Participating Review of Systems General: Fatigue, Malaise Objective Exam Vital Signs Vital Signs Date Time Temp Pulse Resp B/P (MAP) Pulse Ox O2 Delivery O2 Flow Rate FiO2 05/21/22 21:00 Room Air 05/21/22 19:35 36.8 84 20 112/67 (82) 95 Capillary Refill : General Appearance: No Apparent Distress, WD/WN, Chronically ill, Thin, Other (frail) HEENT: PERRL/EOMI, Normal ENT Inspection, Pharynx Normal Neck: Normal Inspection, Non Tender, Supple Respiratory: No Accessory Muscle Use, No Respiratory Distress Cardiovascular: No Edema, No JVD, Normal Peripheral Pulses Gastrointestinal: Normal Bowel Sounds, No Organomegaly, No Pulsatile Mass, Soft, Other (colostomy) Back: Normal Inspection, No CVA Tenderness, No Vertebral Tenderness Extremity: Normal Capillary Refill, Normal Inspection, Normal Range of Motion, Non Tender, No Calf Tenderness, No Pedal Edema Neurologic/Psychiatric: Alert, Oriented x3, No Motor/Sensory Deficits, Normal Mood/Affect, Motor Weakness (generalized) Skin: Normal Color, Warm/Dry Lymphatic: No Adenopathy Results/Procedures Lab Patient resulted labs reviewed. FIM Transfers Therapy Code Descriptions/Definitions Functional [place] Measure: 0=Not Assessed/NA 4=Minimal Assistance 1=Total Assistance 5=Supervision or Setup 2=Maximal Assistance 6=Modified [place] 3=Moderate Assistance 7=Complete IndependenceSCALE: Activities may be completed with or without assistive devices. 3-Pzsybeurww-surphde completes the activity by him/herself with no assistance from a helper. 5-Set-up or Clean-up Assistance-helper sets up or cleans up; patient completes activity. [place] assists only prior to or following the activity. 4-Supervision or Touching Assistance-helper provides verbal cues and/or touching/steadying and/or contact guard assistance as patient completes activity. Assistance may be provided throughout the activity or intermittently. 3-Partial/Moderate Assistance-helper does LESS THAN HALF the effort. [place] lifts, holds or supports trunk or limbs, but provides less than half the effort. 2-Substantial/Maximal Assistance-helper does MORE THAN HALF the effort. [place] lifts or holds trunk or limbs and provides more than half the effort. 3-Pysypmyvn-mqrzyx does ALL the effort. Patient does none of the effort to complete the activity. Or, the assistance of 2 or more helpers is required for the patient to complete the activity. If activity was not attempted, code reason: 7-Patient Refused. 9-Not Applicable-not attempted and the patient did not perform the activity before the current illness, exacerbation or injury. 10-Not Attempted due to Environmental Limitations-(lack of equipment, weather restraints, etc.). 88-Not Attempted due to Medical Conditions or Safety Concerns. Roll Left to Right (QC): 6 Sit to Lying (QC): 6 Sit to Stand (QC): 6 Chair/Aqy-kf-Iinmy Xfer(QC): 4 Car Transfer (QC): 2 Gait Training Does the Patient Walk?: Yes Distance: 150' x2 Walk 10 feet (QC): 6 Walk 50 ft with 2 Turns(QC): 6 Walk 150 ft (QC): 6 Walking 10ft/uneven surface-QC: 88 Gait Persons Needed: 1 Gait Assistive Device: FWW Wheelchair Training Does the Pt Use a Wheelchair?: No Wheel 50 ft with 2 turns (QC): 9 Wheel 150 ft (QC): 9 Type of Wheelchair: N/A Stair Training Stair Training: Handrails/: 2 handrails #of Steps: 12 1 Step (curb) (QC): 88 4 Steps (QC): 4 12 Steps (QC): 4 Stairs: Pattern: Reciprocal Balance Picking up an Object (QC): 88 ADL-Treatment Eating (QC): 5 (per pt report) Oral Hygiene (QC): 4 (CGA-SBA for standing balance) Shower/Bathe Self (QC): 3 (Min A overall. CGA-SBA for standing balance. V/c's for safety and sequencing, and assistance for thoroughness of washing feet) Upper Body Dressing (QC): 5 Lower Body Dressing (QC): 4 (CGA-SBA for standing balance during pant hike) On/Off Footwear (QC): 5 Toileting Hygiene (QC): 3 (Min A to maneuver clothing and hike pants in the back) Toilet Transfer (QC): 4 (CGA) Assessment/Plan Assessment and Plan Assess & Plan/Chief Complaint Assessment: Debility Myopathy New onset AF s/p RVR requiring ICU drip HTN HLP Loop recorder s/p severe sepsis from perforated sigmoid colon s/p colostomy Post op anemia due to acute blood loss Plan: Monitor closely Monitor hgb PT OT Pain control 05/15/2022: Monitor HR Lovenox Fall risk 05/16/2022: Monitor closely 05/17/2022: Monitor closely 05/18/2022: DC abx Monitor AF 05/19/2022: Nausea treatment 05/20/2022: Check labs in am Psych issues 05/21/2022: Behavioral health consult Monitor ostomy output (1) Atrial fibrillation with rapid ventricular response (2) Debility Status: Acute (3) Postoperative anemia due to acute blood loss Status: Acute (4) HLD (hyperlipidemia) Status: Chronic (5) HTN (hypertension) Status: Chronic (6) Severe sepsis Status: Acute (7) Perforated sigmoid colon Status: Acute GABRIEL CONNELL DO May 21, 2022 05:35
[2022-05-21] MEDS: KCL 10 MEQ TAB (MICRO K) PO SCH (06:30)
[2022-05-21] MEDS: ENOXAPARIN 80 MG/0.8 ML (LOVENOX) SYR SC SCH ×2 (06:31→21:28)
[2022-05-21] MEDS: ONDANSETRON 4 MG (ZOFRAN) ORAL DISSOLVE TAB PO SCH ×3 (06:31→16:59)
[2022-05-21] MEDS: CATHETER FLUSH 10 ML SYR IVP SCH ×3 (06:32→21:32)
[2022-05-21] MEDS: PANTOPRAZOLE 40 MG (PROTONIX) TAB PO SCH (07:36)
[2022-05-21] MEDS: DOCUSATE SODIUM 100 MG (COLACE) CAP PO SCH ×2 (07:57→21:31)
[2022-05-21] MEDS: SENNA W/DOCUSATE (SENOKOT S) TABLET PO SCH ×2 (07:58→21:31)
[2022-05-21] MEDS: polyethylene glycoL POWDER 17 GM (MIRALAX) PACK PO SCH ×2 (07:58→21:31)
[2022-05-21 08:00] VITALS: BP 100/67
--- NOTE | 2022-05-21 08:46 | Cardiology Progress Note ---
Subjective Date Seen by Provider: May 21, 2022 Time Seen by Provider: 08:45 Subjective/Events-last exam Patient is sitting up in bed, complaining of fatigue, denies any chest pain or dyspnea. Objective-Cardiology Exam Last Set of Vital Signs Vital Signs 05/15/22 05/21/22 05/21/22 08:00 08:00 09:30 Temp 36.0 Pulse 92 Resp 18 B/P (MAP) 100/67 (78) Pulse Ox 100 O2 Delivery Room Air O2 Flow Rate 1.00 I&O Intake and Output 05/21/22 00:00 Intake Total 300 ml Output Total 535 ml Balance -235 ml Intake Oral 300 ml Stool Total 525 ml Drainage Total 10 ml # Voids 5 General: Alert, Oriented X3 HEENT: Atraumatic Heart: Regular Rate, Normal S1, Normal S2 Extremities: No Clubbing Skin: No Rashes, No Significant Lesion Neuro: Normal Speech Psych/Mental Status: Mental Status NL, Mood NL Results Lab Laboratory Tests 05/21/22 04:15 A/P-Cardiology Admission Diagnosis PAF HTN HLP S/P perf sigmoid colon Assessment/Plan Paroxysmal atrial fibrillation, converted to sinus rhythm on amiodarone drip Patient is converted to sinus rhythm Interrogation of her loop recorder that was implanted in January 2022 showed no oth er episodes of atrial fibrillation. Currently in sinus rhythm. Continue to monitor Perforated sigmoid colon, status post colectomy. Recovering slowly from surgery Status post severe sepsis, improved. Acute renal insufficiency postoperatively. Improved, Continue to monitor renal function Hypertension, controlled, continue to monitor blood pressure Hyperlipidemia, monitor lipids DVT prophylaxis, maintained on Lovenox Supervisory-Addendum Brief Supervisory Addendum Participated in pt care: history, MDM, physical Personally performed: exam, history, MDM Care discussed with: MALICK Results interpretation: Verified all documentation Notes: Patient was seen and evaluated with Marcella, examination performed, management plan was discussed, agree with the current scribed note, I made few changes to the note using Italic font Patient was seen at bedside, laying down comfortably Feeling better. No new complaint Continue current treatment and monitor MARCELLA VALERA May 21, 2022 08:46 ADRIAN GODEN MD May 21, 2022 13:04
--- NOTE | 2022-05-21 09:33 | Speech Therapy Daily Note ---
Speech Daily Progress Note Subjective Date Seen by Provider: May 21, 2022 Time Seen by Provider: 09:30 The patient was seated upright in her bed, awake and alert upon entrance to her room by the clinician. The patient greeted the clinician appropriately and was agreeable to participation in the cognitive linguistic treatment session. Objective Per patient, "I'm still so tired. I can't figure it out. I am so tired of tel ling people I'm not getting better." The patient was tearful on this date, discussing her frustration with her physical healing and high level of fatigue. "They keep saying they will look into but no one's doing anything." The patient's physician is aware of the patient's reports, as the patient stated, "I've told Dr. Gould." The clinician attempted to complete education and review of the patient's colostomy, including appropriate care with handouts provided by wound care. Regardless of maximum verbal redirection, the patient continues to discuss her surgical procedure, requesting "it's exact name." The clinician provided the name of the procedure to the patient for continued discussion. On-going support and education regarding the rehabilitation process was provided, including the patient's goals. Assessment Assessment Current Status: Fair Progress Treatment Plan Continue Plan of Care Speech Short Term Goals Short Term Goals Short Term Goals 1. The patient will demonstrate 80% accuracy with executive functioning and memory tasks with mild clinician verbal and visual cueing. Time Frame-STG: Ten Days. Speech [facility]ci Goals Fretted Instrument Maker Hand Goals 1. The patient will demonstrate improved cognitive linguistic skills for safe discharge to the least restrictive environment. Time Frame: Two Weeks. Speech-Plan Treatment Plan Speech Therapy Treatment Plan: Continue Plan of Care Treatment Duration: May 15, 2022 Frequency: Modified Program (IRF) Estimated Hrs Per Day: Other Rehab Potential: Fair Safety Risks/Education Teaching Recipient: Patient Teaching Methods: Discussion Response to Teaching: Reinforcement Needed Education Topics Provided: Education Re: Rehabilitation Goals Time Speech Therapy Time In: 09:30 Speech Therapy Time Out: 10:00 Total Billed Time: 30 Billed Treatment Time CLEO Patel [facility] May 21, 2022 09:33
--- NOTE | 2022-05-21 10:37 | Occupational Ther Daily Note ---
OT Current Status-Daily Note Subjective Pt in bed, agreeable to therapy session. Pt feels like she is not making progress, OT attempted to provide education on pt's progress to pt, but pt didn't appear to listen to what OT was saying. Pt doesn't feel like she is ready to go home, but also feels like she should be able to walk around without AD by now. ADL-Treatment Therapy Code Descriptions/Definitions Functional [place] Measure: 0=Not Assessed/NA 4=Minimal Assistance 1=Total Assistance 5=Supervision or Setup 2=Maximal Assistance 6=Modified [place] 3=Moderate Assistance 7=Complete IndependenceSCALE: Activities may be completed with or without assistive devices. 8-Ltctlmwoex-cdrtdfu completes the activity by him/herself with no assistance from a helper. 5-Set-up or Clean-up Assistance-helper sets up or cleans up; patient completes activity. [place] assists only prior to or following the activity. 4-Supervision or Touching Assistance-helper provides verbal cues and/or touching/steadying and/or contact guard assistance as patient completes activity. Assistance may be provided throughout the activity or intermittently. 3-Partial/Moderate Assistance-helper does LESS THAN HALF the effort. [place] lifts, holds or supports trunk or limbs, but provides less than half the effort. 2-Substantial/Maximal Assistance-helper does MORE THAN HALF the effort. [place] lifts or holds trunk or limbs and provides more than half the effort. 9-[place]-uhsslr does ALL the effort. Patient does none of the effort to complete the activity. Or, the assistance of 2 or more helpers is required for the patient to complete the activity. If activity was not attempted, code reason: 7-Patient Refused. 9-Not Applicable-not attempted and the patient did not perform the activity before the current illness, exacerbation or injury. 10-Not Attempted due to Environmental Limitations-(lack of equipment, weather restraints, etc.). 88-Not Attempted due to Medical Conditions or Safety Concerns. Toileting Hygiene (QC): 6 Toilet Transfer (QC): 6 Other Treatment OT/PT cotreat due to skill of 2 clinicians required which a rehabilitation therapist could not perform in order to focus on higher level standing balance, coordinating UE/LEs and to decrease fall risk due to pt's limitations in strength and activity tolerance. OT focused on UE placement, cues for sequencing and safety, PT focused on LE placement, dynamic standing balance, transfers/mobility, and AD. Pt used FWW to perform functional mobility to therapy gym, SBA. Pt stood with FWW, batting balloon back and forth with OT, reaching BUEs in all planes, PT focused on balance, SBA throughout task, 1 LOB but pt able to self correct. Pt took a rest break, then stood on AirEx mat to complete balloon activity again, CGA. Pt completed obstacle course, stepping over objects, navigating around objects, and picking up cones from around the room, SBA with mobility, CGA when stepping over objects/bending forward to pick objects up. She stood on AirEx mat, using QC, CGA-SBA throughout task, completing ring toss activity, tossing 8 rings, 3 times each with R hand, L hand supporting on QC. Pt used QC to ambulate in halls, c/o increased fatigue, seated rest break. Pt then used FWW to locate cards on leslie, locating card #12, then counting backwards to 1. Pt located all cards on wall, removed them from wall and handed to therapist, SBA throughout task, min verbal cues in order to scan and locate all cards. After seated rest break, pt completed kitchen task of making tea, min cues for safety/sequencing, SBA. Pt returned to her room, used the bathroom independently, then transferred to recliner. Post tx, pt in recliner, call light in reach and all needs met. Education OT Patient Education: Correct positioning, Energy conservation, Modified ADL techniques, Progress toward Goal/Update tx plan, Purpose of tx/functional activities Teaching Recipient: Patient Teaching Methods: Discussion Response to Teaching: Verbalize Understanding OT Short Term Goals Short Term Goals Time Frame: May 30, 2022 Toileting hygiene: 4 Shower/bathe self: 4 Lower body dressin Putting on/taking off footwear: 4 OT Siebel Consultant Goals Siebel Consultant Goals Time Frame: Jun 15, 2022 Eating (QC): 6 Oral Hygiene (QC): 6 Toileting Hygiene (QC): 6 Shower/Bathe Self (QC): 6 Upper Body Dressing (QC): 6 Lower Body Dressing (QC): 6 On/Off Footwear (QC): 6 Additional Goals: 1-Demonstrate ADL Tasks, 2-Verbalize Understanding, 3- ImproveStrength/Simona 1=Demonstrate adherence to instructed precautions during ADL tasks. 2=Patient will verbalize/demonstrate understanding of assistive devices/modifications for ADL. 3=Patient will improve strength/tolerance for activity to enable patient to perform ADL's. OT Education/Plan Problem List/Assessment Assessment: Decreased Activ Tolerance, Decreased UE Strength, Impaired Funct Balance, Impaired I ADL's, Impaired Self-Care Skills Discharge Recommendations Plan/Recommendations: Continue POC Treatment Plan/Plan of Care Patient would benefit from OT for education, treatment and training to promote independence in ADL's, mobility, safety and/or upper extremity function for ADL's. Plan of Care: ADL Retraining, Functional Mobility, Group Exercise/Act as Ind, UE Funct Exercise/Act Treatment Duration: Jun 15, 2022 Frequency: At least 5 of 7 days/Wk (IRF) Estimated Hrs Per Day: 1.5 hours per day Rehab Potential: Fair Time/GCodes Start Time: 10:00 Stop Time: 11:15 Total Time Billed (hr/min): 75 Billed Treatment Time 1, FA 5 TANNER SOMMER OT May 21, 2022 10:37
--- NOTE | 2022-05-21 12:16 | Physical Therapy Daily Note ---
PT Daily Note-Current Subjective Pt sitting up in recliner upon arrival. Pt agrees to PT/OT co-treat. Mental Status Patient Orientation: Person, Confused, Place Transfers SCALE: Activities may be completed with or without assistive devices. 9-Zyojrorgvg-papcskr completes the activity by him/herself with no assistance from a helper. 5-Set-up or Clean-up Assistance-helper sets up or cleans up; patient completes activity. [place] assists only prior to or following the activity. 4-Supervision or Touching Assistance-helper provides verbal cues and/or touching/steadying and/or contact guard assistance as patient completes activity. Assistance may be provided throughout the activity or intermittently. 3-Partial/Moderate Assistance-helper does LESS THAN HALF the effort. [place] li fts, holds or supports trunk or limbs, but provides less than half the effort. 2-Substantial/Maximal Assistance-helper does MORE THAN HALF the effort. [place] lifts or holds trunk or limbs and provides more than half the effort. 9-Zwesdaaek-zsjsic does ALL the effort. Patient does none of the effort to complete the activity. Or, the assistance of 2 or more helpers is required for the patient to complete the activity. If activity was not attempted, code reason: 7-Patient Refused. 9-Not Applicable-not attempted and the patient did not perform the activity before the current illness, exacerbation or injury. 10-Not Attempted due to Environmental Limitations-(lack of equipment, weather restraints, etc.). 88-Not Attempted due to Medical Conditions or Safety Concerns. Sit to Stand (QC): 5 Weight Bearing Full Weight Bearing Full Weight Bearing Gait Training Does the Patient Walk?: Yes Distance: 500' Walk 10 feet (QC): 5 Walk 50 ft with 2 Turns(QC): 5 Walk 150 ft (QC): 5 Walking 10ft/uneven surface-QC: 4 Gait Persons Needed: 1 Gait Assistive Device: FWW Treatments OT/PT cotreat due to skill of 2 clinicians required which a clinical rehab specialist could not perform in order to focus on higher level standing balance, coordinating UE/LEs and to decrease fall risk due to pt's limitations in strength and activity tolerance. OT focused on UE placement, cues for sequencing and safety, PT focused on LE placement, dynamic standing balance, transfers/mobility, and AD. Pt used FWW to perform functional mobility to therapy gym, SBA. Pt stood with FWW, batting balloon back and forth with OT, reaching BUEs in all planes, PT focused on balance, SBA throughout task, 1 LOB but pt able to self correct. Pt took a rest break, then stood on AirEx mat to complete balloon activity again, CGA. Pt completed obstacle course, stepping over objects, navigating around objects, and picking up cones from around the room, SBA with mobility, CGA when stepping over objects/bending forward to pick objects up. She stood on AirEx mat, using QC, CGA-SBA throughout task, completing ring toss activity, tossing 8 rings, 3 times each with R hand, L hand supporting on QC. Pt used QC to ambulate in halls, c/o increased fatigue, seated rest break. Pt then used FWW to locate cards on leslie, locating card #12, then counting backwards to 1. Pt located all cards on wall, removed them from wall and handed to therapist, SBA throughout task, min verbal cues in order to scan and locate all cards. After seated rest break, pt completed kitchen task of making tea, min cues for safety/sequencing, SBA. Pt returned to her room, used the bathroom independently, then transferred to recliner. Post tx, pt in recliner, call light in reach and all needs met. Assessment Current Status: Fair Progress Pt continues to be impulsive and needs VC for safety. PT attempts pt walking using QC but pt demonstrates poor body control during walking as pt's speed increases. PT encourages pt to slow down for improved control and pt does not correct. PT Longterm Goals [employer] Specialist Goals PT Longterm Goals Time Frame: Jun 09, 2022 Roll Left & Right (QC): 6 Sit to Lying (QC): 6 Lying-Sitting on Side/Bed(QC): 6 Sit to Stand (QC): 6 Chair/Kzh-hz-Vpqnv Xfer(QC): 6 Toilet Transfer (QC): 6 Car Transfer (QC): 6 Does the Patient Walk: Yes Walk 10 feet (QC): 6 Walk 50ft with 2 Turns (QC): 6 Walk 150 ft (QC): 6 Walking 10ft on Uneven Surface: 6 1 Step (curb) (QC): 6 4 Steps (QC): 6 12 Steps (QC): 6 Picking up an Object (QC): 6 Wheel 50 feet with 2 turns (QC: 9 Wheel 150 feet: 9 PT Plan Problem List Problem List: Activity Tolerance, Safety Treatment/Plan Treatment Plan: Continue Plan of Care Treatment Plan: Bed Mobility, Education, Functional Activity Simona, Functional Strength, Gait, Safety, Therapeutic Exercise, Transfers Treatment Duration: Jun 09, 2022 Frequency: At least 5 of 7 days/Wk (IRF) Estimated Hrs Per Day: 1.5 hours per day Patient and/or Family Agrees t: Yes Safety Risks/Education Patient Education: Gait Training, Transfer Techniques, Correct Positioning, Saf ety Issues Teaching Recipient: Patient Teaching Methods: Discussion Response to Teaching: Reinforcement Needed Time/GCodes Time In: 1000 Time Out: 1115 Total Billed Treatment Time: 75 Total Billed Treatment Co-treat w/OT for 75m 1, GT x3 (45m) & FA x2 (30m) ANNE CARR [employer] OFFICER May 21, 2022 12:16
[2022-05-21 19:35] VITALS: BP 112/67
[2022-05-21] MEDS: MELATONIN 3 MG TABLET PO PRN (21:31)
--- NOTE | 2022-05-22 06:16 | PM&R Progress Note ---
Subjective HPI/CC On Admission Date Seen by Provider: May 22, 2022 Time Seen by Provider: 09:00 Subjective/Events-last exam 05/22/2022: Pt is doing about the same but will need skilled Psych eval because she is so tearful Dr. Walker consult for nausea and vomiting 05/21/2022: Pt is doing pretty well Ostomy output good Will discontinue telemetry Very talkative but becomes tearful at times, so will put in a behavioral health consult She just can't understand why she is so weak 05/20/2022: Doing well Cries easily No pain reported Sleeps well 05/19/2022: Patient doing pretty well Nausea persists so will initiate scheduled Zofran Patient sleeping well at night No other concerns 05/18/2022: Patient doing well Slept well last night No pain Zosyn DC 05/17/2022: Patient doing well Walking better telemetry maintained Antibiotics maintained FLYNN drain maintained 05/16/2022: Pt is doing really well Takes her pain medication regularly Telemetry maintained Lovenox still on board before transition to oral anticoagulation 05/15/2022: Doing well Improved overall Lovenox maintained until OAC CLD tolerated No pain reported Participating Review of Systems General: Fatigue, Malaise depression Objective Exam Vital Signs Vital Signs Date Time Temp Pulse Resp B/P (MAP) Pulse Ox O2 Delivery O2 Flow Rate FiO2 05/22/22 09:00 Room Air 05/22/22 07:56 37.2 86 18 135/79 (97) 95 Capillary Refill : General Appearance: No Apparent Distress, WD/WN, Chronically ill, Thin, Other (frail) HEENT: PERRL/EOMI, Normal ENT Inspection, Pharynx Normal Neck: Normal Inspection, Non Tender, Supple Respiratory: No Accessory Muscle Use, No Respiratory Distress Cardiovascular: No Edema, No JVD, Normal Peripheral Pulses Gastrointestinal: Normal Bowel Sounds, No Organomegaly, No Pulsatile Mass, Soft, Other (colostomy) Back: Normal Inspection, No CVA Tenderness, No Vertebral Tenderness Extremity: Normal Capillary Refill, Normal Inspection, Normal Range of Motion, Non Tender, No Calf Tenderness, No Pedal Edema Neurologic/Psychiatric: Alert, Oriented x3, No Motor/Sensory Deficits, Normal Mood/Affect, Motor Weakness (generalized) Skin: Normal Color, Warm/Dry Lymphatic: No Adenopathy Results/Procedures Lab Laboratory Tests 05/22/22 09:27 Patient resulted labs reviewed. FIM Transfers Therapy Code Descriptions/Definitions Functional [place] Measure: 0=Not Assessed/NA 4=Minimal Assistance 1=Total Assistance 5=Supervision or Setup 2=Maximal Assistance 6=Modified [place] 3=Moderate Assistance 7=Complete IndependenceSCALE: Activities may be completed with or without assistive devices. 7-Wdjfhmlzii-iajxwzf completes the activity by him/herself with no assistance from a helper. 5-Set-up or Clean-up Assistance-helper sets up or cleans up; patient completes activity. [place] assists only prior to or following the activity. 4-Supervision or Touching Assistance-helper provides verbal cues and/or touching/steadying and/or contact guard assistance as patient completes activity. Assistance may be provided throughout the activity or intermittently. 3-Partial/Moderate Assistance-helper does LESS THAN HALF the effort. [place] lifts, holds or supports trunk or limbs, but provides less than half the effort. 2-Substantial/Maximal Assistance-helper does MORE THAN HALF the effort. [place] lifts or holds trunk or limbs and provides more than half the effort. 5-Teemkxqac-dncxle does ALL the effort. Patient does none of the effort to complete the activity. Or, the assistance of 2 or more helpers is required for the patient to complete the activity. If activity was not attempted, code reason: 7-Patient Refused. 9-Not Applicable-not attempted and the patient did not perform the activity before the current illness, exacerbation or injury. 10-Not Attempted due to Environmental Limitations-(lack of equipment, weather restraints, etc.). 88-Not Attempted due to Medical Conditions or Safety Concerns. Roll Left to Right (QC): 6 Sit to Lying (QC): 6 Sit to Stand (QC): 5 Chair/Yqq-cm-Wrvdd Xfer(QC): 4 Car Transfer (QC): 2 Gait Training Does the Patient Walk?: Yes Distance: 500' Walk 10 feet (QC): 5 Walk 50 ft with 2 Turns(QC): 5 Walk 150 ft (QC): 5 Walking 10ft/uneven surface-QC: 4 Gait Persons Needed: 1 Gait Assistive Device: FWW Wheelchair Training Does the Pt Use a Wheelchair?: No Wheel 50 ft with 2 turns (QC): 9 Wheel 150 ft (QC): 9 Type of Wheelchair: N/A Stair Training Stair Training: Handrails/: 2 handrails #of Steps: 12 1 Step (curb) (QC): 88 4 Steps (QC): 4 12 Steps (QC): 4 Stairs: Pattern: Reciprocal Balance Picking up an Object (QC): 88 ADL-Treatment Eating (QC): 5 (per pt report) Oral Hygiene (QC): 4 (CGA-SBA for standing balance) Shower/Bathe Self (QC): 3 (Min A overall. CGA-SBA for standing balance. V/c's for safety and sequencing, and assistance for thoroughness of washing feet) Upper Body Dressing (QC): 5 Lower Body Dressing (QC): 4 (CGA-SBA for standing balance during pant hike) On/Off Footwear (QC): 5 Toileting Hygiene (QC): 6 Toilet Transfer (QC): 6 Assessment/Plan Assessment and Plan Assess & Plan/Chief Complaint Assessment: Debility Myopathy New onset AF s/p RVR requiring ICU drip HTN HLP Loop recorder s/p severe sepsis from perforated sigmoid colon s/p colostomy Post op anemia due to acute blood loss Plan: Monitor closely Monitor hgb PT OT Pain control 05/15/2022: Monitor HR Lovenox Fall risk 05/16/2022: Monitor closely 05/17/2022: Monitor closely 05/18/2022: DC abx Monitor AF 05/19/2022: Nausea treatment 05/20/2022: Check labs in am Psych issues 05/21/2022: Behavioral health consult Monitor ostomy output 05/22/2022: Nausea treatment Needs SNF (1) Atrial fibrillation with rapid ventricular response (2) Debility Status: Acute (3) Postoperative anemia due to acute blood loss Status: Acute (4) HLD (hyperlipidemia) Status: Chronic (5) HTN (hypertension) Status: Chronic (6) Severe sepsis Status: Acute (7) Perforated sigmoid colon Status: Acute GABRIEL CONNELL DO May 22, 2022 06:16
[2022-05-22] MEDS: CATHETER FLUSH 10 ML SYR IVP SCH ×3 (06:18→20:52)
[2022-05-22] MEDS: ONDANSETRON 4 MG (ZOFRAN) ORAL DISSOLVE TAB PO SCH ×3 (06:19→17:29)
[2022-05-22] MEDS: KCL 10 MEQ TAB (MICRO K) PO SCH (06:19)
[2022-05-22] MEDS: ENOXAPARIN 80 MG/0.8 ML (LOVENOX) SYR SC SCH ×2 (07:49→18:49)
[2022-05-22 07:56] VITALS: BP 135/79
--- NOTE | 2022-05-22 08:38 | Cardiology Progress Note ---
Subjective Date Seen by Provider: May 22, 2022 Time Seen by Provider: 08:10 Subjective/Events-last exam Patient is in bed, complaining of nausea Review of Systems General: No Chills, No Night Sweats; Fatigue; No Malaise, No Appetite, No Other HEENT: No Head Aches, No Visual Changes, No Eye Pain, No Ear Pain, No Dysphasia, No Sinus Congestion, No Post Nasal Drip, No Sore Throat, No Other Pulmonary: Dyspnea; No Cough, No Pleuritic Chest Pain, No Other Cardiovascular: No: Chest Pain, Palpitations, Orthopnea, Paroxysmal Noc. Dyspnea, Edema, Lt Headedness, Other Objective-Cardiology Exam Last Set of Vital Signs Vital Signs 05/22/22 07:56 Temp 37.2 Pulse 86 Resp 18 B/P (MAP) 135/79 (97) Pulse Ox 95 O2 Delivery Room Air I&O Intake and Output 05/22/22 00:00 Intake Total 650 ml Output Total 350 ml Balance 300 ml Intake Oral 650 ml Stool Total 350 ml # Voids 6 General: Alert, Oriented X3 HEENT: Atraumatic Heart: Regular Rate, Normal S1, Normal S2 Extremities: No Clubbing Skin: No Rashes, No Significant Lesion Neuro: Normal Speech Psych/Mental Status: Mental Status NL, Mood NL Results Lab Laboratory Tests 05/22/22 09:27 A/P-Cardiology Admission Diagnosis PAF HTN HLP S/P perf sigmoid colon Assessment/Plan Paroxysmal atrial fibrillation, converted to sinus rhythm on amiodarone drip Patient is converted to sinus rhythm Interrogation of her loop recorder that was implanted in January 2022 showed no other episodes of atrial fibrillation. Currently in sinus rhythm. Continue to monitor Perforated sigmoid colon, status post colectomy. Recovering slowly from surgery Status post severe sepsis, improved. Acute renal insufficiency postoperatively. Improved, Continue to monitor renal function Hypertension, controlled, continue to monitor blood pressure Hyperlipidemia, monitor lipids DVT prophylaxis, maintained on Lovenox Supervisory-Addendum Brief Supervisory Addendum Participated in pt care: history, MDM, physical Personally performed: exam, history, MDM Care discussed with: MALICK Results interpretation: Verified all documentation Notes: Patient was seen and evaluated with Marcella, examination performed, management plan was discussed, agree with the current scribed note, I made few changes to the note using Italic font Patient was seen at bedside, sitting comfortably, complaining of nausea Loss of appetite. Cardiac status is stable. Continue to monitor Managed by primary care physician MARCELLA VALERA May 22, 2022 08:38 ADRIAN OGDEN MD May 22, 2022 11:39
[2022-05-22] MEDS ORDERED: SCOPOLAMINE 1.5 MG (TRANSDERM-SCOP) PATCH TD ONE (09:00)
--- NOTE | 2022-05-22 09:02 | Physical Therapy Daily Note ---
PT Daily Note-Current Subjective Pt laying Supine in bed upon arrival. Pt reports increased nausea today. Pt wants to complete tx and has been given nausea med but dizzy with sitting up. Nursing aware. Marine Rigger checks on pt during tx. Lab is ordered. Pain Location Body Site: Head Pain Description: Ache Comment: Reports but doesn't rate Mental Status Patient Orientation: Person, Place Transfers SCALE: Activities may be completed with or without assistive devices. 6-Ogytzxbxse-vuusngx completes the activity by him/herself with no assistance from a helper. 5-Set-up or Clean-up Assistance-helper sets up or cleans up; patient completes activity. [place] assists only prior to or following the activity. 4-Supervision or Touching Assistance-helper provides verbal cues and/or touching/steadying and/or contact guard assistance as patient completes activity. Assistance may be provided throughout the activity or intermittently. 3-Partial/Moderate Assistance-helper does LESS THAN HALF the effort. [place] lifts, holds or supports trunk or limbs, but provides less than half the effort. 2-Substantial/Maximal Assistance-helper does MORE THAN HALF the effort. [place] lifts or holds trunk or limbs and provides more than half the effort. 2-Wouiuzrvp-favwuy does ALL the effort. Patient does none of the effort to compl ete the activity. Or, the assistance of 2 or more helpers is required for the patient to complete the activity. If activity was not attempted, code reason: 7-Patient Refused. 9-Not Applicable-not attempted and the patient did not perform the activity before the current illness, exacerbation or injury. 10-Not Attempted due to Environmental Limitations-(lack of equipment, weather restraints, etc.). 88-Not Attempted due to Medical Conditions or Safety Concerns. Sit to Stand (QC): 5 Toilet Transfer (QC): 5 Weight Bearing Full Weight Bearing Full Weight Bearing Gait Training Does the Patient Walk?: Yes Distance: 150' x2 Walk 10 feet (QC): 5 Walk 50 ft with 2 Turns(QC): 5 Walk 150 ft (QC): 5 Gait Assistive Device: FWW Exercises Supine Ex: Ankle pumps, Quad Set, Glut sets, Heel Slides, Straight leg raise, Hip abd/add Supine Reps: 15 Treatments Pt completes Supine EX with several RB as pt doesn't feel good this morning. Pt TF to EOB and reports dizziness so extended sit until improved. TF to standing and amb. to BR. Pt amb in hallway before returning to room to rest in recliner. Pt reports fatigue and nausea. All needs met, call light in hand. Assessment Current Status: Fair Progress Nausea & fatigue limit participation in tx but pt does try to push self to toleration. PT Residential Goals Residential Goals PT Residential Goals Time Frame: Jun 09, 2022 Roll Left & Right (QC): 6 Sit to Lying (QC): 6 Lying-Sitting on Side/Bed(QC): 6 Sit to Stand (QC): 6 Chair/Skc-ns-Ivarm Xfer(QC): 6 Toilet Transfer (QC): 6 Car Transfer (QC): 6 Does the Patient Walk: Yes Walk 10 feet (QC): 6 Walk 50ft with 2 Turns (QC): 6 Walk 150 ft (QC): 6 Walking 10ft on Uneven Surface: 6 1 Step (curb) (QC): 6 4 Steps (QC): 6 12 Steps (QC): 6 Picking up an Object (QC): 6 Wheel 50 feet with 2 turns (QC: 9 Wheel 150 feet: 9 PT Plan Problem List Problem List: Activity Tolerance Treatment/Plan Treatment Plan: Continue Plan of Care Treatment Plan: Bed Mobility, Education, Functional Activity [place], Functional Strength, Gait, Safety, Therapeutic Exercise, Transfers Treatment Duration: Jun 09, 2022 Frequency: At least 5 of 7 days/Wk (IRF) Estimated Hrs Per Day: 1.5 hours per day Patient and/or Family Agrees t: Yes Time/GCodes Time In: 800 Time Out: 900 Total Billed Treatment Time: 60 Total Billed Treatment 1, FA x2 (25m), GT (15m) & EX (20m) ANNE CARR LIDDER May 22, 2022 09:02
[2022-05-22] MEDS: PANTOPRAZOLE 40 MG (PROTONIX) TAB PO SCH (09:21)
[2022-05-22] MEDS: ALPRAZolam 0.25 MG (XANAX) TAB PO PRN (09:21)
[2022-05-22] MEDS: SENNA W/DOCUSATE (SENOKOT S) TABLET PO SCH ×2 (09:32→21:00)
[2022-05-22] MEDS: DOCUSATE SODIUM 100 MG (COLACE) CAP PO SCH ×2 (09:32→21:00)
[2022-05-22] MEDS: polyethylene glycoL POWDER 17 GM (MIRALAX) PACK PO SCH ×2 (09:32→21:00)
[2022-05-22 09:35] LABS: BASOPHILS # (AUTO) 0.1 10^3/uL (0.0-0.1); BASOPHILS % (AUTO) 1 % (0-10); EOSINOPHILS # (AUTO) 0.1 10^3/uL (0.0-0.3); EOSINOPHILS % (AUTO) 1 % (0-10); HEMATOCRIT 32 % (35-52); LYMPHOCYTES # (AUTO) 0.9 10^3/uL (1.0-4.0); LYMPHOCYTES % (AUTO) 8 % (12-44); MEAN CORPUSCULAR HEMOGLOBIN 29 pg (25-34); MEAN CORPUSCULAR HGB CONC 31 g/dL (32-36); MEAN CORPUSCULAR VOLUME 92 fL (80-99); MEAN PLATELET VOLUME 11.2 fL (9.0-12.2); MONOCYTES # (AUTO) 1.3 10^3/uL (0.0-1.0); MONOCYTES % (AUTO) 12 % (0-12); NEUTROPHILS # (AUTO) 7.9 10^3/uL (1.8-7.8); NEUTROPHILS % (AUTO) 74 % (42-75); PLATELET COUNT 530 10^3/uL (130-400); WHITE BLOOD COUNT 10.6 10^3/uL (4.3-11.0)
[2022-05-22 10:01] LABS: CALCIUM 9.6 MG/DL (8.5-10.1); CREATININE SERUM 0.74 MG/DL (0.60-1.30); POTASSIUM 4.1 MMOL/L (3.6-5.0)
--- NOTE | 2022-05-22 10:53 | Occupational Ther Daily Note ---
OT Current Status-Daily Note Subjective Pt up in recliner, agreeable to OT Tx with focus on ADLs. Mental Status/Objective Patient Orientation: Person, Place, Situation ADL-Treatment Therapy Code Descriptions/Definitions Functional [place] Measure: 0=Not Assessed/NA 4=Minimal Assistance 1=Total Assistance 5=Supervision or Setup 2=Maximal Assistance 6=Modified [place] 3=Moderate Assistance 7=Complete IndependenceSCALE: Activities may be completed with or without assistive devices. 2-Hvaswdhmrt-qyzyipl completes the activity by him/herself with no assistance from a helper. 5-Set-up or Clean-up Assistance-helper sets up or cleans up; patient completes activity. [place] assists only prior to or following the activity. 4-Supervision or Touching Assistance-helper provides verbal cues and/or touching/steadying and/or contact guard assistance as patient completes activity. Assistance may be provided throughout the activity or intermittently. 3-Partial/Moderate Assistance-helper does LESS THAN HALF the effort. [place] lifts, holds or supports trunk or limbs, but provides less than half the effort. 2-Substantial/Maximal Assistance-helper does MORE THAN HALF the effort. [place] lifts or holds trunk or limbs and provides more than half the effort. 8-Ugidckwmz-shppdt does ALL the effort. Patient does none of the effort to complete the activity. Or, the assistance of 2 or more helpers is required for the patient to complete the activity. If activity was not attempted, code reason: 7-Patient Refused. 9-Not Applicable-not attempted and the patient did not perform the activity b efore the current illness, exacerbation or injury. 10-Not Attempted due to Environmental Limitations-(lack of equipment, weather restraints, etc.). 88-Not Attempted due to Medical Conditions or Safety Concerns. Eating (QC): 6 (Per pt report) Oral Hygiene (QC): 6 (Per pt and PT report) Shower/Bathe Self (QC): 5 (set up to cover dressings) Upper Body Dressing (QC): 6 (IND, pt gathered clothes from closet, no LOB) Lower Body Dressing (QC): 6 (IND donning/doffing LE clothing, pt gathered from closet, no LOB) On/Off Footwear: 6 (IND donning/doffing gripper socks.) Toileting Hygiene (QC): 6 (IND) Toilet Transfer (QC): 6 (IND on/off toilet) Other Treatment Pt in recliner, agreeable to OT Tx. Pt used FWW to go to closet to gather clothes, no LOB. Pt then transferred into bathroom, completed toileting, showering and dressing. 1 LOB when pt stood from chair and turned with FWW to head towards sink, requiring CGA. Pt used FWW to transfer to bed, then supine independently. Wound care nurse present for ostomy training, all needs met. Education OT Patient Education: Correct positioning, Energy conservation, Modified ADL techniques, Progress toward Goal/Update tx plan, Purpose of tx/functional activities, Rehab process Teaching Recipient: Patient Teaching Methods: Discussion Response to Teaching: Verbalize Understanding OT Short Term Goals Short Term Goals Time Frame: May 30, 2022 Toileting hygiene: 4 Shower/bathe self: 4 Lower body dressin Putting on/taking off footwear: 4 OT Radiator Tester Goals Prison Goals Time Frame: Jun 15, 2022 Eating (QC): 6 Oral Hygiene (QC): 6 Toileting Hygiene (QC): 6 Shower/Bathe Self (QC): 6 Upper Body Dressing (QC): 6 Lower Body Dressing (QC): 6 On/Off Footwear (QC): 6 Additional Goals: 1-Demonstrate ADL Tasks, 2-Verbalize Understanding, 3- ImproveStrength/[place] 1=Demonstrate adherence to instructed precautions during ADL tasks. 2=Patient will verbalize/demonstrate understanding of assistive devices/modifications for ADL. 3=Patient will improve strength/tolerance for activity to enable patient to perform ADL's. OT Education/Plan Problem List/Assessment Assessment: Decreased Activ Tolerance, Decreased UE Strength, Impaired Funct Balance, Impaired I ADL's Discharge Recommendations Plan/Recommendations: Continue POC Treatment Plan/Plan of Care Patient would benefit from OT for education, treatment and training to promote independence in ADL's, mobility, safety and/or upper extremity function for ADL's. Plan of Care: ADL Retraining, Functional Mobility, Group Exercise/Act as Ind, UE Funct Exercise/Act Treatment Duration: Jun 15, 2022 Frequency: At least 5 of 7 days/Wk (IRF) Estimated Hrs Per Day: 1.5 hours per day Rehab Potential: Fair Time/GCodes Start Time: 09:45 Stop Time: 10:45 Total Time Billed (hr/min): 60 Billed Treatment Time 1, ADL 4 TANNER SOMMER OT May 22, 2022 10:53
--- NOTE | 2022-05-22 11:00 | Speech Therapy Daily Note ---
Speech Daily Progress Note Subjective Date Seen by Provider: May 22, 2022 Time Seen by Provider: 09:00 The patient was seated upright in her recliner, awake and alert upon entrance to her room by the clinician. The patient greeted the clinician appropriately and was agreeable to participation in the cognitive linguistic treatment session. Objective The patient reported dizziness, fatigue, and nausea at the initiation of the treatment session. The patient requested the lights remain low and required maximum verbal encouragement for limited participation. The patient's reduced participation has become frequent and limited skilled services are being performed by speech pathology due to the patient's limited cooperation. The clinician and patient completed repetitions of the spirometer. The patient is able to raise the spirometer to 1250 consistently. The patient required maximum verbal encouragement for the limited respiratory retraining exercise. The patient stated she has decided it is necessary that she move out of her home. The patient requested to speak with social work at a later time to discuss her decision as currently she is not feeling well. The request was provided to the social service manager following completion of the treatment session. Assessment Assessment Current Status: Poor Progress Treatment Plan Continue Plan of Care Speech Short Term Goals Short Term Goals Short Term Goals 1. The patient will demonstrate 80% accuracy with executive functioning and memory tasks with mild clinician verbal and visual cueing. Time Frame-STG: Ten Days. Speech Dipper Machine Operator Goals Dipper Machine Operator Goals 1. The patient will demonstrate improved cognitive linguistic skills for safe discharge to the least restrictive environment. Time Frame: Two Weeks. Speech-Plan Treatment Plan Speech Therapy Treatment Plan: Continue Plan of Care Treatment Duration: May 15, 2022 Frequency: Modified Program (IRF) Estimated Hrs Per Day: Other Rehab Potential: Fair Safety Risks/Education Teaching Recipient: Patient Teaching Methods: Discussion Response to Teaching: Reinforcement Needed Education Topics Provided: Goals of Therapy, Plan of Care Time Speech Therapy Time In: 09:00 Speech Therapy Time Out: 09:30 Total Billed Time: 30 Billed Treatment Time 1[facility] [facility] [facility] May 22, 2022 11:00
--- NOTE | 2022-05-22 12:59 | Consultation - Surgery ---
BOOM ACOSTA 05/22/22 1259: History of Present Illness History of Present Illness Patient Consulted On(derek/time) 05/22/22 12:50 Date Seen by Provider: May 22, 2022 Time Seen by Provider: 12:50 History of Present Illness Consult requested by Dr. Gould for a 76 yo female s/p laparoscopic/open exploratory laparotomy with low anterior resection with end colostomy and splenic flexure mobilization for abdominal distension and new onset nausea. Per nurse, pt experienced increased nausea this morning and looked "visibly pale". Nurse states that she gave IV ondansetron and the pt's nausea resolved. Pt denies nausea at this time and was eating lunch. Pt says that she feels like her nausea has become worse but can't pinpoint a time when it worsened. Pt continues to void and have bowel movements. Pt denies new abd pain, CP, SOB, and vomiting. Allergies and Home Medications Allergies Coded Allergies: Sulfa (Sulfonamide Antibiotics) (Verified Allergy, Unknown, 05/14/22) citalopram (Verified Allergy, Unknown, "night terrors", 05/14/22) "night terrors" codeine (Verified Allergy, Unknown, 05/14/22) "dizziness" Patient Home Medication List Home Medication List Reviewed: Yes Cholecalciferol (Vitamin D3) (Vitamin D3) 50 Mcg (2000 Unit) Capsule, 50 MCG PO DAILY, (Reported) Entered as Reported by: JESUS FERRARO on 05/09/221522 Last Action: Reviewed Fish Oil/Dha/Epa (Fish Oil 1,200 mg Fish Oil) 1,200 Mg-144 Mg-216 Mg Capsule, 1 EACH PO DAILY, (Reported) Entered as Reported by: JESUS FERRARO on 05/09/221522 Last Action: Reviewed Lutein (Lutein) 20 Mg Tablet, 20 MG PO DAILY, (Reported) Entered as Reported by: JESUS FERRARO on 05/09/221522 Last Action: Reviewed Magnesium Oxide (Magnesium) 400 Mg Magnesium Tablet, 400 MG PO DAILY, (Reported) Entered as Reported by: JESUS FERRARO on 05/09/221522 Last Action: Reviewed Meloxicam (Meloxicam) 15 Mg Tablet, 15 MG PO DAILY, (Reported) Entered as Reported by: JESUS FERRARO on 05/09/221522 Last Action: Reviewed Mv-Mn/Folic Acid/Calcium/Vit K (Women's 50 Plus Multivit Tab) 400 Mcg-500 Mg Calcium-20 Mcg Tablet, 1 EACH PO DAILY, (Reported) Entered as Reported by: JESUS FERRARO on 05/09/221522 Last Action: Reviewed Simvastatin (Simvastatin) 40 Mg Tablet, 40 MG PO DAILY, (Reported) Entered as Reported by: JESUS FERRARO on 05/09/221522 Last Action: Reviewed Ubidecarenone (Coq-10) 30 Mg Capsule, 30 MG PO DAILY, (Reported) Entered as Reported by: JESUS FERRARO on 05/09/221522 Last Action: Reviewed Vitamin B Complex (B Complex) 1 Each Tablet, 1 EACH PO DAILY, (Reported) Entered as Reported by: JESUS FERRARO on 05/09/221522 Last Action: Reviewed Zinc (Zinc) 50 Mg Tablet, 50 MG PO DAILY, (Reported) Entered as Reported by: JESUS FERRARO on 05/09/221522 Last Action: Reviewed Past Vdmgcpg-Zzlwmr-Xycbvx Hx Patient Social History Smoking Status: Never a Smoker Alcohol Use?: No Have you traveled recently?: No Surgeries Surgeries: Abdominal (colostomy), Section, Orthopedic Cardiovascular Cardiac Disorders: High Cholesterol, Hypertension Psychosocial Behavioral Health Disorders: Anxiety Family Medical History Significant Family History: No Pertinent Family Hx Review of Systems-General Constitutional: No chills, No diaphoresis EENTM: No ear discharge, No hearing loss Respiratory: No cough, No dyspnea on exertion Cardiovascular: No chest pain, No edema Gastrointestinal: No constipation, No diarrhea Genitourinary: No decreased output, No discharge Musculoskeletal: No back pain, No gout Skin: No change in color, No change in hair/nails Psychiatric/Neurological: Denies Anxiety, Denies Depressed All Other Systems Reviewed Negative Unless Noted: Yes Physical Exam-General Problems Physical Exam Vital Signs Vital Signs - First Documented 05/16/22 05/16/22 05/16/22 01:00 08:02 09:56 Temp 36.9 Pulse 72 Resp 20 B/P (MAP) 119/53 (75) Pulse Ox 95 O2 Delivery Room Air Capillary Refill : General Appearance: WD/WN, no apparent distress HEENT: PERRL/EOMI, normal ENT inspection Neck: supple, normal inspection Respiratory: chest non-tender, no respiratory distress, no accessory muscle use Cardiovascular: no edema, no JVD Gastrointestinal: soft, tenderness (some tenderness noted along incisions ) Back: normal inspection, no CVA tenderness Extremities: normal range of motion, normal inspection Neurologic/Psychiatric: alert, normal mood/affect Skin: normal color, warm/dry Lymphatic: no adenopathy Data Review Labs Laboratory Tests 05/22/22 09:27: White Blood Count 10.6, Red Blood Count 3.49L, Hemoglobin 10.0L, Hematocrit 32L, Mean Corpuscular Volume 92, Mean Corpuscular Hemoglobin 29, Mean Corpuscular He moglobin Concent 31L, Red Cell Distribution Width 18.4H, Platelet Count 530H, Mean Platelet Volume 11.2, Immature Granulocyte % (Auto) 3, Neutrophils (%) (Auto) 74, Lymphocytes (%) (Auto) 8L, Monocytes (%) (Auto) 12, Eosinophils (%) (Auto) 1, Basophils (%) (Auto) 1, Neutrophils # (Auto) 7.9H, Lymphocytes # (Auto) 0.9L, Monocytes # (Auto) 1.3H, Eosinophils # (Auto) 0.1, Basophils # (Auto) 0.1, Immature Granulocyte # (Auto) 0.4H, Sodium Level 139, Potassium Level 4.1, Chloride Level 104, Carbon Dioxide Level 26, Anion Gap 9, Blood Urea Nitrogen 13, Creatinine 0.74, Estimat Glomerular Filtration Rate 84, BU N/Creatinine Ratio 18, Glucose Level 128H, Calcium Level 9.6 Assessment/Plan Assessment/Plan Assessment/Plan diffuse abdominal pain pneumoperitenum perforated hollow viscus s/p laparoscopic/open exploratory laparotomy with low anterior resection with end colostomy and splenic flexure mobilization Sepsis Cough/Shortness of breath anemia postoperative/dilutional Nausea Continue anti-emetic medications prn Continue to monitor, consider imaging in the future if symptoms do not resolve/worsen ARUN SHERMAN DO 05/22/222028: History of Present Illness History of Present Illness History of Present Illness Patient has been having nausea more yesterday and this morning. Almost felt like she was going to have emesis. Currently this has resolved. She has no appetite and food tastes bad this has been ever since she had Covid. Colostomy is functioning. Denies n/v fever sweats chills shortness of breath or chest pain at this time. Allergies and Home Medications Allergies Coded Allergies: Sulfa (Sulfonamide Antibiotics) (Verified Allergy, Unknown, 05/14/22) citalopram (Verified Allergy, Unknown, "night terrors", 05/14/22) "night terrors" codeine (Verified Allergy, Unknown, 05/14/22) "dizziness" Patient Home Medication List Home Medication List Reviewed: Yes Cholecalciferol (Vitamin D3) (Vitamin D3) 50 Mcg (2000 Unit) Capsule, 50 MCG PO DAILY, (Reported) Entered as Reported by: JESUS FERRARO on 05/09/221522 Last Action: Reviewed Fish Oil/Dha/Epa (Fish Oil 1,200 mg Fish Oil) 1,200 Mg-144 Mg-216 Mg Capsule, 1 EACH PO DAILY, (Reported) Entered as Reported by: JESUS FERRARO on 05/09/221522 Last Action: Reviewed Lutein (Lutein) 20 Mg Tablet, 20 MG PO DAILY, (Reported) Entered as Reported by: JESUS FERRARO on 05/09/221522 Last Action: Reviewed Magnesium Oxide (Magnesium) 400 Mg Magnesium Tablet, 400 MG PO DAILY, (Reported) Entered as Reported by: JESUS FERRARO on 05/09/221522 Last Action: Reviewed Meloxicam (Meloxicam) 15 Mg Tablet, 15 MG PO DAILY, (Reported) Entered as Reported by: JESUS FERRARO on 05/09/221522 Last Action: Reviewed Mv-Mn/Folic Acid/Calcium/Vit K (Women's 50 Plus Multivit Tab) 400 Mcg-500 Mg Calcium-20 Mcg Tablet, 1 EACH PO DAILY, (Reported) Entered as Reported by: JESUS FERRARO on 05/09/221522 Last Action: Reviewed Simvastatin (Simvastatin) 40 Mg Tablet, 40 MG PO DAILY, (Reported) Entered as Reported by: JESUS FERRARO on 05/09/221522 Last Action: Reviewed Ubidecarenone (Coq-10) 30 Mg Capsule, 30 MG PO DAILY, (Reported) Entered as Reported by: JESUS FERRARO on 05/09/221522 Last Action: Reviewed Vitamin B Complex (B Complex) 1 Each Tablet, 1 EACH PO DAILY, (Reported) Entered as Reported by: JESUS FERRARO on 8/10/22 1523 Last Action: Reviewed Zinc (Zinc) 50 Mg Tablet, 50 MG PO DAILY, (Reported) Entered as Reported by: JESUS CARPIONT on 05/09/22 1523 Last Action: Reviewed Past Emrhaxs-Qzbtgi-Eimeaq Hx Reviewed Nursing Assessment Reviewed/Agree w Nursing PMH: Yes Family Medical History Significant Family History: No Pertinent Family Hx Review of Systems-General EENTM: No ear discharge, No hearing loss Respiratory: No cough, No dyspnea on exertion Cardiovascular: No chest pain, No edema Gastrointestinal: No constipation, No diarrhea; nausea; No vomiting Genitourinary: No decreased output, No discharge Musculoskeletal: No back pain, No gout Skin: No change in color, No change in hair/nails Psychiatric/Neurological: Denies Anxiety, Denies Depressed All Other Systems Reviewed Negative Unless Noted: Yes (Negative excepted noted.) Physical Exam-General Problems Physical Exam General Appearance: WD/WN, no apparent distress HEENT: PERRL/EOMI, normal ENT inspection Neck: supple, normal inspection Respiratory: chest non-tender, no respiratory distress, no accessory muscle use Cardiovascular: no edema, no JVD Gastrointestinal: soft, tenderness (slight incisional tenderness, no signs of infection slight serous drainage, colostomy pink and productive) Back: normal inspection, no CVA tenderness Extremities: normal range of motion, normal inspection Neurologic/Psychiatric: alert, normal mood/affect Skin: normal color, warm/dry Lymphatic: no adenopathy Assessment/Plan Assessment/Plan Assessment/Plan diffuse abdominal pain pneumoperitenum perforated hollow viscus s/p laparoscopic/open exploratory laparotomy with low anterior resection with end colostomy and splenic flexure mobilization Sepsis Cough/Shortness of breath anemia postoperative/dilutional Nausea Continue anti-emetic medications prn bowels are functioning nausea symptoms resolved at this time colostomy care Continue to monitor, Supervisory-Addendum Brief Verification & Attestation Participated in pt care: history, MDM, physical Personally performed: exam, history, MDM, supervision of care Care discussed with: Medical Student Procedures: n/a Results interpretation: Verified all documentation Verification and Attestation of Medical Student E/M Service A medical student performed and documented this service in my presence. I reviewed and verified all information documented by the medical student and made modifications to such information, when appropriate. I personally performed the physical exam and medical decision making. Arun Sherman, May 22, 2022,20:32 BOOM ACOSTA May 22, 2022 12:59 ARUN SHERMAN DO May 22, 2022 20:29
--- NOTE | 2022-05-22 14:48 | Therapy Group Daily Note ---
Therapy Daily Group Note Patient Education Topic Energy Cons, Other List Below (Community Access) Exercises LE Seated Exercise, UE Exercise Session Ratio (pt:therapist): 3:1 Goal of Session: Education on ARU Expectations, Energy Conservation Tech., UE/LE Strengthing Goal Met for this Session: Yes Pt Benefit of Group: Contributions to Others, F/U Use of Strategies @Home, Increased Functional Safety, Increased Functional Strength, Improved Cognition, Recognition of Peers, Socialization Other/Notes Pt ambulated to PT/OT Group using FWW. PT/OT group consisted of introductions (name, place living, favorite restaurant), socialization, B UE/LE seated exercises and educational topics of energy conservation/community access. Pt actively listened to peers and appropriately introduced self. Pt was able to complete B UE/LE seated exercises correctly with skilled instruction. Pt was able to demonstrate understanding of educational topics by giving own personal strategies and routines. After therapy, pt lying in bed with call light/phone in reach. All needs met in room. Start Time: 13:00 Stop Time: 14:00 Total Billed Treatment Time: 60 Total Billed Treatment 1, GRP NICHELLEANNE STODDARD ASSOCIATE PUBLISHER May 22, 2022 14:48
--- NOTE | 2022-05-22 17:35 | Behavioral Health Consult ---
Consult- Consult Date Seen by Provider: May 21, 2022 Time Seen by Provider: 13:00 [facility] PSYCHOLOGICAL CONSULTATION PATIENT: Luna Szymanski DATE: 1945 DATES OF EVALUATION: 05/21/22 (13:00-14:00) DATE OF REPORT: 05/22/22 REFERRAL QUESTION: Luna Szymanski is a 76 year-old female who was admitted to the hospital due to issues with her colon. Dr. Gould asked for a psychological consultation for anxiety. TEST ADMINISTERED: Clinical Interview with Patient PRESENTING PROBLEMS: Luna Szymanski (who goes by Fely) reports that she had been completely independent until her colon ruptured a couple of weeks ago. She states that she experienced a great deal of abdominal pain and swelling in her knee and went to the hospital. She states that she required surgery to repair her ruptured colon. She states that she is ready to get back to herself and admits that she is not a patient person. She acknowledges that it will take time to recover from major surgery, but wants to be able to go back home. She also acknowledges that she cannot do stairs and that her sons do not want her to attempt to live in her tri-level house. She states that she will do whatever it takes to get better and is told that she is doing well in her rehab work. CURRENT/PREVIOUS MENTAL HEALTH TREATMENT: Luna reports talking to psychiatrist friends over the years but was unclear about how much therapy or treatment she received. She stated that she was told by a therapist to divorce her first as she appeared trapped. Her records did not indicate any psychotropic medication currently. MEDICAL HISTORY: See medical chart for detailed history. She reports having a perforated anterior section. RECREATIONAL DRUG USAGE: This area was not assessed. VOCATIONAL/EDUCATIONAL HISTORIES: Luna is currently retired. Luna reports that she most recently worked in [employer] and travelled extensively for 17 years. She states that she came back home when her sons wanted to see her and t ravelled the rest of the time. 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 FAMILY AND SOCIAL HISTORIES/SOCIAL SUPPORT: Luna reports being two times. She states that she currently lives by herself in [place], [place]. She reports being close to her son who lives in [place], [place] but somewhat estranged from her son who lives in [place], [place] because of his . She states that she wants to be closer to her granddaughters but gets to see her grandsons often. BEHAVIORAL OBSERVATIONS/MENTAL STATUS: The patient was seen in her hospital room as she was lying in bed in a hospital gown. She was pleasant throughout and answered each of the therapists questions. She displayed rapid speech and gave long answers to questions. She seemed to remember specific details well but sometimes lost track of what she was saying. She was difficult to follow at times and repeated herself on several occasions. Her affect was remarkable for anxiety. She reported being motivated to get better and ready to move forward. SUMMARY: Ms. Luna Szymanski is currently at the hospital due to a recent surgery on her abdomen/colon. She talked about being impatient and wanting to be healed already. She seemed full of anxiety but seemed to benefit from telling her story. DIAGNOSTIC IMPRESSIONS: F41.1 Generalized Anxiety Disorder, Provisional Thank you for the opportunity to consult on this patient. Copy Copies To 1: GABRIEL GOULD JEFFREY M PSYD May 22, 2022 17:35
[2022-05-22] MEDS: MELATONIN 3 MG TABLET PO PRN (20:52)
[2022-05-22 21:00] VITALS: BP 113/59
--- NOTE | 2022-05-23 06:18 | PM&R Progress Note ---
Subjective HPI/CC On Admission Date Seen by Provider: May 23, 2022 Time Seen by Provider: 08:30 Subjective/Events-last exam 05/23/2022: Pt is doing pretty well Needs skilled care Drainage from the midline Dry cough, Cleo silva initiated Overall very complicated 05/22/2022: Pt is doing about the same but will need skilled Psych eval because she is so tearful Dr. Walker consult for nausea and vomiting 05/21/2022: Pt is doing pretty well Ostomy output good Will discontinue telemetry Very talkative but becomes tearful at times, so will put in a behavioral health consult She just can't understand why she is so weak 05/20/2022: Doing well Cries easily No pain reported Sleeps well 05/19/2022: Patient doing pretty well Nausea persists so will initiate scheduled Zofran Patient sleeping well at night No other concerns 05/18/2022: Patient doing well Slept well last night No pain Zosyn DC 05/17/2022: Patient doing well Walking better telemetry maintained Antibiotics maintained FLYNN drain maintained 05/16/2022: Pt is doing really well Takes her pain medication regularly Telemetry maintained Lovenox still on board before transition to oral anticoagulation 05/15/2022: Doing well Improved overall Lovenox maintained until OAC CLD tolerated No pain reported Participating Review of Systems General: Fatigue, Malaise depression Objective Exam Vital Signs Vital Signs Date Time Temp Pulse Resp B/P (MAP) Pulse Ox O2 Delivery O2 Flow Rate FiO2 05/23/22 20:13 Room Air 05/23/22 20:11 37.5 87 22 105/65 (78) 94 Capillary Refill : General Appearance: No Apparent Distress, WD/WN, Chronically ill, Thin, Other (frail) HEENT: PERRL/EOMI, Normal ENT Inspection, Pharynx Normal Neck: Normal Inspection, Non Tender, Supple Respiratory: No Accessory Muscle Use, No Respiratory Distress Cardiovascular: No Edema, No JVD, Normal Peripheral Pulses Gastrointestinal: Normal Bowel Sounds, No Organomegaly, No Pulsatile Mass, Soft, Other (colostomy) Back: Normal Inspection, No CVA Tenderness, No Vertebral Tenderness Extremity: Normal Capillary Refill, Normal Inspection, Normal Range of Motion, Non Tender, No Calf Tenderness, No Pedal Edema Neurologic/Psychiatric: Alert, Oriented x3, No Motor/Sensory Deficits, Normal Mood/Affect, Motor Weakness (generalized) Skin: Normal Color, Warm/Dry Lymphatic: No Adenopathy Results/Procedures Lab Patient resulted labs reviewed. FIM Transfers Therapy Code Descriptions/Definitions Functional [place] Measure: 0=Not Assessed/NA 4=Minimal Assistance 1=Total Assistance 5=Supervision or Setup 2=Maximal Assistance 6=Modified [place] 3=Moderate Assistance 7=Complete IndependenceSCALE: Activities may be completed with or without assistive devices. 8-Chqljkbzuf-fliprss completes the activity by him/herself with no assistance from a helper. 5-Set-up or Clean-up Assistance-helper sets up or cleans up; patient completes activity. [place] assists only prior to or following the activity. 4-Supervision or Touching Assistance-helper provides verbal cues and/or touching/steadying and/or contact guard assistance as patient completes activity. Assistance may be provided throughout the activity or intermittently. 3-Partial/Moderate Assistance-helper does LESS THAN HALF the effort. [place] lifts, holds or supports trunk or limbs, but provides less than half the effort. 2-Substantial/Maximal Assistance-helper does MORE THAN HALF the effort. [place] lifts or holds trunk or limbs and provides more than half the effort. 9-Opojeizov-vwrmhu does ALL the effort. Patient does none of the effort to complete the activity. Or, the assistance of 2 or more helpers is required for the patient to complete the activity. If activity was not attempted, code reason: 7-Patient Refused. 9-Not Applicable-not attempted and the patient did not perform the activity before the current illness, exacerbation or injury. 10-Not Attempted due to Environmental Limitations-(lack of equipment, weather restraints, etc.). 88-Not Attempted due to Medical Conditions or Safety Concerns. Roll Left to Right (QC): 6 Sit to Lying (QC): 6 Sit to Stand (QC): 5 Chair/Krd-pz-Tvulm Xfer(QC): 4 Car Transfer (QC): 2 Gait Training Does the Patient Walk?: Yes Distance: 150' x2 Walk 10 feet (QC): 5 Walk 50 ft with 2 Turns(QC): 5 Walk 150 ft (QC): 5 Walking 10ft/uneven surface-QC: 4 Gait Persons Needed: 1 Gait Assistive Device: FWW Wheelchair Training Does the Pt Use a Wheelchair?: No Wheel 50 ft with 2 turns (QC): 9 Wheel 150 ft (QC): 9 Type of Wheelchair: N/A Stair Training Stair Training: Handrails/: 2 handrails #of Steps: 12 1 Step (curb) (QC): 88 4 Steps (QC): 4 12 Steps (QC): 4 Stairs: Pattern: Reciprocal Balance Picking up an Object (QC): 88 ADL-Treatment Eating (QC): 6 (Per pt report) Oral Hygiene (QC): 6 (Per pt and PT report) Shower/Bathe Self (QC): 5 (set up to cover dressings) Upper Body Dressing (QC): 6 (IND, pt gathered clothes from closet, no LOB) Lower Body Dressing (QC): 6 (IND donning/doffing LE clothing, pt gathered from closet, no LOB) On/Off Footwear (QC): 6 (IND donning/doffing gripper socks.) Toileting Hygiene (QC): 6 (IND) Toilet Transfer (QC): 6 (IND on/off toilet) Assessment/Plan Assessment and Plan Assess & Plan/Chief Complaint Assessment: Debility Myopathy New onset AF s/p RVR requiring ICU drip HTN HLP Loop recorder s/p severe sepsis from perforated sigmoid colon s/p colostomy Post op anemia due to acute blood loss Plan: Monitor closely Monitor hgb PT OT Pain control 05/15/2022: Monitor HR Lovenox Fall risk 05/16/2022: Monitor closely 05/17/2022: Monitor closely 05/18/2022: DC abx Monitor AF 05/19/2022: Nausea treatment 05/20/2022: Check labs in am Psych issues 05/21/2022: Behavioral health consult Monitor ostomy output 05/22/2022: Nausea treatment Needs SNF 05/23/2022: Supportive care Monitor pain (1) Atrial fibrillation with rapid ventricular response (2) Debility Status: Acute (3) Postoperative anemia due to acute blood loss Status: Acute (4) HLD (hyperlipidemia) Status: Chronic (5) HTN (hypertension) Status: Chronic (6) Severe sepsis Status: Acute (7) Perforated sigmoid colon Status: Acute GABRIEL CONNELL DO May 23, 2022 06:18
[2022-05-23] MEDS: CATHETER FLUSH 10 ML SYR IVP SCH ×3 (06:30→20:08)
[2022-05-23] MEDS: ONDANSETRON 4 MG (ZOFRAN) ORAL DISSOLVE TAB PO SCH ×3 (06:30→17:31)
[2022-05-23] MEDS: KCL 10 MEQ TAB (MICRO K) PO SCH (06:30)
[2022-05-23] MEDS: ENOXAPARIN 80 MG/0.8 ML (LOVENOX) SYR SC SCH (06:31)
[2022-05-23 07:45] VITALS: BP 105/55
--- NOTE | 2022-05-23 08:04 | Progress Note - Surgery ---
BOOM ACOSTA 05/23/22 0804: Subjective Date Seen by a Provider: May 23, 2022 Time Seen by a Provider: 08:01 Subjective/Events-last exam Pt is resting comfortably in chair eating breakfast. Pt notes improvement of nausea today. Pt has colostomy output. Pt has no other complaints at this time. Pt denies n/v, CP, SOB, and sweats. Review of Systems General: No Chills, No Night Sweats HEENT: No Head Aches, No Visual Changes Pulmonary: No Dyspnea, No Cough Cardiovascular: No: Chest Pain, Palpitations Gastrointestinal: No: Nausea, Vomiting Genitourinary: No Dysuria, No Frequency Musculoskeletal: No: neck pain, shoulder pain Neurological: No: Weakness, Numbness Objective Exam Vital Signs Date Time Temp Pulse Resp B/P (MAP) Pulse Ox O2 Delivery O2 Flow Rate FiO2 05/23/22 07:45 37.3 82 18 105/55 (72) 92 Room Air 05/22/22 21:00 37.8 86 18 113/59 (77) 95 Room Air 05/22/22 20:52 Room Air 05/22/22 09:00 Room Air I & O 05/23/22 07:00 Intake Total 1540 ml Balance 1540 ml Capillary Refill : General Appearance: No Apparent Distress, WD/WN, Chronically ill, Thin, Other (frail) HEENT: PERRL/EOMI, Normal ENT Inspection Neck: Normal Inspection, Non Tender, Supple Respiratory: No Accessory Muscle Use, No Respiratory Distress Cardiovascular: No Edema, No JVD Gastrointestinal: soft, tenderness (slight incisional tenderness, no signs of infection slight serous drainage, colostomy pink and productive) Extremity: Normal Inspection, Normal Range of Motion, No Calf Tenderness, No Pedal Edema Neurologic/Psychiatric: Alert, Oriented x3, Normal Mood/Affect, Motor Weakness (generalized) Skin: Normal Color, Warm/Dry Lymphatic: No Adenopathy Results Lab Laboratory Tests 05/22/22 09:27: White Blood Count 10.6, Red Blood Count 3.49L, Hemoglobin 10.0L, Hematocrit 32L, Mean Corpuscular Volume 92, Mean Corpuscular Hemoglobin 29, Mean Corpuscular Hemoglobin Concent 31L, Red Cell Distribution Width 18.4H, Platelet Count 530H, Mean Platelet Volume 11.2, Immature Granulocyte % (Auto) 3, Neutrophils (%) (Auto) 74, Lymphocytes (%) (Auto) 8L, Monocytes (%) (Auto) 12, Eosinophils (%) (Auto) 1, Basophils (%) (Auto) 1, Neutrophils # (Auto) 7.9H, Lymphocytes # (Auto) 0.9L, Monocytes # (Auto) 1.3H, Eosinophils # (Auto) 0.1, Basophils # (Auto) 0.1, Immature Granulocyte # (Auto) 0.4H, Sodium Level 139, Potassium Lev el 4.1, Chloride Level 104, Carbon Dioxide Level 26, Anion Gap 9, Blood Urea Nitrogen 13, Creatinine 0.74, Estimat Glomerular Filtration Rate 84, BUN/Creatinine Ratio 18, Glucose Level 128H, Calcium Level 9.6 Assessment/Plan Assessment/Plan Assessment/Plan diffuse abdominal pain pneumoperitenum perforated hollow viscus s/p laparoscopic/open exploratory laparotomy with low anterior resection with end colostomy and splenic flexure mobilization Sepsis Cough/Shortness of breath anemia postoperative/dilutional Nausea Continue anti-emetic medications prn bowels are functioning nausea symptoms resolved at this time colostomy care Continue to monitor, ARUN WALKER DO 05/23/222127: Subjective Subjective/Events-last exam Patient feeling well. Tolerating diet. Nausea improved. Colostomy with output. Using IS. Denies n/v fever sweats chills shortness of breath or chest pain. Objective Exam General Appearance: No Apparent Distress, Chronically ill HEENT: PERRL/EOMI, Normal ENT Inspection Neck: Normal Inspection, Non Tender Respiratory: Chest Non Tender, No Accessory Muscle Use, No Respiratory Distress Cardiovascular: Regular Rate, Rhythm, No JVD Gastrointestinal: soft, tenderness (slight incisional tenderness, no signs of infection slight serous drainage, colostomy pink and productive) Extremity: Normal Inspection, Normal Range of Motion, No Calf Tenderness Neurologic/Psychiatric: Alert, Oriented x3, Normal Mood/Affect, Motor Weakness (generalized) Skin: Normal Color, Warm/Dry Lymphatic: No Adenopathy Assessment/Plan Assessment/Plan Assessment/Plan diffuse abdominal pain pneumoperitenum perforated hollow viscus s/p laparoscopic/open exploratory laparotomy with low anterior resection with end colostomy and splenic flexure mobilization Sepsis Cough/Shortness of breath anemia postoperative/dilutional Nausea Continue anti-emetic medications prn bowels are functioning nausea symptoms resolved at this time colostomy care will sign off, call if needed Supervisory-Addendum Brief Verification & Attestation Participated in pt care: history, MDM, physical Personally performed: exam, history, MDM, supervision of care Care discussed with: Medical Student Procedures: n/a Results interpretation: Verified all documentation Verification and Attestation of Medical Student E/M Service A medical student performed and documented this service in my presence. I reviewed and verified all information documented by the medical student and made modifications to such information, when appropriate. I personally performed the physical exam and medical decision making. Arun Walker, May 23, 2022,21:28 BOOM ACOSTA May 23, 2022 08:04 ARUN WALKER DO May 23, 2022 21:28
--- NOTE | 2022-05-23 08:22 | Occupational Ther Daily Note ---
OT Current Status-Daily Note Subjective Pt up in recliner, agreeable to OT tx. Mental Status/Objective Patient Orientation: Person, Place, Situation ADL-Treatment Therapy Code Descriptions/Definitions Functional [place] Measure: 0=Not Assessed/NA 4=Minimal Assistance 1=Total Assistance 5=Supervision or Setup 2=Maximal Assistance 6=Modified [place] 3=Moderate Assistance 7=Complete IndependenceSCALE: Activities may be completed with or without assistive devices. 6-Wujkyazfoo-ubplnna completes the activity by him/herself with no assistance from a helper. 5-Set-up or Clean-up Assistance-helper sets up or cleans up; patient completes activity. [place] assists only prior to or following the activity. 4-Supervision or Touching Assistance-helper provides verbal cues and/or touching/steadying and/or contact guard assistance as patient completes activity. Assistance may be provided throughout the activity or intermittently. 3-Partial/Moderate Assistance-helper does LESS THAN HALF the effort. [place] lifts, holds or supports trunk or limbs, but provides less than half the effort. 2-Substantial/Maximal Assistance-helper does MORE THAN HALF the effort. [place] lifts or holds trunk or limbs and provides more than half the effort. 6-Xkcppyuqo-jksebn does ALL the effort. Patient does none of the effort to complete the activity. Or, the assistance of 2 or more helpers is required for the patient to complete the activity. If activity was not attempted, code reason: 7-Patient Refused. 9-Not Applicable-not attempted and the patient did not perform the activity before the current illness, exacerbation or injury. 10-Not Attempted due to Environmental Limitations-(lack of equipment, weather restraints, etc.). 88-Not Attempted due to Medical Conditions or Safety Concerns. Eating (QC): 6 Oral Hygiene (QC): 6 Upper Body Dressing (QC): 6 Lower Body Dressing (QC): 6 Toileting Hygiene (QC): 6 Other Treatment Pt in recliner, used FWW to gather clothes from closet, then transferred onto toilet in bathroom. Pt completed toileting and dressing, then stood at sink to complete oral care. Pt used FWW to perform functional mobility to therapy gym. OT tx focused on increasing BUE strength and activity tolerance. Pt completed x15 mins on arm bike, 20 Watt resistance, slow pace, 1 rest break. Pt then completed pegboard task, placing 1" pegs into foam pegboard, 1lb wrist weight BUEs. Pt required min verbal cues in order to continue alternating hands with task, completing x60 pegs. Pt used FWW to return to her room, completed toileting, then returned to recliner. Post tx, pt in recliner, call light in reach and all needs met. Education OT Patient Education: Correct positioning, Energy conservation, Modified ADL techniques, Progress toward Goal/Update tx plan, Purpose of tx/functional activities, Rehab process Teaching Recipient: Patient Teaching Methods: Discussion Response to Teaching: Verbalize Understanding OT Short Term Goals Short Term Goals Time Frame: May 30, 2022 Toileting hygiene: 4 Shower/bathe self: 4 Lower body dressin Putting on/taking off footwear: 4 OT Half-Way Goals Tinner Automatic Goals Time Frame: Jun 15, 2022 Eating (QC): 6 Oral Hygiene (QC): 6 Toileting Hygiene (QC): 6 Shower/Bathe Self (QC): 6 Upper Body Dressing (QC): 6 Lower Body Dressing (QC): 6 On/Off Footwear (QC): 6 Additional Goals: 1-Demonstrate ADL Tasks, 2-Verbalize Understanding, 3- ImproveStrength/Simona 1=Demonstrate adherence to instructed precautions during ADL tasks. 2=Patient will verbalize/demonstrate understanding of assistive devices/modifications for ADL. 3=Patient will improve strength/tolerance for activity to enable patient to perform ADL's. OT Education/Plan Problem List/Assessment Assessment: Decreased Activ Tolerance, Decreased UE Strength, Impaired I ADL's Discharge Recommendations Plan/Recommendations: Continue POC Treatment Plan/Plan of Care Patient would benefit from OT for education, treatment and training to promote independence in ADL's, mobility, safety and/or upper extremity function for ADL's. Plan of Care: ADL Retraining, Functional Mobility, Group Exercise/Act as Ind, UE Funct Exercise/Act Treatment Duration: Jun 15, 2022 Frequency: At least 5 of 7 days/Wk (IRF) Estimated Hrs Per Day: 1.5 hours per day Rehab Potential: Fair Time/GCodes Start Time: 07:45 Stop Time: 09:00 Total Time Billed (hr/min): 75 Billed Treatment Time 1, ADL 2 (30'), EX (15'), FA 2 (30') CRUMPACKER,TANNER OT May 23, 2022 08:21
[2022-05-23] MEDS: PANTOPRAZOLE 40 MG (PROTONIX) TAB PO SCH (08:49)
[2022-05-23] MEDS: SENNA W/DOCUSATE (SENOKOT S) TABLET PO SCH ×2 (09:00→19:48)
[2022-05-23] MEDS: polyethylene glycoL POWDER 17 GM (MIRALAX) PACK PO SCH ×2 (09:00→19:48)
[2022-05-23] MEDS: DOCUSATE SODIUM 100 MG (COLACE) CAP PO SCH ×2 (09:00→19:47)
--- NOTE | 2022-05-23 09:08 | Cardiology Progress Note ---
Subjective Date Seen by Provider: May 23, 2022 Time Seen by Provider: 08:10 Subjective/Events-last exam Patient is with PT, reports nausea improved today. Denies any chest pain Objective-Cardiology Exam Last Set of Vital Signs Vital Signs 05/23/22 05/23/22 07:45 09:15 Temp 37.3 Pulse 82 Resp 18 B/P (MAP) 105/55 (72) Pulse Ox 92 O2 Delivery Room Air I&O Intake and Output 05/23/22 00:00 Intake Total 1000 ml Output Total 50 ml Balance 950 ml Intake Oral 1000 ml Stool Total 50 ml # Voids 15 General: Alert, Oriented X3 HEENT: Atraumatic Heart: Regular Rate, Normal S1, Normal S2 Extremities: No Clubbing Skin: No Rashes, No Significant Lesion Neuro: Normal Speech Psych/Mental Status: Mental Status NL, Mood NL Results Lab A/P-Cardiology Admission Diagnosis PAF HTN HLP S/P perf sigmoid colon Assessment/Plan Paroxysmal atrial fibrillation, converted to sinus rhythm on amiodarone drip Patient is converted to sinus rhythm Interrogation of her loop recorder that was implanted in January 2022 showed no other episodes of atrial fibrillation. Currently in sinus rhythm. Continue to monitor Perforated sigmoid colon, status post colectomy. Recovering slowly from surgery Status post severe sepsis, improved. Acute renal insufficiency postoperatively. Improved, Continue to monitor renal function Hypertension, controlled, continue to monitor blood pressure Hyperlipidemia, monitor lipids DVT prophylaxis, maintained on Lovenox Supervisory-Addendum Brief Supervisory Addendum Participated in pt care: history, MDM, physical Personally performed: exam, history, MDM Care discussed with: MALICK Results interpretation: Verified all documentation Notes: Patient was seen and evaluated with Marcella, examination performed, management plan was discussed, agree with the current scribed note, I made few changes to the note using Italic font Patient was seen at bedside, laying comfortably Reporting improvement in her nausea Will switch Xarelto to Eliquis and monitor tolerance and response Monitor blood pressure MARCELLA VALERA May 23, 2022 09:08 ADRIAN OGDEN MD May 23, 2022 13:42
--- NOTE | 2022-05-23 09:31 | Speech Therapy Daily Note ---
Speech Daily Progress Note Subjective Date Seen by Provider: May 23, 2022 Time Seen by Provider: 09:00 The patient was seated upright in a recliner, awake and alert upon entrance to her room by the clinician. The patient greeted the clinician appropriately and was agreeable to participation in the cognitive linguistic treatment session. Objective The patient displayed improved participation on this date, denying nausea and stating she did feel slightly improved. The patient continues to require consistent redirection to topic and task, as she often discusses off-topic information. Colostomy Care: Colostomy care was introduced, discussed, and reviewed on this date. Due to the necessity of verbal redirection, limited information could be covered. The clinician attempted to have the patient provide reviewed information from her sessions with wound care. At this time, the patient is unable to provide information from previous colostomy care education. The clinician attempted recall of when the colostomy bag should be changed, however, the patient was unable to recall the information. The clinician provided the information to the patient and will continue education throughout subsequent treatment dates based on the handout provided by wound care. Assessment Assessment Current Status: Fair Progress Treatment Plan Continue Plan of Care Speech Short Term Goals Short Term Goals Short Term Goals 1. The patient will demonstrate 80% accuracy with executive functioning and memory tasks with mild clinician verbal and visual cueing. Time Frame-STG: Ten Days. Speech Alf Goals Alf Goals 1. The patient will demonstrate improved cognitive linguistic skills for safe discharge to the least restrictive environment. Time Frame: Two Weeks. Speech-Plan Treatment Plan Speech Therapy Treatment Plan: Continue Plan of Care Treatment Duration: May 15, 2022 Frequency: Modified Program (IRF) Estimated Hrs Per Day: Other Rehab Potential: Fair Safety Risks/Education Teaching Recipient: Patient Teaching Methods: Handout, Discussion Response to Teaching: Reinforcement Needed Education Topics Provided: Colostomy Care Time Speech Therapy Time In: 09:00 Speech Therapy Time Out: 09:30 Total Billed Time: 30 Billed Treatment Time [address] May 23, 2022 09:31
--- NOTE | 2022-05-23 12:23 | Physical Therapy Daily Note ---
PT Daily Note-Current Subjective Pt sitting up at EOB upon arrival. Pt agrees to PT. Mental Status Patient Orientation: Person, Confused, Place Transfers SCALE: Activities may be completed with or without assistive devices. 4-Nvqqufgitj-cajvkkl completes the activity by him/herself with no assistance from a helper. 5-Set-up or Clean-up Assistance-helper sets up or cleans up; patient completes activity. [place] assists only prior to or following the activity. 4-Supervision or Touching Assistance-helper provides verbal cues and/or touching/steadying and/or contact guard assistance as patient completes activity. Assistance may be provided throughout the activity or intermittently. 3-Partial/Moderate Assistance-helper does LESS THAN HALF the effort. [place] lifts, holds or supports trunk or limbs, but provides less than half the effort. 2-Substantial/Maximal Assistance-helper does MORE THAN HALF the effort. [place] lifts or holds trunk or limbs and provides more than half the effort. 2-Dhkzebmqa-bxgyfw does ALL the effort. Patient does none of the effort to complete the activity. Or, the assistance of 2 or more helpers is required for the patient to complete the activity. If activity was not attempted, code reason: 7-Patient Refused. 9-Not Applicable-not attempted and the patient did not perform the activity before the current illness, exacerbation or injury. 10-Not Attempted due to Environmental Limitations-(lack of equipment, weather restraints, etc.). 88-Not Attempted due to Medical Conditions or Safety Concerns. Sit to Stand (QC): 6 Toilet Transfer (QC): 6 Weight Bearing Full Weight Bearing Full Weight Bearing Gait Training Does the Patient Walk?: Yes Distance: 500' Walk 10 feet (QC): 6 Walk 50 ft with 2 Turns(QC): 6 Walk 150 ft (QC): 6 Gait Assistive Device: FWW Stair Training Stair Training: Handrails/: 2 handrails #of Steps: 4 1 Step (curb) (QC): 6 4 Steps (QC): 6 Exercises Seated Therapy Exercises: Ankle pumps, Long arc quads, Hip flexion, Hip abd/add, Glut set Seated Reps: 15 NuStep Minutes: 12 NuStep Workload: 4 Treatments TF to standing, uses BR before leaving room. Pt amb. in hallway, taking RB as needed. Pt uses NuStep then completes Seated EX. Pt completes set of 4 steps. Pt amb. in hallway before returning to room to rest in recliner. All needs met, call light in hand. Assessment Current Status: Good Progress Pt continues to be impulsive but can complete tasks given. PT [place] Gatherer Goals [place] Gatherer Goals PT Usp Goals Time Frame: Jun 09, 2022 Roll Left & Right (QC): 6 Sit to Lying (QC): 6 Lying-Sitting on Side/Bed(QC): 6 Sit to Stand (QC): 6 Chair/Sdp-gq-Iszew Xfer(QC): 6 Toilet Transfer (QC): 6 Car Transfer (QC): 6 Does the Patient Walk: Yes Walk 10 feet (QC): 6 Walk 50ft with 2 Turns (QC): 6 Walk 150 ft (QC): 6 Walking 10ft on Uneven Surface: 6 1 Step (curb) (QC): 6 4 Steps (QC): 6 12 Steps (QC): 6 Picking up an Object (QC): 6 Wheel 50 feet with 2 turns (QC: 9 Wheel 150 feet: 9 PT Plan Problem List Problem List: Safety Treatment/Plan Treatment Plan: Continue Plan of Care Treatment Plan: Bed Mobility, Education, Functional Activity [place], Functional Strength, Gait, Safety, Therapeutic Exercise, Transfers Treatment Duration: Jun 09, 2022 Frequency: At least 5 of 7 days/Wk (IRF) Estimated Hrs Per Day: 1.5 hours per day Patient and/or Family Agrees t: Yes Safety Risks/Education Patient Education: Safety Issues Teaching Recipient: Patient Response to Teaching: Reinforcement Needed Time/GCodes Time In: 1100 Time Out: 1215 Total Billed Treatment Time: 75 Total Billed Treatment 1, GT x2 (30m), EX x2 (30m) & FA (15m) ANNE CARR RECORDS CUSTODIAN May 23, 2022 12:23
[2022-05-23] MEDS: BENZONATATE 100 MG (TESSALON) CAPSULE PO PRN ×2 (13:48→22:01)
[2022-05-23] MEDS: ALPRAZolam 0.25 MG (XANAX) TAB PO PRN ×2 (13:51→22:01)
[2022-05-23] MEDS: APIXABAN 5 MG (ELIQUIS) TABLET PO SCH (20:08)
[2022-05-23 20:11] VITALS: BP 105/65
--- NOTE | 2022-05-24 06:03 | PM&R Progress Note ---
Subjective HPI/CC On Admission Date Seen by Provider: May 24, 2022 Time Seen by Provider: 11:30 Subjective/Events-last exam 05/24/2022: Patient about the same Needs skilled care Very inconsistent in her abilities Very chronically ill 05/23/2022: Pt is doing pretty well Needs skilled care Drainage from the midline Dry cough, Tessalon perles initiated Overall very complicated 05/22/2022: Pt is doing about the same but will need skilled Psych eval because she is so tearful Dr. Walker consult for nausea and vomiting 05/21/2022: Pt is doing pretty well Ostomy output good Will discontinue telemetry Very talkative but becomes tearful at times, so will put in a behavioral health consult She just can't understand why she is so weak 05/20/2022: Doing well Cries easily No pain reported Sleeps well 05/19/2022: Patient doing pretty well Nausea persists so will initiate scheduled Zofran Patient sleeping well at night No other concerns 05/18/2022: Patient doing well Slept well last night No pain Zosyn DC 05/17/2022: Patient doing well Walking better telemetry maintained Antibiotics maintained FLYNN drain maintained 05/16/2022: Pt is doing really well Takes her pain medication regularly Telemetry maintained Lovenox still on board before transition to oral anticoagulation 05/15/2022: Doing well Improved overall Lovenox maintained until OAC CLD tolerated No pain reported Participating Review of Systems General: Fatigue, Malaise depression Objective Exam Vital Signs Vital Signs Date Time Temp Pulse Resp B/P (MAP) Pulse Ox O2 Delivery O2 Flow Rate FiO2 05/24/22 21:10 Room Air 05/24/22 19:50 36.9 78 20 100/65 (77) 95 Capillary Refill : General Appearance: No Apparent Distress, Chronically ill HEENT: PERRL/EOMI, Normal ENT Inspection Neck: Normal Inspection, Non Tender Respiratory: Chest Non Tender, No Accessory Muscle Use, No Respiratory Distress Cardiovascular: Regular Rate, Rhythm, No JVD Gastrointestinal: Normal Bowel Sounds, No Organomegaly, No Pulsatile Mass, Soft, Other (colostomy) Back: Normal Inspection, No CVA Tenderness, No Vertebral Tenderness Extremity: Normal Inspection, Normal Range of Motion, No Calf Tenderness Neurologic/Psychiatric: Alert, Oriented x3, Normal Mood/Affect, Motor Weakness (generalized) Skin: Normal Color, Warm/Dry Lymphatic: No Adenopathy Results/Procedures Lab Patient resulted labs reviewed. FIM Transfers Therapy Code Descriptions/Definitions Functional [place] Measure: 0=Not Assessed/NA 4=Minimal Assistance 1=Total Assistance 5=Supervision or Setup 2=Maximal Assistance 6=Modified [place] 3=Moderate Assistance 7=Complete IndependenceSCALE: Activities may be completed with or without assistive devices. 2-Pgenjaenab-zheewdv completes the activity by him/herself with no assistance from a helper. 5-Set-up or Clean-up Assistance-helper sets up or cleans up; patient completes activity. [place] assists only prior to or following the activity. 4-Supervision or Touching Assistance-helper provides verbal cues and/or touching/steadying and/or contact guard assistance as patient completes activity. Assistance may be provided throughout the activity or intermittently. 3-Partial/Moderate Assistance-helper does LESS THAN HALF the effort. [place] lif ts, holds or supports trunk or limbs, but provides less than half the effort. 2-Substantial/Maximal Assistance-helper does MORE THAN HALF the effort. [place] lifts or holds trunk or limbs and provides more than half the effort. 7-Qkyblnewq-yeezqx does ALL the effort. Patient does none of the effort to complete the activity. Or, the assistance of 2 or more helpers is required for the patient to complete the activity. If activity was not attempted, code reason: 7-Patient Refused. 9-Not Applicable-not attempted and the patient did not perform the activity before the current illness, exacerbation or injury. 10-Not Attempted due to Environmental Limitations-(lack of equipment, weather restraints, etc.). 88-Not Attempted due to Medical Conditions or Safety Concerns. Roll Left to Right (QC): 6 Sit to Lying (QC): 6 Sit to Stand (QC): 6 Chair/Gog-vm-Pffxo Xfer(QC): 4 Car Transfer (QC): 2 Gait Training Does the Patient Walk?: Yes Distance: 500' Walk 10 feet (QC): 6 Walk 50 ft with 2 Turns(QC): 6 Walk 150 ft (QC): 6 Walking 10ft/uneven surface-QC: 4 Gait Persons Needed: 1 Gait Assistive Device: FWW Wheelchair Training Does the Pt Use a Wheelchair?: No Wheel 50 ft with 2 turns (QC): 9 Wheel 150 ft (QC): 9 Type of Wheelchair: N/A Stair Training Stair Training: Handrails/: 2 handrails #of Steps: 4 1 Step (curb) (QC): 6 4 Steps (QC): 6 12 Steps (QC): 4 Stairs: Pattern: Reciprocal Balance Picking up an Object (QC): 88 ADL-Treatment Eating (QC): 6 Oral Hygiene (QC): 6 Shower/Bathe Self (QC): 5 (set up to cover dressings) Upper Body Dressing (QC): 6 Lower Body Dressing (QC): 6 On/Off Footwear (QC): 6 (IND donning/doffing gripper socks.) Toileting Hygiene (QC): 6 Toilet Transfer (QC): 6 (IND on/off toilet) Assessment/Plan Assessment and Plan Assess & Plan/Chief Complaint Assessment: Debility Myopathy New onset AF s/p RVR requiring ICU drip HTN HLP Loop recorder s/p severe sepsis from perforated sigmoid colon s/p colostomy Post op anemia due to acute blood loss Plan: Monitor closely Monitor hgb PT OT Pain control 05/15/2022: Monitor HR Lovenox Fall risk 05/16/2022: Monitor closely 05/17/2022: Monitor closely 05/18/2022: DC abx Monitor AF 05/19/2022: Nausea treatment 05/20/2022: Check labs in am Psych issues 05/21/2022: Behavioral health consult Monitor ostomy output 05/22/2022: Nausea treatment Needs SNF 05/23/2022: Supportive care Monitor pain 05/24/2022: Supportive care Await fdc (1) Atrial fibrillation with rapid ventricular response (2) Debility Status: Acute (3) Postoperative anemia due to acute blood loss Status: Acute (4) HLD (hyperlipidemia) Status: Chronic (5) HTN (hypertension) Status: Chronic (6) Severe sepsis Status: Acute (7) Perforated sigmoid colon Status: Acute GABRIEL CONNELL DO May 24, 2022 06:02
[2022-05-24] MEDS: ONDANSETRON 4 MG (ZOFRAN) ORAL DISSOLVE TAB PO SCH ×3 (06:12→17:32)
[2022-05-24] MEDS: KCL 10 MEQ TAB (MICRO K) PO SCH (06:12)
[2022-05-24] MEDS: CATHETER FLUSH 10 ML SYR IVP SCH ×3 (06:13→21:10)
[2022-05-24 07:23] VITALS: BP 116/62
[2022-05-24] MEDS: DOCUSATE SODIUM 100 MG (COLACE) CAP PO SCH ×2 (07:25→21:09)
[2022-05-24] MEDS: polyethylene glycoL POWDER 17 GM (MIRALAX) PACK PO SCH ×2 (07:25→21:00)
[2022-05-24] MEDS: ALPRAZolam 0.25 MG (XANAX) TAB PO PRN ×2 (07:26→21:09)
[2022-05-24] MEDS: APIXABAN 5 MG (ELIQUIS) TABLET PO SCH ×2 (07:26→21:09)
[2022-05-24] MEDS: SENNA W/DOCUSATE (SENOKOT S) TABLET PO SCH ×2 (07:26→21:00)
[2022-05-24] MEDS: PANTOPRAZOLE 40 MG (PROTONIX) TAB PO SCH (07:26)
--- NOTE | 2022-05-24 08:25 | Cardiology Progress Note ---
Subjective Date Seen by Provider: May 24, 2022 Time Seen by Provider: 08:20 Subjective/Events-last exam Patient up in bedroom doing ADLs. Denies any chest pain or palpitations. Objective-Cardiology Exam Last Set of Vital Signs Vital Signs 05/24/22 07:23 Temp 35.0 Pulse 97 Resp 20 B/P (MAP) 116/62 (80) Pulse Ox 95 O2 Delivery Room Air I&O Intake and Output 05/24/22 00:00 Intake Total 940 ml Balance 940 ml Intake Oral 940 ml # Voids 7 General: Alert, Oriented X3 HEENT: Atraumatic Heart: Regular Rate, Normal S1, Normal S2 Extremities: No Clubbing Skin: No Rashes, No Significant Lesion Neuro: Normal Speech Psych/Mental Status: Mental Status NL, Mood NL A/P-Cardiology Admission Diagnosis PAF HTN HLP S/P perf sigmoid colon Assessment/Plan Paroxysmal atrial fibrillation, converted to sinus rhythm on amiodarone drip Patient is converted to sinus rhythm Interrogation of her loop recorder that was implanted in January 2022 showed no other episodes of atrial fibrillation. Currently in sinus rhythm. Continue to monitor Lovenox discontinued and started on Eliquis. Perforated sigmoid colon, status post colectomy. Recovering slowly from surgery Status post severe sepsis, improved. Acute renal insufficiency postoperatively. Improved, Continue to monitor renal function Hypertension, controlled, continue to monitor blood pressure Hyperlipidemia, monitor lipids Anxiety/depression, management per medical services. Supervisory-Addendum Brief Supervisory Addendum Participated in pt care: history, MDM, physical Personally performed: exam, history, MDM Care discussed with: MALICK Results interpretation: Verified all documentation Notes: Patient was seen and evaluated with Marcella, examination performed, management plan was discussed, agree with the current scribed note, I made few changes to the note using Italic font Patient was seen during physical therapy session, still having dizziness Denied any chest pain or palpitation. Continue current medication I will evaluate carotid ultrasound MARCELLA VALERA May 24, 2022 08:25 ADRIAN OGDEN MD May 24, 2022 10:10
--- NOTE | 2022-05-24 08:41 | Occupational Ther Daily Note ---
OT Current Status-Daily Note Subjective Pt appears very anxious today, crying randomly throughout session. When asked about what she was anxious about, she doesn't feels like she is able to manage at home. Pt also states she is depressed, when asked why, she states her daughter in law doesn't like her. Mental Status/Objective Patient Orientation: Person, Place, Situation ADL-Treatment Therapy Code Descriptions/Definitions Functional [place] Measure: 0=Not Assessed/NA 4=Minimal Assistance 1=Total Assistance 5=Supervision or Setup 2=Maximal Assistance 6=Modified [place] 3=Moderate Assistance 7=Complete IndependenceSCALE: Activities may be completed with or without assistive devices. 6-Ajjoolulnh-hrgtkam completes the activity by him/herself with no assistance from a helper. 5-Set-up or Clean-up Assistance-helper sets up or cleans up; patient completes activity. [place] assists only prior to or following the activity. 4-Supervision or Touching Assistance-helper provides verbal cues and/or touching/steadying and/or contact guard assistance as patient completes activity. Assistance may be provided throughout the activity or intermittently. 3-Partial/Moderate Assistance-helper does LESS THAN HALF the effort. [place] lifts, holds or supports trunk or limbs, but provides less than half the effort. 2-Substantial/Maximal Assistance-helper does MORE THAN HALF the effort. [place] lifts or holds trunk or limbs and provides more than half the effort. 5-Cjgblkbop-oehqea does ALL the effort. Patient does none of the effort to complete the activity. Or, the assistance of 2 or more helpers is required for the patient to complete the activity. If activity was not attempted, code reason: 7-Patient Refused. 9-Not Applicable-not attempted and the patient did not perform the activity before the current illness, exacerbation or injury. 10-Not Attempted due to Environmental Limitations-(lack of equipment, weather restraints, etc.). 88-Not Attempted due to Medical Conditions or Safety Concerns. Lower Body Dressing (QC): 6 (IND with donning pants.) Toileting Hygiene (QC): 6 Other Treatment Pt in recliner, agreeable to OT Tx. Pt reports anxiety surrounding her ability to go home. OT attempted to provide education on how pt is independent with ADLs, but pt continues to talk over the OT and doesn't appear to listen to what OT was saying. Pt used FWW in room in order to use bathroom, LBD, and oral care. Pt then performed functional mobility to therapy gym, cues to take larger steps due to shuffling of feet. In order to increase BUE Strength and activity tolerance, pt completed arm bike x15 mins, 20 Watt resistance, very slow pace. Pt required frequent verbal cues to increase pace on arm bike in order for timer on arm bike to register. Pt returned to her room using FWW, no LOB. Post tx, pt in recliner, call light in reach and all needs met. Education OT Patient Education: Correct positioning, Energy conservation, Modified ADL techniques, Progress toward Goal/Update tx plan, Purpose of tx/functional a ctivities, Rehab process Teaching Recipient: Patient Teaching Methods: Discussion Response to Teaching: Verbalize Understanding OT Short Term Goals Short Term Goals Time Frame: May 30, 2022 Toileting hygiene: 4 Shower/bathe self: 4 Lower body dressin Putting on/taking off footwear: 4 OT Mcc Goals Assistant Front Office Manager Goals Time Frame: Jun 15, 2022 Eating (QC): 6 Oral Hygiene (QC): 6 Toileting Hygiene (QC): 6 Shower/Bathe Self (QC): 6 Upper Body Dressing (QC): 6 Lower Body Dressing (QC): 6 On/Off Footwear (QC): 6 Additional Goals: 1-Demonstrate ADL Tasks, 2-Verbalize Understanding, 3-ImproveStrength/[place] 1=Demonstrate adherence to instructed precautions during ADL tasks. 2=Patient will verbalize/demonstrate understanding of assistive devices/modifications for ADL. 3=Patient will improve strength/tolerance for activity to enable patient to perform ADL's. OT Education/Plan Problem List/Assessment Assessment: Decreased Activ Tolerance, Decreased UE Strength, Impaired Funct Balance, Impaired I ADL's, Impaired Self-Care Skills Discharge Recommendations Plan/Recommendations: Continue POC Treatment Plan/Plan of Care Patient would benefit from OT for education, treatment and training to promote independence in ADL's, mobility, safety and/or upper extremity function for ADL's. Plan of Care: ADL Retraining, Functional Mobility, Group Exercise/Act as Ind, UE Funct Exercise/Act Treatment Duration: Jun 15, 2022 Frequency: At least 5 of 7 days/Wk (IRF) Estimated Hrs Per Day: 1.5 hours per day Rehab Potential: Fair Time/GCodes Start Time: 07:45 Stop Time: 09:00 Total Time Billed (hr/min): 75 Billed Treatment Time 1, ADL 3 (45'), EX (30') TANNER SOMMER OT May 24, 2022 08:41
--- NOTE | 2022-05-24 10:32 | Speech Therapy Daily Note ---
Speech Daily Progress Note Subjective Date Seen by Provider: May 24, 2022 Time Seen by Provider: 09:00 The patient was seated upright in a recliner, awake and alert upon entrance to her room by the clinician. The patient greeted the clinician appropriately and was agreeable to participation in the cognitive linguistic treatment session. Objective The patient is displaying an increase in avoidance behaviors on this date, requiring maximum verbal encouragement and redirection for limited participation in the skilled treatment session. The clinician stated and reviewed the importance of colostomy care and the patient's inability to care for the colostomy as a barrier to her discharge to an assisted living community. The patient displays continued limited motivation and participation throughout colostomy education (review of handout provided by wound care). The patient stated, "I can't remember." which the clinician reminde d the patient is the reasoning for the printed handout. The patient followed with, "I'm not good at instructions." which the clinician stated was the reasoning for continued daily practice and repetition. The patient finally stated, "I can't." The clinician continues to encourage review of the printed, laminated instructions in the patient's room and continued attempts at participa tion in care. The patient's self-limiting behaviors directly impact her ability for a more independent discharge plan. The patient's son, Ho, requested the clinician contact him with results of the patient's cognitive assessments, . The clinician will contact the patient's son as soon as able to discuss the patient's results of within normal limits on two assessments provided, Assessment Assessment Current Status: Poor Progress Treatment Plan Continue Plan of Care Speech Short Term Goals Short Term Goals Short Term Goals 1. The patient will demonstrate 80% accuracy with executive functioning and memory tasks with mild clinician verbal and visual cueing. Time Frame-STG: Ten Days. Speech Group Home Goals Group Home Goals 1. The patient will demonstrate improved cognitive linguistic skills for safe discharge to the least restrictive environment. Time Frame: Two Weeks. Speech-Plan Treatment Plan Speech Therapy Treatment Plan: Continue Plan of Care Treatment Duration: May 15, 2022 Frequency: Modified Program (IRF) Estimated Hrs Per Day: Other Rehab Potential: Fair Safety Risks/Education Teaching Recipient: Patient Teaching Methods: Discussion Response to Teaching: Reinforcement Needed Education Topics Provided: Colostomy Education Time Speech Therapy Time In: 09:00 Speech Therapy Time Out: 09:30 Total Billed Time: 30 Billed Treatment Time 1, BOO ESPARZA May 24, 2022 10:32
--- NOTE | 2022-05-24 10:59 | Physical Therapy Daily Note ---
PT Daily Note-Current Subjective Pt. reluctantly agrees to Rx. Pain Numeric Pain Scale: 6 Location: Medial Location Body Site: Abdomen Pain Description: Ache Mental Status Attachments: Drains Transfers SCALE: Activities may be completed with or without assistive devices. 6-Hemxmespzh-irxjixu completes the activity by him/herself with no assistance from a helper. 5-Set-up or Clean-up Assistance-helper sets up or cleans up; patient completes activity. [place] assists only prior to or following the activity. 4-Supervision or Touching Assistance-helper provides verbal cues and/or touching/steadying and/or contact guard assistance as patient completes activity. Assistance may be provided throughout the activity or intermittently. 3-Partial/Moderate Assistance-helper does LESS THAN HALF the effort. [place] lifts, holds or supports trunk or limbs, but provides less than half the effort. 2-Substantial/Maximal Assistance-helper does MORE THAN HALF the effort. [place] lifts or holds trunk or limbs and provides more than half the effort. 6-Cmjoonfyi-mnfojz does ALL the effort. Patient does none of the effort to complete the activity. Or, the assistance of 2 or more helpers is required for the patient to complete the activity. If activity was not attempted, code reason: 7-Patient Refused. 9-Not Applicable-not attempted and the patient did not perform the activity before the current illness, exacerbation or injury. 10-Not Attempted due to Environmental Limitations-(lack of equipment, weather restraints, etc.). 88-Not Attempted due to Medical Conditions or Safety Concerns. Roll Left & Right (QC): 6 Sit to Lying (QC): 6 Lying to Sitting/Side of Bed(Q: 6 Sit to Stand (QC): 6 Chair/Khl-wk-Upzhu Xfer(QC): 6 Toilet Transfer (QC): 6 Weight Bearing Full Weight Bearing Full Weight Bearing Gait Training Does the Patient Walk?: Yes Walk 10 feet (QC): 6 Walk 50 ft with 2 Turns(QC): 6 Walk 150 ft (QC): 6 Gait Persons Needed: 1 Gait Assistive Device: FWW pt. needs cues for alignment and to pick feet up , not scoot Stair Training Stair Training: Handrails/: 2 handrails #of Steps: 4 4 Steps (QC): 4 Stairs: Pattern: Reciprocal Exercises Seated Therapy Exercises: Ankle pumps, Sit to stand, Long arc quads, Hip flexion, Hip abd/add Seated Reps: 12 NuStep Minutes: 10 NuStep Workload: 2 Treatments as above TRFs, gait, LE ex, steps, needs redirected back to task, easily distracted Assessment Current Status: Good Progress PT Funeral Pre Need Consultant Goals Funeral Pre Need Consultant Goals PT Funeral Pre Need Consultant Goals Time Frame: Jun 09, 2022 Roll Left & Right (QC): 6 Sit to Lying (QC): 6 Lying-Sitting on Side/Bed(QC): 6 Sit to Stand (QC): 6 Chair/Pxc-gz-Bxasy Xfer(QC): 6 Toilet Transfer (QC): 6 Car Transfer (QC): 6 Does the Patient Walk: Yes Walk 10 feet (QC): 6 Walk 50ft with 2 Turns (QC): 6 Walk 150 ft (QC): 6 Walking 10ft on Uneven Surface: 6 1 Step (curb) (QC): 6 4 Steps (QC): 6 12 Steps (QC): 6 Picking up an Object (QC): 6 Wheel 50 feet with 2 turns (QC: 9 Wheel 150 feet: 9 PT Plan Treatment/Plan Treatment Plan: Continue Plan of Care Treatment Plan: Bed Mobility, Education, Functional Activity [place], Functional Strength, Gait, Safety, Therapeutic Exercise, Transfers Treatment Duration: Jun 09, 2022 Frequency: At least 5 of 7 days/Wk (IRF) Estimated Hrs Per Day: 1.5 hours per day Patient and/or Family Agrees t: Yes Safety Risks/Education Patient Education: Gait Training, Transfer Techniques, Steps, Correct Positioning, Disease Process, Safety Issues Teaching Recipient: Patient Teaching Methods: Demonstration, Discussion Response to Teaching: Verbalize Understanding, Return Demonstration, Reinforcement Needed Time/GCodes Time In: 1000 Time Out: 1100 Total Billed Treatment Time: 60 Total Billed Treatment 1,EX15m,GT20m,FA25m REJI YAP INDUSTRIAL RELATIONS COMMISSIONER May 24, 2022 10:59
[2022-05-24] MEDS: BENZONATATE 100 MG (TESSALON) CAPSULE PO PRN ×2 (11:20→21:09)
--- NOTE | 2022-05-24 11:49 | Diagnostic Imaging Report ---
PROCEDURE: US carotid duplex, bilateral. TECHNIQUE: Multiple real-time grayscale images were obtained over the carotid arteries in various projections, bilaterally. Additional spectral analysis and color Doppler duplex images were also obtained. INDICATION: Dizziness. Minimal plaque is noted bilaterally. Velocities appear normal bilaterally. No velocity elevation or stenosis is seen. Both vertebral arteries show antegrade flow. IMPRESSION: No evidence of a hemodynamically significant stenosis. Parameters based on the consensus panel Piper-Scale and Doppler ultrasound criteria published July 2003, Radiology, Volume 229. DOPPLER (peak systolic velocity M/S Right Left CCA .67 .87 ICA Proximal .48 .94 ICA Mid .35 .99 ICA Distal .58 .81 RATIO .88 1.1 ECA .80 1.0 VERT .65 .31 Dictated by: Dictated on workstation # [id number]
--- NOTE | 2022-05-24 15:01 | Physical Therapy Daily Note ---
PT Daily Note-Current Subjective Pt. states she enjoyed visiting with the assignment editor Pain Numeric Pain Scale: 4 Location: Medial Location Body Site: Abdomen Mental Status Attachments: Drains needs repeated instruction for supine LE ex Transfers SCALE: Activities may be completed with or without assistive devices. 6-Raygettljb-qmjwfui completes the activity by him/herself with no assistance from a helper. 5-Set-up or Clean-up Assistance-helper sets up or cleans up; patient completes activity. [place] assists only prior to or following the activity. 4-Supervision or Touching Assistance-helper provides verbal cues and/or touching/steadying and/or contact guard assistance as patient completes activity. Assistance may be provided throughout the activity or intermittently. 3-Partial/Moderate Assistance-helper does LESS THAN HALF the effort. [place] lifts, holds or supports trunk or limbs, but provides less than half the effort. 2-Substantial/Maximal Assistance-helper does MORE THAN HALF the effort. [place] lifts or holds trunk or limbs and provides more than half the effort. 3-Yumwjmcue-fdstyi does ALL the effort. Patient does none of the effort to complete the activity. Or, the assistance of 2 or more helpers is required for the patient to complete the activity. If activity was not attempted, code reason: 7-Patient Refused. 9-Not Applicable-not attempted and the patient did not perform the activity before the current illness, exacerbation or injury. 10-Not Attempted due to Environmental Limitations-(lack of equipment, weather restraints, etc.). 88-Not Attempted due to Medical Conditions or Safety Concerns. pt. TRFd sit to stand and sit to sup indep Weight Bearing Full Weight Bearing Full Weight Bearing Exercises Supine Ex: Bridging, Ankle pumps, Quad Set, Rolling, Glut sets, Heel Slides, Short Arc Quads, Scooting, Straight leg raise, Hip abd/add Supine Reps: 15 Assessment Current Status: Good Progress PT Senior Living Goals Development Vice President Goals PT Development Vice President Goals Time Frame: Jun 09, 2022 Roll Left & Right (QC): 6 Sit to Lying (QC): 6 Lying-Sitting on Side/Bed(QC): 6 Sit to Stand (QC): 6 Chair/Vym-pi-Zixur Xfer(QC): 6 Toilet Transfer (QC): 6 Car Transfer (QC): 6 Does the Patient Walk: Yes Walk 10 feet (QC): 6 Walk 50ft with 2 Turns (QC): 6 Walk 150 ft (QC): 6 Walking 10ft on Uneven Surface: 6 1 Step (curb) (QC): 6 4 Steps (QC): 6 12 Steps (QC): 6 Picking up an Object (QC): 6 Wheel 50 feet with 2 turns (QC: 9 Wheel 150 feet: 9 PT Plan Treatment/Plan Treatment Plan: Continue Plan of Care Treatment Plan: Bed Mobility, Education, Functional Activity [place], Functional Strength, Gait, Safety, Therapeutic Exercise, Transfers Treatment Duration: Jun 09, 2022 Frequency: At least 5 of 7 days/Wk (IRF) Estimated Hrs Per Day: 1.5 hours per day Patient and/or Family Agrees t: Yes Safety Risks/Education Patient Education: Transfer Techniques, Correct Positioning Response to Teaching: Reinforcement Needed Time/GCodes Time In: 1400 Time Out: 1430 Total Billed Treatment Time: 30 Total Billed Treatment 1,EX30m REJI YAP DIAGNOSTIC ASSISTANT May 24, 2022 15:01
[2022-05-24 19:50] VITALS: BP 100/65
[2022-05-25] MEDS: ONDANSETRON 4 MG (ZOFRAN) ORAL DISSOLVE TAB PO SCH ×3 (06:11→17:10)
[2022-05-25] MEDS: KCL 10 MEQ TAB (MICRO K) PO SCH (06:11)
[2022-05-25] MEDS: CATHETER FLUSH 10 ML SYR IVP SCH ×3 (06:13→21:19)
--- NOTE | 2022-05-25 06:14 | PM&R Progress Note ---
Subjective HPI/CC On Admission Date Seen by Provider: May 25, 2022 Time Seen by Provider: 12:30 Subjective/Events-last exam 05/25/2022: Patient ready for discharge to skilled No other concerns Cough is improved Using incentive spirometer 05/24/2022: Patient about the same Needs skilled care Very inconsistent in her abilities Very chronically ill 05/23/2022: Pt is doing pretty well Needs skilled care Drainage from the midline Dry cough, Tessalon perles initiated Overall very complicated 05/22/2022: Pt is doing about the same but will need skilled Psych eval because she is so tearful Dr. Walker consult for nausea and vomiting 05/21/2022: Pt is doing pretty well Ostomy output good Will discontinue telemetry Very talkative but becomes tearful at times, so will put in a behavioral health consult She just can't understand why she is so weak 05/20/2022: Doing well Cries easily No pain reported Sleeps well 05/19/2022: Patient doing pretty well Nausea persists so will initiate scheduled Zofran Patient sleeping well at night No other concerns 05/18/2022: Patient doing well Slept well last night No pain Zosyn DC 05/17/2022: Patient doing well Walking better telemetry maintained Antibiotics maintained FLYNN drain maintained 05/16/2022: Pt is doing really well Takes her pain medication regularly Telemetry maintained Lovenox still on board before transition to oral anticoagulation 05/15/2022: Doing well Improved overall Lovenox maintained until OAC CLD tolerated No pain reported Participating Review of Systems General: Fatigue, Malaise depression Objective Exam Vital Signs Vital Signs Date Time Temp Pulse Resp B/P (MAP) Pulse Ox O2 Delivery O2 Flow Rate FiO2 05/25/22 21:19 37.2 75 16 108/57 (74) 99 Room Air Capillary Refill : General Appearance: No Apparent Distress, Chronically ill HEENT: PERRL/EOMI, Normal ENT Inspection Neck: Normal Inspection, Non Tender Respiratory: Chest Non Tender, No Accessory Muscle Use, No Respiratory Distress Cardiovascular: Regular Rate, Rhythm, No JVD Gastrointestinal: Normal Bowel Sounds, No Organomegaly, No Pulsatile Mass, Soft, Other (colostomy) Back: Normal Inspection, No CVA Tenderness, No Vertebral Tenderness Extremity: Normal Inspection, Normal Range of Motion, No Calf Tenderness Neurologic/Psychiatric: Alert, Oriented x3, Normal Mood/Affect, Motor Weakness (generalized) Skin: Normal Color, Warm/Dry Lymphatic: No Adenopathy Results/Procedures Lab Patient resulted labs reviewed. FIM Transfers Therapy Code Descriptions/Definitions Functional [place] Measure: 0=Not Assessed/NA 4=Minimal Assistance 1=Total Assistance 5=Supervision or Setup 2=Maximal Assistance 6=Modified [place] 3=Moderate Assistance 7=Complete IndependenceSCALE: Activities may be completed with or without assistive devices. 8-Tbtlzwrife-thqhhcp completes the activity by him/herself with no assistance f rom a helper. 5-Set-up or Clean-up Assistance-helper sets up or cleans up; patient completes activity. [place] assists only prior to or following the activity. 4-Supervision or Touching Assistance-helper provides verbal cues and/or touching/steadying and/or contact guard assistance as patient completes activity. Assistance may be provided throughout the activity or intermittently. 3-Partial/Moderate Assistance-helper does LESS THAN HALF the effort. [place] lifts, holds or supports trunk or limbs, but provides less than half the effort. 2-Substantial/Maximal Assistance-helper does MORE THAN HALF the effort. [place] lifts or holds trunk or limbs and provides more than half the effort. 9-Qwtynuusw-ahpvrx does ALL the effort. Patient does none of the effort to complete the activity. Or, the assistance of 2 or more helpers is required for the patient to complete the activity. If activity was not attempted, code reason: 7-Patient Refused. 9-Not Applicable-not attempted and the patient did not perform the activity before the current illness, exacerbation or injury. 10-Not Attempted due to Environmental Limitations-(lack of equipment, weather restraints, etc.). 88-Not Attempted due to Medical Conditions or Safety Concerns. Roll Left to Right (QC): 6 Sit to Lying (QC): 6 Sit to Stand (QC): 6 Chair/Rrm-ml-[place] Xfer(QC): 6 Car Transfer (QC): 2 Gait Training Does the Patient Walk?: Yes Distance: 500' Walk 10 feet (QC): 6 Walk 50 ft with 2 Turns(QC): 6 Walk 150 ft (QC): 6 Walking 10ft/uneven surface-QC: 4 Gait Persons Needed: 1 Gait Assistive Device: FWW Wheelchair Training Does the Pt Use a Wheelchair?: No Wheel 50 ft with 2 turns (QC): 9 Wheel 150 ft (QC): 9 Type of Wheelchair: N/A Stair Training Stair Training: Handrails/: 2 handrails #of Steps: 4 1 Step (curb) (QC): 6 4 Steps (QC): 4 12 Steps (QC): 4 Stairs: Pattern: Reciprocal Balance Picking up an Object (QC): 88 ADL-Treatment Eating (QC): 6 Oral Hygiene (QC): 6 Shower/Bathe Self (QC): 5 (set up to cover dressings) Upper Body Dressing (QC): 6 Lower Body Dressing (QC): 6 (IND with donning pants.) On/Off Footwear (QC): 6 (IND donning/doffing gripper socks.) Toileting Hygiene (QC): 6 Toilet Transfer (QC): 6 (IND on/off toilet) Assessment/Plan Assessment and Plan Assess & Plan/Chief Complaint Assessment: Debility Myopathy New onset AF s/p RVR requiring ICU drip HTN HLP Loop recorder s/p severe sepsis from perforated sigmoid colon s/p colostomy Post op anemia due to acute blood loss Plan: Monitor closely Monitor hgb PT OT Pain control 05/15/2022: Monitor HR Lovenox Fall risk 05/16/2022: Monitor closely 05/17/2022: Monitor closely 05/18/2022: DC abx Monitor AF 05/19/2022: Nausea treatment 05/20/2022: Check labs in am Psych issues 05/21/2022: Behavioral health consult Monitor ostomy output 05/22/2022: Nausea treatment Needs SNF 05/23/2022: Supportive care Monitor pain 05/24/2022: Supportive care Await detention 05/25/2022: Monitor closely (1) Atrial fibrillation with rapid ventricular response (2) Debility Status: Acute (3) Postoperative anemia due to acute blood loss Status: Acute (4) HLD (hyperlipidemia) Status: Chronic (5) HTN (hypertension) Status: Chronic (6) Severe sepsis Status: Acute (7) Perforated sigmoid colon Status: Acute GABRIEL CONNELL DO May 25, 2022 06:14
[2022-05-25 08:00] VITALS: BP 100/93
[2022-05-25] MEDS ORDERED: SCOPOLAMINE PATCH REMOVAL TP SCH (09:00)
--- NOTE | 2022-05-25 09:01 | Occupational Ther Daily Note ---
OT Current Status-Daily Note Subjective Pt agreeable to OT Tx. She reports anxiety surrounding her ostomy care upon discharging. OT encouraged pt to practice changing it and to try to recall all the steps during the day to get more comfortable, she verbalized understanding. Mental Status/Objective Patient Orientation: Person, Place, Time, Situation Attachments: Colostomy/Ileostomy ADL-Treatment Therapy Code Descriptions/Definitions Functional [place] Measure: 0=Not Assessed/NA 4=Minimal Assistance 1=Total Assistance 5=Supervision or Setup 2=Maximal Assistance 6=Modified [place] 3=Moderate Assistance 7=Complete IndependenceSCALE: Activities may be completed with or without assistive devices. 6-Pngqsbbypa-dyuezwb completes the activity by him/herself with no assistance from a helper. 5-Set-up or Clean-up Assistance-helper sets up or cleans up; patient completes activity. [place] assists only prior to or following the activity. 4-Supervision or Touching Assistance-helper provides verbal cues and/or touching/steadying and/or contact guard assistance as patient completes activity. Assistance may be provided throughout the activity or intermittently. 3-Partial/Moderate Assistance-helper does LESS THAN HALF the effort. [place] lifts, holds or supports trunk or limbs, but provides less than half the effort. 2-Substantial/Maximal Assistance-helper does MORE THAN HALF the effort. [place] lifts or holds trunk or limbs and provides more than half the effort. 9-Btcizazbi-fgxwtf does ALL the effort. Patient does none of the effort to complete the activity. Or, the assistance of 2 or more helpers is required for the patient to complete the activity. If activity was not attempted, code reason: 7-Patient Refused. 9-Not Applicable-not attempted and the patient did not perform the activity before the current illness, exacerbation or injury. 10-Not Attempted due to Environmental Limitations-(lack of equipment, weather restraints, etc.). 88-Not Attempted due to Medical Conditions or Safety Concerns. Eating (QC): 6 (IND with breakfast.) Oral Hygiene (QC): 6 (Standing at sink) Shower/Bathe Self (QC): 5 (set up to cover dressing/ostomy) Upper Body Dressing (QC): 6 Lower Body Dressing (QC): 6 On/Off Footwear: 6 Toileting Hygiene (QC): 6 Toilet Transfer (QC): 6 Other Treatment Pt used FWW in her room in order to gather ADL supplies, then transferred into bathroom. Pt completed toileting, dressing and showering in bathroom, then stood at sink for oral care. Pt returned to recliner using FWW independently. In order to increase BUE strength and activity tolerance, pt completed UE theraband exercises, completing 10-15 reps of 5/5 exercises with light resistance theraband. Post tx, pt in recliner, call light in reach and all needs met. Education OT Patient Education: Correct positioning, Energy conservation, Modified ADL techniques, Progress toward Goal/Update tx plan, Purpose of tx/functional activities, Rehab process Teaching Recipient: Patient Teaching Methods: Discussion Response to Teaching: Verbalize Understanding OT Short Term Goals Short Term Goals Time Frame: May 30, 2022 Toileting hygiene: 4 Shower/bathe self: 4 Lower body dressin Putting on/taking off footwear: 4 OT Saw Setter Goals [facility] Goals Time Frame: Jun 15, 2022 Eating (QC): 6 Oral Hygiene (QC): 6 Toileting Hygiene (QC): 6 Shower/Bathe Self (QC): 6 Upper Body Dressing (QC): 6 Lower Body Dressing (QC): 6 On/Off Footwear (QC): 6 Additional Goals: 1-Demonstrate ADL Tasks, 2-Verbalize Understanding, 3- ImproveStrength/[place]ona 1=Demonstrate adherence to instructed precautions during ADL tasks. 2=Patient will verbalize/demonstrate understanding of assistive devices/modifications for ADL. 3=Patient will improve strength/tolerance for activity to enable patient to perform ADL's. OT Education/Plan Problem List/Assessment Assessment: Decreased Activ Tolerance, Decreased UE Strength, Impaired I ADL's Discharge Recommendations Plan/Recommendations: Continue POC Treatment Plan/Plan of Care Patient would benefit from OT for education, treatment and training to promote independence in ADL's, mobility, safety and/or upper extremity function for ADL's. Plan of Care: ADL Retraining, Functional Mobility, Group Exercise/Act as Ind, UE Funct Exercise/Act Treatment Duration: Jun 15, 2022 Frequency: At least 5 of 7 days/Wk (IRF) Estimated Hrs Per Day: 1.5 hours per day Rehab Potential: Fair Time/GCodes Start Time: 07:45 Stop Time: 09:00 Total Time Billed (hr/min): 75 Billed Treatment Time 1, ADL 4 (60'), EX (15') TANNER SOMMER OT May 25, 2022 09:01
[2022-05-25] MEDS: SENNA W/DOCUSATE (SENOKOT S) TABLET PO SCH ×2 (09:10→20:30)
[2022-05-25] MEDS: DOCUSATE SODIUM 100 MG (COLACE) CAP PO SCH ×2 (09:10→20:28)
[2022-05-25] MEDS: APIXABAN 5 MG (ELIQUIS) TABLET PO SCH ×2 (09:10→20:25)
[2022-05-25] MEDS: PANTOPRAZOLE 40 MG (PROTONIX) TAB PO SCH (09:10)
[2022-05-25] MEDS: polyethylene glycoL POWDER 17 GM (MIRALAX) PACK PO SCH ×2 (09:11→20:29)
--- NOTE | 2022-05-25 11:06 | Physical Therapy Daily Note ---
PT Daily Note-Current Subjective Pt. agrees to Rx, wound care present and would like to incorporate static and dynamic standing balance at sink with colostomy application . Pain Location: No Pain Reported Mental Status Patient Orientation: Normal For Age Attachments: Colostomy/Ileostomy Transfers SCALE: Activities may be completed with or without assistive devices. 5-Zgatbgujnw-xygwqxq completes the activity by him/herself with no assistance from a helper. 5-Set-up or Clean-up Assistance-helper sets up or cleans up; patient completes activity. [place] assists only prior to or following the activity. 4-Supervision or Touching Assistance-helper provides verbal cues and/or touching/steadying and/or contact guard assistance as patient completes activity. Assistance may be provided throughout the activity or intermittently. 3-Partial/Moderate Assistance-helper does LESS THAN HALF the effort. [place] lifts, holds or supports trunk or limbs, but provides less than half the effort. 2-Substantial/Maximal Assistance-helper does MORE THAN HALF the effort. [place] lifts or holds trunk or limbs and provides more than half the effort. 7-Hnmismqzk-jiobba does ALL the effort. Patient does none of the effort to complete the activity. Or, the assistance of 2 or more helpers is required for the patient to complete the activity. If activity was not attempted, code reason: 7-Patient Refused. 9-Not Applicable-not attempted and the patient did not perform the activity before the current illness, exacerbation or injury. 10-Not Attempted due to Environmental Limitations-(lack of equipment, weather restraints, etc.). 88-Not Attempted due to Medical Conditions or Safety Concerns. Sit to Stand (QC): 6 Chair/Ogt-ll-Jctdo Xfer(QC): 6 Toilet Transfer (QC): 6 Weight Bearing Full Weight Bearing Full Weight Bearing Gait Training Does the Patient Walk?: Yes Walk 10 feet (QC): 6 Walk 50 ft with 2 Turns(QC): 6 Walk 150 ft (QC): 6 Gait Persons Needed: 1 Gait Assistive Device: FWW pt. needs cues for alignment and heel strike, corrects then gradually goes back to" flexed shuffle" Treatments standing balance at sink in bthrm with visualization of stoma for complete bag change with instruction from wound care , colostomy care nurseTom RN. Pt. without leaning on anything or steadying of FWW was able to use both hands to complete her task. about 15 m into this pt expressed some fatigue , but no LOB, at this point the full length mirror and a chair were utilized and pt. sat to complete the task. Pt. then ambulated with concentration on heel strike and better alignment 165 ft x 2 no LOB, seated LE ex and Nustep ex x 10 m . back in room n recliner. Assessment Current Status: Good Progress needs encouraged for all of Rx. will work further on use of her phone in pm to pull up you tube colostomy guide videos as this seemed to be very helpful and encouraging to the pt PT Senior Living Goals Senior Living Goals PT Senior Living Goals Time Frame: Jun 09, 2022 Roll Left & Right (QC): 6 Sit to Lying (QC): 6 Lying-Sitting on Side/Bed(QC): 6 Sit to Stand (QC): 6 Chair/Hhd-nx-Dzptr Xfer(QC): 6 Toilet Transfer (QC): 6 Car Transfer (QC): 6 Does the Patient Walk: Yes Walk 10 feet (QC): 6 Walk 50ft with 2 Turns (QC): 6 Walk 150 ft (QC): 6 Walking 10ft on Uneven Surface: 6 1 Step (curb) (QC): 6 4 Steps (QC): 6 12 Steps (QC): 6 Picking up an Object (QC): 6 Wheel 50 feet with 2 turns (QC: 9 Wheel 150 feet: 9 PT Plan Treatment/Plan Treatment Plan: Continue Plan of Care Treatment Plan: Bed Mobility, Education, Functional Activity [place], Functional Strength, Gait, Safety, Therapeutic Exercise, Transfers Treatment Duration: Jun 09, 2022 Frequency: At least 5 of 7 days/Wk (IRF) Estimated Hrs Per Day: 1.5 hours per day Patient and/or Family Agrees t: Yes Safety Risks/Education Patient Education: Gait Training, Transfer Techniques, Correct Positioning, Disease Process, Safety Issues Teaching Recipient: Patient Teaching Methods: Demonstration, Discussion Response to Teaching: Verbalize Understanding, Return Demonstration, Reinforcement Needed Time/GCodes Time In: 1000 Time Out: 1100 Total Billed Treatment Time: 60 Total Billed Treatment 1,FA35m,GT15m,EX10m REJI YAP MILL LABORER May 25, 2022 11:05
--- NOTE | 2022-05-25 12:30 | Speech Therapy Daily Note ---
Speech Daily Progress Note Subjective Date Seen by Provider: May 25, 2022 Time Seen by Provider: 09:00 The patient was seated upright in her chair, awake and alert upon entrance to the patient's room by the clinician. The patient greeted the clinician appropriately and was agreeable to participation in the cognitive linguistic treatment session. Objective The patient appeared in improved spirits on this date, participating with reduced verbal prompts and encouragement from the clinician. The patient continues to perseverate on specific information regarding her discharge, specifically her request to be discharged to an assisted living location. The clinician continues to report to the patient that an assisted living environment will not allow for admission without her being able to independently care for her colostomy. The patient stated, "well, can't I just hire someone privately to do that?" The clinician directed the patient to contact her insurance provided for specific answers to her questions. The clinician attempted recall of specific colostomy information from the patient's handout. On this date, the patient was unable to state the information accurately to the clinician or independently locate her colostomy education sheet to use for recall and review. Assessment Assessment Current Status: Poor Progress Treatment Plan Continue Plan of Care Speech Short Term Goals Short Term Goals Short Term Goals 1. The patient will demonstrate 80% accuracy with executive functioning and memory tasks with mild clinician verbal and visual cueing. Time Frame-STG: Ten Days. Speech Snf Goals Snf Goals 1. The patient will demonstrate improved cognitive linguistic skills for safe discharge to the least restrictive environment. Time Frame: Two Weeks. Speech-Plan Treatment Plan Speech Therapy Treatment Plan: Continue Plan of Care Treatment Duration: May 15, 2022 Frequency: Modified Program (IRF) Estimated Hrs Per Day: Other Rehab Potential: Fair Safety Risks/Education Teaching Recipient: Patient Teaching Methods: Discussion Response to Teaching: Reinforcement Needed Education Topics Provided: Colostomy Education Time Speech Therapy Time In: 09:00 Speech Therapy Time Out: 09:30 Total Billed Time: 30 Billed Treatment Time 1TAMYSUNSHINE BOO TUCKER May 25, 2022 12:30
--- NOTE | 2022-05-25 13:29 | Physical Therapy Daily Note ---
PT Daily Note-Current Subjective Pt. up in recliner after lunch and states her stomach is upset and she wants answers as to why she has this. Pt. agrees to gait, toileting and sup LE ex. as well as practicing accessing the internet on her phone to watch colostomy bag clean and change out videos. Pain Numeric Pain Scale: 5-Moderate Pain Location: Medial Location Body Site: Abdomen Pain Description: Ache Mental Status Patient Orientation: Normal For Age Attachments: Colostomy/Ileostomy Transfers SCALE: Activities may be completed with or without assistive devices. 0-Jwkehzaqqk-apflilg completes the activity by him/herself with no assistance from a helper. 5-Set-up or Clean-up Assistance-helper sets up or cleans up; patient completes activity. [place] assists only prior to or following the activity. 4-Supervision or Touching Assistance-helper provides verbal cues and/or touching/steadying and/or contact guard assistance as patient completes activity. Assistance may be provided throughout the activity or intermittently. 3-Partial/Moderate Assistance-helper does LESS THAN HALF the effort. [place] lifts, holds or supports trunk or limbs, but provides less than half the effort. 2-Substantial/Maximal Assistance-helper does MORE THAN HALF the effort. [place] lifts or holds trunk or limbs and provides more than half the effort. 2-Igcupaevw-bwgbme does ALL the effort. Patient does none of the effort to complete the activity. Or, the assistance of 2 or more helpers is required for the patient to complete the activity. If activity was not attempted, code reason: 7-Patient Refused. 9-Not Applicable-not attempted and the patient did not perform the activity before the current illness, exacerbation or injury. 10-Not Attempted due to Environmental Limitations-(lack of equipment, weather restraints, etc.). 88-Not Attempted due to Medical Conditions or Safety Concerns. toilet and bed and chair all SBA to mod I Weight Bearing Full Weight Bearing Full Weight Bearing Gait Training Does the Patient Walk?: Yes Gait Assistive Device: FWW 100ft FWW no LOB SBA Exercises Supine Ex: Ankle pumps, Rolling, Heel Slides, Hip abd/add Supine Reps: 12 Treatments pt. changed brief, pad , doffed pants, applied clean brief and pad and donned pants again, all mod I,, gait , TRFs, LE ex , pt. again instructed in how to access internet and did this with instruction, pt. locating a specific video she finds most helpful Assessment Current Status: Good Progress pt. easily frustrated with her challenges, needs encouragemnt PT Turbine Engineer Goals Senior Care Goals PT Senior Care Goals Time Frame: Jun 09, 2022 Roll Left & Right (QC): 6 Sit to Lying (QC): 6 Lying-Sitting on Side/Bed(QC): 6 Sit to Stand (QC): 6 Chair/Cha-yz-Ylkgk Xfer(QC): 6 Toilet Transfer (QC): 6 Car Transfer (QC): 6 Does the Patient Walk: Yes Walk 10 feet (QC): 6 Walk 50ft with 2 Turns (QC): 6 Walk 150 ft (QC): 6 Walking 10ft on Uneven Surface: 6 1 Step (curb) (QC): 6 4 Steps (QC): 6 12 Steps (QC): 6 Picking up an Object (QC): 6 Wheel 50 feet with 2 turns (QC: 9 Wheel 150 feet: 9 PT Plan Treatment/Plan Treatment Plan: Continue Plan of Care Treatment Plan: Bed Mobility, Education, Functional Activity [place], Functional Strength, Gait, Safety, Therapeutic Exercise, Transfers Treatment Duration: Jun 09, 2022 Frequency: At least 5 of 7 days/Wk (IRF) Estimated Hrs Per Day: 1.5 hours per day Patient and/or Family Agrees t: Yes Safety Risks/Education Patient Education: Gait Training, Transfer Techniques, Disease Process, Safety Issues Response to Teaching: Reinforcement Needed Time/GCodes Time In: 1300 Time Out: 1330 Total Billed Treatment Time: 30 Total Billed Treatment 1,GT10,FA20m REJI YAP MAT PACKER May 25, 2022 13:29
[2022-05-25 21:19] VITALS: BP 108/57
--- NOTE | 2022-05-26 06:38 | PM&R Progress Note ---
Subjective HPI/CC On Admission Date Seen by Provider: May 26, 2022 Time Seen by Provider: 12:00 Subjective/Events-last exam 05/26/2022: Patient just cannot understand why she is still so weak Patient has very poor reserve and that was more the abdominal issue A. fib Needs detention will go on Saturday05/25/2022: Patient ready for discharge to skilled No other concerns Cough is improved Using incentive spirometer 05/24/2022: Patient about the same Needs skilled care Very inconsistent in her abilities Very chronically ill 05/23/2022: Pt is doing pretty well Needs skilled care Drainage from the midline Dry cough, Tessalon perles initiated Overall very complicated 05/22/2022: Pt is doing about the same but will need skilled Psych eval because she is so tearful Dr. Walker consult for nausea and vomiting 05/21/2022: Pt is doing pretty well Ostomy output good Will discontinue telemetry Very talkative but becomes tearful at times, so will put in a behavioral health consult She just can't understand why she is so weak 05/20/2022: Doing well Cries easily No pain reported Sleeps well 05/19/2022: Patient doing pretty well Nausea persists so will initiate scheduled Zofran Patient sleeping well at night No other concerns 05/18/2022: Patient doing well Slept well last night No pain Zosyn DC 05/17/2022: Patient doing well Walking better telemetry maintained Antibiotics maintained FLYNN drain maintained 05/16/2022: Pt is doing really well Takes her pain medication regularly Telemetry maintained Lovenox still on board before transition to oral anticoagulation 05/15/2022: Doing well Improved overall Lovenox maintained until OAC CLD tolerated No pain reported Participating Review of Systems General: Fatigue depression Objective Exam Vital Signs Vital Signs Date Time Temp Pulse Resp B/P (MAP) Pulse Ox O2 Delivery O2 Flow Rate FiO2 05/26/22 07:30 36.9 86 18 111/54 (73) 98 Room Air Capillary Refill : General Appearance: No Apparent Distress, Chronically ill HEENT: PERRL/EOMI, Normal ENT Inspection Neck: Normal Inspection, Non Tender Respiratory: Chest Non Tender, No Accessory Muscle Use, No Respiratory Distress Cardiovascular: Regular Rate, Rhythm, No JVD Gastrointestinal: Normal Bowel Sounds, No Organomegaly, No Pulsatile Mass, Soft, Other (colostomy) Back: Normal Inspection, No CVA Tenderness, No Vertebral Tenderness Extremity: Normal Inspection, Normal Range of Motion, No Calf Tenderness Neurologic/Psychiatric: Alert, Oriented x3, Normal Mood/Affect, Motor Weakness (generalized) Skin: Normal Color, Warm/Dry Lymphatic: No Adenopathy Results/Procedures Lab Patient resulted labs reviewed. FIM Transfers Therapy Code Descriptions/Definitions Functional [place] Measure: 0=Not Assessed/NA 4=Minimal Assistance 1=Total Assistance 5=Supervision or Setup 2=Maximal Assistance 6=Modified [place] 3=Moderate Assistance 7=Complete IndependenceSCALE: Activities may be completed with or without assistive devices. 3-Vokuatxijh-qzntfdf completes the activity by him/herself with no assistance from a helper. 5-Set-up or Clean-up Assistance-helper sets up or cleans up; patient completes activity. [place] assists only prior to or following the activity. 4-Supervision or Touching Assistance-helper provides verbal cues and/or touching/steadying and/or contact guard assistance as patient completes activity. Assistance may be provided throughout the activity or intermittently. 3-Partial/Moderate Assistance-helper does LESS THAN HALF the effort. [place] lifts, holds or supports trunk or limbs, but provides less than half the effort. 2-Substantial/Maximal Assistance-helper does MORE THAN HALF the effort. [place] lifts or holds trunk or limbs and provides more than half the effort. 1-Pyzagcmqw-kuudya does ALL the effort. Patient does none of the effort to complete the activity. Or, the assistance of 2 or more helpers is required for the patient to complete the activity. If activity was not attempted, code reason: 7-Patient Refused. 9-Not Applicable-not attempted and the patient did not perform the activity before the current illness, exacerbation or injury. 10-Not Attempted due to Environmental Limitations-(lack of equipment, weather restraints, etc.). 88-Not Attempted due to Medical Conditions or Safety Concerns. Roll Left to Right (QC): 6 Sit to Lying (QC): 6 Sit to Stand (QC): 6 Chair/Ycy-je-Hobrt Xfer(QC): 6 Car Transfer (QC): 2 Gait Training Does the Patient Walk?: Yes Distance: 500' Walk 10 feet (QC): 6 Walk 50 ft with 2 Turns(QC): 6 Walk 150 ft (QC): 6 Walking 10ft/uneven surface-QC: 4 Gait Persons Needed: 1 Gait Assistive Device: FWW Wheelchair Training Does the Pt Use a Wheelchair?: No Wheel 50 ft with 2 turns (QC): 9 Wheel 150 ft (QC): 9 Type of Wheelchair: N/A Stair Training Stair Training: Handrails/: 2 handrails #of Steps: 4 1 Step (curb) (QC): 6 4 Steps (QC): 4 12 Steps (QC): 4 Stairs: Pattern: Reciprocal Balance Picking up an Object (QC): 88 ADL-Treatment Eating (QC): 6 (IND with breakfast.) Oral Hygiene (QC): 6 (Standing at sink) Shower/Bathe Self (QC): 5 (set up to cover dressing/ostomy) Upper Body Dressing (QC): 6 Lower Body Dressing (QC): 6 On/Off Footwear (QC): 6 Toileting Hygiene (QC): 6 Toilet Transfer (QC): 6 Assessment/Plan Assessment and Plan Assess & Plan/Chief Complaint Assessment: Debility Myopathy New onset AF s/p RVR requiring ICU drip HTN HLP Loop recorder s/p severe sepsis from perforated sigmoid colon s/p colostomy Post op anemia due to acute blood loss Ongoing nausea Postop incision and cellulitis placed on Augmentin on 05/26/2022 Plan: Monitor closely Monitor hgb PT OT Pain control 05/15/2022: Monitor HR Lovenox Fall risk 05/16/2022: Monitor closely 05/17/2022: Monitor closely 05/18/2022: DC abx Monitor AF 05/19/2022: Nausea treatment 05/20/2022: Check labs in am Psych issues 05/21/2022: Behavioral health consult Monitor ostomy output 05/22/2022: Nausea treatment Needs SNF 05/23/2022: Supportive care Monitor pain 05/24/2022: Supportive care Await assisted 05/25/2022: Monitor closely 05/26/2022: Antibiotic Antiemetics given (1) Atrial fibrillation with rapid ventricular response (2) Debility Status: Acute (3) Postoperative anemia due to acute blood loss Status: Acute (4) HLD (hyperlipidemia) Status: Chronic (5) HTN (hypertension) Status: Chronic (6) Severe sepsis Status: Acute (7) Perforated sigmoid colon Status: Acute GABRIEL CONNELL DO May 26, 2022 06:38
[2022-05-26] MEDS: KCL 10 MEQ TAB (MICRO K) PO SCH (06:50)
[2022-05-26] MEDS: ONDANSETRON 4 MG (ZOFRAN) ORAL DISSOLVE TAB PO SCH ×3 (06:50→16:53)
[2022-05-26] MEDS: CATHETER FLUSH 10 ML SYR IVP SCH ×3 (06:51→20:01)
[2022-05-26 07:30] VITALS: BP 111/54
[2022-05-26] MEDS: SENNA W/DOCUSATE (SENOKOT S) TABLET PO SCH ×2 (08:25→20:13)
[2022-05-26] MEDS: APIXABAN 5 MG (ELIQUIS) TABLET PO SCH ×2 (08:25→20:00)
[2022-05-26] MEDS: DOCUSATE SODIUM 100 MG (COLACE) CAP PO SCH ×2 (08:25→20:13)
[2022-05-26] MEDS: PANTOPRAZOLE 40 MG (PROTONIX) TAB PO SCH (08:25)
[2022-05-26] MEDS: polyethylene glycoL POWDER 17 GM (MIRALAX) PACK PO SCH ×2 (08:46→19:27)
--- NOTE | 2022-05-26 10:39 | Physical Therapy Daily Note ---
PT Daily Note-Current Subjective Pt sitting up Supine in bed upon arrival. Pt reports "not feeling well today". Pt reports nausea. Pt is very teary when talking about ostomy bag changing. Pt is reassured but pt is visibly upset. Mental Status Patient Orientation: Person, Confused, Place Attachments: Colostomy/Ileostomy Transfers SCALE: Activities may be completed with or without assistive devices. 3-Hpraogcyqc-bufuthp completes the activity by him/herself with no assistance from a helper. 5-Set-up or Clean-up Assistance-helper sets up or cleans up; patient completes activity. [place] assists only prior to or following the activity. 4-Supervision or Touching Assistance-helper provides verbal cues and/or touching/steadying and/or contact guard assistance as patient completes activity. Assistance may be provided throughout the activity or intermittently. 3-Partial/Moderate Assistance-helper does LESS THAN HALF the effort. [place] lifts, holds or supports trunk or limbs, but provides less than half the effort. 2-Substantial/Maximal Assistance-helper does MORE THAN HALF the effort. [place] lifts or holds trunk or limbs and provides more than half the effort. 8-Tiaezhfog-xsvnxd does ALL the effort. Patient does none of the effort to complete the activity. Or, the assistance of 2 or more helpers is required for the patient to complete the activity. If activity was not attempted, code reason: 7-Patient Refused. 9-Not Applicable-not attempted and the patient did not perform the activity before the current illness, exacerbation or injury. 10-Not Attempted due to Environmental Limitations-(lack of equipment, weather restraints, etc.). 88-Not Attempted due to Medical Conditions or Safety Concerns. Weight Bearing Full Weight Bearing Full Weight Bearing Exercises Supine Ex: Ankle pumps, Quad Set, Glut sets, Heel Slides, Straight leg raise, Hip abd/add Supine Reps: 10 Treatments After talking with pt to reassure pt about progress and pt will learn ostomy changing, pt completes limited Supine EX in bed as pt reports fatigue and nausea. Pt resting at end of tx, all needs met, call light in hand. Nurse present to change ostomy. Assessment Current Status: Fair Progress Pt is nauseated and teary during tx. PT Patient Service Representative Goals Patient Service Representative Goals PT Assisted Goals Time Frame: Jun 09, 2022 Roll Left & Right (QC): 6 Sit to Lying (QC): 6 Lying-Sitting on Side/Bed(QC): 6 Sit to Stand (QC): 6 Chair/Pwo-yo-Nrjqm Xfer(QC): 6 Toilet Transfer (QC): 6 Car Transfer (QC): 6 Does the Patient Walk: Yes Walk 10 feet (QC): 6 Walk 50ft with 2 Turns (QC): 6 Walk 150 ft (QC): 6 Walking 10ft on Uneven Surface: 6 1 Step (curb) (QC): 6 4 Steps (QC): 6 12 Steps (QC): 6 Picking up an Object (QC): 6 Wheel 50 feet with 2 turns (QC: 9 Wheel 150 feet: 9 PT Plan Treatment/Plan Treatment Plan: Continue Plan of Care Treatment Plan: Bed Mobility, Education, Functional Activity [place], Functional Strength, Gait, Safety, Therapeutic Exercise, Transfers Treatment Duration: Jun 09, 2022 Frequency: At least 5 of 7 days/Wk (IRF) Estimated Hrs Per Day: 1.5 hours per day Patient and/or Family Agrees t: Yes Time/GCodes Time In: 1010 Time Out: 1025 Total Billed Treatment Time: 15 Total Billed Treatment 1, FA (15m) ANNE CARR QA MANAGER May 26, 2022 10:39
[2022-05-26] MEDS: AUGMENTIN 875 MG TAB (AMOXICILLIN/CLAVULANATE) PO SCH ×2 (11:54→17:25)
--- NOTE | 2022-05-26 12:01 | Progress Note - Surgery ---
Subjective Date Seen by a Provider: May 26, 2022 Time Seen by a Provider: 11:56 Subjective/Events-last exam Patient with erythema lower part of incision. Has serous drainage. Colostomy +output. No other complaints. Denies n/v fever sweats chills shortness of breath or chest pain. Objective Exam Vital Signs Date Time Temp Pulse Resp B/P (MAP) Pulse Ox O2 Delivery O2 Flow Rate FiO2 05/26/22 07:30 36.9 86 18 111/54 (73) 98 Room Air 05/25/22 21:19 37.2 75 16 108/57 (74) 99 Room Air 05/25/22 20:32 Room Air I & O 05/26/22 07:00 Intake Total 200 ml Output Total 0 ml Balance 200 ml Capillary Refill : General Appearance: No Apparent Distress, Chronically ill HEENT: PERRL/EOMI, Normal ENT Inspection Neck: Normal Inspection, Non Tender Respiratory: Chest Non Tender, No Accessory Muscle Use, No Respiratory Distress Cardiovascular: Regular Rate, Rhythm, No JVD Gastrointestinal: soft, tenderness (slight incisional tenderness, slight erythema lower abdomen slight serous drainage, colostomy pink and productive) Extremity: Normal Inspection, Normal Range of Motion, No Calf Tenderness Neurologic/Psychiatric: Alert, Oriented x3, Normal Mood/Affect, Motor Weakness (generalized) Skin: Normal Color, Warm/Dry Lymphatic: No Adenopathy Assessment/Plan Assessment/Plan Assessment/Plan diffuse abdominal pain pneumoperitenum perforated hollow viscus s/p laparoscopic/open exploratory laparotomy with low anterior resection with end colostomy and splenic flexure mobilization Sepsis Cough/Shortness of breath anemia postoperative/dilutional Nausea erythema lower incision Continue anti-emetic medications prn bowels are functioning nausea symptoms resolved at this time colostomy care took out some feng from lower incision just serous fluid start ARUN Copeland DO May 26, 2022 12:01
[2022-05-26 20:00] VITALS: BP 118/57
[2022-05-26] MEDS: MELATONIN 3 MG TABLET PO PRN (23:08)
[2022-05-26] MEDS: ALPRAZolam 0.25 MG (XANAX) TAB PO PRN (23:08)
[2022-05-27] MEDS: ONDANSETRON 4 MG (ZOFRAN) ORAL DISSOLVE TAB PO SCH ×3 (05:41→15:34)
[2022-05-27] MEDS: CATHETER FLUSH 10 ML SYR IVP SCH ×3 (05:41→21:15)
[2022-05-27] MEDS: KCL 10 MEQ TAB (MICRO K) PO SCH (05:41)
[2022-05-27 07:30] VITALS: BP 115/55
--- NOTE | 2022-05-27 07:41 | PM&R Progress Note ---
Subjective HPI/CC On Admission Date Seen by Provider: May 27, 2022 Time Seen by Provider: 12:00 Subjective/Events-last exam 05/27/2022: Patient doing a lot better but does not think so Could not sleep last night so we will add Remeron to melatonin Cannot understand why she is so is nauseated Clindamycin maintained IV Very complicated issues 05/26/2022: Patient just cannot understand why she is still so weak Patient has very poor reserve and that was more the abdominal issue A. fib Needs shelter will go on Saturday05/25/2022: Patient ready for discharge to skilled No other concerns Cough is improved Using incentive spirometer 05/24/2022: Patient about the same Needs skilled care Very inconsistent in her abilities Very chronically ill 05/23/2022: Pt is doing pretty well Needs skilled care Drainage from the midline Dry cough, Tessalon perles initiated Overall very complicated 05/22/2022: Pt is doing about the same but will need skilled Psych eval because she is so tearful Dr. Walker consult for nausea and vomiting 05/21/2022: Pt is doing pretty well Ostomy output good Will discontinue telemetry Very talkative but becomes tearful at times, so will put in a behavioral health consult She just can't understand why she is so weak 05/20/2022: Doing well Cries easily No pain reported Sleeps well 05/19/2022: Patient doing pretty well Nausea persists so will initiate scheduled Zofran Patient sleeping well at night No other concerns 05/18/2022: Patient doing well Slept well last night No pain Zosyn DC 05/17/2022: Patient doing well Walking better telemetry maintained Antibiotics maintained FLYNN drain maintained 05/16/2022: Pt is doing really well Takes her pain medication regularly Telemetry maintained Lovenox still on board before transition to oral anticoagulation 05/15/2022: Doing well Improved overall Lovenox maintained until OAC CLD tolerated No pain reported Participating Review of Systems General: Fatigue, Malaise Gastrointestinal: Nausea, Abdominal Pain depression Objective Exam Vital Signs Vital Signs Date Time Temp Pulse Resp B/P (MAP) Pulse Ox O2 Delivery O2 Flow Rate FiO2 05/27/22 20:08 Room Air 05/27/22 19:00 95 05/27/22 07:30 36.1 20 115/55 (75) 93 Capillary Refill : General Appearance: No Apparent Distress, Chronically ill HEENT: PERRL/EOMI, Normal ENT Inspection Neck: Normal Inspection, Non Tender Respiratory: Chest Non Tender, No Accessory Muscle Use, No Respiratory Distress Cardiovascular: Regular Rate, Rhythm, No JVD Gastrointestinal: Normal Bowel Sounds, No Organomegaly, No Pulsatile Mass, Soft, Other (colostomy) Back: Normal Inspection, No CVA Tenderness, No Vertebral Tenderness Extremity: Normal Inspection, Normal Range of Motion, No Calf Tenderness Neurologic/Psychiatric: Alert, Oriented x3, Normal Mood/Affect, Motor Weakness (generalized) Skin: Normal Color, Warm/Dry Lymphatic: No Adenopathy Results/Procedures Lab Laboratory Tests 05/27/22 08:15 Patient resulted labs reviewed. FIM Transfers Therapy Code Descriptions/Definitions Functional [place] Measure: 0=Not Assessed/NA 4=Minimal Assistance 1=Total Assistance 5=Supervision or Setup 2=Maximal Assistance 6=Modified [place] 3=Moderate Assistance 7=Complete IndependenceSCALE: Activities may be completed with or without assistive devices. 2-Ksqkfjeztz-nrwjkho completes the activity by him/herself with no assistance from a helper. 5-Set-up or Clean-up Assistance-helper sets up or cleans up; patient completes activity. [place] assists only prior to or following the activity. 4-Supervision or Touching Assistance-helper provides verbal cues and/or touching/steadying and/or contact guard assistance as patient completes activity. Assistance may be provided throughout the activity or intermittently. 3-Partial/Moderate Assistance-helper does LESS THAN HALF the effort. [place] lifts, holds or supports trunk or limbs, but provides less than half the effort. 2-Substantial/Maximal Assistance-helper does MORE THAN HALF the effort. [place] lifts or holds trunk or limbs and provides more than half the effort. 2-Quswrrqii-xsnzgs does ALL the effort. Patient does none of the effort to complete the activity. Or, the assistance of 2 or more helpers is required for the patient to complete the activity. If activity was not attempted, code reason: 7-Patient Refused. 9-Not Applicable-not attempted and the patient did not perform the activity before the current illness, exacerbation or injury. 10-Not Attempted due to Environmental Limitations-(lack of equipment, weather restraints, etc.). 88-Not Attempted due to Medical Conditions or Safety Concerns. Roll Left to Right (QC): 6 Sit to Lying (QC): 6 Sit to Stand (QC): 6 Chair/Fhf-px-Jxytw Xfer(QC): 6 Car Transfer (QC): 2 Gait Training Does the Patient Walk?: Yes Distance: 500' Walk 10 feet (QC): 6 Walk 50 ft with 2 Turns(QC): 6 Walk 150 ft (QC): 6 Walking 10ft/uneven surface-QC: 4 Gait Persons Needed: 1 Gait Assistive Device: FWW Wheelchair Training Does the Pt Use a Wheelchair?: No Wheel 50 ft with 2 turns (QC): 9 Wheel 150 ft (QC): 9 Type of Wheelchair: N/A Stair Training Stair Training: Handrails/: 2 handrails #of Steps: 4 1 Step (curb) (QC): 6 4 Steps (QC): 4 12 Steps (QC): 4 Stairs: Pattern: Reciprocal Balance Picking up an Object (QC): 88 ADL-Treatment Eating (QC): 6 (IND with breakfast.) Oral Hygiene (QC): 6 (Standing at sink) Shower/Bathe Self (QC): 5 (set up to cover dressing/ostomy) Upper Body Dressing (QC): 6 Lower Body Dressing (QC): 6 On/Off Footwear (QC): 6 Toileting Hygiene (QC): 6 Toilet Transfer (QC): 6 Assessment/Plan Assessment and Plan Assess & Plan/Chief Complaint Assessment: Debility Myopathy New onset AF s/p RVR requiring ICU drip HTN HLP Loop recorder s/p severe sepsis from perforated sigmoid colon s/p colostomy Post op anemia due to acute blood loss Ongoing nausea Postop incision and cellulitis placed on Augmentin on 05/26/2022 but changed to Clinda for MRSA Plan: Monitor closely Monitor hgb PT OT Pain control 05/15/2022: Monitor HR Lovenox Fall risk 05/16/2022: Monitor closely 05/17/2022: Monitor closely 05/18/2022: DC abx Monitor AF 05/19/2022: Nausea treatment 05/20/2022: Check labs in am Psych issues 05/21/2022: Behavioral health consult Monitor ostomy output 05/22/2022: Nausea treatment Needs SNF 05/23/2022: Supportive care Monitor pain 05/24/2022: Supportive care Await halfway 05/25/2022: Monitor closely 05/26/2022: Antibiotic Antiemetics given 05/27/2022: Clindamycin (1) Atrial fibrillation with rapid ventricular response (2) Debility Status: Acute (3) Postoperative anemia due to acute blood loss Status: Acute (4) HLD (hyperlipidemia) Status: Chronic (5) HTN (hypertension) Status: Chronic (6) Severe sepsis Status: Acute (7) Perforated sigmoid colon Status: Acute GABRIEL CONNELL DO May 27, 2022 07:41
[2022-05-27] MEDS: APIXABAN 5 MG (ELIQUIS) TABLET PO SCH ×2 (07:59→20:07)
[2022-05-27] MEDS: PANTOPRAZOLE 40 MG (PROTONIX) TAB PO SCH (07:59)
[2022-05-27] MEDS: ALPRAZolam 0.25 MG (XANAX) TAB PO PRN (07:59)
[2022-05-27] MEDS ORDERED: ANTACID SUSP 30 ML UDC (MYLANTA) PO ONE (08:00)
[2022-05-27] MEDS ORDERED: ANTACID SUSP 30 ML UDC (MYLANTA) ONE (08:01)
--- NOTE | 2022-05-27 08:10 | Progress Note - Surgery ---
ANDREWFABRICIOBOOM Osborn 05/27/22 0810: Subjective Date Seen by a Provider: May 27, 2022 Time Seen by a Provider: 07:20 Subjective/Events-last exam Pt is laying in bed in mild discomfort and seems slightly flushed. Pt was afebrile on examination. Pt states that she has diffuse abd pain, worse around lower incisions. Pt continues to have colostomy output. Erythema and slight serous drainage noted around lower incisions. Pt also complains of new onset of midline sharp, constant chest pain that started last night. Pt rates the pain a 10/10 and states that it is reproducible with palpation and deep breathing. Pt denies radiation of chest pain. Pt denies n/v and sweats. Pt's wound culture on 05/26 showed Staph Aureus. Review of Systems General: No Chills, No Night Sweats HEENT: No Head Aches, No Visual Changes Pulmonary: No Dyspnea, No Cough Cardiovascular: No: Chest Pain, Palpitations Gastrointestinal: No: Nausea, Vomiting Genitourinary: No Dysuria, No Frequency Musculoskeletal: No: neck pain, shoulder pain Neurological: No: Weakness, Numbness Objective Exam Vital Signs Date Time Temp Pulse Resp B/P (MAP) Pulse Ox O2 Delivery O2 Flow Rate FiO2 05/26/22 20:56 Room Air 05/26/22 20:00 36.8 85 16 118/57 (77) 95 Room Air 05/26/22 09:00 Room Air I & O 05/27/22 07:00 Intake Total 1610 ml Output Total 1300 ml Balance 310 ml Capillary Refill : General Appearance: Anxious, Chronically ill HEENT: PERRL/EOMI, Normal ENT Inspection Neck: Normal Inspection, Non Tender Respiratory: No Chest Non Tender (midline chest tenderness on palpation ); No Accessory Muscle Use, No Respiratory Distress Cardiovascular: Regular Rate, Rhythm, No JVD Gastrointestinal: soft, tenderness (slight incisional tenderness, erythema lower abdomen with slight serous drainage, colostomy pink and productive), other (colostomy and midline incisions) Extremity: Normal Inspection, No Calf Tenderness Neurologic/Psychiatric: Alert, Normal Mood/Affect, Motor Weakness (generalized) Skin: Normal Color, Warm/Dry Lymphatic: No Adenopathy Assessment/Plan Assessment/Plan Assessment/Plan diffuse abdominal pain pneumoperitenum perforated hollow viscus s/p laparoscopic/open exploratory laparotomy with low anterior resection with end colostomy and splenic flexure mobilization Sepsis Cough/Shortness of breath anemia postoperative/dilutional Nausea-improved erythema lower incision- wound culture showed S.aureus Continue anti-emetic medications prn bowels are functioning colostomy care Continue to monitor lower incision erythema Dressing changes start augmentin Dr. Gould and Dr. Patino have been notified about pt's chest pain WHITARUN Horace DO 05/27/22 1133: Subjective Subjective/Events-last exam Having some chest discomfort. Having some abdominal pain as well. Wound with same erythem at bottom, minimal drainage that appears serous. Colostomy output. Having some cough as well. Just not feeling as well. Objective Exam General Appearance: Anxious, Chronically ill HEENT: PERRL/EOMI, Normal ENT Inspection Neck: Normal Inspection, Non Tender Respiratory: No Chest Non Tender (midline chest tenderness on palpation ); No Accessory Muscle Use, No Respiratory Distress Cardiovascular: Regular Rate, Rhythm, No JVD Gastrointestinal: soft, tenderness (slight incisional tenderness, erythema lower abdomen with slight serous drainage, colostomy pink and productive), other (colostomy and midline incisions) Extremity: Normal Inspection, No Calf Tenderness Neurologic/Psychiatric: Alert, Normal Mood/Affect Skin: Normal Color (except lower incision erythema), Warm/Dry Lymphatic: No Adenopathy Assessment/Plan Assessment/Plan Assessment/Plan diffuse abdominal pain pneumoperitenum perforated hollow viscus s/p laparoscopic/open exploratory laparotomy with low anterior resection with end colostomy and splenic flexure mobilization Sepsis Cough/Shortness of breath anemia postoperative/dilutional Nausea-improved erythema lower incision- wound culture showed S.aureus Continue anti-emetic medications prn bowels are functioning colostomy care Continue to monitor lower incision erythema Dressing changes stop augmentin started clinda Chest x ray due to cough Dr. Gould and Dr. Patino have been notified about pt's chest pain Supervisory-Addendum Brief Verification & Attestation Participated in pt care: history, MDM, physical Personally performed: exam, history, MDM, supervision of care Care discussed with: Medical Student Procedures: n/a Results interpretation: Verified all documentation Verification and Attestation of Medical Student E/M Service A medical student performed and documented this service in my presence. I reviewed and verified all information documented by the medical student and made modifications to such information, when appropriate. I personally performed the physical exam and medical decision making. Arun Sherman May 27, 2022,11:33 BOOM ACOSTA May 27, 2022 08:10 ARUN SHERMAN DO May 27, 2022 11:33
[2022-05-27 08:41] LABS: HEMATOCRIT 32 % (35-52); HEMOGLOBIN 10.1 g/dL (11.5-16.0); MEAN CORPUSCULAR HEMOGLOBIN 29 pg (25-34); MEAN CORPUSCULAR HGB CONC 31 g/dL (32-36); MEAN CORPUSCULAR VOLUME 92 fL (80-99); MEAN PLATELET VOLUME 11.8 fL (9.0-12.2); PLATELET COUNT 429 10^3/uL (130-400); WHITE BLOOD COUNT 12.5 10^3/uL (4.3-11.0)
[2022-05-27 09:00] LABS: ALANINE AMINOTRANSFERASE 14 U/L (0-55); ALBUMIN 3.1 GM/DL (3.2-4.5); ALKALINE PHOSPHATASE 71 U/L (40-136); BILIRUBIN,TOTAL 0.8 MG/DL (0.1-1.0); BUN/CREATININE RATIO 13; CALCIUM 9.3 MG/DL (8.5-10.1); CARBON DIOXIDE 23 MMOL/L (21-32); CHLORIDE 104 MMOL/L (98-107); CREATININE SERUM 0.75 MG/DL (0.60-1.30); GFR ESTIMATED 82; GLUCOSE 116 MG/DL (70-105); POTASSIUM 4.1 MMOL/L (3.6-5.0); SODIUM 138 MMOL/L (135-145); TOTAL PROTEIN 6.6 GM/DL (6.4-8.2)
[2022-05-27] MEDS: AUGMENTIN 875 MG TAB (AMOXICILLIN/CLAVULANATE) PO SCH (11:05)
[2022-05-27] MEDS: DOCUSATE SODIUM 100 MG (COLACE) CAP PO SCH ×2 (11:06→20:07)
[2022-05-27] MEDS: polyethylene glycoL POWDER 17 GM (MIRALAX) PACK PO SCH ×2 (11:06→19:16)
[2022-05-27] MEDS: SENNA W/DOCUSATE (SENOKOT S) TABLET PO SCH ×2 (11:06→20:07)
--- NOTE | 2022-05-27 12:05 | Diagnostic Imaging Report ---
INDICATION: Cough. Comparison is made with prior exam of 02/08/2022. FINDINGS: The heart size is normal. There is some elevation of the right hemidiaphragm. Loop recorder overlies the left chest. No pleural effusion, pneumothorax or pneumonia. Mediastinum is unremarkable. IMPRESSION: No acute cardiopulmonary abnormality. Dictated by: Dictated on workstation # [id number]
--- NOTE | 2022-05-27 12:52 | Progress Note - Cardiology ---
Cardiology SOAP Progress Note Subjective: Reported cp this morning: lower midsternal and epigastric, radiating to the back, severe, unassociated with other symptoms, present for several days but worse this am, now mild w/o any particular intervention, severe episode lasting several hours. Also report multiple other pains, including back and flanks and limbs. These are moderate in intensity and always present Gets short of breath with activity Reports a chronic dry cough Denies n/v Has gen weakness. Denies focal weakness Denies swelling Objective: I&O/Vital Signs 05/27/22 05/27/22 05/27/22 07:30 09:00 09:35 Temp 36.1 Pulse 113 88 Resp 20 B/P (MAP) 115/55 (75) Pulse Ox 93 O2 Delivery Room Air Room Air 05/27/22 00:00 Intake Total 1110 ml Output Total 1200 ml Balance -90 ml Constitutional: AAO x 3, well-developed, well-nourished Respiratory: No accessory muscle use; other (fair to good, bilat air entry) Cardiovascular: regular rate-rhythm, S1 and S2, systolic murmur (soft [place] at card basee) Gastrointestional: No tender; soft, audible bowel sounds Extremities: No clubbing, No cyanosis, No significant edema Neurologic/Psychiatric: oriented x 3, other (moves all limbs equally) Skin: No rash on exposed areas, No ulcerations on exposed areas Results/Procedures: Labs Laboratory Tests 05/27/22 08:15: White Blood Count 12.5H, Red Blood Count 3.54L, Hemoglobin 10.1L, Hematocrit 32L , Mean Corpuscular Volume 92, Mean Corpuscular Hemoglobin 29, Mean Corpuscular Hemoglobin Concent 31L, Red Cell Distribution Width 17.0H, Platelet Count 429H, Mean Platelet Volume 11.8, Sodium Level 138, Potassium Level 4.1, Chloride Level 104, Carbon Dioxide Level 23, Anion Gap 11, Blood Urea Nitrogen 10, Creatinine 0.75, Estimat Glomerular Filtration Rate 82, BUN/Creatinine Ratio 13, Glucose Level 116H, Calcium Level 9.3, Corrected Calcium 10.0, Total Bilirubin 0.8, Aspartate Amino Transf (AST/SGOT) 13, Alanine Aminotransferase (ALT/SGPT) 14, Alkaline Phosphatase 71, Troponin I < 0.028, Total Protein 6.6, Albumin 3.1L Microbiology 05/26/22 Gram Stain - Final, Resulted 05/26/22 Wound Culture - Preliminary, Resulted Staphylococcus aureus Laboratory Tests 05/27/22 08:15 Procedures ECG normal on the morning of 05/27/22 during episode of severe chest pain A/P: Assessment: Chest pain w/o any evidence of ACS, etiology unclear H/o PAF - S/p ILR implanted in January 2022: no recurrence of PAF seen in the recent past - on Eliquis. Perforated sigmoid colon, status post colectomy. Status post severe sepsis, resolved Hypertension, controlled Anxiety/depression, management per Medical services. Plan: Serial enzymes Monitor closely Discussed her CV issues with her Discussed with ALEXANDER Barrett MD FACP FAC CCDS May 27, 2022 12:52
[2022-05-27] MEDS: CLINDAMYCIN 600 MG/50 ML IVPB 50 ML IV SCH ×2 (13:20→21:14)
[2022-05-27 20:22] VITALS: BP 107/57
[2022-05-27] MEDS ORDERED: MELATONIN 3 MG TABLET PO SCH (21:00)
[2022-05-27] MEDS ORDERED: MIRTAZAPINE 15 MG (REMERON) TAB PO SCH (21:00)
[2022-05-28] MEDS: BENZONATATE 100 MG (TESSALON) CAPSULE PO PRN ×2 (01:11→08:49)
[2022-05-28] MEDS: ALPRAZolam 0.25 MG (XANAX) TAB PO PRN (01:12)
--- NOTE | 2022-05-28 05:46 | Discharge Inst-Skilled Nursing ---
Discharge Inst-Skilled NF Reconcile Patient Problems Problems Reviewed?: Yes Patient Instructions Patient Problems: New colostomy AF Goal: [facility] Consult/Follow Up/Orders Follow Up Appt.: PCP 1 week Skilled NF Admit to: Certification (SNF) I certify that SNF services are required to be given on an inpatient basis because of the above named patient's need for residential care on a continuing basis for the conditions(s) for which he/she was receiving inpatient hospital services prior to his/her transfer to the SNF. [facility] Facility Order: Nursing Services, Room Service Runner-Evaluate & Treat, Physical Therapy-Evaluate & Treat, Wound Care-Eval/Treat Oxygen Delivery Method: Room Air Discharge Diet: No Restrictions Daily Activity as Tolerated: Yes Resuscitation Status: Full Code New & Resume Previous Orders Jennifer Gould May 28, 2022 05:45 JENNIFER GOULD DO May 28, 2022 05:46
--- NOTE | 2022-05-28 05:54 | PM&R Progress Note ---
Subjective HPI/CC On Admission Date Seen by Provider: May 28, 2022 Time Seen by Provider: 09:30 Subjective/Events-last exam 05/28/2022: 05/27/2022: Patient doing a lot better but does not think so Could not sleep last night so we will add Remeron to melatonin Cannot understand why she is so is nauseated Clindamycin maintained IV Very complicated issues 05/26/2022: Patient just cannot understand why she is still so weak Patient has very poor reserve and that was more the abdominal issue A. fib Needs [facility] will go on Saturday05/25/2022: Patient ready for discharge to skilled No other concerns Cough is improved Using incentive spirometer 05/24/2022: Patient about the same Needs skilled care Very inconsistent in her abilities Very chronically ill 05/23/2022: Pt is doing pretty well Needs skilled care Drainage from the midline Dry cough, Tessalon perles initiated Overall very complicated 05/22/2022: Pt is doing about the same but will need skilled Psych eval because she is so tearful Dr. Walker consult for nausea and vomiting 05/21/2022: Pt is doing pretty well Ostomy output good Will discontinue telemetry Very talkative but becomes tearful at times, so will put in a behavioral health consult She just can't understand why she is so weak 05/20/2022: Doing well Cries easily No pain reported Sleeps well 05/19/2022: Patient doing pretty well Nausea persists so will initiate scheduled Zofran Patient sleeping well at night No other concerns 05/18/2022: Patient doing well Slept well last night No pain Zosyn DC 05/17/2022: Patient doing well Walking better telemetry maintained Antibiotics maintained FLYNN drain maintained 05/16/2022: Pt is doing really well Takes her pain medication regularly Telemetry maintained Lovenox still on board before transition to oral anticoagulation 05/15/2022: Doing well Improved overall Lovenox maintained until OAC CLD tolerated No pain reported Participating Review of Systems General: Fatigue, Malaise depression Objective Exam Vital Signs Vital Signs Date Time Temp Pulse Resp B/P (MAP) Pulse Ox O2 Delivery O2 Flow Rate FiO2 05/28/22 07:58 37.7 84 18 114/57 (76) 95 Room Air Capillary Refill : General Appearance: No Apparent Distress, Chronically ill HEENT: PERRL/EOMI, Normal ENT Inspection Neck: Normal Inspection, Non Tender Respiratory: Chest Non Tender, No Accessory Muscle Use, No Respiratory Distress Cardiovascular: Regular Rate, Rhythm, No JVD Gastrointestinal: Normal Bowel Sounds, No Organomegaly, No Pulsatile Mass, Soft, Other (colostomy) Back: Normal Inspection, No CVA Tenderness, No Vertebral Tenderness Extremity: Normal Inspection, Normal Range of Motion, No Calf Tenderness Neurologic/Psychiatric: Alert, Oriented x3, Normal Mood/Affect, Motor Weakness (generalized) Skin: Normal Color, Warm/Dry Lymphatic: No Adenopathy Results/Procedures Lab Patient resulted labs reviewed. FIM Transfers Therapy Code Descriptions/Definitions Functional Kay Measure: 0=Not Assessed/NA 4=Minimal Assistance 1=Total Assistance 5=Supervision or Setup 2=Maximal Assistance 6=Modified Kay 3=Moderate Assistance 7=Complete IndependenceSCALE: Activities may be completed with or without assistive devices. 7-Dbjvbgnnil-nnnhkas completes the activity by him/herself with no assistance from a helper. 5-Set-up or Clean-up Assistance-helper sets up or cleans up; patient completes activity. [employer] assists only prior to or following the activity. 4-Supervision or Touching Assistance-helper provides verbal cues and/or touching/steadying and/or contact guard assistance as patient completes activity. Assistance may be provided throughout the activity or intermittently. 3-Partial/Moderate Assistance-helper does LESS THAN HALF the effort. [employer] lifts, holds or supports trunk or limbs, but provides less than half the effort. 2-Substantial/Maximal Assistance-helper does MORE THAN HALF the effort. [employer] lifts or holds trunk or limbs and provides more than half the effort. 7-Oiuvbquxs-zxvojf does ALL the effort. Patient does none of the effort to complete the activity. Or, the assistance of 2 or more helpers is required for the patient to complete the activity. If activity was not attempted, code reason: 7-Patient Refused. 9-Not Applicable-not attempted and the patient did not perform the activity before the current illness, exacerbation or injury. 10-Not Attempted due to Environmental Limitations-(lack of equipment, weather restraints, etc.). 88-Not Attempted due to Medical Conditions or Safety Concerns. Roll Left to Right (QC): 6 Sit to Lying (QC): 6 Sit to Stand (QC): 6 Chair/Hzk-qr-Vafjo Xfer(QC): 6 Car Transfer (QC): 2 Gait Training Does the Patient Walk?: Yes Distance: 500' Walk 10 feet (QC): 6 Walk 50 ft with 2 Turns(QC): 6 Walk 150 ft (QC): 6 Walking 10ft/uneven surface-QC: 4 Gait Persons Needed: 1 Gait Assistive Device: FWW Wheelchair Training Does the Pt Use a Wheelchair?: No Wheel 50 ft with 2 turns (QC): 9 Wheel 150 ft (QC): 9 Type of Wheelchair: N/A Stair Training Stair Training: Handrails/: 2 handrails #of Steps: 4 1 Step (curb) (QC): 6 4 Steps (QC): 4 12 Steps (QC): 4 Stairs: Pattern: Reciprocal Balance Picking up an Object (QC): 88 ADL-Treatment Eating (QC): 6 (IND with breakfast.) Oral Hygiene (QC): 6 (Standing at sink) Shower/Bathe Self (QC): 5 (set up to cover dressing/ostomy) Upper Body Dressing (QC): 6 Lower Body Dressing (QC): 6 On/Off Footwear (QC): 6 Toileting Hygiene (QC): 6 Toilet Transfer (QC): 6 Assessment/Plan Assessment and Plan Assess & Plan/Chief Complaint Assessment: Debility Myopathy New onset AF s/p RVR requiring ICU drip HTN HLP Loop recorder s/p severe sepsis from perforated sigmoid colon s/p colostomy Post op anemia due to acute blood loss Ongoing nausea Postop incision and cellulitis placed on Augmentin on 05/26/2022 but changed to Clinda for MRSA Plan: Monitor closely Monitor hgb PT OT Pain control 05/15/2022: Monitor HR Lovenox Fall risk 05/16/2022: Monitor closely 05/17/2022: Monitor closely 05/18/2022: DC abx Monitor AF 05/19/2022: Nausea treatment 05/20/2022: Check labs in am Psych issues 05/21/2022: Behavioral health consult Monitor ostomy output 05/22/2022: Nausea treatment Needs SNF 05/23/2022: Supportive care Monitor pain 05/24/2022: Supportive care Await senior living 05/25/2022: Monitor closely 05/26/2022: Antibiotic Antiemetics given 05/27/2022: Clindamycin 05/28/2022: (1) Atrial fibrillation with rapid ventricular response (2) Debility Status: Acute (3) Postoperative anemia due to acute blood loss Status: Acute (4) HLD (hyperlipidemia) Status: Chronic (5) HTN (hypertension) Status: Chronic (6) Severe sepsis Status: Acute (7) Perforated sigmoid colon Status: Acute GABRIEL CONNELL DO May 28, 2022 05:54
[2022-05-28] MEDS: CLINDAMYCIN 600 MG/50 ML IVPB 50 ML IV SCH (06:03)
[2022-05-28] MEDS: ONDANSETRON 4 MG (ZOFRAN) ORAL DISSOLVE TAB PO SCH ×2 (06:03→12:47)
[2022-05-28] MEDS: KCL 10 MEQ TAB (MICRO K) PO SCH (06:03)
[2022-05-28] MEDS: CATHETER FLUSH 10 ML SYR IVP SCH (06:04)
--- NOTE | 2022-05-28 07:36 | Progress Note - Surgery ---
CECILE AYALA 05/28/22 0736: Subjective Date Seen by a Provider: May 28, 2022 Time Seen by a Provider: 07:30 Subjective/Events-last exam Patient is up and eating breakfast this morning. Reports she feels better than yesterday. Colostomy with output. Incision with little drainage. Denies any a bdominal pain, nausea, vomiting, or chest pain. CXR from yesterday shows no acute cardiopulmonary abnormality. Objective Exam Vital Signs Date Time Temp Pulse Resp B/P (MAP) Pulse Ox O2 Delivery O2 Flow Rate FiO2 05/28/22 01:00 83 05/27/22 20:22 37.0 81 18 107/57 (74) 95 Room Air 05/27/22 20:08 Room Air 05/27/22 19:00 95 05/27/22 13:01 84 05/27/22 09:35 Room Air 05/27/22 09:00 88 I & O 05/28/22 07:00 Intake Total 1490 ml Output Total 100 ml Balance 1390 ml Capillary Refill : General Appearance: No Apparent Distress, Chronically ill HEENT: PERRL/EOMI, Normal ENT Inspection Neck: Normal Inspection, Non Tender Respiratory: Chest Non Tender, No Accessory Muscle Use, No Respiratory Distress Cardiovascular: Regular Rate, Rhythm, No JVD Gastrointestinal: soft, tenderness (slight incisional tenderness, erythema lower abdomen with slight serous drainage, colostomy pink and productive), other (colostomy and midline incisions) Extremity: Normal Inspection, Normal Range of Motion, No Calf Tenderness Neurologic/Psychiatric: Alert, Oriented x3, Normal Mood/Affect, Motor Weakness (generalized) Skin: Normal Color, Warm/Dry Lymphatic: No Adenopathy Results Lab Laboratory Tests 05/27/22 08:15: White Blood Count 12.5H, Red Blood Count 3.54L, Hemoglobin 10.1L, Hematocrit 32L , Mean Corpuscular Volume 92, Mean Corpuscular Hemoglobin 29, Mean Corpuscular Hemoglobin Concent 31L, Red Cell Distribution Width 17.0H, Platelet Count 429H, Mean Platelet Volume 11.8, Sodium Level 138, Potassium Level 4.1, Chloride Level 104, Carbon Dioxide Level 23, Anion Gap 11, Blood Urea Nitrogen 10, Creatinine 0.75, Estimat Glomerular Filtration Rate 82, BUN/Creatinine Ratio 13, Glucose Level 116H, Calcium Level 9.3, Corrected Calcium 10.0, Total Bilirubin 0.8, Aspartate Amino Transf (AST/SGOT) 13, Alanine Aminotransferase (ALT/SGPT) 14, Alkaline Phosphatase 71, Troponin I < 0.028, Total Protein 6.6, Albumin 3.1L Microbiology 05/26/22 Gram Stain - Final, Resulted 05/26/22 Wound Culture - Preliminary, Resulted Staphylococcus aureus Assessment/Plan Assessment/Plan Assessment/Plan diffuse abdominal pain pneumoperitenum perforated hollow viscus s/p laparoscopic/open exploratory laparotomy with low anterior resection with end colostomy and splenic flexure mobilization Sepsis anemia postoperative/dilutional Nausea-improved erythema lower incision- wound culture showed S.aureus Continue anti-emetic medications prn bowels are functioning colostomy care Continue to monitor lower incision erythema Dressing changes Continue clinda Chest x ray shows no abnormality Dr. Gould and Dr. Patino have been notified about pt's chest pain ARUN SHERMAN DO 05/28/222036: Subjective Subjective/Events-last exam Patient feeling better today. Colostomy with output. Incision with scant drainage. Denies any new complaints denies any nausea vomiting fever sweats chi lls shortness of breath or chest pain. Objective Exam General Appearance: No Apparent Distress, Chronically ill HEENT: PERRL/EOMI, Normal ENT Inspection Neck: Normal Inspection, Non Tender Respiratory: Chest Non Tender, No Accessory Muscle Use, No Respiratory Distress Cardiovascular: Regular Rate, Rhythm, No JVD Gastrointestinal: soft, tenderness (slight incisional tenderness, erythema lower abdomen with slight serous drainage, colostomy pink and productive), other (colostomy and midline incisions) Extremity: Normal Inspection, Normal Range of Motion, No Calf Tenderness Neurologic/Psychiatric: Alert, Oriented x3, Normal Mood/Affect Skin: Normal Color, Warm/Dry Lymphatic: No Adenopathy Assessment/Plan Assessment/Plan Assessment/Plan diffuse abdominal pain pneumoperitenum perforated hollow viscus s/p laparoscopic/open exploratory laparotomy with low anterior resection with end colostomy and splenic flexure mobilization Sepsis anemia postoperative/dilutional Nausea-improved erythema lower incision- wound culture showed S.aureus Continue anti-emetic medications prn bowels are functioning colostomy care Continue to monitor lower incision erythema Dressing changes Clinda changed to doxy due to resistance to clinda Supervisory-Addendum Brief Verification & Attestation Participated in pt care: history, MDM, physical Personally performed: exam, history, MDM, supervision of care Care discussed with: Medical Student Procedures: n/a Results interpretation: Verified all documentation Verification and Attestation of Medical Student E/M Service A medical student performed and documented this service in my presence. I reviewed and verified all information documented by the medical student and made modifications to such information, when appropriate. I personally performed the physical exam and medical decision making. Arun Sherman, May 28, 2022,20:39 CECILE AYALA May 28, 2022 07:36 ARUN SHERMAN DO May 28, 2022 20:37
[2022-05-28 07:58] VITALS: BP 114/57
[2022-05-28] MEDS: DOCUSATE SODIUM 100 MG (COLACE) CAP PO SCH (08:49)
[2022-05-28] MEDS: APIXABAN 5 MG (ELIQUIS) TABLET PO SCH (08:50)
[2022-05-28] MEDS: SENNA W/DOCUSATE (SENOKOT S) TABLET PO SCH (08:50)
[2022-05-28] MEDS: PANTOPRAZOLE 40 MG (PROTONIX) TAB PO SCH (08:50)
--- NOTE | 2022-05-28 08:52 | Physical Therapy Daily Note ---
PT Daily Note-Current Subjective Patient in recliner pre tx, agrees to PT, has unrated pain in abdomen and left knee, nurse notified. Appearance Patient in bed post tx with nurse call, phone, tray, all needs met. Mental Status Patient Orientation: Person, Place, Situation Transfers SCALE: Activities may be completed with or without assistive devices. 2-Tsdkggvrza-johlhsm completes the activity by him/herself with no assistance from a helper. 5-Set-up or Clean-up Assistance-helper sets up or cleans up; patient completes activity. [employer] assists only prior to or following the activity. 4-Supervision or Touching Assistance-helper provides verbal cues and/or touching/steadying and/or contact guard assistance as patient completes activity. Assistance may be provided throughout the activity or intermittently. 3-Partial/Moderate Assistance-helper does LESS THAN HALF the effort. [place] [employer] lifts, holds or supports trunk or limbs, but provides less than half the effort. 2-Substantial/Maximal Assistance-helper does MORE THAN HALF the effort. [employer] lifts or holds trunk or limbs and provides more than half the effort. 8-Rlnmkpviv-foovsh does ALL the effort. Patient does none of the effort to complete the activity. Or, the assistance of 2 or more helpers is required for the patient to complete the activity. If activity was not attempted, code reason: 7-Patient Refused. 9-Not Applicable-not attempted and the patient did not perform the activity before the current illness, exacerbation or injury. 10-Not Attempted due to Environmental Limitations-(lack of equipment, weather restraints, etc.). 88-Not Attempted due to Medical Conditions or Safety Concerns. Roll Left & Right (QC): 6 Sit to Lying (QC): 6 Lying to Sitting/Side of Bed(Q: 6 Sit to Stand (QC): 6 Chair/Hwg-cr-Suavb Xfer(QC): 6 Toilet Transfer (QC): 6 Car Transfer (QC): 4 Patient performs rolling and supine <-> sit with independence, sit <-> stand and transfers with independence, car transfer SBA. Patient needs to get dressed at the beginning of tx, therapist assisted with brief and pants, patient ambulates into the restroom and uses toilet without assist. Weight Bearing Full Weight Bearing Full Weight Bearing Gait Training Distance: 300', 120' Walk 10 feet (QC): 6 Walk 50 ft with 2 Turns(QC): 6 Walk 150 ft (QC): 6 Walking 10ft/uneven surface-QC: 4 Gait Assistive Device: FWW Patient can ambulate 300' with a rolling walker with independence (including 50' with at least 2 turns of 90 degrees but needs SBA for 10' over an uneven surface), slow but steady ambulation, slightly SOB after ambulating but recovers quickly with rest. Wheelchair Training Wheel 50 ft with 2 turns (QC): 9 Wheel 150 ft (QC): 9 Stair Training Stair Training: Handrails/: 2 handrails #of Steps: 4 1 Step (curb) (QC): 4 4 Steps (QC): 4 12 Steps (QC): 88 Stairs: Pattern: Step to Patient can go up and down 4 steps using 2 handrails with SBA, cues for safety, patient slightly SOB afterward Balance Picking up an Object (QC): 4 (SBA without acute care surgeon) Exercises NuStep Minutes: 15 NuStep Workload: 4 Neuromuscular Patient scored 24/28 on the Tinetti Treatments bed mobility and transfers, ambulation, stair training, functional strengthening Assessment Current Status: Fair Progress patient needs to ambulate using a walker for safety, she is unsteady with ambulation without using one PT Channel Process Supervisor Goals Custodial Goals PT Custodial Goals Time Frame: Jun 09, 2022 Roll Left & Right (QC): 6 Sit to Lying (QC): 6 Lying-Sitting on Side/Bed(QC): 6 Sit to Stand (QC): 6 Chair/Hnv-jq-Nuoot Xfer(QC): 6 Toilet Transfer (QC): 6 Car Transfer (QC): 6 Does the Patient Walk: Yes Walk 10 feet (QC): 6 Walk 50ft with 2 Turns (QC): 6 Walk 150 ft (QC): 6 Walking 10ft on Uneven Surface: 6 1 Step (curb) (QC): 6 4 Steps (QC): 6 12 Steps (QC): 6 Picking up an Object (QC): 6 Wheel 50 feet with 2 turns (QC: 9 Wheel 150 feet: 9 PT Plan Problem List Problem List: Activity Tolerance, Functional Strength, Safety, Balance, Gait, Transfer, Bed Mobility, ROM Treatment/Plan Treatment Plan: Continue Plan of Care Treatment Plan: Bed Mobility, Education, Functional Activity Simona, Functional Strength, Gait, Safety, Therapeutic Exercise, Transfers Treatment Duration: Jun 09, 2022 Frequency: At least 5 of 7 days/Wk (IRF) Estimated Hrs Per Day: 1.5 hours per day Patient and/or Family Agrees t: Yes Safety Risks/Education Patient Education: Gait Training, Transfer Techniques, Steps, Correct Positioning, Safety Issues Teaching Recipient: Patient Teaching Methods: Demonstration, Discussion Response to Teaching: Reinforcement Needed Time/GCodes Time In: 0800 Time Out: 0900 Total Billed Treatment Time: 60 Total Billed Treatment 1 visit EX 15' FA 45' TREVOR JACOBO PT May 28, 2022 08:52
--- NOTE | 2022-05-28 09:27 | Cardiology Progress Note ---
Subjective Date Seen by Provider: May 28, 2022 Time Seen by Provider: 08:15 Subjective/Events-last exam Patient with PT. Denies any chest pain or dyspnea. Objective-Cardiology Exam Last Set of Vital Signs Vital Signs 05/28/22 07:58 Temp 37.7 Pulse 84 Resp 18 B/P (MAP) 114/57 (76) Pulse Ox 95 O2 Delivery Room Air I&O Intake and Output 05/28/22 00:00 Intake Total 1590 ml Output Total 100 ml Balance 1490 ml Intake Oral 1540 ml IV Total 50 ml Stool Total 100 ml # Voids 11 General: Alert, Oriented X3 HEENT: Atraumatic Heart: Regular Rate, Normal S1, Normal S2 Extremities: No Clubbing Skin: No Rashes, No Significant Lesion Neuro: Normal Speech Psych/Mental Status: Mental Status NL, Mood NL A/P-Cardiology Admission Diagnosis PAF HTN HLP S/P perf sigmoid colon Assessment/Plan Chest pain, nonspecific etiology, resolved. Paroxysmal atrial fibrillation, converted to sinus rhythm on amiodarone drip Patient is in sinus rhythm Interrogation of her loop recorder that was implanted in January 2022 showed no other episodes of atrial fibrillation. Currently in sinus rhythm. Continue to monitor Lovenox discontinued and started on Eliquis. Perforated sigmoid colon, status post colectomy. Recovering slowly from surgery Status post severe sepsis, improved. Acute renal insufficiency postoperatively. Improved, Continue to monitor renal function Hypertension, controlled, continue to monitor blood pressure Hyperlipidemia, monitor lipids Anxiety/depression, management per medical services. MARCELLA VALERA May 28, 2022 09:27
[2022-05-28] MEDS: polyethylene glycoL POWDER 17 GM (MIRALAX) PACK PO SCH (10:08)
--- NOTE | 2022-05-28 10:28 | Occupational Ther Daily Note ---
OT Current Status-Daily Note Subjective Pt agreeable to OT Tx. ADL-Treatment Therapy Code Descriptions/Definitions Functional [place] Measure: 0=Not Assessed/NA 4=Minimal Assistance 1=Total Assistance 5=Supervision or Setup 2=Maximal Assistance 6=Modified [place] 3=Moderate Assistance 7=Complete IndependenceSCALE: Activities may be completed with or without assistive devices. 8-Dvmvkdottb-jrllquk completes the activity by him/herself with no assistance from a helper. 5-Set-up or Clean-up Assistance-helper sets up or cleans up; patient completes activity. [place] assists only prior to or following the activity. 4-Supervision or Touching Assistance-helper provides verbal cues and/or touching/steadying and/or contact guard assistance as patient completes activity. Assistance may be provided throughout the activity or intermittently. 3-Partial/Moderate Assistance-helper does LESS THAN HALF the effort. [place] lifts, holds or supports trunk or limbs, but provides less than half the effort. 2-Substantial/Maximal Assistance-helper does MORE THAN HALF the effort. [place] lifts or holds trunk or limbs and provides more than half the effort. 5-Rmapqtnpu-zdyxrn does ALL the effort. Patient does none of the effort to complete the activity. Or, the assistance of 2 or more helpers is required for the patient to complete the activity. If activity was not attempted, code reason: 7-Patient Refused. 9-Not Applicable-not attempted and the patient did not perform the activity before the current illness, exacerbation or injury. 10-Not Attempted due to Environmental Limitations-(lack of equipment, weather restraints, etc.). 88-Not Attempted due to Medical Conditions or Safety Concerns. Eating (QC): 6 Oral Hygiene (QC): 6 Shower/Bathe Self (QC): 5 Upper Body Dressing (QC): 6 Lower Body Dressing (QC): 6 On/Off Footwear: 6 Toileting Hygiene (QC): 6 Toilet Transfer (QC): 6 Other Treatment Pt used FWW in room to gather ADLs supplies, use restroom and complete showering/dressing, oral care at sink. Pt completed everything with independence, required set up assistance only to cover Midline and Ostomy/dressings prior to shower. Post tx, pt in recliner, call light in reach and all needs met. Education OT Patient Education: Correct positioning, Energy conservation, Modified ADL techniques, Progress toward Goal/Update tx plan, Purpose of tx/functional activities, Rehab process Teaching Recipient: Patient Teaching Methods: Discussion Response to Teaching: Verbalize Understanding OT Short Term Goals Short Term Goals Time Frame: May 30, 2022 Toileting hygiene: 4 Shower/bathe self: 4 Lower body dressin Putting on/taking off footwear: 4 OT Retirement Goals Retirement Goals Time Frame: Jun 15, 2022 Eating (QC): 6 (met) Oral Hygiene (QC): 6 (met) Toileting Hygiene (QC): 6 (met) Shower/Bathe Self (QC): 6 (not met) Upper Body Dressing (QC): 6 (met) Lower Body Dressing (QC): 6 (met) On/Off Footwear (QC): 6 (met) Additional Goals: 1-Demonstrate ADL Tasks, 2-Verbalize Understanding, 3-ImproveStrength/Simona 1=Demonstrate adherence to instructed precautions during ADL tasks. 2=Patient will verbalize/demonstrate understanding of assistive devices/modifications for ADL. 3=Patient will improve strength/tolerance for activity to enable patient to perform ADL's. OT Education/Plan Problem List/Assessment Assessment: Decreased Activ Tolerance, Decreased UE Strength, Impaired I ADL's Discharge Recommendations Plan/Recommendations: Continue POC Treatment Plan/Plan of Care Patient would benefit from OT for education, treatment and training to promote independence in ADL's, mobility, safety and/or upper extremity function for ADL's. Plan of Care: ADL Retraining, Functional Mobility, Group Exercise/Act as Ind, UE Funct Exercise/Act Treatment Duration: Jun 15, 2022 Frequency: At least 5 of 7 days/Wk (IRF) Estimated Hrs Per Day: 1.5 hours per day Rehab Potential: Fair Time/GCodes Start Time: 10:00 Stop Time: 11:00 Total Time Billed (hr/min): 60 Billed Treatment Time 1, ADL 4 TANNER SOMMER OT May 28, 2022 10:28
[2022-05-28] MEDS ORDERED: DOXY100T2 PO (10:59)
[2022-05-28] MEDS ORDERED: ONDA4TAB11 PO (10:59)
[2022-05-28] MEDS ORDERED: SIMV40TA25 PO (10:59)
[2022-05-28] MEDS ORDERED: ALPR.25T PO (10:59)
[2022-05-28] MEDS ORDERED: MIRT-47 PO (10:59)
[2022-05-28] MEDS ORDERED: OXC5T PO (10:59)
[2022-05-28] MEDS ORDERED: PANT40TA52 PO (10:59)
[2022-05-28] MEDS ORDERED: BENZ100C18 PO (10:59)
[2022-05-28] MEDS ORDERED: APIX5TAB PO (10:59)
[2022-05-28] MEDS ORDERED: LUTE20TA PO (10:59)
[2022-05-28] MEDS ORDERED: DOXYCYCLINE 100 MG (VIBRAMYCIN) TABLET PO SCH (11:00)
--- NOTE | 2022-05-28 11:00 | Discharge Summary ---
Diagnosis/Chief Complaint Date of Admission May 14, 2022 at 14:00 Date of Discharge Discharge Date: May 28, 2022 Discharge Diagnosis Assessment: Debility Myopathy New onset AF s/p RVR requiring ICU drip HTN HLP Loop recorder s/p severe sepsis from perforated sigmoid colon s/p colostomy Post op anemia due to acute blood loss Ongoing nausea Postop incision and cellulitis placed on Augmentin on 05/26/2022 but changed to Clinda for MRSA IV then switched to Doxy at DC Plan: Monitor closely Monitor hgb PT OT Pain control 05/15/2022: Monitor HR Lovenox Fall risk 05/16/2022: Monitor closely 05/17/2022: Monitor closely 05/18/2022: DC abx Monitor AF 05/19/2022: Nausea treatment 05/20/2022: Check labs in am Psych issues 05/21/2022: Behavioral health consult Monitor ostomy output 05/22/2022: Nausea treatment Needs SNF 05/23/2022: Supportive care Monitor pain 05/24/2022: Supportive care Await snf 05/25/2022: Monitor closely 05/26/2022: Antibiotic Antiemetics given 05/27/2022: Clindamycin (1) Atrial fibrillation with rapid ventricular response (2) Debility Status: Acute (3) Postoperative anemia due to acute blood loss Status: Acute (4) HLD (hyperlipidemia) Status: Chronic (5) HTN (hypertension) Status: Chronic (6) Severe sepsis Status: Acute (7) Perforated sigmoid colon Status: Acute Discharge Summary Discharge Physical Examination Allergies: Coded Allergies: Sulfa (Sulfonamide Antibiotics) (Verified Allergy, Unknown, 05/14/22) citalopram (Verified Allergy, Unknown, "night terrors", 05/14/22) "night terrors" codeine (Verified Allergy, Unknown, 05/14/22) "dizziness" Vitals & I&Os Vital Signs Date Time Temp Pulse Resp B/P (MAP) Pulse Ox O2 Delivery O2 Flow Rate FiO2 05/28/22 12:45 37.7 109 18 114/57 95 Room Air General Appearance: Alert, Oriented X3, Cooperative, Other (chronically ill) Respiratory: Clear to Auscultation Cardiovascular: Regular Rate Hospital Course Was the Problem List Reviewed?: Yes Lengthy course after emergent intestinal perforation requiring diverting colostomy then episode of AF RVR prompting Cardizem drip and Cardiology consultation. Patient appeared to be in a declined state when she had presented with these critical issues and although she participated in therapy she was found to have severe deficits in her overall status requiring half-way at OR. MRSA of wound diagnosed and placed on Clinda IV and then switched to Doxy at OR. Overall her prognosis is guarded at this time. Labs (last 24 hrs) Laboratory Tests 05/15/22 06:15: White Blood Count 12.0H, Red Blood Count 3.21L, Hemoglobin 9.1L, Hematocrit 29L, Mean Corpuscular Volume 89, Mean Corpuscular Hemoglobin 28, Mean Corpuscular Hemoglobin Concent 32, Red Cell Distribution Width 16.2H, Platelet Count 309, Mean Platelet Volume 11.3, Immature Granulocyte % (Auto) 19, Neutrophils (%) (Auto) 60, Lymphocytes (%) (Auto) 8L, Monocytes (%) (Auto) 9, Eosinophils (%) (Auto) 3, Basophils (%) (Auto) 1, Neutrophils # (Auto) 7.2, Lymphocytes # (Auto) 1.0, Monocytes # (Auto) 1.0, Eosinophils # (Auto) 0.4H, Basophils # (Auto) 0.1, Immature Granulocyte # (Auto) 2.3H, Sodium Level 141, Potassium Level 3.5L, Chloride Level 110H, Carbon Dioxide Level 24, Anion Gap 7, Blood Urea Nitrogen 10, Creatinine 0.63, Estimat Glomerular Filtration Rate 92, BUN/Creatinine Ratio 16, Glucose Level 100, Calcium Level 8.4L, Corrected Calcium 9.8, Total Bilirubin 0.5, Aspartate Amino Transf (AST/SGOT) 12, Alanine Aminotransferase (ALT/SGPT) 15, Alkaline Phosphatase 43, Total Protein 4.7L, Albumin 2.2L 05/21/22 04:15: White Blood Count 12.0H, Red Blood Count 3.41L, Hemoglobin 9.6L, Hematocrit 31L, Mean Corpuscular Volume 91, Mean Corpuscular Hemoglobin 28, Mean Corpuscular Hemoglobin Concent 31L, Red Cell Distribution Width 18.6H, Platelet Count 524H, Mean Platelet Volume 11.5, Immature Granulocyte % (Auto) 5, Neutrophils (%) (Auto) 68, Lymphocytes (%) (Auto) 11L, Monocytes (%) (Auto) 12, Eosinophils (%) (Auto) 3, Basophils (%) (Auto) 1, Neutrophils # (Auto) 8.2H, Lymphocytes # (Auto) 1.3, Monocytes # (Auto) 1.5H, Eosinophils # (Auto) 0.4H, Basophils # (Auto) 0.1, Immature Granulocyte # (Auto) 0.6H, Sodium Level 140, Potassium Level 4.3, Chloride Level 105, Carbon Dioxide Level 22, Anion Gap 13, Blood Urea Nitrogen 14, Creatinine 0.67, Estimat Glomerular Filtration Rate 91, BUN/Creatinine Ratio 21, Glucose Level 104, Calcium Level 9.2, Corrected Calcium 10.0, Total Bilirubin 0.6, Aspartate Amino Transf (AST/SGOT) 18, Alanine Aminotransferase (ALT/SGPT) 17, Alkaline Phosphatase 62, Total Protein 6.5, Albumin 3.0L 05/22/22 09:27: White Blood Count 10.6, Red Blood Count 3.49L, Hemoglobin 10.0L, Hematocrit 32L, Mean Corpuscular Volume 92, Mean Corpuscular Hemoglobin 29, Mean Corpuscular Hemoglobin Concent 31L, Red Cell Distribution Width 18.4H, Platelet Count 530H, Mean Platelet Volume 11.2, Immature Granulocyte % (Auto) 3, Neutrophils (%) (Auto) 74, Lymphocytes (%) (Auto) 8L, Monocytes (%) (Auto) 12, Eosinophils (%) ( Auto) 1, Basophils (%) (Auto) 1, Neutrophils # (Auto) 7.9H, Lymphocytes # (Auto) 0.9L, Monocytes # (Auto) 1.3H, Eosinophils # (Auto) 0.1, Basophils # (Auto) 0.1, Immature Granulocyte # (Auto) 0.4H, Sodium Level 139, Potassium Level 4.1, Chloride Level 104, Carbon Dioxide Level 26, Anion Gap 9, Blood Urea Nitrogen 13, Creatinine 0.74, Estimat Glomerular Filtration Rate 84, BUN/Creatinine Ratio 18, Glucose Level 128H, Calcium Level 9.6 05/27/22 08:15: White Blood Count 12.5H, Red Blood Count 3.54L, Hemoglobin 10.1L, Hematocrit 32L , Mean Corpuscular Volume 92, Mean Corpuscular Hemoglobin 29, Mean Corpuscular Hemoglobin Concent 31L, Red Cell Distribution Width 17.0H, Platelet Count 429H, Mean Platelet Volume 11.8, Sodium Level 138, Potassium Level 4.1, Chloride Level 104, Carbon Dioxide Level 23, Anion Gap 11, Blood Urea Nitrogen 10, Creatinine 0.75, Estimat Glomerular Filtration Rate 82, BUN/Creatinine Ratio 13, Glucose Level 116H, Calcium Level 9.3, Corrected Calcium 10.0, Total Bilirubin 0.8, Aspartate Amino Transf (AST/SGOT) 13, Alanine Aminotransferase (ALT/SGPT) 14, Alkaline Phosphatase 71, Total Protein 6.6, Albumin 3.1L, Troponin I < 0.028 05/28/22 11:27: Influenza Type A (RT-PCR) Not Detected, Influenza Type B (RT-PCR) Not Detected, SARS-CoV-2 RNA (RT-PCR) Not Detected Microbiology 05/26/22 Gram Stain - Final, Resulted 05/26/22 Wound Culture - Preliminary, Resulted Staphylococcus aureus Pending Labs Microbiology Date/Time Source Procedure Growth Status 05/26/22 10:45 Incision Abdomen Gram Stain - Final Resulted 05/26/22 10:45 Wound Culture - Preliminary Staphylococcus aureus Resulted Laboratory Tests 05/15/22 06:15: White Blood Count 12.0, Red Blood Count 3.21, Hemoglobin 9.1, Hematocrit 29, Mean Corpuscular Volume 89, Mean Corpuscular Hemoglobin 28, Mean Corpuscular Hemoglobin Concent 32, Red Cell Distribution Width 16.2, Platelet Count 309, Mean Platelet Volume 11.3, Immature Granulocyte % (Auto) 19, Neutrophils (%) (Auto) 60, Lymphocytes (%) (Auto) 8, Monocytes (%) (Auto) 9, Eosinophils (%) (Auto) 3, Basophils (%) (Auto) 1, Neutrophils # (Auto) 7.2, Lymphocytes # (Auto) 1.0, Monocytes # (Auto) 1.0, Eosinophils # (Auto) 0.4, Basophils # (Auto) 0.1, Immature Granulocyte # (Auto) 2.3, Sodium Level 141, Potassium Level 3.5, Chloride Level 110, Carbon Dioxide Level 24, Anion Gap 7, Blood Urea Nitrogen 10, Creatinine 0.63, Estimat Glomerular Filtration Rate 92, BUN/Creatinine Ratio 16, Glucose Level 100, Calcium Level 8.4, Corrected Calcium 9.8, Total Bilirubin 0.5, Aspartate Amino Transf (AST/SGOT) 12, Alanine Aminotransferase (ALT/SGPT) 15, Alkaline Phosphatase 43, Total Protein 4.7, Albumin 2.2 05/21/22 04:15: White Blood Count 12.0, Red Blood Count 3.41, Hemoglobin 9.6, Hematocrit 31, Mean Corpuscular Volume 91, Mean Corpuscular Hemoglobin 28, Mean Corpuscular Hemoglobin Concent 31, Red Cell Distribution Width 18.6, Platelet Count 524, Mean Platelet Volume 11.5, Immature Granulocyte % (Auto) 5, Neutrophils (%) (Auto) 68, Lymphocytes (%) (Auto) 11, Monocytes (%) (Auto) 12, Eosinophils (%) (Auto) 3, Basophils (%) (Auto) 1, Neutrophils # (Auto) 8.2, Lymphocytes # (Auto) 1.3, Monocytes # (Auto) 1.5, Eosinophils # (Auto) 0.4, Basophils # (Auto) 0.1, Immature Granulocyte # (Auto) 0.6, Sodium Level 140, Potassium Level 4.3, Chloride Level 105, Carbon Dioxide Level 22, Anion Gap 13, Blood Urea Nitrogen 14, Creatinine 0.67, Estimat Glomerular Filtration Rate 91, BUN/Creatinine Ratio 21, Glucose Level 104, Calcium Level 9.2, Corrected Calcium 10.0, Total Bi lirubin 0.6, Aspartate Amino Transf (AST/SGOT) 18, Alanine Aminotransferase (ALT/SGPT) 17, Alkaline Phosphatase 62, Total Protein 6.5, Albumin 3.0 05/22/22 09:27: White Blood Count 10.6, Red Blood Count 3.49, Hemoglobin 10.0, Hematocrit 32, Mean Corpuscular Volume 92, Mean Corpuscular Hemoglobin 29, Mean Corpuscular Hemoglobin Concent 31, Red Cell Distribution Width 18.4, Platelet Count 530, Mean Platelet Volume 11.2, Immature Granulocyte % (Auto) 3, Neutrophils (%) (Auto) 74, Lymphocytes (%) (Auto) 8, Monocytes (%) (Auto) 12, Eosinophils (%) (Auto) 1, Basophils (%) (Auto) 1, Neutrophils # (Auto) 7.9, Lymphocytes # (Auto) 0.9, Monocytes # (Auto) 1.3, Eosinophils # (Auto) 0.1, Basophils # (Auto) 0.1, Immature Granulocyte # (Auto) 0.4, Sodium Level 139, Potassium Level 4.1, Chloride Level 104, Carbon Dioxide Level 26, Anion Gap 9, Blood Urea Nitrogen 13, Creatinine 0.74, Estimat Glomerular Filtration Rate 84, BUN/Creatinine Ratio 18, Glucose Level 128, Calcium Level 9.6 05/27/22 08:15: White Blood Count 12.5, Red Blood Count 3.54, Hemoglobin 10.1, Hematocrit 32, Mean Corpuscular Volume 92, Mean Corpuscular Hemoglobin 29, Mean Corpuscular Hemoglobin Concent 31, Red Cell Distribution Width 17.0, Platelet Count 429, Mean Platelet Volume 11.8, Sodium Level 138, Potassium Level 4.1, Chloride Level 104, Carbon Dioxide Level 23, Anion Gap 11, Blood Urea Nitrogen 10, Creatinine 0.75, Estimat Glomerular Filtration Rate 82, BUN/Creatinine Ratio 13, Glucose Level 116, Calcium Level 9.3, Corrected Calcium 10.0, Total Bilirubin 0.8, Aspartate Amino Transf (AST/SGOT) 13, Alanine Aminotransferase (ALT/SGPT) 14, Alkaline Phosphatase 71, Total Protein 6.6, Albumin 3.1, Troponin I < 0.028 05/28/22 11:27: Influenza Type A (RT-PCR) Not Detected, Influenza Type B (RT-PCR) Not Detected, SARS-CoV-2 RNA (RT-PCR) Not Detected Discharge Home Medications: Active Scripts Active Pantoprazole Sodium 40 Mg Tablet.dr 40 Mg PO DAILY Ondansetron Odt (Ondansetron) 4 Mg Tab.rapdis 4 Mg PO AC Tessalon Perles (Benzonatate) 100 Mg Capsule 200 Mg PO TID PRN Xanax Tablet (Alprazolam) 0.25 Mg Tab 0.25 Mg PO Q8H PRN Mirtazapine 15 Mg Tab.rapdis 7.5 Mg PO HS Oxyir Tablet (Oxycodone HCl) 5 Mg Tab 5-10 Mg PO Q4H PRN Eliquis (Apixaban) 5 Mg Tablet 5 Mg PO BID Doxycycline Hyclate 100 Mg Tablet 100 Mg PO BID Lutein 20 Mg Tablet 20 Mg PO DAILY Simvastatin 40 Mg Tablet 40 Mg PO DAILY LAST FILLED 03-07-2022 #30/30 DAY SUPPLY Instructions to patient/family Please see electronic discharge instructions given to patient. Diagnosis/Problems Diagnosis/Problems (1) Atrial fibrillation with rapid ventricular response (2) Debility Status: Acute (3) Postoperative anemia due to acute blood loss Status: Acute (4) HLD (hyperlipidemia) Status: Chronic (5) HTN (hypertension) Status: Chronic (6) Severe sepsis Status: Acute (7) Perforated sigmoid colon Status: Acute GABRIEL CONNELL DO May 28, 2022 11:00
--- NOTE | 2022-05-28 12:32 | Speech Therapy Daily Note ---
Speech Daily Progress Note Subjective Date Seen by Provider: May 28, 2022 Time Seen by Provider: 09:00 The patient was lying in bed, awake and alert upon the clinician's entrance to the room. The patient greeted the clinician and was agreeable to participation in the cognitive linguistic treatment session. Objective Expression of Ideas/Wants: Expression (4) Understanding Verbal Content: Understands (4) Brief Interview-Mental Status: Yes Repetition of Three Words: Three (3) Temporal Orientation: Year: Correct (3) Temporal Orientation: Month: Accurate within 5 days(2) Temporal Orientation: Day: Correct (1) Recall : Wear to say "Sock": Yes, no cue required (2) Recall : Color: Yes, no cue required (2) Recall : Bed: Yes, no cue required (2) Memory/Recall Ability: Current season, That he or she is in a hsp/hsp unit, staff names Assessment Assessment Current Status: Fair Progress Treatment Plan Discontinue ST Speech Short Term Goals Short Term Goals Short Term Goals 1. The patient will demonstrate 80% accuracy with executive functioning and memory tasks with mild clinician verbal and visual cueing. Time Frame-STG: Ten Days. Speech Nutrition Teacher Goals Nutrition Teacher Goals 1. The patient will demonstrate improved cognitive linguistic skills for safe discharge to the least restrictive environment. Time Frame: Two Weeks. Speech-Plan Treatment Plan Speech Therapy Treatment Plan: Discontinue ST Treatment Duration: May 15, 2022 Frequency: Modified Program (IRF) Estimated Hrs Per Day: Other Rehab Potential: Fair Safety Risks/Education Teaching Recipient: Patient Teaching Methods: Discussion Response to Teaching: Reinforcement Needed Education Topics Provided: Recommendations Time Speech Therapy Time In: 09:00 Speech Therapy Time Out: 09:15 Total Billed Time: 15 Billed Treatment Time 1CLEO ELIZABETH ST May 28, 2022 12:31
[2022-05-28 12:45] VITALS: BP 114/57
--- NOTE | 2022-05-28 13:31 | Therapy Team Discharge Summary ---
Therapy Discharge Summary Discharge Recommendations Date of Discharge May 28, 2022 at 12:45 Physical Therapy Roll Left to Right (QC): 6 Sit to Lying (QC): 6 Lying to Sitting/Side of Bed(Q: 6 Sit to Stand (QC): 6 Chair/Lsf-oc-Pdmty Xfer(QC): 6 Toilet Transfer (QC): 6 Car Transfer (QC): 4 Does the Patient Walk: Yes Mode of Locomotion: Walk Anticipated Mode of Locomotion: Walk Walk 10 feet (QC): 6 Walk 50 ft with 2 Turns(QC): 6 Walk 150 ft (QC): 6 Walking 10ft on uneven surface: 4 Distance: 10' x 2 Gait Assistive Device: FWW Does the Pt Use a Wheelchair: No Wheel 50 ft with 2 turns (QC): 9 Wheel 150 ft (QC): 9 Type of Wheelchair: N/A #of Steps: 4 1 Step (curb) (QC): 4 4 Steps (QC): 4 12 Steps (QC): 88 Balance Sitting Static: Fair Balance Sitting Dynamic: Fair Balance-Standing Static: Poor Picking up an Object (QC): 4 (SBA without senior rd engineer) Occupational Therapy Pt admitted to ARU with perforated sigmoid colon s/p colectomy. At [facility], pt was independent with ADLs and functional mobility, no AD. Upon initial evaluation, pt required set up assistance with eating, CGA oral care, SBA showering, set up UE dressing, SBA LE dressing and footwear, and min A toileting. OT txs focused on increasing BUE strength and activity tolerance, as well as increasing safety and independence with ADLS. Pt made good progress towards goals attaining independent level with all except showering due to assistance with covering midline and dressings prior to showering. Pt discharged to SNF, d/c from OT. Decreased Activ Tolerance, Decreased UE Strength, Impaired I ADL's Eating (QC): 6 Oral Hygiene (QC): 6 Shower/Bathe Self (QC): 5 Upper Body Dressing (QC): 6 Lower Body Dressing (QC): 6 On/Off Footwear (QC): 6 Toileting Hygiene (QC): 6 PT Nursing Home Goals Teacher Of The Deaf/Hard Of Hearing Goals PT Nursing Home Goals Time Frame: Jun 09, 2022 Roll Left to Right (QC): 6 Sit to Lying (QC): 6 Lying-Sitting on Side/Bed(QC): 6 Sit to Stand (QC): 6 Chair/Nsf-ls-Gponh Xfer(QC): 6 Car Transfer (QC): 6 Does the Patient Walk: Yes Walk 10 feet (QC): 6 Walk 10ft-Uneven Surface(QC): 6 Walk 50ft with 2 Turns (QC): 6 Walk 150 ft (QC): 6 Wheel 50 feet with 2 turns (QC: 9 1 Step (curb) (QC): 6 4 Steps (QC): 6 12 Steps (QC): 6 Picking up an Object (QC): 6 OT Nursing Home Goals Teacher Of The Deaf/Hard Of Hearing Goals Time Frame: Jun 15, 2022 Eating (QC): 6 (met) Oral Hygiene (QC): 6 (met) Shower/Bathe Self (QC): 6 (not met) Upper Body Dressing (QC): 6 (met) Lower Body Dressing (QC): 6 (met) On/Off Footwear (QC): 6 (met) Toileting Hygiene (QC): 6 (met) Toilet/Commode Transfer (QC): 6 Additional Goals: 1-Demonstrate ADL Tasks, 2-Verbalize Understanding, 3-ImproveStrength/[place] 1=Demonstrate adherence to instructed precautions during ADL tasks. 2=Patient will verbalize/demonstrate understanding of assistive devices/modifications for ADL. 3=Patient will improve strength/tolerance for activity to enable patient to perform ADL's. Speech Teacher Of The Deaf/Hard Of Hearing Goals Teacher Of The Deaf/Hard Of Hearing Goals 1. The patient will demonstrate improved cognitive linguistic skills for safe discharge to the least restrictive environment. Time Frame: Two Weeks. TANNER SOMMER OT May 28, 2022 13:31
--- NOTE | 2022-05-28 13:34 | Therapy Team Discharge Summary ---
Therapy Discharge Summary Discharge Recommendations Date of Discharge May 28, 2022 at 12:45 Physical Therapy Patient came to rehab with abdominal pain/s/p bowel perforation. Upon evaluation patient performed rolling and supine <-> sit with min/mod assist, sit <-> stand and transfers max assist, car transfer max assist, and ambulated 10' with a rolling walker with max assist. Patient has been performing bed mobility and transfer training, balance and endurance training, functional strengthening, stair training, gait training, and education. Patient has made fair progress and has met all of her oysterman goals except for picking up an object from the floor, stairs, walking 10' over an uneven surface, and car transfer. Now, patient performs rolling and supine <-> sit with independence, sit <-> stand and transfers with independence, car transfer SBA, ambulate 300' with a rolling walker with independence (including 50' with at least 2 turns of 90 degrees but needs SBA for 10' over an uneven surface), can go up and down 4 steps using 2 handrails with SBA, and can slate picker an object from the floor with SBA without using a fence maker. Patient has been discharged from this facility and will be discharged from PT at this time. Roll Left to Right (QC): 6 Sit to Lying (QC): 6 Lying to Sitting/Side of Bed(Q: 6 Sit to Stand (QC): 6 Chair/Grh-au-Iridd Xfer(QC): 6 Toilet Transfer (QC): 6 Car Transfer (QC): 4 Does the Patient Walk: Yes Mode of Locomotion: Walk Anticipated Mode of Locomotion: Walk Walk 10 feet (QC): 6 Walk 50 ft with 2 Turns(QC): 6 Walk 150 ft (QC): 6 Walking 10ft on uneven surface: 4 Distance: 10' x 2 Gait Assistive Device: FWW Does the Pt Use a Wheelchair: No Wheel 50 ft with 2 turns (QC): 9 Wheel 150 ft (QC): 9 Type of Wheelchair: N/A #of Steps: 4 1 Step (curb) (QC): 4 4 Steps (QC): 4 12 Steps (QC): 88 Balance Sitting Static: Fair Balance Sitting Dynamic: Fair Balance-Standing Static: Poor Picking up an Object (QC): 4 (SBA without fence maker) Occupational Therapy Decreased Activ Tolerance, Decreased UE Strength, Impaired I ADL's Eating (QC): 6 Oral Hygiene (QC): 6 Shower/Bathe Self (QC): 5 Upper Body Dressing (QC): 6 Lower Body Dressing (QC): 6 On/Off Footwear (QC): 6 Toileting Hygiene (QC): 6 PT Investigation Division Sergeant Goals Investigation Division Sergeant Goals PT Investigation Division Sergeant Goals Time Frame: Jun 09, 2022 Roll Left to Right (QC): 6 Sit to Lying (QC): 6 Lying-Sitting on Side/Bed(QC): 6 Sit to Stand (QC): 6 Chair/Dai-gb-Oohgb Xfer(QC): 6 Car Transfer (QC): 6 Does the Patient Walk: Yes Walk 10 feet (QC): 6 Walk 10ft-Uneven Surface(QC): 6 Walk 50ft with 2 Turns (QC): 6 Walk 150 ft (QC): 6 Wheel 50 feet with 2 turns (QC: 9 1 Step (curb) (QC): 6 4 Steps (QC): 6 12 Steps (QC): 6 Picking up an Object (QC): 6 OT Half-Way Goals Investigation Division Sergeant Goals Time Frame: Jun 15, 2022 Eating (QC): 6 (met) Oral Hygiene (QC): 6 (met) Shower/Bathe Self (QC): 6 (not met) Upper Body Dressing (QC): 6 (met) Lower Body Dressing (QC): 6 (met) On/Off Footwear (QC): 6 (met) Toileting Hygiene (QC): 6 (met) Toilet/Commode Transfer (QC): 6 Additional Goals: 1-Demonstrate ADL Tasks, 2-Verbalize Understanding, 3-ImproveStrength/Simona 1=Demonstrate adherence to instructed precautions during ADL tasks. 2=Patient will verbalize/demonstrate understanding of assistive devices/modifications for ADL. 3=Patient will improve strength/tolerance for activity to enable patient to perform ADL's. Speech Investigation Division Sergeant Goals Half-Way Goals 1. The patient will demonstrate improved cognitive linguistic skills for safe discharge to the least restrictive environment. Time Frame: Two Weeks. TREVOR JACBOO PT May 28, 2022 13:34
--- NOTE | 2022-05-29 08:34 | Therapy Team Discharge Summary ---
Therapy Discharge Summary Discharge Recommendations Date of Discharge May 28, 2022 at 12:45 Physical Therapy Roll Left to Right (QC): 6 Sit to Lying (QC): 6 Lying to Sitting/Side of Bed(Q: 6 Sit to Stand (QC): 6 Chair/Tvj-sn-Zlbyr Xfer(QC): 6 Toilet Transfer (QC): 6 Car Transfer (QC): 4 Does the Patient Walk: Yes Mode of Locomotion: Walk Anticipated Mode of Locomotion: Walk Walk 10 feet (QC): 6 Walk 50 ft with 2 Turns(QC): 6 Walk 150 ft (QC): 6 Walking 10ft on uneven surface: 4 Distance: 10' x 2 Gait Assistive Device: FWW Does the Pt Use a Wheelchair: No Wheel 50 ft with 2 turns (QC): 9 Wheel 150 ft (QC): 9 Type of Wheelchair: N/A #of Steps: 4 1 Step (curb) (QC): 4 4 Steps (QC): 4 12 Steps (QC): 88 Balance Sitting Static: Fair Balance Sitting Dynamic: Fair Balance-Standing Static: Poor Picking up an Object (QC): 4 (SBA without take away worker) Occupational Therapy Decreased Activ Tolerance, Decreased UE Strength, Impaired I ADL's Eating (QC): 6 Oral Hygiene (QC): 6 Shower/Bathe Self (QC): 5 Upper Body Dressing (QC): 6 Lower Body Dressing (QC): 6 On/Off Footwear (QC): 6 Toileting Hygiene (QC): 6 Speech-Language Pathology Expression of Ideas/Wants: Expression (4) Understanding Verbal Content: Understands (4) Brief Interview-Mental Status: Yes Repetition of Three Words: Three (3) Temporal Orientation: Year: Correct (3) Temporal Orientation: Month: Accurate within 5 days(2) Temporal Orientation: Day: Correct (1) Recall : Wear to say "Sock": Yes, no cue required (2) Recall : Color: Yes, no cue required (2) Recall : Bed: Yes, no cue required (2) Memory/Recall Ability: Current season, That he or she is in a hsp/hsp unit, staff names PT Care Home Goals Biodiesel Processing Technician Goals PT Care Home Goals Time Frame: Jun 09, 2022 Roll Left to Right (QC): 6 Sit to Lying (QC): 6 Lying-Sitting on Side/Bed(QC): 6 Sit to Stand (QC): 6 Chair/Vtk-et-Iocrs Xfer(QC): 6 Car Transfer (QC): 6 Does the Patient Walk: Yes Walk 10 feet (QC): 6 Walk 10ft-Uneven Surface(QC): 6 Walk 50ft with 2 Turns (QC): 6 Walk 150 ft (QC): 6 Wheel 50 feet with 2 turns (QC: 9 1 Step (curb) (QC): 6 4 Steps (QC): 6 12 Steps (QC): 6 Picking up an Object (QC): 6 OT Biodiesel Processing Technician Goals Care Home Goals Time Frame: Jun 15, 2022 Eating (QC): 6 (met) Oral Hygiene (QC): 6 (met) Shower/Bathe Self (QC): 6 (not met) Upper Body Dressing (QC): 6 (met) Lower Body Dressing (QC): 6 (met) On/Off Footwear (QC): 6 (met) Toileting Hygiene (QC): 6 (met) Toilet/Commode Transfer (QC): 6 Additional Goals: 1-Demonstrate ADL Tasks, 2-Verbalize Understanding, 3- ImproveStrength/Simona 1=Demonstrate adherence to instructed precautions during ADL tasks. 2=Patient will verbalize/demonstrate understanding of assistive devices/modifications for ADL. 3=Patient will improve strength/tolerance for activity to enable patient to perform ADL's. Speech Biodiesel Processing Technician Goals Biodiesel Processing Technician Goals 1. The patient will demonstrate improved cognitive linguistic skills for safe discharge to the least restrictive environment. NOT MET: Expression of Ideas/Wants: Expression (4) Understanding Verbal Content: Understands (4) Brief Interview-Mental Status: Yes Repetition of Three Words: Three (3) Temporal Orientation: Year: Correct (3) Temporal Orientation: Month: Accurate within 5 days(2) Temporal Orientation: Day: Correct (1) Recall : Wear to say "Sock": Yes, no cue required (2) Recall : Color: Yes, no cue required (2) Recall : Bed: Yes, no cue required (2) Memory/Recall Ability: Current season, That he or she is in a hsp/hsp unit, staff names Time Frame: Two Weeks. BOO TUCKER May 29, 2022 08:34
--- NOTE | 2022-05-30 11:02 | Physical Therapy Daily Note ---
PT Daily Note-Current Subjective Pt. agrees to Rx. NO c/o Pain Location: No Pain Reported Mental Status Patient Orientation: Normal For Age Attachments: Colostomy/Ileostomy Transfers SCALE: Activities may be completed with or without assistive devices. 8-Iosqkllfun-lemtztt completes the activity by him/herself with no assistance from a helper. 5-Set-up or Clean-up Assistance-helper sets up or cleans up; patient completes activity. Rhodell assists only prior to or following the activity. 4-Supervision or Touching Assistance-helper provides verbal cues and/or touching/steadying and/or contact guard assistance as patient completes activity. Assistance may be provided throughout the activity or intermittently. 3-Partial/Moderate Assistance-helper does LESS THAN HALF the effort. Rhodell lifts, holds or supports trunk or limbs, but provides less than half the effort. 2-Substantial/Maximal Assistance-helper does MORE THAN HALF the effort. Rhodell lifts or holds trunk or limbs and provides more than half the effort. 8-Gslsfkvdk-ityczr does ALL the effort. Patient does none of the effort to complete the activity. Or, the assistance of 2 or more helpers is required for the patient to complete the activity. If activity was not attempted, code reason: 7-Patient Refused. 9-Not Applicable-not attempted and the patient did not perform the activity before the current illness, exacerbation or injury. 10-Not Attempted due to Environmental Limitations-(lack of equipment, weather restraints, etc.). 88-Not Attempted due to Medical Conditions or Safety Concerns. all TRFs indep Weight Bearing Full Weight Bearing Full Weight Bearing Exercises Supine Ex: Ankle pumps, Quad Set, Rolling, Glut sets, Lower trunk rotation, Heel Slides, Short Arc Quads, Scooting, Straight leg raise, Hip abd/add Supine Reps: 20 Assessment Current Status: Good Progress PT Shovel Mechanic Goals Shovel Mechanic Goals PT Shovel Mechanic Goals Time Frame: Jun 09, 2022 Roll Left & Right (QC): 6 Sit to Lying (QC): 6 Lying-Sitting on Side/Bed(QC): 6 Sit to Stand (QC): 6 Chair/Dfd-go-Nixoz Xfer(QC): 6 Toilet Transfer (QC): 6 Car Transfer (QC): 6 Does the Patient Walk: Yes Walk 10 feet (QC): 6 Walk 50ft with 2 Turns (QC): 6 Walk 150 ft (QC): 6 Walking 10ft on Uneven Surface: 6 1 Step (curb) (QC): 6 4 Steps (QC): 6 12 Steps (QC): 6 Picking up an Object (QC): 6 Wheel 50 feet with 2 turns (QC: 9 Wheel 150 feet: 9 PT Plan Treatment/Plan Treatment Plan: Continue Plan of Care Treatment Plan: Bed Mobility, Education, Functional Activity Simona, Functional Strength, Gait, Safety, Therapeutic Exercise, Transfers Treatment Duration: Jun 09, 2022 Frequency: At least 5 of 7 days/Wk (IRF) Estimated Hrs Per Day: 1.5 hours per day Patient and/or Family Agrees t: Yes Safety Risks/Education Patient Education: Transfer Techniques, Correct Positioning, Safety Issues Teaching Recipient: Patient Time/GCodes Time In: 1415 Time Out: 1430 Total Billed Treatment Time: 15 Total Billed Treatment 1,EX15m late entry for Rx rendered on 05-16-2022 REJI Pereyra PTA, PTA May 30, 2022 11:02
--- NOTE | 2022-05-30 11:05 | Physical Therapy Daily Note ---
PT Daily Note-Current Subjective Pt. agrees to Rx, but wants to walk and go to btm . Pain Location: No Pain Reported Mental Status Patient Orientation: Normal For Age Attachments: Colostomy/Ileostomy Transfers SCALE: Activities may be completed with or without assistive devices. 0-Mwezsezfxc-qhzzyqc completes the activity by him/herself with no assistance from a helper. 5-Set-up or Clean-up Assistance-helper sets up or cleans up; patient completes activity. Underwood assists only prior to or following the activity. 4-Supervision or Touching Assistance-helper provides verbal cues and/or touching/steadying and/or contact guard assistance as patient completes activity. Assistance may be provided throughout the activity or intermittently. 3-Partial/Moderate Assistance-helper does LESS THAN HALF the effort. Underwood lifts, holds or supports trunk or limbs, but provides less than half the effort. 2-Substantial/Maximal Assistance-helper does MORE THAN HALF the effort. Underwood lifts or holds trunk or limbs and provides more than half the effort. 0-Tzsemynpt-fdsjwq does ALL the effort. Patient does none of the effort to complete the activity. Or, the assistance of 2 or more helpers is required for the patient to complete the activity. If activity was not attempted, code reason: 7-Patient Refused. 9-Not Applicable-not attempted and the patient did not perform the activity before the current illness, exacerbation or injury. 10-Not Attempted due to Environmental Limitations-(lack of equipment, weather restraints, etc.). 88-Not Attempted due to Medical Conditions or Safety Concerns. on off toilet, in out bed and on off chair mod I Weight Bearing Full Weight Bearing Full Weight Bearing Gait Training Does the Patient Walk?: Yes Gait Assistive Device: FWW gait 100 ft , 50 ft FWW CGA to SBA Exercises Seated Therapy Exercises: Ankle pumps, Sit to stand, Long arc quads, Hip flexion Seated Reps: 15 Assessment Current Status: Good Progress PT Counselor At Law Goals Counselor At Law Goals PT [facility] Goals Time Frame: Jun 09, 2022 Roll Left & Right (QC): 6 Sit to Lying (QC): 6 Lying-Sitting on Side/Bed(QC): 6 Sit to Stand (QC): 6 Chair/Wqp-nm-Qergy Xfer(QC): 6 Toilet Transfer (QC): 6 Car Transfer (QC): 6 Does the Patient Walk: Yes Walk 10 feet (QC): 6 Walk 50ft with 2 Turns (QC): 6 Walk 150 ft (QC): 6 Walking 10ft on Uneven Surface: 6 1 Step (curb) (QC): 6 4 Steps (QC): 6 12 Steps (QC): 6 Picking up an Object (QC): 6 Wheel 50 feet with 2 turns (QC: 9 Wheel 150 feet: 9 PT Plan Treatment/Plan Treatment Plan: Continue Plan of Care Treatment Plan: Bed Mobility, Education, Functional Activity Simona, Functional Strength, Gait, Safety, Therapeutic Exercise, Transfers Treatment Duration: Jun 09, 2022 Frequency: At least 5 of 7 days/Wk (IRF) Estimated Hrs Per Day: 1.5 hours per day Patient and/or Family Agrees t: Yes Safety Risks/Education Patient Education: Gait Training, Transfer Techniques, Correct Positioning Teaching Recipient: Patient Response to Teaching: Reinforcement Needed Time/GCodes Time In: 1415 Time Out: 1430 Total Billed Treatment Time: 15 Total Billed Treatment 1,FA15m late entry , Rx rendered on 05-17-2022 LASHONDA Thakkar LEE A PTA May 30, 2022 11:05
== END 2022-05-28 12:45 | DRG 92 ==
PROVIDERS: ADMIT Internal Medicine; ATTEND Internal Medicine
DX: G72.89 Other specified myopathies (principal); D62 Acute posthemorrhagic anemia; T81.41XA Infection following a procedure, superficial incisional surgical site, initial encounter; L03.311 Cellulitis of abdominal wall; Z93.3 Colostomy status; Z48.815 Encounter for surgical aftercare following surgery on the digestive system; E78.00 Pure hypercholesterolemia, unspecified; I10 Essential (primary) hypertension; Z20.822 Contact with and (suspected) exposure to COVID-19; F41.9 Anxiety disorder, unspecified; I48.0 Paroxysmal atrial fibrillation; F32.A Depression, unspecified; N28.9 Disorder of kidney and ureter, unspecified; A49.02 Methicillin resistant Staphylococcus aureus infection, unspecified site; R11.0 Nausea; Z88.5 Allergy status to narcotic agent; Z88.2 Allergy status to sulfonamides; Z88.8 Allergy status to other drugs, medicaments and biological substances
CPT/HCPCS: 36410; 36415; 71045; 76937; 80048; 80053; 84484; 85025; 85027; 87070; 87077; 87186; 87205; 87636; 93005; 93880; 94760

== ENCOUNTER 2022-06-01 16:52 | Emergency (ER) | payer MEDICARE, OTHER ==
[~2022-06-01] VITALS: Ht 154.9 cm; Wt 54.4 kg
[~2022-06-01 16:52] MED LIST changes: +ALPR.25T PO; +APIX5TAB PO; +BENZ100C18 PO; +DOXY100T2 PO; +MIRT-47 PO; +ONDA4TAB11 PO; +OXC5T PO; +PANT40TA52 PO
[2022-06-01 17:00] VITALS: BP 117/77
--- NOTE | 2022-06-01 17:25 | ED General ---
General Chief Complaint: Post OP Complications/Pain Stated Complaint: POST OP WOUND CHECK Source of Information: Patient Exam Limitations: No Limitations History of Present Illness Date Seen by Provider: Jun 01, 2022 Time Seen by Provider: 17:23 Initial Comments to ER by son from [place] in [facility] where she just arrived earlier today. On skin exam staff noticed her to have [facility] dehiscence of the abdominal wound. She had open resection of sigmoid colon for perforation and creation of colostomy earlier this month. Staff was concerned about the appearance of this wound. She did have a postoperative abdominal wall abscess and had a few feng removed by Dr. Walker for that reason. Timing/Duration: Other Severity: Moderate Associated Systoms: Denies Symptoms Allergies and Home Medications Allergies Coded Allergies: Sulfa (Sulfonamide Antibiotics) (Verified Allergy, Unknown, 05/14/22) citalopram (Verified Allergy, Unknown, "night terrors", 05/14/22) "night terrors" codeine (Verified Allergy, Unknown, 05/14/22) "dizziness" Patient Home Medication List Home Medication List Reviewed: Yes ALPRAZolam (Xanax Tablet) 0.25 Mg Tab, 0.25 MG PO Q8H PRN for ANXIETY Prescribed by: GABRIEL CONNELL on 05/28/22 105 Apixaban (Eliquis) 5 Mg Tablet, 5 MG PO BID Prescribed by: GABRIEL CONNELL on 05/28/22 105 Benzonatate (Tessalon Perles) 100 Mg Capsule, 200 MG PO TID PRN for COUGH Prescribed by: GABRIEL CONNELL on 05/28/22 105 Doxycycline Hyclate (Doxycycline Hyclate) 100 Mg Tablet, 100 MG PO BID Prescribed by: GABRIEL CONNELL on 05/28/22 105 Lutein (Lutein) 20 Mg Tablet, 20 MG PO DAILY Prescribed by: GABRIEL CONNELL on 05/28/22 105 Mirtazapine (Mirtazapine) 15 Mg Tab.rapdis, 7.5 MG PO HS Prescribed by: GABRIEL CONNELL on 05/28/22 105 Ondansetron (Ondansetron Odt) 4 Mg Tab.rapdis, 4 MG PO AC Prescribed by: GABRIEL CONNELL on 05/28/22 105 Oxycodone Hcl (Oxyir Tablet) 5 Mg Tab, 5-10 MG PO Q4H PRN for PAIN MODERATE TO SEVERE Prescribed by: GABRIEL CONNELL on 05/28/22 105 Pantoprazole Sodium (Pantoprazole Sodium) 40 Mg Tablet.dr, 40 MG PO DAILY Prescribed by: GABRIEL CONNELL on 05/28/22 105 Simvastatin (Simvastatin) 40 Mg Tablet, 40 MG PO DAILY Prescribed by: GABRIEL CONNELL on 05/28/22 105 Discontinued Medications Cholecalciferol (Vitamin D3) (Vitamin D3) 50 Mcg (2000 Unit) Capsule, 50 MCG PO DAILY, (Reported) Entered as Reported by: JESUS FERRARO on 05/09/22 152 Fish Oil/Dha/Epa (Fish Oil 1,200 mg Fish Oil) 1,200 Mg-144 Mg-216 Mg Capsule, 1 EACH PO DAILY, (Reported) Entered as Reported by: JESUS FERRARO on 05/09/221522 Magnesium Oxide (Magnesium) 400 Mg Magnesium Tablet, 400 MG PO DAILY, (Reported) Entered as Reported by: JESUS FERRARO on 05/09/221522 Meloxicam (Meloxicam) 15 Mg Tablet, 15 MG PO DAILY, (Reported) Entered as Reported by: JESUS FERRARO on 05/09/221522 Mv-Mn/Folic Acid/Calcium/Vit K (Women's 50 Plus Multivit Tab) 400 Mcg-500 Mg Calcium-20 Mcg Tablet, 1 EACH PO DAILY, (Reported) Entered as Reported by: JESUS FERRARO on 05/09/221522 Ubidecarenone (Coq-10) 30 Mg Capsule, 30 MG PO DAILY, (Reported) Entered as Reported by: JESUS FERRARO on 05/09/221522 Vitamin B Complex (B Complex) 1 Each Tablet, 1 EACH PO DAILY, (Reported) Entered as Reported by: JESUS FERRARO on 05/09/221522 Zinc (Zinc) 50 Mg Tablet, 50 MG PO DAILY, (Reported) Entered as Reported by: JESUS FERRARO on 05/09/221522 Review of Systems Review of Systems Constitutional: see HPI EENTM: see HPI Respiratory: no symptoms reported Cardiovascular: no symptoms reported Genitourinary: no symptoms reported Musculoskeletal: see HPI Skin: no symptoms reported Psychiatric/Neurological: No Symptoms Reported Hematologic/Lymphatic: No Symptoms Reported Past Rvawgks-Tylrdj-Fpdefa Hx Past Medical History Surgery/Hospitalization HX: Tonsillectomy, Partial Lt breast removed d/t mastitis, , Fx nose, Colostomy, Cataract surgery Abdominal, Section, Orthopedic Currently Using CPAP: No Currently Using BIPAP: No High Cholesterol, Hypertension Anxiety Family Medical History No Pertinent Family Hx Physical Exam Vital Signs Capillary Refill : Height, Weight, BMI Height: '" Weight: lbs. oz. kg; 27.25 BMI Method: General Appearance: No Apparent Distress, WD/WN Eyes: Bilateral Eye Normal Inspection, Bilateral Eye PERRL, Bilateral Eye EOMI Neck: Full Range of Motion, Normal Inspection Respiratory: No Accessory Muscle Use, No Respiratory Distress Cardiovascular: Regular Rate, Rhythm, Normal Peripheral Pulses Gastrointestinal: Normal Bowel Sounds, Non Tender, Soft Extremity: Normal Capillary Refill, Normal Inspection Neurologic/Psychiatric: Alert, Oriented x3 Skin: Normal Color, Warm/Dry, Other (Midline abdominal incision is intact at the superior part without surrounding cellulitis changes. The inferior aspect shows a dehiscence of the skin edges but this appears to have an intact muscle layer. The wound edges have red granulation tissue. Small amount of purulent drainage in the inferior aspect.) Procedures/Interventions Date of ETT Placement: May 08, 2022 Progress/Results/Core Measures Suspected Sepsis SIRS Temperature: Pulse: Respiratory Rate: Blood Pressure / Mean: Results/Orders My Orders Orders - KIM MOE APRN Wound Culture (06/01/22 17:15) Tramadol Tablet (Ultram Tablet) (06/01/22 17:30) Vital Signs/I&O Capillary Refill : Departure Communication (Admissions) 1733-Dr. Walker and Dr. Moralez have been here to evaluate the patient and have evaluated the wound. Good with discharged home he will follow-up next week. Recommends wet-to-dry dressings Impression Primary Impression: Abnormal surgical wound Disposition: 01 HOME, SELF-CARE Condition: Stable Departure-Patient Inst. Decision time for Depature: 17:31 Referrals: NO,LOCAL PHYSICIAN (PCP/Family) Primary Care Physician Patient Instructions: Wound Care Add. Discharge Instructions: 1. Return to ER for any concerns 2. Have your nursing staff change this dressing once a day. This is 4 x 4 gauze moistened with saline packed into the wound and then covered with dry gauze and taped into place. Continue with current medications. Call Dr. Walker's office for an appointment later next week for recheck. KIM MOE APRN Jun 01, 2022 17:25
--- NOTE | 2022-06-01 22:04 | Progress Note - Surgery ---
Subjective Date Seen by a Provider: Jun 01, 2022 Time Seen by a Provider: 17:34 Subjective/Events-last exam Report of dehiscence of abdominal wound from care facility. Brought to ER by family. Had suarez procedure, and lower incsion abscess some feng removed when in hospital. Patient colostomy functioning and no other concerns. Objective Exam Vital Signs Date Time Temp Pulse Resp B/P (MAP) Pulse Ox O2 Delivery O2 Flow Rate FiO2 06/01/22 17:00 37.2 86 20 117/77 (90) 95 Capillary Refill : General Appearance: No Apparent Distress, WD/WN, Chronically ill HEENT: PERRL/EOMI Neck: Full Range of Motion, Normal Inspection Respiratory: Chest Non Tender, No Accessory Muscle Use, No Respiratory Distress Cardiovascular: Regular Rate, Rhythm, Normal Peripheral Pulses Gastrointestinal: soft, other (incision no erythema, lower incsion with webbing of skin and some granulation tissue present in wound with minimal thin purulent fluid present, fascia intact) Extremity: Normal Capillary Refill, Normal Inspection Neurologic/Psychiatric: Alert, Oriented x3 Skin: Normal Color, Warm/Dry, Other (Midline abdominal incision is intact at the superior part without surrounding cellulitis changes. The inferior aspect shows a dehiscence of the skin edges but this appears to have an intact muscle layer. The wound edges have red granulation tissue. Small amount of purulent drainage in the inferior aspect.) Lymphatic: No Adenopathy Assessment/Plan Assessment/Plan Assessment/Plan s/p aida abscess lower incision which was previously opened. broke up webbing on lower incision needs daily wet to dry dressings will follow up in 1 week with me if needed earlier for any concerns informed to call and be seen. patient and son agree with plan. ARUN SHERMAN DO Jun 01, 2022 22:04
== END 2022-06-01 17:53 | disposition home or self-care (01) ==
LOC: EDUNIT# 16:52 → ER 16:56
DX: T81.89XA Other complications of procedures, not elsewhere classified, initial encounter (principal)
CPT/HCPCS: 87070; 87205; 99283

== ENCOUNTER → 2022-08-29 | Outpatient (CLI) | payer MEDICARE, OTHER | LOC: ORTHO 12:55 | PROVIDERS: ATTEND Orthopaedic Surgery | DX: M25.571 Pain in right ankle and joints of right foot (principal); M79.641 Pain in right hand; M79.642 Pain in left hand | CPT/HCPCS: 85652; 86038; 86141; 86431; G0463; 36415; 99213 ==

== ENCOUNTER → 2022-11-01 | Outpatient (CLI) | payer MEDICARE, OTHER | LOC: ORTHO 10:28 | PROVIDERS: ATTEND Orthopaedic Surgery | DX: M17.0 Bilateral primary osteoarthritis of knee (principal) ==

== ENCOUNTER 2023-02-27 05:38 | Outpatient (CLI) | payer MEDICARE, OTHER ==
[~2023-02-27] VITALS: Ht 155 cm; Wt 62.0 kg
[2023-03-04] MEDS ORDERED: MECL-149 PO (15:00)
[2023-03-04] MEDS ORDERED: MELA3CAP2 PO (15:00)
[2023-03-04] MEDS ORDERED: MULT-1136 PO (15:00)
[2023-03-04] MEDS ORDERED: BUSP10TA95 PO (15:00)
== END 2023-03-04 15:13 | disposition home or self-care (01) ==
LOC: PREOP 05:38
PROVIDERS: ATTEND Surgery
DX: Z01.818 Encounter for other preprocedural examination (principal)

== ENCOUNTER → 2023-03-07 | Outpatient (CLI) | payer MEDICARE, OTHER ==
[~2023-03-07] MED LIST changes: +BUSP10TA95 PO; +MECL-149 PO; +MELA3CAP2 PO; +MULT-1136 PO
== END ==
LOC: ORTHO 12:39
PROVIDERS: ATTEND Orthopaedic Surgery
DX: M17.0 Bilateral primary osteoarthritis of knee (principal)

== ENCOUNTER → 2023-06-11 | Outpatient (CLI) | payer MEDICARE, OTHER | LOC: ORTHO 13:27 | PROVIDERS: ATTEND Orthopaedic Surgery | DX: M17.0 Bilateral primary osteoarthritis of knee (principal) ==